=== PATIENT | male | born 1950 | race Caucasian/White ===

== ENCOUNTER 2020-03-04 19:00 | Inpatient (IN) | payer MEDICARE ==
[2020-03-04] MEDS ORDERED: SODIUM CHLORIDE 0.9% 1,000 ML IV STA (19:13)
[2020-03-04] MEDS ORDERED: HEPARIN SODIUM,PORCINE 5,000 UNIT/ML 1 ML VIAL IV STA (19:13)
[2020-03-04] MEDS ORDERED: HEPARIN SOD,PORK IN 0.45% NACL 25,000 UNIT in 0.45% NACL 1 250ML.BAG IV SCH (19:15)
--- NOTE | 2020-03-04 19:20 | ED ---
General Adult HPI - General Chief complaint: Chest Pain Stated complaint: chest pain Time Seen by Provider: 03/04/20 19:12 Source: patient, EMS Mode of arrival: EMS Limitations: no limitations - History of Present Illness Initial comments: Dictation was produced using [employer] dictation software. please excuse any grammatical, word or spelling errors. This patient was cared for during a federal and state declared state of emergency secondary to Covid 19 Chief Complaint: 69-year-old male past medical history coronary artery disease, LAD stent presents with chest pain History of Present Illness: An is a 69-year-old male presents today with ACS- type symptoms starting at 10 or 11 PM yesterday. Patient reports diaphoresis. States that the pain radiates to his right jaw. He does have established care with manager library Dr. Gomez. Patient states the pain is a pressure to his anterior chest as if somebody was grabbing and squeezing his heart. Patient does also admit to feeling clammy. Denies any cough. No numbness and paresthesias to the arms or legs. Denies any radiation of symptoms to the back. EMS was called. EMS provided patient with nitroglycerin and aspirin. He states that his pain is improved after the nitroglycerin. The ROS documented in this emergency department record has been reviewed and confirmed by me. Those systems with pertinent positive or negative responses have been documented in the HPI. All other systems are other negative and/or noncontributory. PHYSICAL EXAM: General Impression: Alert and oriented x3, acute distress secondary to pain, diaphoretic HEENT: Normocephalic atraumatic, extra-ocular movements intact, pupils equal and reactive to light bilaterally, mucous membranes moist. Cardiovascular: Heart regular rate and rhythm Chest: Able to complete full sentences, no retractions, no tachypnea Abdomen: abdomen soft, non-tender, non-distended, no organomegaly Musculoskeletal: Pulses present and equal in all extremities, no peripheral edema Motor: no focal deficits noted Neurological: CN II-XII grossly intact, no focal motor or sensory deficits noted Skin: Intact with no visualized rashes Psych: Normal affect and mood ED course: 61-year-old male with ACS-type symptoms. EKG was obtained showing ST elevations in lead V2 to V4 concerning for septal myocardial infarction. Code STEMI paged. Patient received aspirin by prehospital staff. Discussed patient case with Dr. Vegas was aware of patient. Patient will be disposition to catheterization lab. Patient started on heparin. Patient placed on library monitor with pads applied. Patient be admitted to [facility] pending discussion with accepting hospitalist. EKG interpretation: Ventricular rate 70, normal sinus rhythm, AR interval 114, QRS 86, QTC 444. No AR prolongation, no QTC prolongation, ST elevations in lead V2 through V5 consistent with ST segment elevation TN. - Related Data Home Medications Medication Instructions Recorded Confirmed Albuterol Inhaler (Mhu) [Ventolin 1 - 2 puff INHALATION Q6HR PRN 04/11/15 04/13/15 Hfa Inhaler (Mhu)] HYDROcodone/APAP 10-325MG [Rudyard 1 each PO Q4HR PRN 04/11/15 04/13/15 10-325] Lisinopril [Prinivil] 20 mg PO DAILY 04/11/15 04/13/15 Simvastatin [Zocor] 40 mg PO HS 04/11/15 04/13/15 glipiZIDE [Glucotrol] 10 mg PO BID 04/11/15 04/13/15 Allergies Allergy/AdvReac Type Severity Reaction Status Date / Time No Known Allergies Allergy Verified 04/11/15 10:37 Review of Systems ROS Statement: Those systems with pertinent positive or pertinent negative responses have been documented in the HPI. ROS Other: All systems not noted in ROS Statement are negative. Past Medical History Past Medical History: Diabetes Mellitus, Hyperlipidemia, Hypertension History of Any Multi-Drug Resistant Organisms: None Reported Past Surgical History: Back Surgery, Heart Catheterization With Stent, Orthopedic Surgery Additional Past Surgical History / Comment(s): NECK SURGERY Past Anesthesia/Blood Transfusion Reactions: No Reported Reaction Date of Last Stent Placement:: 2011 Past Psychological History: No Psychological Hx Reported Smoking Status: Current every day smoker Past Alcohol Use History: None Reported Past Drug Use History: Marijuana - Past Family History Mother Family Medical History: No Reported History General Exam Limitations: no limitations Course Vital Signs 03/04/20 19:06 Temperature 98.7 F Pulse Rate 80 Respiratory 18 Rate Blood Pressure 133/118 O2 Sat by Pulse 94 L Oximetry Disposition Clinical Impression: STEMI (ST elevation myocardial infarction) Disposition: ADMITTED IP TO THIS HOSP Condition: Critical Referrals: Brent Jensen III, MD [Primary Care Provider] - 1-2 days Decision Time: 19:24
[2020-03-04] MEDS ORDERED: NALOXONE 0.4 MG/ML 1 ML VIAL IV PRN (19:22)
[2020-03-04 19:32] LABS: Basophils # (A) 0.1 k/uL (0-0.2); Basophils % (A) 1 %; Eosinophils # (A) 0.3 k/uL (0-0.7); Eosinophils % (A) 3 %; HCT 38.8 % (39.0-53.0); HGB 12.6 gm/dL (13.0-17.5); Lymphocytes % (A) 26 %; MCH 31.8 pg (25.0-35.0); MCHC 32.4 g/dL (31.0-37.0); MCV 98.3 fL (80.0-100.0); Mean Platelet Volume 7.6; Monocytes # (A) 0.7 k/uL (0-1.0); Monocytes % (A) 6 %; Neutrophils # (A) 7.3 k/uL (1.3-7.7); Neutrophils % (A) 63 %; Platelet Count 155 k/uL (150-450); RBC 3.95 m/uL (4.30-5.90); RDW 13.5 % (11.5-15.5); WBC 11.5 k/uL (3.8-10.6)
[2020-03-04] MEDS ORDERED: NITROGLYCERIN OINT 1 INCH/GM PACKET TOPICAL STA (19:35)
[2020-03-04] MEDS ORDERED: SODIUM CHLORIDE 0.9% 500 ML 500 ML IV ONE (19:40)
[2020-03-04] MEDS ORDERED: IV FLUID CONTINUATION 800 ML IV ONE (19:40)
[2020-03-04 19:45] LABS: ALT 21 U/L (4-49); AST 36 U/L (17-59); African American GFR (CKD) >90 (>60 ml/min/1.73 sqM); Albumin 3.9 g/dL (3.5-5.0); Alkaline Phosphatase 86 U/L (38-126); Anion Gap 6 mmol/L; Blood Urea Nitrogen 19 mg/dL (9-20); Calcium 9.1 mg/dL (8.4-10.2); Carbon Dioxide 26 mmol/L (22-30); Chloride 104 mmol/L (98-107); Glucose 229 mg/dL (74-99); Non-African American GFR(CKD) >90 (>60 ml/min/1.73 sqM); Sodium 136 mmol/L (137-145); Total Bilirubin 0.8 mg/dL (0.2-1.3); Total Protein 6.7 g/dL (6.3-8.2)
[2020-03-04 19:49] LABS: Partial Thromboplastin Time 24.3 sec (22.0-30.0); Prothrombin Time 10.7 sec (9.0-12.0)
[2020-03-04] MEDS ORDERED: fentaNYL (PF) 50 MCG/ML 2 ML AMP ONE ×2 (19:49→20:12)
[2020-03-04] MEDS ORDERED: VERAPAMIL 2.5 MG/ML 2 ML AMP ONE (19:50)
[2020-03-04] MEDS ORDERED: LIDOCAINE 1% INJ 10MG/ML (20 ML MDV) ONE (19:50)
[2020-03-04] MEDS ORDERED: fentaNYL (PF) 50 MCG/ML 2 ML AMP IV ONE ×2 (19:52→20:17)
[2020-03-04] MEDS ORDERED: LIDOCAINE 1% INJ 10MG/ML (20 ML MDV) SQ ONE (19:52)
[2020-03-04] MEDS ORDERED: VERAPAMIL SYRINGE (5 MG/10 ML) INTRAARTER ONE (19:54)
[2020-03-04] MEDS ORDERED: BIVALIRUDIN BOLUS 250 MG/50 ML IV ONE (19:55)
[2020-03-04] MEDS ORDERED: BIVALIRUDIN 250 MG in SODIUM CHLORIDE 0.9% 50 ML IV ONE ×2 (19:55→20:47)
[2020-03-04] MEDS ORDERED: TICAGRELOR 90 MG TAB PO ONE (19:57)
[2020-03-04] MEDS ORDERED: TICAGRELOR 90 MG TAB ONE (19:58)
[2020-03-04 20:05] LABS: Creatine Kinase MB 7.3 ng/mL (0.0-2.4)
[2020-03-04] MEDS ORDERED: MIDAZOLAM 2 MG/2 ML VIAL IV ONE (20:05)
[2020-03-04 20:15] LABS: Troponin I 0.604 ng/mL (0.000-0.034)
[2020-03-04] MEDS ORDERED: IOPAMIDOL-370 100ML BTL INJ ONE ×3 (20:18→21:08)
[2020-03-04] MEDS: MIDAZOLAM 2 MG/2 ML VIAL IV ONE ×3 (20:19→20:43)
[2020-03-04] MEDS ORDERED: HYDROmorphone 1 MG/ML 1 ML SYRINGE IVP ONE (20:40)
[2020-03-04] MEDS ORDERED: HYDROmorphone 1 MG/ML 1 ML SYRINGE ONE (20:40)
[2020-03-04] MEDS ORDERED: RX INFO: IV CONTRAST WAS GIVEN 1 EACH MISC MISCELLANE PRN (21:42)
[2020-03-04] MEDS ORDERED: NITROGLYCERIN SL TABS 0.4 MG TAB SUBLINGUAL PRN (21:42)
[2020-03-04] MEDS ORDERED: MAG HYDROX/AL HYDROX/SIMETH 30 ML CUP PO PRN (21:42)
[2020-03-04] MEDS ORDERED: SODIUM CHLORIDE 0.9% 1,000 ML IV SCH (21:45)
[2020-03-04 22:01] LABS: Glucose,Whole Blood 186 mg/dL (75-99)
[2020-03-04] MEDS ORDERED: ATROPINE SULFATE 0.1 MG/ML 10ML SYRINGE IV PRN (23:00)
[2020-03-04] MEDS: SODIUM CHLORIDE 0.9% 1,000 ML IV SCH (23:02)
--- NOTE | 2020-03-04 23:34 | CONS ---
CONSULTATION Mr. Brock is a 69-year-old male with known history of coronary artery disease who presented with symptoms of chest discomfort that started last night on and off. In the emergency room, his EKG was consistent with ST-segment elevation in leads V3, V4 and V5. The patient had a prior history of coronary artery disease, status post stenting 10 years ago. Details of that are not available. He has been followed by Dr. Gomez in the past but has not seen him in 2 years. He has a history of diabetes, hypertension, hyperlipidemia. He stopped smoking 2 years ago. He is dyspneic at this time. His pain was radiating to the jaw. He denies any dizziness or palpitation. No syncope. No PND. No orthopnea. No peripheral edema. MEDICATIONS: His medications include simvastatin, glipizide, lisinopril. REVIEW OF SYSTEMS: RESPIRATORY SYSTEM: He had dyspnea on exertion. No recent wheezing or cough. GI SYSTEM: No recent GI bleeding. No peptic ulcer disease. SYSTEM: No dysuria or hematuria. NERVOUS SYSTEM: No stroke or seizure. PHYSICAL EXAMINATION: He is a 69-year-old male, alert, oriented, in no apparent distress, sitting in the cardiac catheterization laboratory with mild discomfort. Heart rate in the 80s. HEAD: Normocephalic. Eyes: Sclerae anicteric. NECK: Good carotid upstroke. No bruit. No jugular venous distention. LUNGS: Clear to auscultation anteriorly. HEART: Regular rate, rhythm S1, S2. No S3. No rub. ABDOMEN: Soft, nontender. Positive bowel sounds. No organomegaly. EXTREMITIES: No edema. Intact distal pulses. EKG is consistent with an anteroseptal myocardial infarction. IMPRESSION: 1. Acute myocardial infarction. 2. History of hypertension. 3. Hyperlipidemia. 4. Diabetes mellitus. 5. Prior history of coronary artery disease. RECOMMENDATIONS: I have recommended proceeding with coronary angiography to assess his status and guide his treatment. The rationale behind the procedure, its risks and complications were discussed with the patient, who is in full understanding and agreement. Thank you for this consult. Will follow with you. MMODL / IJN: [id number] /
[2020-03-05] MEDS ORDERED: ZOLPIDEM 5 MG TAB PO PRN (00:30)
[2020-03-05] MEDS ORDERED: ALBUTEROL NEBULIZED 2.5 MG/3 ML INHALATION PRN ×2 (01:51→12:07)
[2020-03-05] MEDS: ONDANSETRON 4 MG/2 ML VIAL IVP PRN ×3 (03:34→20:23)
[2020-03-05 06:06] LABS: African American GFR (CKD) >90 (>60 ml/min/1.73 sqM); Anion Gap 6 mmol/L; Blood Urea Nitrogen 13 mg/dL (9-20); Calcium 8.8 mg/dL (8.4-10.2); Carbon Dioxide 24 mmol/L (22-30); Chloride 107 mmol/L (98-107); Cholesterol 127 mg/dL (<200); Glucose 183 mg/dL (74-99); HDL Cholesterol 57 mg/dL (40-60); LDL Cholesterol,Calculated 48 mg/dL (0-99); Non-African American GFR(CKD) >90 (>60 ml/min/1.73 sqM); Potassium 4.2 mmol/L (3.5-5.1); Sodium 137 mmol/L (137-145); Triglycerides 112 mg/dL (<150)
[2020-03-05] MEDS: INSULIN ASPART (NovoLOG) 100 UNIT/ML VIAL SQ SCH ×4 (07:04→20:21)
--- NOTE | 2020-03-05 07:44 | CC ---
CARDIAC CATHETERIZATION REPORT Mr. Brock is a 69-year-old male with a known history of coronary artery disease,history of hypertension, hyperlipidemia, diabetes mellitus, prior history of smoking, who presented with symptoms of chest discomfort and ST-segment elevation anteriorly. In view of that, recommendation made regarding cardiac catheterization. The procedures, risks, and complications were discussed with the patient who is in full understanding and agreement. PROCEDURE DETAILS: Patient was brought to medical lab technologist in the fasting semi-sedated state after receiving fentanyl and Benadryl and achieving moderate conscious sedated state, a 6-Czech sheath was introduced in the right radial artery. Selective right and left Carissa catheter were done using 6-Czech FL 3.5 guiding catheter and 6-Czech right Carissa catheter. After performing angioplasty and stenting of the LAD, images of the right coronary artery were performed. Following that, 5-Czech tight pigtail catheter was introduced into the left ventricle and pressures were calculated. Following that, catheter and sheath were removed. Hemostasis was obtained with deployment of a TR band. There was no immediate complication. Patient was returned to his room in stable condition. Of note, the patient had improvement in the ST-segment elevation as well as chest discomfort. FINDINGS: Fluoroscopy: There was severe calcification involving the left coronary system. LEFT MAIN: This is a short size vessel, large in caliber, bifurcating into left circumflex, left anterior descending artery, left main coronary artery is without any obstructive disease. LEFT ANTERIOR DESCENDING ARTERY: This vessel is subtotally occluded in the mid segment with 99% stenosis at the takeoff of diagonal branch, heavily calcified and tortuous. There is slow flow in the distal vessel. LEFT CIRCUMFLEX: This is a nondominant vessel giving rise to 2 obtuse marginal branch of moderate caliber. The left circumflex has diffuse intimal disease without any evidence of high-grade stenosis. RIGHT CORONARY ARTERY: This is a large dominant vessel bifurcating distally PDA and posterolateral segment branches. The stented segment in the mid right coronary artery is patent. There is a lesion beyond the stent of about 80%. The rest of the vessel has no high-grade stenosis. LEFT VENTRICULOGRAM: Left ventriculogram was not performed. HEMODYNAMICS: There was no gradient across the aortic valve. The left ventricular end-diastolic pressure was 24-28 mmHg. CONCLUSION: 1. Heavily calcified left coronary system. 2. Subtotally occluded mid LAD. 3. Significant disease in the mid right coronary artery distal to the prior stented segment. 4. Mild to moderate disease in the left circumflex. 5. Elevated left ventricular end-diastolic pressure. RECOMMENDATION: In view of findings and anatomy, I recommend proceeding with angioplasty and stenting of the left anterior descending artery. The procedure as well as risks and complications were discussed with the patient who is in full understanding and agreement. MMNELSON / GALEN: [id number] /
--- NOTE | 2020-03-05 07:47 | PTCA ---
PERCUTANEOUSTRANS CORORONARY ANGIOGRAPHY Mr. Brock is a 69-year-old male with a known history of coronary artery disease who presented with an anterior myocardial infarction, underwent cardiac catheterization, was found to have critical stenosis involving the mid left anterior descending artery in a heavily calcified segment. In view of that, recommendation regarding angioplasty and stenting, the procedures, risks, and complications were discussed with the patient who is in full understanding and agreement. PROCEDURE DETAILS: Using the 6-Armenian FL 3.5 guiding catheter after cannulating the left main, a 0.014 balanced medium weight J-wire was advanced across the lesion positioned distally. Attempt to advance a 2.5 x 12 mm Trek balloon were unsuccessful. That balloon was removed and a 1.5 x 8 mm Trek balloon was advanced and multiple inflations at 10 atmospheres were done. Following that, the balloon was removed and attempt to advance the 2.5 balloon were unsuccessful. At that time, a Radio Waveslla catheter was introduced and with the help of the catheter, the balloon was advanced and inflation at 8 atmospheres were done. Following that, the balloon was removed and attempt to advance a 2.5 x 15 mm Xience Mar and 2.5 x 8 mm Xience Mar were unsuccessful. Those stents were removed and a 2.0 x 8 mm Resolute [place] stent was advanced, deployed and dilated at 16 atmospheres. Following that, the balloon was removed and a 2.5 x 12 mm Xience Mra stent was advanced proximal to the first one and was dilated at 16 atmospheres. Following that, a 2.5 x 8 mm NC Trek balloon was advanced and inflation in the stents were done at maximum of 14 atmospheres. After the last inflation, after appropriate wait, the balloon and the guidewire were withdrawn back in the guiding catheter. Images were obtained, repeated. Those images reveal stable successful stenting. At that time, images of the right coronary system as well as left ventricle end-diastolic pressure was calculated. Following that, catheter and sheath were removed. Hemostasis was obtained with deployment of a TR band. There was no immediate complications. Patient was returned to his room in stable condition. Of note, the patient received Angiomax per protocol as well as oral loading dose of Brilinta. His chest discomfort and EKG changes improved at the end of the procedure. During the procedure, patient was complaining from severe chronic back discomfort. RESULTS: Successful stenting of the mid left anterior descending artery with reduction of stenosis from 99% to 0% in a heavily calcified segment. RECOMMENDATION: Patient will be continued on aspirin, Brilinta, beta yaz, ANDREEA inhibitor and statin. The importance of dual antiplatelet treatment were discussed with the patient who is in full understanding and agreement. He will need to be evaluated down the road regarding the need to undergo revascularization of his right coronary artery. Duration of procedure is 94 minutes. CONNOR / BRYSONN: [id number] /
[2020-03-05] MEDS ORDERED: FUROSEMIDE 10 MG/ML 4 ML VIAL IV STA (08:23)
--- NOTE | 2020-03-05 08:48 | XR ---
EXAMINATION TYPE: XR chest 1V portable DATE OF EXAM: 03/05/2020 HISTORY: SOB. REFERENCE: Previous study dated 04/11/2015. FINDINGS: There is been a previous ACDF of the lower cervical spine. The heart is not enlarged. Pleural spaces are clear. There are coarse increased interstitial markings throughout the lungs. This may reflect fibrosis. Atypical pneumonia could have a similar appearance. I see no lobar consolidation. IMPRESSION: COARSE INTERSTITIAL CHANGE THROUGHOUT THE LUNGS MAY REFLECT FIBROSIS. ATYPICAL PNEUMONIA COULD HAVE A SIMILAR APPEARANCE.
[2020-03-05] MEDS ORDERED: METOPROLOL TARTRATE 25 MG TAB PO SCH (09:00)
[2020-03-05] MEDS ORDERED: LISINOPRIL 5 MG TAB PO SCH (09:00)
[2020-03-05] MEDS: LISINOPRIL 10 MG TAB PO SCH (09:07)
[2020-03-05] MEDS: METOPROLOL TARTRATE 25 MG TAB PO SCH ×3 (09:07→20:20)
[2020-03-05] MEDS: TICAGRELOR 90 MG TAB PO SCH ×2 (09:07→20:35)
[2020-03-05] MEDS: glipiZIDE 10 MG TAB PO SCH ×2 (09:07→20:20)
[2020-03-05] MEDS: ASPIRIN 81 MG PO SCH (09:07)
[2020-03-05] MEDS: NITROGLYCERIN OINT 1 INCH/GM PACKET TOPICAL SCH ×3 (09:08→23:54)
[2020-03-05] MEDS: SPIRONOLACTONE 25 MG TAB PO SCH (09:08)
[2020-03-05] MEDS: HEPARIN SODIUM,PORCINE 5,000 UNIT/ML 1 ML VIAL SQ SCH ×2 (09:31→20:21)
[2020-03-05 09:37] LABS: Glucose,Whole Blood 187 mg/dL (75-99)
--- NOTE | 2020-03-05 10:53 | PN ---
PROGRESS NOTE Peter is a 69-year-old gentleman with history of coronary artery disease, status post prior angioplasty, peripheral vascular disease, who presented to hospital yesterday with acute ST-segment elevation NM involving the anterior wall. He underwent emergent cardiac catheterization and angioplasty and stenting of an occluded mid LAD. He also has significant disease in the mid RCA just distal to the prior stented segment. This morning, patient is doing much better. Has some sharp precordial pain, but otherwise he is doing well and he has shortness of breath. The patient has a history of COPD. The patient has history of diabetes, hypertension, and dyslipidemia. On exam, heart rate is 80 beats per minute. Blood pressure is 140/100, respiratory rate is 18, O2 saturation is 95% on 3 L. There is no jugular venous distention. Carotid upstroke is normal. There is no bruit. Chest exam reveals bilateral rhonchi. Heart exam reveals first and second heart sounds. No gallop. No murmur. Abdomen is soft. Exam of extremities did not reveal any edema. Labs show a potassium of 4.2, creatinine of 0.57. Peak troponin is 47. LDL cholesterol is 48. The patient's current medications include aspirin, Lipitor, Glucotrol, Zestril, Lopressor. ASSESSMENT: Acute anterior wall myocardial infarction status post catheterization and angioplasty of LAD. PLAN: Patient is doing well. He will continue with his current medications. I will switch is IV heparin to subcu heparin. I will increase the dose of lisinopril, increase the dose of metoprolol for better blood pressure control and put him on an inch of nitro paste. I will give him a dose of IV Lasix as he is in mild congestive heart failure and seems somewhat short of breath at rest. I will give him albuterol on a regular basis at this time. MMODL / IJN: [id number] /
[2020-03-05] MEDS ORDERED: ALBUTEROL NEBULIZED 2.5 MG/3 ML INHALATION SCH (12:00)
--- NOTE | 2020-03-05 12:37 | P.CNPUL ---
History of Present Illness Consult date: 03/05/20 Reason for consult: dyspnea, chest pain History of present illness: A 69-year-old male patient, came into the hospital because of an acute chest pain. This started yesterday at around 11 PM. The pain was radiating to the right jaw. It was typical of an acute cardiac pain and the patient came into the emergency department where his EKG showed ST segment elevation over the anteroseptal leads consistent with acute myocardial infarction. There is a normal sinus rhythm. The initial troponin was at 0.6. The patient was immediately taken to cardiac catheterization and the patient underwent angioplasty and stenting of the subtotally occluded mid LAD lesion. He also had mild to moderate disease in the left circumflex. Left ventricular end-diastolic pressure was elevated. He was brought into the intensive care unit. He was having some shortness of breath and his chest x-ray was consistent with some interstitial edema bilaterally. He was given a dose of Lasix with excellent diuresis. He is short of breath on today's evaluation. His troponin peaked at 47. His proBNP level has not been checked for now. As mentioned, his chest x- ray showed some coarse interstitial changes consistent with interstitial edema rather than fibrosis. He has history of mild COPD and he does not utilize any form of respiratory medications or inhalers. Does not utilize oxygen on outpatient basis. He is currently free of any chest pain. No nausea. No vomiting. No abdominal pain. Aspirin and Brilinta in addition to that he was started on metoprolol 25 mg by mouth twice a day. He has also a nitroglycerin patch. The echo of the heart has been ordered and still pending for now. Review of Systems Constitutional: Denies chills, Denies fever Eyes: denies as per HPI, denies blurred vision, denies bulging eye, denies decreased vision, denies diplopia, denies discharge, denies dry eye, denies irritation, denies itching, denies pain, denies photophobia, denies loss of peripheral vision, denies loss of vision, denies tunnel vision/blind spots Ears: deny: decreased hearing, ear discharge, earache, tinnitus Ears, nose, mouth and throat: Denies headache, Denies sore throat Breasts: absent: as per HPI, gynecomastia Cardiovascular: Reports chest pain, Reports dyspnea on exertion Respiratory: Reports dyspnea Gastrointestinal: Reports as per HPI Genitourinary: Reports as per HPI Musculoskeletal: Reports as per HPI Musculoskeletal: absent: ankle pain, ankle stiffness, ankle swelling Integumentary: Reports as per HPI Neurological: Reports as per HPI Psychiatric: Reports as per HPI Endocrine: Reports as per HPI Hematologic/Lymphatic: Reports as per HPI Allergic/Immunologic: Reports as per HPI Past Medical History Past Medical History: Coronary Artery Disease (CAD), COPD, Diabetes Mellitus, Hyperlipidemia, Hypertension History of Any Multi-Drug Resistant Organisms: None Reported Past Surgical History: Back Surgery, Heart Catheterization With Stent, Orthopedic Surgery Additional Past Surgical History / Comment(s): NECK SURGERY Past Anesthesia/Blood Transfusion Reactions: No Reported Reaction Date of Last Stent Placement:: 2011 Past Psychological History: No Psychological Hx Reported Smoking Status: Former smoker Past Alcohol Use History: None Reported Past Drug Use History: Marijuana Additional Drug Use History / Comment(s): daily in am HAS CARD - Past Family History Mother Family Medical History: No Reported History Medications and Allergies Home Medications Medication Instructions Recorded Confirmed Type HYDROcodone/APAP 10-325MG [[place] 1 tab PO Q4HR PRN 04/11/15 03/05/20 History 10-325] Lisinopril [Prinivil] 20 mg PO DAILY 04/11/15 03/05/20 History Simvastatin [Zocor] 40 mg PO HS 04/11/15 03/05/20 History ALPRAZolam [Xanax] 1 mg PO BID PRN 03/05/20 03/05/20 History Albuterol Sulfate [Albuterol 2 puff PO RT-QID 03/05/20 03/05/20 History Sulfate Hfa] glipiZIDE [Glucotrol XL] 10 mg PO BID 03/05/20 03/05/20 History Allergies Allergy/AdvReac Type Severity Reaction Status Date / Time No Known Allergies Allergy Verified 03/05/20 09:24 Physical Exam Vitals: Vital Signs Temp Pulse Resp BP Pulse Ox 03/05/20 12:00 98.3 F 76 25 H 136/83 95 03/05/20 11:07 86 03/05/20 11:00 78 25 H 176/101 96 03/05/20 10:58 82 03/05/20 10:00 100 32 H 162/128 94 L 03/05/20 09:00 78 27 H 153/94 95 03/05/20 08:00 98.5 F 95 25 H 133/92 95 03/05/20 07:00 84 21 143/115 95 03/05/20 06:00 89 22 153/93 93 L 03/05/20 05:00 80 22 154/88 96 03/05/20 04:00 98.0 F 90 23 151/88 93 L 03/05/20 03:30 113 H 22 92 L 03/05/20 03:15 100 03/05/20 03:05 100 03/05/20 03:00 81 24 154/76 95 03/05/20 02:30 79 26 H 94 L 03/05/20 02:00 56 L 21 145/97 95 03/05/20 01:30 69 22 148/100 96 03/05/20 01:00 82 18 152/84 95 03/05/20 00:30 73 22 95 03/05/20 00:10 86 21 94 L 03/05/20 00:00 98.5 F 92 21 151/92 94 L 03/04/20 23:30 68 20 96 03/04/20 23:27 98.5 F 03/04/20 23:00 75 21 138/80 95 03/04/20 22:57 98.3 F 03/04/20 22:30 97 22 148/79 96 03/04/20 22:10 98.1 F 80 20 148/79 95 03/04/20 22:02 80 37 H 03/04/20 19:33 76 18 138/85 97 03/04/20 19:22 76 18 143/75 97 03/04/20 19:06 98.7 F 80 18 133/118 94 L Intake and Output 03/04/20 03/05/20 03/05/20 22:59 06:59 14:59 Intake Total 415 800 Output Total 260 609 4732 Balance 165 250 -202 Intake: IV 315 Intake, IV Titration 100 800 Amount Sodium Chloride 0.9% 1, 100 800 000 ml @ 100 mls/hr IV . Q10H [facility] Rx#:[id number] Output: Urine 917 199 0238 Other: Voiding Method Urinal Urinal Urinal # Voids 0 Weight 104.326 kg 95.9 kg The patient appeared well nourished and normally developed. Vital signs as documented. Head exam is unremarkable. No scleral icterus or corneal arcus noted. Neck is without jugular venous distension, thyromegaly, or carotid bruits. Carotid upstrokes are brisk bilaterally. Lungs are diminished but they're clear. There is some minimal crackles in lung bases bilaterally. Cardiac exam reveals the PMI to be normally sized and situated. Rhythm is regular. First and second heart sounds normal. No murmurs, rubs or gallops. Abdominal exam reveals normal bowel sounds, no masses, no organomegaly and no aortic enlargement. Extremities are nonedematous and both femoral and pedal pulses are normal.Examination of the skin revealed no evidence of significant rashes, suspicious appearing nevi or other concerning lesions. Neurologically the patient is awake and alert and there is no focal neurological deficits. Results - Laboratory Findings CBC and BMP: 03/04/20 19:15 03/05/20 04:52 PT/INR, D-dimer PT 10.7 sec (9.0-12.0) 03/04/20 19:15 INR 1.0 (<1.2) 03/04/20 19:15 Abnormal lab findings: Abnormal Labs 03/04/20 03/04/20 03/04/20 19:15 19:15 19:15 WBC 11.5 H RBC 3.95 L Hgb 12.6 L Hct 38.8 L Sodium 136 L Creatinine Glucose 229 H POC Glucose (mg/dL) Total Creatine Kinase 304 H CK-MB (CK-2) 7.3 H Troponin I 0.604 H* 03/04/20 03/05/20 03/05/20 22:00 00:30 04:52 WBC RBC Hgb Hct Sodium Creatinine 0.57 L Glucose 183 H POC Glucose (mg/dL) 186 H Total Creatine Kinase CK-MB (CK-2) Troponin I 19.700 H* 03/05/20 03/05/20 04:52 09:35 WBC RBC Hgb Hct Sodium Creatinine Glucose POC Glucose (mg/dL) 187 H Total Creatine Kinase CK-MB (CK-2) Troponin I 47.800 H* - Diagnostic Findings Chest x-ray: image reviewed Assessment and Plan Plan: [address] segment elevation myocardial infarction. The patient is post emergent cardiac catheterization and stenting of the subtotally occluded mid LAD lesion. The troponin peaked at 47. Currently free of any chest pain. The patient is on accommodation of aspirin and Brilinta and beta blockers. 2 coronary artery disease with previous stenting of the RCA and a cardiac catheterization showing some significant disease distal to the lesion 3 mild to moderate disease involving the circumflex 4 suspect CHF as the patient had an elevated left ventricular end-diastolic pressure. This could be related to the acute [place]. Echocardiogram is pending for now. 5 shortness of breath secondary to interstitial edema likely secondary to CHF. The patient responded nicely to diuretics 6 COPD currently inactive in stable 7 hypertension 8 hyperlipidemia 9 diabetes mellitus 10 previous history of smoking Plan Continue aspirin and Brilinta and metoprolol Nitroglycerin patch for chest pain Zestril for blood pressure control Glucotrol for blood sugar control 10 mg by mouth twice a day along with a NovoLog sliding scale coverage Echocardiogram to assess LV function and valvular functions Given a dose of Lasix and the patient responded well. The patient is less short of breath. Continue abdominal breast units [id number] 4 times a day plus when necessary Keep the patient ICU for another 24 hours. We'll continue to follow.
--- NOTE | 2020-03-05 13:38 | ECHOF ---
Referral Reason:ami MEASUREMENTS -------- HEIGHT: 182.9 cm WEIGHT: 95.7 kg BP: 143/115 RVIDd: 4.0 cm (< 3.3) IVSd: 1.5 cm (0.6 - 1.1) LVIDd: 5.7 cm (3.9 - 5.3) LVPWd: 1.6 cm (0.6 - 1.1) IVSs: 2.0 cm LVIDs: 3.8 cm LVPWs: 1.9 cm LA Diam: 3.7 cm (2.7 - 3.8) LAESV Index (A-L): 35.54 ml/m Ao Diam: 3.6 cm (2.0 - 3.7) AV Cusp: 2.3 cm (1.5 - 2.6) MV EXCURSION: 30.976 mm (> 18.000) MV EF SLOPE: 174 mm/s (70 - 150) MV E Jace: 0.64 m/s MV DecT: 171 ms MV A Jace: 0.57 m/s MV E/A Ratio: 1.11 RAP: 15.00 mmHg RVSP: 72.91 mmHg FINDINGS -------- This was a technically adequate study. The left ventricular size is normal. There is moderate concentric left ventricular hypertrophy. O verall left ventricular systolic function is moderate-severely impaired with, an EF between 30 - 35 % . Apical anterior LV wall motion is hypokinetic. Apical lateral LV wall motion is hypokinetic. Apical inferior LV wall motion is hypokinetic. Apical septum LV wall motion is hypokinetic. The right ventricle is moderately enlarged. LA is moderately dilated 34-39 ml/m2 The right atrium is normal in size. Interatrial and interventricular septum intact. The aortic valve is trileaflet and appears structurally normal. There is trace mitral regurgitation. [id number] tricuspid regurgitation present. There is severe pulmonary hypertension. The rig ht ventricular systolic pressure, as measured by Doppler, is 72.91mmHg. The pulmonic valve was not well visualized. The aortic root size is normal. The inferior vena cava is dilated with no significant inspiratory collapse which is consistent estima juana right atrial pressure of >15 mmHg. There is no pericardial effusion. CONCLUSIONS -------- 1. This was a technically adequate study. 2. The left ventricular size is normal. 3. There is moderate concentric left ventricular hypertrophy. 4. Overall left ventricular systolic function is moderate-severely impaired with, an EF between 30 - 35 %. 5. Apical anterior LV wall motion is hypokinetic. 6. Apical lateral LV wall motion is hypokinetic. 7. Apical inferior LV wall motion is hypokinetic. 8. Apical septum LV wall motion is hypokinetic. 9. The right ventricle is moderately enlarged. 10. LA is moderately dilated 34-39 ml/m2 11. The right atrium is normal in size. 12. Interatrial and interventricular septum intact. 13. The aortic valve is trileaflet and appears structurally normal. 14. There is trace mitral regurgitation. 15. [id number] tricuspid regurgitation present. 16. There is severe pulmonary hypertension. 17. The right ventricular systolic pressure, as measured by Doppler, is 72.91mmHg. 18. The pulmonic valve was not well visualized. 19. The aortic root size is normal. 20. The inferior vena cava is dilated with no significant inspiratory collapse which is consistent es timated right atrial pressure of >15 mmHg. 21. There is no pericardial effusion. [employer] CONSULTANT: Suzan Karimi RDCS
[2020-03-05] MEDS ORDERED: PROMETHAZINE INJ 12.5 MG in SODIUM CHLORIDE 0.9% 50 ML IVPB PRN (13:42)
[2020-03-05 13:43] LABS: Glucose,Whole Blood 199 mg/dL (75-99)
[2020-03-05] MEDS ORDERED: ONDANSETRON 4 MG/2 ML VIAL IVP STA (14:15)
[2020-03-05 17:38] LABS: Glucose,Whole Blood 172 mg/dL (75-99)
--- NOTE | 2020-03-05 17:46 | P.HPIM ---
History of Present Illness This is a pleasant 69 years old male with past medical history of diabetes mellitus, hypertension, hyperlipidemia, COPD, peripheral artery disease, coronary artery disease presents on 626 with chest pain. Found to have elevated troponin 19.7 and 47.8, EKG was showing ST elevation in the anteroapical and anterolateral leads eventually patient was taken emergently to cardiac cath where he underwent coronary angiography and successful stenting of the left anterior descending artery. Postoperatively patient is doing well and he denies chest pain or dyspnea, no abdominal pain component. No nausea vomiting. No change in urine or bowel habits. No change in mental status. No fever. However he was complaining of from some nausea this morning which is partially relieved by Zofran 4 mg, the front was increased to 8 mg and Phenergan added in case his needed. Patient was kept on aspirin and Brillinta n is added. Also patient is on a ANDREEA inhibitor and beta yaz Review of Systems CONSTITUTIONAL: No fever, no malaise, no fatigue. HEENT: No recent visual problems or hearing problems. Denied any sore throat. CARDIOVASCULAR: No orthopnea, PND, no palpitations, no syncope. PULMONARY: No shortness of breath, no cough, no hemoptysis. GASTROINTESTINAL: No diarrhea, no nausea, no vomiting, no abdominal pain. Normoactive bowel sounds. NEUROLOGICAL: No headaches, no weakness, no numbness. HEMATOLOGICAL: Denies any bleeding or petechiae. GENITOURINARY: Denies any burning micturition, frequency, or urgency. MUSCULOSKELETAL/RHEUMATOLOGICAL: Denies any joint pain, swelling, or any muscle pain. ENDOCRINE: Denies any polyuria or polydipsia. Past Medical History Past Medical History: Coronary Artery Disease (CAD), COPD, Diabetes Mellitus, Hyperlipidemia, Hypertension History of Any Multi-Drug Resistant Organisms: None Reported Past Surgical History: Back Surgery, Heart Catheterization With Stent, Orthopedic Surgery Additional Past Surgical History / Comment(s): NECK SURGERY Past Anesthesia/Blood Transfusion Reactions: No Reported Reaction Date of Last Stent Placement:: 2011 Past Psychological History: No Psychological Hx Reported Smoking Status: Former smoker Past Alcohol Use History: None Reported Past Drug Use History: Marijuana Additional Drug Use History / Comment(s): daily in am HAS CARD - Past Family History Mother Family Medical History: No Reported History Medications and Allergies Home Medications Medication Instructions Recorded Confirmed Type HYDROcodone/APAP 10-325MG [[place] 1 tab PO Q4HR PRN 04/11/15 03/05/20 History 10-325] Lisinopril [Prinivil] 20 mg PO DAILY 04/11/15 03/05/20 History Simvastatin [Zocor] 40 mg PO HS 04/11/15 03/05/20 History ALPRAZolam [Xanax] 1 mg PO BID PRN 03/05/20 03/05/20 History Albuterol Sulfate [Albuterol 2 puff PO RT-QID 03/05/20 03/05/20 History Sulfate Hfa] glipiZIDE [Glucotrol XL] 10 mg PO BID 03/05/20 03/05/20 History Allergies Allergy/AdvReac Type Severity Reaction Status Date / Time No Known Allergies Allergy Verified 03/05/20 09:24 Physical Exam Vitals: Vital Signs Temp Pulse Resp BP Pulse Ox 03/05/20 17:00 87 14 129/89 94 L 03/05/20 16:00 99.0 F 80 22 140/84 95 03/05/20 15:01 95 03/05/20 15:00 80 21 149/92 94 L 03/05/20 14:00 87 20 134/97 94 L 03/05/20 13:00 75 26 H 137/86 95 03/05/20 12:00 98.3 F 76 25 H 136/83 95 03/05/20 11:07 86 03/05/20 11:00 78 25 H 176/101 96 03/05/20 10:58 82 03/05/20 10:00 100 32 H 162/128 94 L 03/05/20 09:00 78 27 H 153/94 95 03/05/20 08:00 98.5 F 95 25 H 133/92 95 03/05/20 07:00 84 21 143/115 95 03/05/20 06:00 89 22 153/93 93 L 03/05/20 05:00 80 22 154/88 96 03/05/20 04:00 98.0 F 90 23 151/88 93 L 03/05/20 03:30 113 H 22 92 L 03/05/20 03:15 100 03/05/20 03:05 100 03/05/20 03:00 81 24 154/76 95 03/05/20 02:30 79 26 H 94 L 03/05/20 02:00 56 L 21 145/97 95 03/05/20 01:30 69 22 148/100 96 03/05/20 01:00 82 18 152/84 95 03/05/20 00:30 73 22 95 03/05/20 00:10 86 21 94 L 03/05/20 00:00 98.5 F 92 21 151/92 94 L 03/04/20 23:30 68 20 96 03/04/20 23:27 98.5 F 03/04/20 23:00 75 21 138/80 95 03/04/20 22:57 98.3 F 03/04/20 22:30 97 22 148/79 96 03/04/20 22:10 98.1 F 80 20 148/79 95 03/04/20 22:02 80 37 H 03/04/20 19:33 76 18 138/85 97 03/04/20 19:22 76 18 143/75 97 03/04/20 19:06 98.7 F 80 18 133/118 94 L Intake and Output 03/05/20 03/05/20 03/05/20 06:59 14:59 22:59 Intake Total 800 Output Total 550 2275 0 Balance 250 -2275 0 Intake: Intake, IV Titration 800 Amount Sodium Chloride 0.9% 1, 800 000 ml @ 100 mls/hr IV . Q10H [facility] Rx#:[id number] Output: Urine 550 2275 0 Other: Voiding Method Urinal Urinal Urinal # Voids 0 Weight 95.9 kg GENERAL: The patient is alert and oriented x3, not in any acute distress. Well developed, well nourished. HEENT: Pupils are round and equally reacting to light. EOMI. No scleral icterus. No conjunctival pallor. Normocephalic, atraumatic. No pharyngeal erythema. No thyromegaly. CARDIOVASCULAR: S1 and S2 present. No murmurs, rubs, or gallops. PULMONARY: Chest is clear to auscultation, no wheezing or crackles. ABDOMEN: Soft, nontender, nondistended, normoactive bowel sounds. No palpable organomegaly. MUSCULOSKELETAL: No joint swelling or deformity. EXTREMITIES: No cyanosis, clubbing, or pedal edema. NEUROLOGICAL: Gross neurological examination did not reveal any focal deficits. SKIN: No rashes. No petechiae Results CBC & Chem 7: 03/04/20 19:15 03/05/20 04:52 Labs: Abnormal Lab Results - Last 24 Hours (Table) 03/04/20 03/04/20 03/04/20 Range/Units 19:15 19:15 19:15 WBC 11.5 H (3.8-10.6) k/uL RBC 3.95 L (4.30-5.90) m/uL Hgb 12.6 L (13.0-17.5) gm/dL Hct 38.8 L (39.0-53.0) % Sodium 136 L (137-145) mmol/L Creatinine (0.66-1.25) mg/dL Glucose 229 H (74-99) mg/dL POC Glucose (mg/dL) (75-99) mg/dL Total Creatine Kinase 304 H (55-170) U/L CK-MB (CK-2) 7.3 H (0.0-2.4) ng/mL Troponin I 0.604 H* (0.000-0.034) ng/mL 03/04/20 03/05/20 03/05/20 Range/Units 22:00 00:30 04:52 WBC (3.8-10.6) k/uL RBC (4.30-5.90) m/uL Hgb (13.0-17.5) gm/dL Hct (39.0-53.0) % Sodium (137-145) mmol/L Creatinine 0.57 L (0.66-1.25) mg/dL Glucose 183 H (74-99) mg/dL POC Glucose (mg/dL) 186 H (75-99) mg/dL Total Creatine Kinase (55-170) U/L CK-MB (CK-2) (0.0-2.4) ng/mL Troponin I 19.700 H* (0.000-0.034) ng/mL 03/05/20 03/05/20 03/05/20 Range/Units 04:52 09:35 13:42 WBC (3.8-10.6) k/uL RBC (4.30-5.90) m/uL Hgb (13.0-17.5) gm/dL Hct (39.0-53.0) % Sodium (137-145) mmol/L Creatinine (0.66-1.25) mg/dL Glucose (74-99) mg/dL POC Glucose (mg/dL) 187 H 199 H (75-99) mg/dL Total Creatine Kinase (55-170) U/L CK-MB (CK-2) (0.0-2.4) ng/mL Troponin I 47.800 H* (0.000-0.034) ng/mL Thrombosis Risk Factor Assmnt - Choose All That Apply Each Factor Represents 1 point: Acute CA Thrombosis Risk Factor Assessment Total Risk Factor Score: 1 Thrombosis Risk Factor Assessment Level: Low Risk Assessment and Plan Assessment: Diabetes mellitus Hypertension and hyperlipidemia Peripheral vascular disease Coronary artery disease COPD, not acute exacerbation Plan: This is a pleasant 69 years old male who presents with a steady. Continue with aspirin and Brillinta . Continue with metoprolol and lisinopril. Cardiac team from closely. Labs and medication were reviewed.. Continue same treatment. Continue with symptomatic treatment. Resume home medication. Monitor lytes and vitals. DVT and GI prophylaxis. Further recommendations of the clinical course of the patient DVT prophylaxis: Subcutaneous heparin GI Prophylaxis: Pepcid
[2020-03-05 20:11] LABS: Glucose,Whole Blood 171 mg/dL (75-99)
[2020-03-05] MEDS: ATORVASTATIN 80 MG TAB PO SCH (20:20)
[2020-03-05] MEDS: SODIUM CHLORIDE 0.9% 1,000 ML IV SCH (20:22)
[2020-03-06 05:47] LABS: African American GFR (CKD) >90 (>60 ml/min/1.73 sqM); Anion Gap 9 mmol/L; Blood Urea Nitrogen 20 mg/dL (9-20); Carbon Dioxide 24 mmol/L (22-30); Chloride 100 mmol/L (98-107); Glucose 231 mg/dL (74-99); Non-African American GFR(CKD) >90 (>60 ml/min/1.73 sqM); Potassium 3.7 mmol/L (3.5-5.1); Sodium 133 mmol/L (137-145)
[2020-03-06] MEDS: ONDANSETRON 4 MG/2 ML VIAL IVP PRN (05:51)
--- NOTE | 2020-03-06 06:13 | XR ---
EXAMINATION TYPE: XR chest 1V portable DATE OF EXAM: 03/06/2020 HISTORY: follow up/COPD. REFERENCE: Previous study dated 03/05/2020. FINDINGS: There is been a previous ACDF of the lower cervical spine. There continues to be coarse interstitial change more marked on the right than the left. The heart is not enlarged. There is blunting of the right CP angle. I could not exclude a small effusion. IMPRESSION: 1. CONTINUING COARSE INTERSTITIAL CHANGE MORE MARKED ON THE RIGHT THAN THE LEFT. 2. I COULD NOT EXCLUDE A SMALL RIGHT EFFUSION.
[2020-03-06] MEDS: INSULIN ASPART (NovoLOG) 100 UNIT/ML VIAL SQ SCH ×4 (06:54→21:13)
[2020-03-06] MEDS ORDERED: POTASSIUM CHLORIDE ER 20 MEQ TAB.ER PO SCH (07:00)
[2020-03-06 07:56] LABS: Glucose,Whole Blood 255 mg/dL (75-99)
[2020-03-06] MEDS: NITROGLYCERIN OINT 1 INCH/GM PACKET TOPICAL SCH (08:15)
[2020-03-06] MEDS: SPIRONOLACTONE 25 MG TAB PO SCH (08:15)
[2020-03-06] MEDS: HEPARIN SODIUM,PORCINE 5,000 UNIT/ML 1 ML VIAL SQ SCH (08:15)
[2020-03-06] MEDS: glipiZIDE 10 MG TAB PO SCH ×2 (08:15→21:12)
[2020-03-06] MEDS: METOPROLOL TARTRATE 25 MG TAB PO SCH ×3 (08:15→21:11)
[2020-03-06] MEDS: TICAGRELOR 90 MG TAB PO SCH (08:15)
[2020-03-06] MEDS: ASPIRIN 81 MG PO SCH (08:15)
[2020-03-06] MEDS ORDERED: LISINOPRIL 10 MG TAB PO STA (08:34)
[2020-03-06] MEDS: HYDROcodone/APAP 10-325MG 1 EACH TAB PO PRN ×4 (08:40→22:12)
[2020-03-06] MEDS: FUROSEMIDE 40 MG TAB PO SCH (08:40)
[2020-03-06] MEDS ORDERED: LISINOPRIL 10 MG TAB PO SCH (09:00)
--- NOTE | 2020-03-06 10:00 | PN ---
PROGRESS NOTE 69-year-old gentleman was admitted to hospital with acute anterior wall myocardial infarction. This morning he is doing much better. He is not short of breath. Denies chest pain, and his difficulty in breathing has improved. An echocardiogram on him shows an ejection fraction of 30% to 35% with akinetic apex. He has moderate to severe pulmonary hypertension secondary to COPD. He was in congestive heart failure yesterday, gave him a dose of IV Lasix. He put out 1800 mL of urine and is feeling much better. EXAM: Comfortable at rest. Vital signs are stable. Respiratory rate is 25, blood pressure is 106/56, O2 saturation is 95% on room air. There is no jugular venous distention. Chest exam reveals good air entry bilaterally. There are no crackles or rhonchi. Heart exam reveals first and second heart sounds. No gallop. No murmur. Abdomen soft. Exam of extremities did not reveal any edema. Peripheral pulses are felt. Radial artery access site appears normal. Labs show a potassium of 3.7, creatinine is 0.59. Current medications include aspirin and Lipitor. I am starting him on Lasix 40 mg daily, subcu heparin, Lopressor 25 t.i.d., Zestril 20 daily, and K-Dur, Aldactone, Brilinta. ASSESSMENT: 1. Status post anterior myocardial infarction catheterization and angioplasty of LAD. The patient has a significant lesion within the right coronary artery which needs to be addressed at a later time. 2. Ischemic cardiomyopathy. 3. Acute onset systolic heart failure. The patient is doing much better. Hopefully home on Saturday. MMNELSON / BRYSONN: [id number] /
--- NOTE | 2020-03-06 10:19 | P.PN ---
Subjective Progress Note Date: 03/06/20 A 69-year-old male patient, came into the hospital because of an acute chest pain. This started yesterday at around 11 PM. The pain was radiating to the right jaw. It was typical of an acute cardiac pain and the patient came into the emergency department where his EKG showed ST segment elevation over the anteroseptal leads consistent with acute myocardial infarction. There is a normal sinus rhythm. The initial troponin was at 0.6. The patient was immediately taken to cardiac catheterization and the patient underwent angioplasty and stenting of the subtotally occluded mid LAD lesion. He also had mild to moderate disease in the left circumflex. Left ventricular end-diastolic pressure was elevated. He was brought into the intensive care unit. He was having some shortness of breath and his chest x-ray was consistent with some interstitial edema bilaterally. He was given a dose of Lasix with excellent diuresis. He is short of breath on today's evaluation. His troponin peaked at 47. His proBNP level has not been checked for now. As mentioned, his chest x- ray showed some coarse interstitial changes consistent with interstitial edema rather than fibrosis. He has history of mild COPD and he does not utilize any form of respiratory medications or inhalers. Does not utilize oxygen on outpatient basis. He is currently free of any chest pain. No nausea. No vomiting. No abdominal pain. Aspirin and Brilinta in addition to that he was started on metoprolol 25 mg by mouth twice a day. He has also a nitroglycerin patch. The echo of the heart has been ordered and still pending for now. On 03/06/2020, the patient not having any difficulties in breathing. Is less short of breath compared to yesterday. He got diuretics yesterday and he producing adequate amount of urine output and he is a negative fluid balance. No angina. No palpitation. He had some nausea. No chest pain. No jaw pain. No back pain. No cardiac arrhythmias. He is hemodynamically stable. He is on a combination of aspirin and Brilinta. His taken Lasix 40 mg by mouth daily. His blood sugars are under adequate control. No signs of any COPD exacerbation. His follow-up chest x-ray shows improvement in the volume status. Objective - Vital Signs Vital signs: Vital Signs Temp 98.3 F 03/06/20 04:00 Pulse 88 03/06/20 07:00 Resp 25 H 03/06/20 07:00 BP 106/56 03/06/20 07:00 Pulse Ox 95 03/06/20 07:00 Intake & Output 03/05/20 03/06/20 03/06/20 18:59 06:59 18:59 Intake Total 240 Output Total 2275 400 Balance -2275 -160 Weight 88.6 kg Intake: Oral 240 Output: Urine 2275 400 Other: Voiding Method Urinal Urinal # Voids 0 0 1 # Bowel Movements 1 1 - Exam The patient appeared well nourished and normally developed. Vital signs as documented. Head exam is unremarkable. No scleral icterus or corneal arcus noted. Neck is without jugular venous distension, thyromegaly, or carotid bruits. Carotid upstrokes are brisk bilaterally. Lungs are diminished but they're clear. There is some minimal crackles in lung bases bilaterally. Cardiac exam reveals the PMI to be normally sized and situated. Rhythm is reg ular. First and second heart sounds normal. No murmurs, rubs or gallops. Abdominal exam reveals normal bowel sounds, no masses, no organomegaly and no aortic enlargement. Extremities are nonedematous and both femoral and pedal pulses are normal.Examination of the skin revealed no evidence of significant rashes, suspicious appearing nevi or other concerning lesions. Neurologically the patient is awake and alert and there is no focal neurological deficits. - Labs CBC & Chem 7: 03/04/20 19:15 03/06/20 05:11 Labs: Abnormal Lab Results - Last 24 Hours (Table) 03/05/20 03/05/20 03/05/20 Range/Units 13:42 17:36 20:10 Sodium (137-145) mmol/L Creatinine (0.66-1.25) mg/dL Glucose (74-99) mg/dL POC Glucose (mg/dL) 199 H 172 H 171 H (75-99) mg/dL 03/06/20 03/06/20 Range/Units 05:11 07:54 Sodium 133 L (137-145) mmol/L Creatinine 0.59 L (0.66-1.25) mg/dL Glucose 231 H (74-99) mg/dL POC Glucose (mg/dL) 255 H (75-99) mg/dL Assessment and Plan Plan: [address] segment elevation myocardial infarction. The patient is post emergent cardiac catheterization and stenting of the subtotally occluded mid LAD lesion. The troponin peaked at 47. Currently free of any chest pain. The patient is on accommodation of aspirin and Brilinta and beta blockers. The patient is clinically improving. The patient is having no chest pain. He is on accommodation of aspirin and Brilinta. Is on beta blockers. No cardiac arrhyt hmias have been noted. Awaiting echocardiogram. 2 coronary artery disease with previous stenting of the RCA and a cardiac catheterization showing some significant disease distal to the lesion 3 mild to moderate disease involving the circumflex 4 suspect CHF as the patient had an elevated left ventricular end-diastolic pressure. This could be related to the acute UT. Echocardiogram is pending for now. 5 shortness of breath secondary to interstitial edema likely secondary to CHF. The patient responded nicely to diuretics 6 COPD currently inactive in stable 7 hypertension 8 hyperlipidemia 9 diabetes mellitus 10 previous history of smoking Plan Continue aspirin and Brilinta and metoprolol Nitroglycerin patch for chest pain Zestril for blood pressure control Glucotrol for blood sugar control 10 mg by mouth twice a day along with a NovoLog sliding scale coverage Echocardiogram to assess LV function and valvular functions Continue oral Lasix and the patient has diuresed adequately and is a short of breath and currently is on room air oxygen. Continue albuterol nebulized treatments around the clock May transfer to selective/telemetry unit.
[2020-03-06 12:11] LABS: Glucose,Whole Blood 236 mg/dL (75-99)
--- NOTE | 2020-03-06 13:21 | P.PN ---
Subjective This is a pleasant 69 years old male with past medical history of diabetes mellitus, hypertension, hyperlipidemia, COPD, peripheral artery disease, coronary artery disease presents on 626 with chest pain. Found to have elevated troponin 19.7 and 47.8, EKG was showing ST elevation in the anteroapical and anterolateral leads eventually patient was taken emergently to cardiac cath where he underwent coronary angiography and successful stenting of the left anterior descending artery. Postoperatively patient is doing well and he denies chest pain or dyspnea, no abdominal pain component. No nausea vomiting. No change in urine or bowel habits. No change in mental status. No fever. However he was complaining of from some nausea this morning which is partially relieved by Zofran 4 mg, the front was increased to 8 mg and Phenergan added in case his needed. Patient was kept on aspirin and Brillinta is added. Also patient is on a ANDREEA inhibitor and beta yaz 03/06/2020 Patient is clinically doing well. No chest pain or dyspnea. Distal have some nausea which is better controlled with anti-emetic. Also patient has chronic low back pain. Labs and vitals are stable, sodium is 133, sugar on the high side, give the patient on sliding scale He is on aspirin and Brillinta Objective - Vital Signs Vital signs: Vital Signs Temp 98.6 F 03/06/20 08:00 Pulse 82 03/06/20 08:00 Resp 26 H 03/06/20 08:00 BP 142/82 03/06/20 08:00 Pulse Ox 94 L 03/06/20 08:00 Intake & Output 03/05/20 03/06/20 03/06/20 18:59 06:59 18:59 Intake Total 240 Output Total 2275 400 Balance -2275 -160 Weight 88.6 kg Intake: Oral 240 Output: Urine 2275 400 Other: Voiding Method Urinal Urinal Toilet Urinal # Voids 0 0 1 # Bowel Movements 1 1 - Exam GENERAL: The patient is alert and oriented x3, not in any acute distress. Well developed, well nourished. HEENT: Pupils are round and equally reacting to light. EOMI. No scleral icterus. No conjunctival pallor. Normocephalic, atraumatic. No pharyngeal erythema. No thyromegaly. CARDIOVASCULAR: S1 and S2 present. No murmurs, rubs, or gallops. PULMONARY: Chest is clear to auscultation, no wheezing or crackles. ABDOMEN: Soft, nontender, nondistended, normoactive bowel sounds. No palpable organomegaly. MUSCULOSKELETAL: No joint swelling or deformity. EXTREMITIES: No cyanosis, clubbing, or pedal edema. NEUROLOGICAL: Gross neurological examination did not reveal any focal deficits. SKIN: No rashes. no petechiae. - Labs CBC & Chem 7: 03/04/20 19:15 03/06/20 05:11 Labs: Abnormal Lab Results - Last 24 Hours (Table) 03/05/20 03/05/20 03/05/20 Range/Units 13:42 17:36 20:10 Sodium (137-145) mmol/L Creatinine (0.66-1.25) mg/dL Glucose (74-99) mg/dL POC Glucose (mg/dL) 199 H 172 H 171 H (75-99) mg/dL 03/06/20 03/06/20 03/06/20 Range/Units 05:11 07:54 12:09 Sodium 133 L (137-145) mmol/L Creatinine 0.59 L (0.66-1.25) mg/dL Glucose 231 H (74-99) mg/dL POC Glucose (mg/dL) 255 H 236 H (75-99) mg/dL Assessment and Plan Assessment: Diabetes mellitus Hypertension and hyperlipidemia Peripheral vascular disease Coronary artery disease COPD, not acute exacerbation Plan: This is a pleasant 69 years old male who presents with a steady. Continue with aspirin and Brillinta . Continue with metoprolol and lisinopril. Cardiac team from closely. Labs and medication were reviewed.. Continue same treatment. Continue with symptomatic treatment. Resume home medication. Monitor lytes and vitals. DVT and GI prophylaxis. Further recommendations of the clinical course of the patient DVT prophylaxis: Subcutaneous heparin GI Prophylaxis: Pepcid
[2020-03-06 13:41] VITALS: BMI 26.4
[2020-03-06 17:47] LABS: Glucose,Whole Blood 200 mg/dL (75-99)
[2020-03-06] MEDS ORDERED: HEPARIN SODIUM,PORCINE 5,000 UNIT/ML 1 ML VIAL IV PRN (18:22)
[2020-03-06] MEDS ORDERED: HEPARIN SODIUM,PORCINE 5,000 UNIT/ML 1 ML VIAL IV ONE (18:22)
[2020-03-06] MEDS ORDERED: CLOPIDOGREL 75 MG TAB PO STA (18:22)
[2020-03-06] MEDS: HEPARIN SOD,PORK IN 0.45% NACL 25,000 UNIT in 0.45% NACL 1 250ML.BAG IV SCH (18:48)
[2020-03-06 19:13] LABS: Basophils # (A) 0.1 k/uL (0-0.2); Basophils % (A) 0 %; Eosinophils # (A) 0.2 k/uL (0-0.7); Eosinophils % (A) 1 %; HCT 42.3 % (39.0-53.0); HGB 13.9 gm/dL (13.0-17.5); Lymphocytes # (A) 1.6 k/uL (1.0-4.8); Lymphocytes % (A) 7 %; MCHC 32.9 g/dL (31.0-37.0); MCV 97.1 fL (80.0-100.0); Monocytes # (A) 1.3 k/uL (0-1.0); Monocytes % (A) 5 %; Neutrophils # (A) 20.8 k/uL (1.3-7.7); Neutrophils % (A) 86 %; Platelet Count 173 k/uL (150-450); RBC 4.36 m/uL (4.30-5.90); RDW 13.3 % (11.5-15.5); WBC 24.2 k/uL (3.8-10.6)
[2020-03-06 19:27] LABS: INR 1.1 (<1.2); Partial Thromboplastin Time 25.7 sec (22.0-30.0); Prothrombin Time 10.8 sec (9.0-12.0)
[2020-03-06 20:34] LABS: Glucose,Whole Blood 203 mg/dL (75-99)
[2020-03-06] MEDS: SODIUM CHLORIDE 0.9% 1,000 ML IV SCH (21:06)
[2020-03-06] MEDS: ATORVASTATIN 80 MG TAB PO SCH (21:12)
[2020-03-07 04:50] LABS: Basophils % (A) 0 %; Eosinophils # (A) 0.1 k/uL (0-0.7); Eosinophils % (A) 0 %; HCT 43.5 % (39.0-53.0); HGB 14.4 gm/dL (13.0-17.5); Lymphocytes # (A) 2.3 k/uL (1.0-4.8); Lymphocytes % (A) 10 %; MCH 32.4 pg (25.0-35.0); MCHC 33.1 g/dL (31.0-37.0); MCV 97.9 fL (80.0-100.0); Mean Platelet Volume 8.1; Monocytes # (A) 1.3 k/uL (0-1.0); Monocytes % (A) 6 %; Neutrophils # (A) 18.4 k/uL (1.3-7.7); Neutrophils % (A) 82 %; Platelet Count 179 k/uL (150-450); RBC 4.44 m/uL (4.30-5.90); RDW 13.3 % (11.5-15.5); WBC 22.3 k/uL (3.8-10.6)
[2020-03-07 06:43] LABS: Glucose,Whole Blood 169 mg/dL (75-99)
[2020-03-07] MEDS: INSULIN ASPART (NovoLOG) 100 UNIT/ML VIAL SQ SCH ×4 (07:03→21:59)
[2020-03-07] MEDS ORDERED: SODIUM CHLORIDE 0.9% 1,000 ML in EMPTY BAG 1 BAG IV ONE (08:17)
[2020-03-07] MEDS ORDERED: ASPIRIN 325 MG TAB PO STA (08:17)
[2020-03-07] MEDS ORDERED: NITROGLYCERIN SL TABS 0.4 MG TAB SUBLINGUAL PRN ×2 (08:17→17:42)
[2020-03-07] MEDS ORDERED: ALPRAZolam 0.25 MG TAB PO PRN (08:17)
[2020-03-07] MEDS ORDERED: ALPRAZolam 0.5 MG TAB PO PRN (08:17)
[2020-03-07] MEDS ORDERED: ATORVASTATIN 80 MG TAB PO STA (08:17)
[2020-03-07] MEDS: ASPIRIN 81 MG PO SCH ×3 (08:19→09:23)
[2020-03-07] MEDS: ATORVASTATIN 80 MG TAB PO SCH ×3 (08:19→21:43)
[2020-03-07 08:23] LABS: African American GFR (CKD) >90 (>60 ml/min/1.73 sqM); Anion Gap 6 mmol/L; Blood Urea Nitrogen 32 mg/dL (9-20); Calcium 8.5 mg/dL (8.4-10.2); Carbon Dioxide 29 mmol/L (22-30); Chloride 99 mmol/L (98-107); Glucose 156 mg/dL (74-99); Non-African American GFR(CKD) >90 (>60 ml/min/1.73 sqM); Potassium 3.8 mmol/L (3.5-5.1); Sodium 134 mmol/L (137-145)
[2020-03-07] MEDS ORDERED: CLOPIDOGREL 75 MG TAB PO SCH (09:00)
[2020-03-07] MEDS ORDERED: LISINOPRIL 20 MG TAB PO SCH (09:00)
[2020-03-07] MEDS: AMOXIC-POT CLAV 875-125MG 1 EACH TAB PO SCH ×2 (09:20→21:43)
[2020-03-07] MEDS: glipiZIDE 10 MG TAB PO SCH ×2 (09:21→21:43)
[2020-03-07] MEDS: POTASSIUM CHLORIDE ER 20 MEQ TAB.ER PO SCH (09:21)
[2020-03-07] MEDS: METOPROLOL TARTRATE 12.5 MG TAB PO SCH ×3 (09:21→22:53)
[2020-03-07] MEDS: AMIODARONE 200 MG TAB PO SCH ×2 (09:22→21:42)
[2020-03-07] MEDS: FUROSEMIDE 40 MG TAB PO SCH (09:23)
[2020-03-07] MEDS: SPIRONOLACTONE 25 MG TAB PO SCH (10:37)
[2020-03-07] MEDS: LISINOPRIL 5 MG TAB PO SCH (10:37)
--- NOTE | 2020-03-07 11:20 | PN ---
PROGRESS NOTE Peter is a 69-year-old gentleman who is admitted to hospital with acute anterior wall myocardial infarction, underwent cardiac catheterization and angioplasty. He developed atrial fibrillation last night and is currently on IV heparin. Patient was also in congestive heart failure initially. His EKG shows persistent ST-segment elevation suggestive of non reperfusion. The patient has moderate to severe disease involving right coronary artery and Dr. Vegas will perform angioplasty of the same. CURRENT MEDICATIONS: Include amiodarone 400 b.i.d., aspirin, Lipitor, Plavix, Lasix 40 mg daily that I am going to decrease to 20, IV heparin that was just started for atrial fibrillation, Zestril and Lopressor along with K-Dur. PHYSICAL EXAMINATION: On exam, heart rate is 88 beats per minute. Blood pressure is 100/60, respiratory rate is 18, O2 saturation is 94% on room air. There is no jugular venous distention. Carotid upstroke is normal. There is no bruit. Chest exam reveals good air entry bilaterally. Heart exam reveals first and second heart sounds. No gallop. No murmur. Abdomen is soft. Exam of extremities did not reveal any edema. Peripheral pulses are felt. LAB: Show that the white cell count is elevated at 22, hemoglobin is 14.4, platelet count is 174. Potassium is 3.8, creatinine is 0.8. BNP is elevated at 7520. ASSESSMENT: 1. Acute anterior wall myocardial infarction status post catheterization and angioplasty. 2. Persistent ST-segment elevation. 3. Persistent atrial fibrillation. 4. Acute congestive heart failure. PLAN: I will continue the patient on current medications. The patient will undergo angioplasty of right coronary artery tomorrow. MMODL / IJN: [id number] /
[2020-03-07 12:24] LABS: Glucose,Whole Blood 188 mg/dL (75-99)
--- NOTE | 2020-03-07 13:09 | P.PN ---
Subjective Progress Note Date: 03/07/20 Principal diagnosis: Acute ST elevation myocardial infarction. A 69-year-old male patient, came into the hospital because of an acute chest pain. This started yesterday at around 11 PM. The pain was radiating to the right jaw. It was typical of an acute cardiac pain and the patient came into the emergency department where his EKG showed ST segment elevation over the anteroseptal leads consistent with acute myocardial infarction. There is a normal sinus rhythm. The initial troponin was at 0.6. The patient was immediately taken to cardiac catheterization and the patient underwent angioplasty and stenting of the subtotally occluded mid LAD lesion. He also had mild to moderate disease in the left circumflex. Left ventricular end-diastolic pressure was elevated. He was brought into the intensive care unit. He was having some shortness of breath and his chest x-ray was consistent with some interstitial edema bilaterally. He was given a dose of Lasix with excellent diuresis. He is short of breath on today's evaluation. His troponin peaked at 47. His proBNP level has not been checked for now. As mentioned, his chest x- ray showed some coarse interstitial changes consistent with interstitial edema rather than fibrosis. He has history of mild COPD and he does not utilize any form of respiratory medications or inhalers. Does not utilize oxygen on outpa tient basis. He is currently free of any chest pain. No nausea. No vomiting. No abdominal pain. Aspirin and Brilinta in addition to that he was started on metoprolol 25 mg by mouth twice a day. He has also a nitroglycerin patch. The echo of the heart has been ordered and still pending for now. On 03/06/2020, the patient not having any difficulties in breathing. Is less short of breath compared to yesterday. He got diuretics yesterday and he producing adequate amount of urine output and he is a negative fluid balance. No angina. No palpitation. He had some nausea. No chest pain. No jaw pain. No back pain. No cardiac arrhythmias. He is hemodynamically stable. He is on a combination of aspirin and Brilinta. His taken Lasix 40 mg by mouth daily. His blood sugars are under adequate control. No signs of any COPD exacerbation. His follow-up chest x-ray shows improvement in the volume status. Patient was reevaluated today on 03/07/20, patient was admitted on 03/04, admitted with acute ST elevation myocardial infarction, he was found to have subtotal mid LAD lesion, underwent PTCA and stent placement. He was also found to have low ejection fraction of 30-35%. And severe tricuspid regurgitation right-sided pressures in the range of 73. Clinically the patient is doing surprisingly well. Being considered by cardiology for repeat cardiac catheterization and more stenting of his right coronary artery possibly in the next 24 hours. His other medical problems include acute congestive heart failure, persistent atrial fibrillation, and persistent ST segment elevation. BNP level is elevated today at 7520, and his chest x-ray showed coarse interstitial edema right more so than left, and a small right-sided pleural effusion. Patient remains on diuretics. Clinically however he feels much better. Objective - Vital Signs Vital signs: Vital Signs Temp 98.6 F 03/07/20 12:00 Pulse 97 03/07/20 12:00 Resp 16 03/07/20 12:00 BP 95/55 03/07/20 12:00 Pulse Ox 95 03/07/20 12:00 Intake & Output 03/06/20 03/07/20 03/07/20 18:59 06:59 18:59 Intake Total 20 160 Output Total 650 180 0 Balance -650 -160 160 Weight 88.6 kg 90.7 kg Intake: IV 20 160 Sodium Chloride 0.9% 1, 20 160 000 ml @ 20 mls/hr IV . Q24H LUCAS Rx#:[id number] Output: Urine 650 180 0 Other: Voiding Method Toilet Toilet Toilet Urinal Urinal Urinal # Voids 1 0 # Bowel Movements 1 - Exam GENERAL: Revealed 69-year-old white male in no distress, pleasant. Presently on room air with O2 saturation of 94%. Blood pressure is marginal 82/63. HEENT: PERRLA, EOMI, no icterus, no neck masses, no JVD, no stridor. CARDIOVASCULAR: Irregular irregular rhythm. Normal S1 and S2 present. 2/6 systolic murmur thought the precordium. PULMONARY: Symmetrical chest expansion, minimal crackles at the at the bases no rhonchi and no wheezes ABDOMEN: Soft, nontender, nondistended, normoactive bowel sounds. No palpable organomegaly. MUSCULOSKELETAL: No joint swelling or deformity. EXTREMITIES: No cyanosis, clubbing, or pedal edema. NEUROLOGICAL: Alert and oriented 3 focal neurologic deficits. SKIN: No rashes. no petechiae. Psychiatric: Normal mood, affect and normal mental status examination. - Labs CBC & Chem 7: 03/07/20 03:52 03/07/20 03:52 Labs: Abnormal Lab Results - Last 24 Hours (Table) 03/06/20 03/06/20 03/06/20 Range/Units 17:46 18:58 20:32 WBC 24.2 H (3.8-10.6) k/uL Neutrophils # 20.8 H (1.3-7.7) k/uL Monocytes # 1.3 H (0-1.0) k/uL APTT (22.0-30.0) sec Sodium (137-145) mmol/L BUN (9-20) mg/dL Glucose (74-99) mg/dL POC Glucose (mg/dL) 200 H 203 H (75-99) mg/dL 03/07/20 03/07/20 03/07/20 Range/Units 00:47 03:52 03:52 WBC 22.3 H (3.8-10.6) k/uL Neutrophils # 18.4 H (1.3-7.7) k/uL Monocytes # 1.3 H (0-1.0) k/uL APTT 44.9 H 45.4 H (22.0-30.0) sec Sodium (137-145) mmol/L BUN (9-20) mg/dL Glucose (74-99) mg/dL POC Glucose (mg/dL) (75-99) mg/dL 03/07/20 03/07/20 03/07/20 Range/Units 03:52 06:41 12:19 WBC (3.8-10.6) k/uL Neutrophils # (1.3-7.7) k/uL Monocytes # (0-1.0) k/uL APTT (22.0-30.0) sec Sodium 134 L (137-145) mmol/L BUN 32 H (9-20) mg/dL Glucose 156 H (74-99) mg/dL POC Glucose (mg/dL) 169 H 188 H (75-99) mg/dL Assessment and Plan Assessment: Impression: Acute ST elevation myocardial infarction status post stenting of a subtotally occluded mid LAD. Significant RCA disease, patient may need stenting of the RCA/previous stenting of RCA has been done. Mild to moderate disease involving the circumflex. Acute systolic congestive heart failure, most likely secondary to ischemic cardiomyopathy. Underlying history of chronic obstructive lung disease presently and active. Hypertension. Dyslipidemia. Type 2 diabetes. Ex-smoker. Recommendation: Continue aspirin and metoprolol, brilinta, Zestril. Continue nitroglycerin patch Continue diuretics. Continue to monitor for ongoing congestive heart failure/systolic in nature, echocardiogram showed EF of 30-35% Consider transferring the patient out of the ICU to a monitor bed on selective. Continue GI and DVT prophylaxis. We'll continue to follow. Time with Patient: Less than 30
--- NOTE | 2020-03-07 13:44 | P.PN ---
Subjective This is a pleasant 69 years old male with past medical history of diabetes mellitus, hypertension, hyperlipidemia, COPD, peripheral artery disease, coronary artery disease presents on 626 with chest pain. Found to have elevated troponin 19.7 and 47.8, EKG was showing ST elevation in the anteroapical and anterolateral leads eventually patient was taken emergently to cardiac cath where he underwent coronary angiography and successful stenting of the left anterior descending artery. Postoperatively patient is doing well and he denies chest pain or dyspnea, no abdominal pain component. No nausea vomiting. No change in urine or bowel habits. No change in mental status. No fever. However he was complaining of from some nausea this morning which is partially relieved by Zofran 4 mg, the front was increased to 8 mg and Phenergan added in case his needed. Patient was kept on aspirin and Brillinta is added. Also patient is on a ANDREEA inhibitor and beta yaz 03/06/2020 Patient is clinically doing well. No chest pain or dyspnea. Distal have some nausea which is better controlled with anti-emetic. Also patient has chronic low back pain. Labs and vitals are stable, sodium is 133, sugar on the high side, give the patient on sliding scale He is on aspirin and Brillinta 03/07/2020 Last night patient rhythm changed to atrial fibrillation with controlled rate so Brilinta was stopped and patient was switched to Lasix besides aspirin, and he was started as well on heparin drip. This morning he is fully awake and oriented, he feels actually better than yesterday with no chest pain or dyspnea. His severe nausea has stopped. He has no visual his bowel and has soft abdomen Vitals are stable and heart rate 77-97, blood pressure 95/55. He still has leukocytosis of 22.3K, however no overt signs of infection, chest x-ray from yesterday showing interstitial coarse markings. We going to send urine analysis. Patient is a started on Augmentin, is also on amiodarone 400 mg twice daily by entry tech, metoprolol 12.5 mg 3 times a day, potassium 20 mEq. Objective - Vital Signs Vital signs: Vital Signs Temp 98.6 F 03/07/20 12:00 Pulse 97 03/07/20 12:00 Resp 16 03/07/20 12:00 BP 95/55 03/07/20 12:00 Pulse Ox 95 03/07/20 12:00 Intake & Output 03/06/20 03/07/20 03/07/20 18:59 06:59 18:59 Intake Total 20 160 Output Total 650 180 0 Balance -650 -160 160 Weight 88.6 kg 90.7 kg Intake: IV 20 160 Sodium Chloride 0.9% 1, 20 160 000 ml @ 20 mls/hr IV . Q24H [facility] Rx#:[id number] Output: Urine 650 180 0 Other: Voiding Method Toilet Toilet Toilet Urinal Urinal Urinal # Voids 1 0 # Bowel Movements 1 - Exam GENERAL: The patient is alert and oriented x3, not in any acute distress. Well developed, well nourished. HEENT: Pupils are round and equally reacting to light. EOMI. No scleral icterus. No conjunctival pallor. Normocephalic, atraumatic. No pharyngeal erythema. No thyromegaly. CARDIOVASCULAR: S1 and S2 present. No murmurs, rubs, or gallops. PULMONARY: Chest is clear to auscultation, no wheezing or crackles. ABDOMEN: Soft, nontender, nondistended, normoactive bowel sounds. No palpable organomegaly. MUSCULOSKELETAL: No joint swelling or deformity. EXTREMITIES: No cyanosis, clubbing, or pedal edema. NEUROLOGICAL: Gross neurological examination did not reveal any focal deficits. SKIN: No rashes. no petechiae. - Labs CBC & Chem 7: 03/07/20 03:52 03/07/20 03:52 Labs: Abnormal Lab Results - Last 24 Hours (Table) 03/06/20 03/06/20 03/06/20 Range/Units 17:46 18:58 20:32 WBC 24.2 H (3.8-10.6) k/uL Neutrophils # 20.8 H (1.3-7.7) k/uL Monocytes # 1.3 H (0-1.0) k/uL APTT (22.0-30.0) sec Sodium (137-145) mmol/L BUN (9-20) mg/dL Glucose (74-99) mg/dL POC Glucose (mg/dL) 200 H 203 H (75-99) mg/dL 03/07/20 03/07/20 03/07/20 Range/Units 00:47 03:52 03:52 WBC 22.3 H (3.8-10.6) k/uL Neutrophils # 18.4 H (1.3-7.7) k/uL Monocytes # 1.3 H (0-1.0) k/uL APTT 44.9 H 45.4 H (22.0-30.0) sec Sodium (137-145) mmol/L BUN (9-20) mg/dL Glucose (74-99) mg/dL POC Glucose (mg/dL) (75-99) mg/dL 03/07/20 03/07/20 03/07/20 Range/Units 03:52 06:41 12:19 WBC (3.8-10.6) k/uL Neutrophils # (1.3-7.7) k/uL Monocytes # (0-1.0) k/uL APTT (22.0-30.0) sec Sodium 134 L (137-145) mmol/L BUN 32 H (9-20) mg/dL Glucose 156 H (74-99) mg/dL POC Glucose (mg/dL) 169 H 188 H (75-99) mg/dL Assessment and Plan Assessment: Anterior wall STEMI, status post stent placement in the LAD New-onset atrial fibrillation Possible interstitial pneumonia Diabetes mellitus Hypertension and hyperlipidemia Peripheral vascular disease Coronary artery disease COPD, not acute exacerbation Plan: This is a pleasant 69 years old male who presents with a steady. Continue with aspirin and Plavix, continue with anticoagulation. Continue with metoprolol and lisinopril. Cardiology team and pulmonary team following the case closely. Antibiotic as per pulmonary team. He is currently on Augmentin. Check urine analysis Labs and medication were reviewed.. Continue same treatment. Continue with symptomatic treatment. Resume home medication. Monitor lytes and vitals. DVT and GI prophylaxis. Further recommendations of the clinical course of the patient DVT prophylaxis: Subcutaneous heparin GI Prophylaxis: Pepcid
[2020-03-07 14:53] LABS: Glucose,Whole Blood 172 mg/dL (75-99)
[2020-03-07] MEDS ORDERED: LIDOCAINE 1% INJ 10MG/ML (20 ML MDV) ONE (15:48)
[2020-03-07] MEDS ORDERED: fentaNYL (PF) 50 MCG/ML 2 ML AMP ONE (15:50)
[2020-03-07] MEDS ORDERED: IV FLUID CONTINUATION 1,000 ML IV ONE (16:02)
[2020-03-07] MEDS: fentaNYL (PF) 50 MCG/ML 2 ML AMP IVP ONE ×2 (16:05→17:20)
[2020-03-07] MEDS ORDERED: LIDOCAINE 1% INJ 10MG/ML (20 ML MDV) SQ ONE (16:09)
[2020-03-07] MEDS ORDERED: MIDAZOLAM 2 MG/2 ML VIAL IVP ONE (16:20)
[2020-03-07] MEDS ORDERED: BIVALIRUDIN BOLUS 250 MG/50 ML IV ONE (16:22)
[2020-03-07] MEDS ORDERED: BIVALIRUDIN 250 MG in SODIUM CHLORIDE 0.9% 50 ML IV ONE ×2 (16:23→17:12)
[2020-03-07] MEDS: NITROGLYCERIN 1000MCG/10ML SYRINGE INTRACORON ONE ×3 (16:42→17:20)
[2020-03-07] MEDS ORDERED: IOPAMIDOL-370 100ML BTL INJ ONE ×2 (16:58→17:27)
[2020-03-07] MEDS ORDERED: TICAGRELOR 90 MG TAB ONE (17:09)
[2020-03-07] MEDS ORDERED: TICAGRELOR 90 MG TAB PO ONE (17:12)
[2020-03-07] MEDS ORDERED: ATROPINE SULFATE 0.1 MG/ML 10ML SYRINGE IV PRN (17:42)
[2020-03-07] MEDS ORDERED: MAG HYDROX/AL HYDROX/SIMETH 30 ML CUP PO PRN (17:42)
[2020-03-07] MEDS ORDERED: RX INFO: IV CONTRAST WAS GIVEN 1 EACH MISC MISCELLANE PRN (17:42)
[2020-03-07] MEDS ORDERED: ZOLPIDEM 5 MG TAB PO PRN (17:42)
[2020-03-07] MEDS ORDERED: SODIUM CHLORIDE 0.9% 1,000 ML IV SCH (17:45)
[2020-03-07 17:58] LABS: Glucose,Whole Blood 156 mg/dL (75-99)
[2020-03-07] MEDS: HYDROcodone/APAP 10-325MG 1 EACH TAB PO PRN ×2 (18:40→22:52)
--- NOTE | 2020-03-07 20:02 | CC ---
CARDIAC CATHETERIZATION REPORT DATE OF SERVICE: 03/07/2020 PERFORMING PHYSICIAN: Anton Mckenzie M.D. PROCEDURES PERFORMED: 1. Selective left and right coronary angiogram. 2. Successful stenting of the mid left anterior descending artery using a 2.0 x 8 mm Palmer drug-eluting stent with an excellent angiographic result. 3. Successful stenting of the mid right coronary artery using a 3.5 x 18 mm Xience drug-eluting stent with an excellent angiographic result. INDICATION: This is a 69-year-old gentleman with coronary artery disease who underwent stenting of the LAD two days ago by Dr. Vegas after he presented with acute anterior ST-elevation myocardial infarction. He is known to have severe disease involving the mid RCA. He was on the floor earlier today when he started experiencing symptoms of chest discomfort and ST-segment elevation. He was brought emergently to the cardiac cardiac cath technologist. APPROACH: Right common femoral artery. COMPLICATIONS: None. LEVEL OF SEDATION: Moderate, with sedation length of 80 minutes. PROCEDURE DESCRIPTION: After obtaining informed consent, the patient was brought to the cardiac cardiac cath technologist. The right common femoral artery was cannulated using micropuncture technique. The micropuncture wire passed easily. Then I placed a 6-St Helenian sheath in the right common femoral artery. After that I did selective left and right coronary angiogram. Selective left coronary angiogram was performed using an XP35 LAD guide. Selective right coronary angiogram was performed using a JR4 guide. After that I did intervene on the LAD and RCA. Please see separate paragraph for that. SELECTIVE CORONARY ANGIOGRAM: 1. The left main is angiographically normal. It bifurcates into LCX and LAD. 2. The LCX is a large-caliber vessel. It is a nondominant vessel. The ostial circumflex appeared to be diseased in the range of 50%. The mid and distal circumflex appeared to be angiographically normal and the circumflex gives rise to multiple small obtuse marginal branches. 3. The LAD. The proximal LAD has mild disease only. The mid LAD is stented, and distal to the stented segment there is an area on a bend with a lesion that appeared to be in the range of 70% to 80%. The LAD distally appeared to have mild disease only. 4. The RCA is a large-caliber vessel. The proximal RCA is stented. The mid RCA has a lesion that appeared to be in the range of 70% to 80% and the RCA distally appeared to have mild disease only. PERCUTANEOUS CORONARY INTERVENTION OF THE LAD AND RCA: Anticoagulation was initiated using Angiomax. Using an XP35 LAD guide, the left main was engaged. I had a hard time wiring the LAD using a Whisper wire, but finally I was able to cross the lesion using a Whisper wire with the backup support of a SuperCross catheter. The wire was advanced all the way to the distal LAD. After that I did balloon angioplasty using a 2.5 x 12 mm balloon. Attempt to advance the 2.5 mm stent was unsuccessful over the Whisper wire, but it was successful after using a ne wire with a run-through wire. I advanced the stent over the Whisper wire to the mid LAD, where the stent was positioned under fluoroscopic guidance and deployed under 20 atmospheres for 20 seconds after the ne wire was pulled out. The final angiogram showed good angiographic results and the procedure was completed without any complication. For the RCA, I engaged the RCA using a JR4 guide. I did wire it using a Whisper wire and run-through wire as well. After that I did balloon angioplasty using a 3.0 x 12 mm balloon before I deployed a 3.5 x 18 mm Xience EDMUND where the stent was positioned under fluoroscopic guidance and deployed under 20 atmospheres for 20 seconds. The following angiogram showed good angiographic results and the procedure was completed without any complication. POST-PROCEDURE MANAGEMENT: 1. Dual anti-platelet therapy. 2. Risk factor modifications. 3. Follow up with the patient. MMODL / IJN: [id number] /
[2020-03-07] MEDS: SODIUM CHLORIDE 0.9% 1,000 ML IV SCH (21:41)
[2020-03-07 21:53] LABS: Glucose,Whole Blood 150 mg/dL (75-99)
[2020-03-07 22:58] LABS: Appearance,Urine Clear (Clear); Bilirubin,Urine Negative (Negative); Blood,Urine Negative (Negative); Color,Urine Yellow; Glucose,Urine (UA) Negative (Negative); Ketones,Urine Trace (Negative); Leukocyte Esterase,Urine Negative (Negative); Nitrite,Urine Negative (Negative); Protein,Urine Trace (Negative); Urobilinogen,Urine <2.0 mg/dL (<2.0)
[2020-03-08 00:22] LABS: Specific Gravity,Urine >1.050 (1.001-1.035)
[2020-03-08 05:54] LABS: Basophils % (A) 0 %; Eosinophils % (A) 0 %; HCT 37.2 % (39.0-53.0); HGB 11.9 gm/dL (13.0-17.5); Lymphocytes # (A) 1.3 k/uL (1.0-4.8); Lymphocytes % (A) 8 %; MCH 31.1 pg (25.0-35.0); MCV 97.2 fL (80.0-100.0); Mean Platelet Volume 8.5; Monocytes # (A) 1.3 k/uL (0-1.0); Monocytes % (A) 8 %; Neutrophils # (A) 13.3 k/uL (1.3-7.7); Neutrophils % (A) 82 %; Platelet Count 155 k/uL (150-450); RBC 3.82 m/uL (4.30-5.90); RDW 13.3 % (11.5-15.5); WBC 16.2 k/uL (3.8-10.6)
[2020-03-08 05:57] LABS: African American GFR (CKD) >90 (>60 ml/min/1.73 sqM); Anion Gap 3 mmol/L; Blood Urea Nitrogen 32 mg/dL (9-20); Calcium 8.2 mg/dL (8.4-10.2); Carbon Dioxide 29 mmol/L (22-30); Chloride 101 mmol/L (98-107); Glucose 94 mg/dL (74-99); Non-African American GFR(CKD) >90 (>60 ml/min/1.73 sqM); Potassium 4.1 mmol/L (3.5-5.1); Sodium 133 mmol/L (137-145)
[2020-03-08] MEDS ORDERED: SODIUM CHLORIDE 0.9% 1,000 ML in EMPTY BAG 1 BAG IV ONE (06:00)
[2020-03-08] MEDS ORDERED: ASPIRIN 325 MG TAB PO ONE (06:00)
[2020-03-08] MEDS ORDERED: ATORVASTATIN 80 MG TAB PO ONE ×2 (06:00)
[2020-03-08 06:29] LABS: Glucose,Whole Blood 123 mg/dL (75-99)
[2020-03-08] MEDS: INSULIN ASPART (NovoLOG) 100 UNIT/ML VIAL SQ SCH ×4 (06:38→21:21)
--- NOTE | 2020-03-08 07:08 | XR ---
EXAMINATION TYPE: XR chest 1V portable DATE OF EXAM: 03/08/2020 HISTORY: Shortness of breath. COMPARISON: 03/06/2020 TECHNIQUE: Single view of the chest is submitted. FINDINGS: Demonstrated are scattered senescent parenchymal change. There is no evidence for focal infiltrate. The heart is stable. Hilar and mediastinal structures are within normal limits. Degenerative changes are seen of the dorsal spine. IMPRESSION: 1. Chronic changes without evidence for acute pulmonary disease.
[2020-03-08] MEDS: ASPIRIN 81 MG PO SCH (07:38)
[2020-03-08] MEDS: HEPARIN SOD,PORK IN 0.45% NACL 25,000 UNIT in 0.45% NACL 1 250ML.BAG IV SCH (07:39)
[2020-03-08] MEDS: FUROSEMIDE 40 MG TAB PO SCH (09:28)
[2020-03-08] MEDS: TICAGRELOR 90 MG TAB PO SCH ×2 (09:28→20:26)
[2020-03-08] MEDS: AMOXIC-POT CLAV 875-125MG 1 EACH TAB PO SCH ×2 (09:28→21:22)
[2020-03-08] MEDS: SPIRONOLACTONE 25 MG TAB PO SCH (09:28)
[2020-03-08] MEDS: POTASSIUM CHLORIDE ER 20 MEQ TAB.ER PO SCH (09:28)
[2020-03-08] MEDS: glipiZIDE 10 MG TAB PO SCH ×2 (09:28→21:22)
[2020-03-08] MEDS: METOPROLOL TARTRATE 25 MG TAB PO SCH ×3 (09:29→20:27)
[2020-03-08] MEDS: AMIODARONE 200 MG TAB PO SCH ×2 (09:29→20:27)
[2020-03-08] MEDS: LISINOPRIL 10 MG TAB PO SCH (10:09)
[2020-03-08] MEDS: LISINOPRIL 5 MG TAB PO SCH (10:38)
[2020-03-08 11:29] LABS: Glucose,Whole Blood 167 mg/dL (75-99)
--- NOTE | 2020-03-08 11:58 | P.PN ---
Subjective This is a pleasant 69 years old male with past medical history of diabetes mellitus, hypertension, hyperlipidemia, COPD, peripheral artery disease, coronary artery disease presents on 626 with chest pain. Found to have elevated troponin 19.7 and 47.8, EKG was showing ST elevation in the anteroapical and anterolateral leads eventually patient was taken emergently to cardiac cath where he underwent coronary angiography and successful stenting of the left anterior descending artery. Postoperatively patient is doing well and he denies chest pain or dyspnea, no abdominal pain component. No nausea vomiting. No change in urine or bowel habits. No change in mental status. No fever. However he was complaining of from some nausea this morning which is partially relieved by Zofran 4 mg, the front was increased to 8 mg and Phenergan added in case his needed. Patient was kept on aspirin and Brillinta is added. Also patient is on a ANDREEA inhibitor and beta yaz 03/06/2020 Patient is clinically doing well. No chest pain or dyspnea. Distal have some nausea which is better controlled with anti-emetic. Also patient has chronic low back pain. Labs and vitals are stable, sodium is 133, sugar on the high side, give the patient on sliding scale He is on aspirin and Brillinta 03/07/2020 Last night patient rhythm changed to atrial fibrillation with controlled rate so Brilinta was stopped and patient was switched to Lasix besides aspirin, and he was started as well on heparin drip. This morning he is fully awake and oriented, he feels actually better than yesterday with no chest pain or dyspnea. His severe nausea has stopped. He has no visual his bowel and has soft abdomen Vitals are stable and heart rate 77-97, blood pressure 95/55. He still has leukocytosis of 22.3K, however no overt signs of infection, chest x-ray from yesterday showing interstitial coarse markings. We going to send urine analysis. 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 03/08/2020 Patient in the ICU. Last night he developed chest pain with nausea and sweating, EKG showed STEMI and stenting alert has been called. Patient underwent a second cath in which another stent is opened and the LAD and a new stent placed in the RCA. Today patient is sitting in chair in the ICU, his symptoms resolved with no chest pain, no dyspnea, nausea resolved. No other new complaints. Vitas looks stable. WBC is trending down to 16.2 okay. Hemoglobin 11.9 which is expected.chest x- ray: Chronic changes without acute process peritoneal edges. is currently on aspirin and Brilinta . Also he is on metoprolol and lisinopril. Cardiology on the case Objective - Vital Signs Vital signs: Vital Signs Temp 98.2 F 03/08/20 08:00 Pulse 66 03/08/20 11:00 Resp 24 03/08/20 11:00 BP 118/81 03/08/20 11:00 Pulse Ox 96 03/08/20 11:00 Intake & Output 03/07/20 03/08/20 03/08/20 18:59 06:59 18:59 Intake Total 973.167 900 115 Output Total 0 670 200 Balance 973.167 230 -85 Weight 90.4 kg Intake: IV 762 900 115 Sodium Chloride 0.9% 1, 160 40 000 ml @ 20 mls/hr IV . Q24H [facility] Rx#:[id number] Sodium Chloride 0.9% 1, 900 75 000 ml @ 75 mls/hr IV . [id number] [facility] Rx#:[id number] Intake, IV Titration 211.167 Amount Heparin Sod,Pork in 0.45% 211.167 NaCl 25,000 unit In 0.45 % NaCl 1 250ml.bag @ 11. 287 UNITS/KG/HR 10 mls/hr IV .Q24H [facility] Rx#: [id number] Tube Feeding 0 Other 0 Output: Urine 0 670 200 Other: Voiding Method Toilet Toilet Toilet Urinal Urinal Urinal # Voids 0 0 ABP, PAP, CO, CI - Last Documented Arterial Blood Pressure 89/38 - Exam GENERAL: The patient is alert and oriented x3, not in any acute distress. Well developed, well nourished. HEENT: Pupils are round and equally reacting to light. EOMI. No scleral icterus. No conjunctival pallor. Normocephalic, atraumatic. No pharyngeal erythema. No thyromegaly. CARDIOVASCULAR: S1 and S2 present. No murmurs, rubs, or gallops. PULMONARY: Chest is clear to auscultation, no wheezing or crackles. ABDOMEN: Soft, nontender, nondistended, normoactive bowel sounds. No palpable organomegaly. MUSCULOSKELETAL: No joint swelling or deformity. EXTREMITIES: No cyanosis, clubbing, or pedal edema. NEUROLOGICAL: Gross neurological examination did not reveal any focal deficits. SKIN: No rashes. no petechiae. - Labs CBC & Chem 7: 03/08/20 04:11 03/08/20 04:11 Labs: Abnormal Lab Results - Last 24 Hours (Table) 03/07/20 03/07/20 03/07/20 Range/Units 12:19 14:51 17:57 WBC (3.8-10.6) k/uL RBC (4.30-5.90) m/uL Hgb (13.0-17.5) gm/dL Hct (39.0-53.0) % Neutrophils # (1.3-7.7) k/uL Monocytes # (0-1.0) k/uL Sodium (137-145) mmol/L BUN (9-20) mg/dL POC Glucose (mg/dL) 188 H 172 H 156 H (75-99) mg/dL Calcium (8.4-10.2) mg/dL Ur Specific [place] (1.001-1.035) Urine Protein (Negative) Urine Ketones (Negative) 03/07/20 03/07/20 03/08/20 Range/Units 21:52 22:50 04:11 WBC 16.2 H (3.8-10.6) k/uL RBC 3.82 L (4.30-5.90) m/uL Hgb 11.9 L (13.0-17.5) gm/dL Hct 37.2 L (39.0-53.0) % Neutrophils # 13.3 H (1.3-7.7) k/uL Monocytes # 1.3 H (0-1.0) k/uL Sodium (137-145) mmol/L BUN (9-20) mg/dL POC Glucose (mg/dL) 150 H (75-99) mg/dL Calcium (8.4-10.2) mg/dL Ur Specific [place] >1.050 H (1.001-1.035) Urine Protein Trace H (Negative) Urine Ketones Trace H (Negative) 03/08/20 03/08/20 03/08/20 Range/Units 04:11 06:27 11:28 WBC (3.8-10.6) k/uL RBC (4.30-5.90) m/uL Hgb (13.0-17.5) gm/dL Hct (39.0-53.0) % Neutrophils # (1.3-7.7) k/uL Monocytes # (0-1.0) k/uL Sodium 133 L (137-145) mmol/L BUN 32 H (9-20) mg/dL POC Glucose (mg/dL) 123 H 167 H (75-99) mg/dL Calcium 8.2 L (8.4-10.2) mg/dL Ur Specific [place] (1.001-1.035) Urine Protein (Negative) Urine Ketones (Negative) Assessment and Plan Assessment: Anterior wall STEMI, status post stent placement in the LAD, 2 and another stent placed in the RCA New-onset atrial fibrillation Possible interstitial pneumonia Diabetes mellitus Hypertension and hyperlipidemia Peripheral vascular disease Coronary artery disease COPD, not acute exacerbation Plan: This is a pleasant 69 years old male who presents with a steady. Continue with aspirin and Plavix, continue with anticoagulation. Continue with metoprolol and lisinopril. Cardiology team and pulmonary team following the case closely. Antibiotic as per pulmonary team. He is currently on Augmentin. Check urine analysis Labs and medication were reviewed.. Continue same treatment. Continue with symptomatic treatment. Resume home medication. Monitor lytes and vitals. DVT and GI prophylaxis. Further recommendations of the clinical course of the patient DVT prophylaxis: Subcutaneous heparin GI Prophylaxis: Pepcid
--- NOTE | 2020-03-08 12:34 | P.PN ---
Subjective Progress Note Date: 03/08/20 Principal diagnosis: Acute ST elevation myocardial infarction. A 69-year-old male patient, came into the hospital because of an acute chest pain. This started yesterday at around 11 PM. The pain was radiating to the right jaw. It was typical of an acute cardiac pain and the patient came into the emergency department where his EKG showed ST segment elevation over the anteroseptal leads consistent with acute myocardial infarction. There is a normal sinus rhythm. The initial troponin was at 0.6. The patient was immediately taken to cardiac catheterization and the patient underwent angioplasty and stenting of the subtotally occluded mid LAD lesion. He also had mild to moderate disease in the left circumflex. Left ventricular end-diastolic pressure was elevated. He was brought into the intensive care unit. He was having some shortness of breath and his chest x-ray was consistent with some interstitial edema bilaterally. He was given a dose of Lasix with excellent diuresis. He is short of breath on today's evaluation. His troponin peaked at 47. His proBNP level has not been checked for now. As mentioned, his chest x- ray showed some coarse interstitial changes consistent with interstitial edema rather than fibrosis. He has history of mild COPD and he does not utilize any form of respiratory medications or inhalers. Does not utilize oxygen on outpa tient basis. He is currently free of any chest pain. No nausea. No vomiting. No abdominal pain. Aspirin and Brilinta in addition to that he was started on metoprolol 25 mg by mouth twice a day. He has also a nitroglycerin patch. The echo of the heart has been ordered and still pending for now. On 03/06/2020, the patient not having any difficulties in breathing. Is less short of breath compared to yesterday. He got diuretics yesterday and he producing adequate amount of urine output and he is a negative fluid balance. No angina. No palpitation. He had some nausea. No chest pain. No jaw pain. No back pain. No cardiac arrhythmias. He is hemodynamically stable. He is on a combination of aspirin and Brilinta. His taken Lasix 40 mg by mouth daily. His blood sugars are under adequate control. No signs of any COPD exacerbation. His follow-up chest x-ray shows improvement in the volume status. Patient was reevaluated today on 03/07/20, patient was admitted on 03/04, admitted with acute ST elevation myocardial infarction, he was found to have subtotal mid LAD lesion, underwent PTCA and stent placement. He was also found to have low ejection fraction of 30-35%. And severe tricuspid regurgitation right-sided pressures in the range of 73. Clinically the patient is doing surprisingly well. Being considered by cardiology for repeat cardiac catheterization and more stenting of his right coronary artery possibly in the next 24 hours. His other medical problems include acute congestive heart failure, persistent atrial fibrillation, and persistent ST segment elevation. BNP level is elevated today at 7520, and his chest x-ray showed coarse interstitial edema right more so than left, and a small right-sided pleural effusion. Patient remains on diuretics. Clinically however he feels much better. Patient was reevaluated today on 03/08/20, patient had another stent placed yesterday, he actually had to be stenting of the LAD and stenting of the RCA done by Dr. Vegas yesterday. Patient is doing well, asymptomatic, he is on 2 L nasal cannula with O2 saturations were 97%, IV fluid at KVO. Patient is also on Augmentin although his pro-calcitonin level is 0.07. Chest x-ray showed significant improvement. No cough no wheezing no shortness of breath. Patient remains on Brilinta and on aspirin. No active pulmonary symptoms. And the patient could actually be transferred out of the ICU or even consider discharging the patient home once cleared by cardiology. Objective - Vital Signs Vital signs: Vital Signs Temp 98.8 F 03/08/20 12:00 Pulse 64 03/08/20 12:00 Resp 22 03/08/20 12:00 BP 104/60 03/08/20 12:00 Pulse Ox 97 03/08/20 12:00 Intake & Output 03/07/20 03/08/20 03/08/20 18:59 06:59 18:59 Intake Total 973.167 900 115 Output Total 0 670 400 Balance 973.167 230 -285 Weight 90.4 kg Intake: IV 762 900 115 Sodium Chloride 0.9% 1, 160 40 000 ml @ 20 mls/hr IV . Q24H [facility] Rx#:[id number] Sodium Chloride 0.9% 1, 900 75 000 ml @ 75 mls/hr IV . [id number] [facility] Rx#:[id number] Intake, IV Titration 211.167 Amount Heparin Sod,Pork in 0.45% 211.167 NaCl 25,000 unit In 0.45 % NaCl 1 250ml.bag @ 11. 287 UNITS/KG/HR 10 mls/hr IV .Q24H [facility] Rx#: [id number] Tube Feeding 0 Other 0 Output: Urine 0 670 400 Other: Voiding Method Toilet Toilet Toilet Urinal Urinal Urinal # Voids 0 0 ABP, PAP, CO, CI - Last Documented Arterial Blood Pressure 89/38 - Exam GENERAL: Revealed 69-year-old white male in no distress, pleasant. Presently on room air with O2 saturation of 94%. Blood pressure is marginal 82/63. HEENT: PERRLA, EOMI, no icterus, no neck masses, no JVD, no stridor. CARDIOVASCULAR: Irregular irregular rhythm. Normal S1 and S2 present. 2/6 systolic murmur thought the precordium. PULMONARY: Symmetrical chest expansion, minimal crackles at the at the bases no rhonchi and no wheezes ABDOMEN: Soft, nontender, nondistended, normoactive bowel sounds. No palpable organomegaly. MUSCULOSKELETAL: No joint swelling or deformity. EXTREMITIES: No cyanosis, clubbing, or pedal edema. NEUROLOGICAL: Alert and oriented 3 focal neurologic deficits. SKIN: No rashes. no petechiae. Psychiatric: Normal mood, affect and normal mental status examination. - Labs CBC & Chem 7: 03/08/20 04:11 03/08/20 04:11 Labs: Abnormal Lab Results - Last 24 Hours (Table) 03/07/20 03/07/20 03/07/20 Range/Units 14:51 17:57 21:52 WBC (3.8-10.6) k/uL RBC (4.30-5.90) m/uL Hgb (13.0-17.5) gm/dL Hct (39.0-53.0) % Neutrophils # (1.3-7.7) k/uL Monocytes # (0-1.0) k/uL Sodium (137-145) mmol/L BUN (9-20) mg/dL POC Glucose (mg/dL) 172 H 156 H 150 H (75-99) mg/dL Calcium (8.4-10.2) mg/dL Ur Specific [place] (1.001-1.035) Urine Protein (Negative) Urine Ketones (Negative) 03/07/20 03/08/20 03/08/20 Range/Units 22:50 04:11 04:11 WBC 16.2 H (3.8-10.6) k/uL RBC 3.82 L (4.30-5.90) m/uL Hgb 11.9 L (13.0-17.5) gm/dL Hct 37.2 L (39.0-53.0) % Neutrophils # 13.3 H (1.3-7.7) k/uL Monocytes # 1.3 H (0-1.0) k/uL Sodium 133 L (137-145) mmol/L BUN 32 H (9-20) mg/dL POC Glucose (mg/dL) (75-99) mg/dL Calcium 8.2 L (8.4-10.2) mg/dL Ur Specific [place] >1.050 H (1.001-1.035) Urine Protein Trace H (Negative) Urine Ketones Trace H (Negative) 03/08/20 03/08/20 Range/Units 06:27 11:28 WBC (3.8-10.6) k/uL RBC (4.30-5.90) m/uL Hgb (13.0-17.5) gm/dL Hct (39.0-53.0) % Neutrophils # (1.3-7.7) k/uL Monocytes # (0-1.0) k/uL Sodium (137-145) mmol/L BUN (9-20) mg/dL POC Glucose (mg/dL) 123 H 167 H (75-99) mg/dL Calcium (8.4-10.2) mg/dL Ur Specific [place] (1.001-1.035) Urine Protein (Negative) Urine Ketones (Negative) Assessment and Plan Assessment: Impression: Acute ST elevation myocardial infarction status post stenting of a subtotally occluded mid LAD. Status post restenting of LAD and stenting of RCA on 03/07/20 Mild to moderate disease involving the circumflex. Acute systolic congestive heart failure, most likely secondary to ischemic cardiomyopathy. Underlying history of chronic obstructive lung disease presently and active. Hypertension. Dyslipidemia. Type 2 diabetes. Ex-smoker. Recommendation: Continue aspirin and metoprolol, brilinta, Zestril. Continue nitroglycerin patch Continue diuretics. Continue to monitor for ongoing congestive heart failure/systolic in nature, echocardiogram showed EF of 30-35% Continue Augmentin for the next 5 days. Although his pro-calcitonin level is within normal. And I strongly doubt pneumonia. Consider transferring the patient to [facility] Continue GI and DVT prophylaxis. Will follow when necessary Time with Patient: Less than 30
[2020-03-08] MEDS: HYDROcodone/APAP 10-325MG 1 EACH TAB PO PRN ×2 (15:22→20:28)
[2020-03-08 16:53] LABS: Glucose,Whole Blood 145 mg/dL (75-99)
--- NOTE | 2020-03-08 18:21 | PN ---
PROGRESS NOTE FOLLOW-UP NOTE: Peter is a 69-year-old gentleman who was admitted to hospital with acute anterior wall myocardial infarction, underwent cardiac catheterization and angioplasty of LAD. Patient's EKG never normalized after the angioplasty. Yesterday afternoon he suddenly developed severe crushing chest pain and had worsening ST-segment elevation. Due to that, he was taken back for an emergent cardiac catheterization that revealed an area of stenosis within the LAD, and he was re-stented. The patient also underwent angioplasty of the right coronary artery. This morning he is doing well, free of shortness of breath. PHYSICAL EXAMINATION: On exam, patient is afebrile. Vital signs are stable. There is no jugular venous distention. Chest exam reveals good air entry bilaterally. Heart exam reveals first and second heart sounds. No gallop. No murmur. Abdomen is soft. Examination of extremities did not reveal any edema. Peripheral pulses are felt. LABS: Labs show that the hemoglobin is 11.9, platelet count is 155, potassium is 4.1, creatinine is 0.69. An echocardiogram on this admission revealed an ejection fraction of 30% to 35%. I am going to repeat an echo on him to re-document the LV function. ASSESSMENT: 1. Acute anterior wall myocardial infarction. 2. Subacute stent thrombosis. PLAN: Patient underwent angioplasty. He is doing well this morning. Obtain an echo. Hopefully home tomorrow. CONNOR / GALEN: [id number] /
[2020-03-08 20:25] LABS: Glucose,Whole Blood 132 mg/dL (75-99)
[2020-03-08] MEDS: ATORVASTATIN 80 MG TAB PO SCH (20:27)
[2020-03-09 04:43] LABS: Basophils % (A) 0 %; Eosinophils # (A) 0.1 k/uL (0-0.7); Eosinophils % (A) 1 %; HCT 33.8 % (39.0-53.0); HGB 11.4 gm/dL (13.0-17.5); Lymphocytes # (A) 1.7 k/uL (1.0-4.8); Lymphocytes % (A) 11 %; MCH 32.8 pg (25.0-35.0); MCHC 33.8 g/dL (31.0-37.0); Mean Platelet Volume 8.6; Monocytes # (A) 0.9 k/uL (0-1.0); Monocytes % (A) 6 %; Neutrophils # (A) 12.3 k/uL (1.3-7.7); Neutrophils % (A) 80 %; Platelet Count 166 k/uL (150-450); RBC 3.49 m/uL (4.30-5.90); RDW 13.6 % (11.5-15.5); WBC 15.4 k/uL (3.8-10.6)
[2020-03-09 04:51] LABS: African American GFR (CKD) >90 (>60 ml/min/1.73 sqM); Anion Gap 4 mmol/L; Blood Urea Nitrogen 26 mg/dL (9-20); Calcium 8.2 mg/dL (8.4-10.2); Carbon Dioxide 29 mmol/L (22-30); Chloride 99 mmol/L (98-107); Glucose 108 mg/dL (74-99); Non-African American GFR(CKD) >90 (>60 ml/min/1.73 sqM); Potassium 3.4 mmol/L (3.5-5.1); Sodium 132 mmol/L (137-145)
[2020-03-09] MEDS ORDERED: Potassium Replacement Protocol 1 EACH MISC MISCELLANE PRN ×2 (05:45→06:11)
[2020-03-09] MEDS ORDERED: POTASSIUM CHLORIDE ER 20 MEQ TAB.ER PO STA (06:24)
[2020-03-09 07:04] LABS: Glucose,Whole Blood 134 mg/dL (75-99)
[2020-03-09] MEDS: INSULIN ASPART (NovoLOG) 100 UNIT/ML VIAL SQ SCH ×2 (10:02→13:08)
[2020-03-09] MEDS: POTASSIUM CHLORIDE ER 20 MEQ TAB.ER PO SCH (10:02)
[2020-03-09] MEDS: ASPIRIN 81 MG PO SCH (10:03)
[2020-03-09] MEDS: LISINOPRIL 5 MG TAB PO SCH (10:03)
[2020-03-09] MEDS: SPIRONOLACTONE 25 MG TAB PO SCH (10:03)
[2020-03-09] MEDS: FUROSEMIDE 40 MG TAB PO SCH (10:03)
[2020-03-09] MEDS: METOPROLOL TARTRATE 25 MG TAB PO SCH (10:03)
[2020-03-09] MEDS: TICAGRELOR 90 MG TAB PO SCH (10:04)
[2020-03-09] MEDS: AMOXIC-POT CLAV 875-125MG 1 EACH TAB PO SCH (10:08)
[2020-03-09] MEDS: glipiZIDE 10 MG TAB PO SCH (10:08)
--- NOTE | 2020-03-09 12:25 | P.PN ---
Progress Note - Text Progress Note Date: 03/09/20 This is an addendum to the cardiology progress note dictated. Patient was noted to have 2 separate episodes of atrial fibrillation, for this reason he is recommended to be discharged with a 30 day event monitor. And has recurrent episodes of atrial fibrillation, he will then require anticoagulation. DNP note has been reviewed, I agree with a documented findings and plan of care. Patient was seen and examined.
[2020-03-09 12:27] LABS: Glucose,Whole Blood 145 mg/dL (75-99)
--- NOTE | 2020-03-09 13:38 | ECHOF ---
Referral Reason:Follow up MEASUREMENTS -------- HEIGHT: 182.9 cm WEIGHT: 104.3 kg BP: 104/60 RVIDd: 3.7 cm (< 3.3) IVSd: 1.5 cm (0.6 - 1.1) LVIDd: 4.5 cm (3.9 - 5.3) LVPWd: 1.3 cm (0.6 - 1.1) IVSs: 1.8 cm LVIDs: 3.4 cm LVPWs: 1.9 cm LA Diam: 3.5 cm (2.7 - 3.8) Ao Diam: 3.7 cm (2.0 - 3.7) AV Cusp: 2.3 cm (1.5 - 2.6) MV EXCURSION: 19.544 mm (> 18.000) MV EF SLOPE: 120 mm/s (70 - 150) EPSS: 0.7 cm MV E Jace: 0.44 m/s MV DecT: 299 ms MV A Jace: 0.49 m/s MV E/A Ratio: 0.89 RAP: 5.00 mmHg RVSP: 40.91 mmHg FINDINGS -------- This was a technically adequate study. The left ventricular size is normal. There is moderate concentric left ventricular hypertrophy. O verall left ventricular systolic function is severely impaired with, an EF between 20 - 25 %. Apica l anterior LV wall motion is hypokinetic. Apical lateral LV wall motion is hypokinetic. Apical inferior LV wall motion is hypokinetic. Apical septum LV wall motion is hyperkinetic. The right ventricle is mildly enlarged. The left atrial size is normal. The right atrium is normal in size. Interatrial and interventricular septum intact. The aortic valve is trileaflet and appears structurally normal. The mitral valve is normal. Mild tricuspid regurgitation present. There is mild pulmonary hypertension. The right ventricular systolic pressure, as measured by Doppler, is 40.91mmHg. The pulmonic valve was not well visualized. The aortic root size is normal. IVC Not well visulized. There is no pericardial effusion. CONCLUSIONS -------- 1. This was a technically adequate study. 2. The left ventricular size is normal. 3. There is moderate concentric left ventricular hypertrophy. 4. Overall left ventricular systolic function is severely impaired with, an EF between 20 - 25 %. 5. Apical anterior LV wall motion is hypokinetic. 6. Apical lateral LV wall motion is hypokinetic. 7. Apical inferior LV wall motion is hypokinetic. 8. Apical septum LV wall motion is hyperkinetic. 9. The right ventricle is mildly enlarged. 10. The left atrial size is normal. 11. The right atrium is normal in size. 12. Interatrial and interventricular septum intact. 13. The aortic valve is trileaflet and appears structurally normal. 14. The mitral valve is normal. 15. Mild tricuspid regurgitation present. 16. There is mild pulmonary hypertension. 17. The right ventricular systolic pressure, as measured by Doppler, is 40.91mmHg. 18. The pulmonic valve was not well visualized. 19. The aortic root size is normal. 20. IVC Not well visulized. 21. There is no pericardial effusion. ANIMAL CARE ASSISTANT: Suzan Karimi RDCS
--- NOTE | 2020-03-09 14:10 | P.PN ---
Progress Note - Text Progress Note Date: 03/09/20 This is a 69-year-old gentleman who presented to the hospital with an acute anterior wall myocardial infarction, he underwent angioplasty and stenting of the LAD. He had an echocardiogram with Doppler study performed this morning, which showed a severely impaired left ventricular systolic function with documented ejection fraction of 20-25%. Apical anterior, lateral, inferior, and septal wall hypokinesia noted. Because of the significantly reduced LV function and the risk for sudden cardiac , patient has been advised to be discharged home with a LifeVest. We will attempt to get the LifeVest for the patient so that he'll be able to be discharged home today. DNP note has been reviewed, I agree with a documented findings and plan of care. Patient was seen and examined.
--- NOTE | 2020-03-09 15:25 | PN ---
PROGRESS NOTE FOLLOW-UP NOTE: Peter is a 69-year-old gentleman who has been admitted to hospital with acute anterior wall myocardial infarction. He underwent angioplasty of LAD, developed subacute thrombosis on Saturday, and also had angioplasty of the right coronary artery. This morning patient is doing well, eager to go home, ambulating without any problems. He is currently on aspirin, Lipitor, Lasix 40 mg daily, Zestril 5 mg daily, metoprolol 25 b.i.d., K-Dur 20 mEq daily, Brilinta and Aldactone. PHYSICAL EXAMINATION: Comfortable at rest. Afebrile. Vital signs are stable. There is no jugular venous distention. Chest exam reveals good air entry bilaterally. Heart exam reveals first and second heart sounds. No gallop. Abdomen is soft. Examination of extremities did not reveal any edema. Peripheral pulses are felt. LABS: Labs show that the white cell count is 15.4, hemoglobin is 11.4, platelet count is 166. Patient is stable for discharge. Chest x-ray yesterday was negative. ASSESSMENT: 1. Acute anterior wall myocardial infarction, status post catheterization and angioplasty complicated by subacute thrombosis and a second angioplasty. 2. Status post right coronary artery angioplasty. 3. Ischemic cardiomyopathy. PLAN: Patient is on optimal medical therapy. We will discharge him home once we have an opportunity to review his echocardiogram. MMODL / IJN: [id number] /
[2020-03-09 16:18] VITALS: BP 106/64; PULSE 81; RESP 20; TEMP 98
--- NOTE | 2020-03-09 18:22 | P.DS ---
Providers Date of admission: 03/04/20 19:22 Attending physician: Bobbi Burgos Consults: 03/04/20 19:13 Consult Physician Stat Consulting Provider: Cardiology Rafi Consult Reason/Comments: STEMI ACTIVATION COMPLETE Do you want consulting provider notified?: Yes 03/04/20 21:42 Consult Physician Routine Consulting Provider: Cardiology Rafi Consult Reason/Comments: Post Interventional patient Do you want consulting provider notified?: Already Contacted 03/05/20 09:47 Consult Physician Routine Consulting Provider: Radha Taveras Consult Reason/Comments: COPD Do you want consulting provider notified?: Already Contacted 03/07/20 17:42 Consult Physician Routine Consulting Provider: Cardiology Rafi Consult Reason/Comments: Post Interventional patient Do you want consulting provider notified?: Already Contacted Primary care physician: Brent Cooper Camila [facility] Course: Diagnoses: Anterior wall STEMI, status post stent placement in the LAD, 2 and another stent placed in the RCA New-onset atrial fibrillation Possible interstitial pneumonia Leukocytosis, mostly secondary to his is STEMI and possible some elements of pneumonia. Trending down Diabetes mellitus Hypertension and hyperlipidemia Peripheral vascular disease Coronary artery disease COPD, not acute exacerbation Hospital course: This is a pleasant 69 years old male with past medical history of diabetes mellitus, hypertension, hyperlipidemia, COPD, peripheral artery disease, coronary artery disease presents on 626 with chest pain. Found to have elevated troponin 19.7 and 47.8, EKG was showing ST elevation in the anteroapical and anterolateral leads eventually patient was taken urgently to cardiac cath where he underwent coronary angiography and successful stenting of the left anterior descending artery. Postoperatively patient is doing well and he denies chest pain or dyspnea, no abdominal pain component. vomiting. Patient presents to have nausea, this has been on multiple medication, 2 days later he developed another chest pain with sweating and found to have another STEMI and patient was taken to the cardiac cath where LAD was restented and a new stent was placed in the RCA. His chest pain resolved. Also patient found to be on atrial fibrillation , was started on metoprolol 25 mg twice daily. Also he was placed on lisinopril, aspirin and Brillinta he was on heparin drip and this stopped prior to discharge I discussed the case with ship steward Dr. Mccarty, he recommended to hold on antiplatelet medication for now as he is aspirin and Brillinta already , And maybe patient will need an outpatient Holter test to check if he has A. fib because the 2 episodes of A. fib have been in the ICU it was in the context of his STEMI. As per cardiology team no need for Eliquis upon discharge, instead he will has a Holter monitor placed to check for any further episodes of a fib, and he will follow up with his ship steward within one week ( appointment is made on 02/13 and pt agrees with it) On the day of discharge his heart rate was controlled at 70 echocardiogram was done initially showed ejection fraction 30-35%, repeat echocardiogram: showed 20-25%, because of risk of sudden cardiac a lifevest is delivered to to the pt ( I called and confirmed it with his bed side RN Sarah) Also patient was started on Augmentin for leukocytosis and possible interstitial pneumonia, and pulmonary evaluated the patient daily. Patient has no chest pain or dyspnea or cough and on the day of discharge, and his WBCs were trending down 24.2 okay to 15.4k. Kitchen Food Assembler recommended Augmentin for 5 more days Patient is cleared for discharge by ship steward and car tester Problems and management plan were discussed with the patient and he verbalized understanding and acceptance Patient was found stable and can be discharged home however he needs follow-up as an outpatient. Patient was instructed to follow up with PCP Dr. Jensen on 03/[address] Gomez on 03/14 and he agrees with these appointments , pt got all his scripts Gen: patient is a AAOx3, no distress CVS: S1-S2, RRR, no murmur Lungs: B/L CTA, no wheezing Abdomen: soft, no distention, no tenderness, positive bowel sounds Extremity: no leg edema or induration Time spent more than 35 minutes Patient Condition at Discharge: Critical Plan - Discharge Summary New Discharge Prescriptions: New Ticagrelor [Brilinta] 90 mg PO BID 30 Days #60 tab Spironolactone [Aldactone] 25 mg PO DAILY #30 tab Aspirin 81 mg PO DAILY #30 chew Amoxic-Pot Clav 875-125Mg [Augmentin 875-125] 1 each PO Q12HR 5 Days #10 tab Amiodarone [Cordarone] 200 mg PO BID #60 tab Potassium Chloride ER [K-Dur 20] 20 meq PO DAILY #30 tab.er.prt Furosemide [Lasix] 40 mg PO DAILY #30 tab Atorvastatin [Lipitor] 80 mg PO HS #30 tab Metoprolol Tartrate [Lopressor] 25 mg PO BID #60 tab Lisinopril [Zestril] 5 mg PO DAILY #30 tab Continue HYDROcodone/APAP 10-325MG [[place] 10-325] 1 tab PO Q4HR PRN PRN Reason: Pain Lisinopril [Prinivil] 20 mg PO DAILY Albuterol Sulfate [Albuterol Sulfate Hfa] 2 puff PO RT-QID glipiZIDE [Glucotrol XL] 10 mg PO BID Discontinued Simvastatin [Zocor] 40 mg PO HS ALPRAZolam [Xanax] 1 mg PO BID PRN PRN Reason: Anxiety Discharge Medication List HYDROcodone/APAP 10-325MG [[place] 10-325] 1 tab PO Q4HR PRN 04/11/15 [History] Lisinopril [Prinivil] 20 mg PO DAILY 04/11/15 [History] Albuterol Sulfate [Albuterol Sulfate Hfa] 2 puff PO RT-QID 03/05/20 [History] glipiZIDE [Glucotrol XL] 10 mg PO BID 03/05/20 [History] Ticagrelor [Brilinta] 90 mg PO BID 30 Days #60 tab 03/07/20 [Rx] Amiodarone [Cordarone] 200 mg PO BID #60 tab 03/09/20 [Rx] Amoxic-Pot Clav 875-125Mg [Augmentin 875-125] 1 each PO Q12HR 5 Days #10 tab 03/09/20 [Rx] Aspirin 81 mg PO DAILY #30 chew 03/09/20 [Rx] Atorvastatin [Lipitor] 80 mg PO HS #30 tab 03/09/20 [Rx] Furosemide [Lasix] 40 mg PO DAILY #30 tab 03/09/20 [Rx] Lisinopril [Zestril] 5 mg PO DAILY #30 tab 03/09/20 [Rx] Metoprolol Tartrate [Lopressor] 25 mg PO BID #60 tab 03/09/20 [Rx] Potassium Chloride ER [K-Dur 20] 20 meq PO DAILY #30 tab.er.prt 03/09/20 [Rx] Spironolactone [Aldactone] 25 mg PO DAILY #30 tab 03/09/20 [Rx] Follow up Appointment(s)/Referral(s): Brent Jensen III, MD [Primary Care Provider] - 03/16/20 1:00 pm [facility], [NON-STAFF] - 1-2 Days Leo Gomez MD [STAFF PHYSICIAN] - 03/14/20 2:30 pm Patient Instructions/Handouts: Heart Attack (DC), Wearable Cardioverter Defibrillator (DC), Holter Monitor (GEN) Activity/Diet/Wound Care/Special Instructions: Do not drive until you follow up with your ship steward. Follow a heart healthy, Mediterranean diet. Do not lift more than 5 pounds with right wrist until your ship steward clears you. Discharge Disposition: HOME WITH HOME HEALTH SERVICES
[2020-03-09] MEDS ORDERED: AMIODARONE 200 MG TAB PO SCH (21:00)
== END 2020-03-09 19:42 | disposition home health service (06) | DRG 246 ==
LOC: EC 19:00 → 2SICU 19:22
PROVIDERS: ADMIT Hospitalist; ATTEND Hospitalist
PROC: 4A023N7 Measurement of Cardiac Sampling and Pressure, Left Heart, Percutaneous Approach (ICD-10-PCS; principal; 2020-03-04 19:37)
PROC: 027035Z Dilation of Coronary Artery, One Artery with Two Drug-eluting Intraluminal Devices, Percutaneous Approach (ICD-10-PCS; principal; 2020-03-04 19:37)
PROC: B2111ZZ Fluoroscopy of Multiple Coronary Arteries using Low Osmolar Contrast (ICD-10-PCS; principal; 2020-03-04 19:37)
PROC: B2111ZZ Fluoroscopy of Multiple Coronary Arteries using Low Osmolar Contrast (ICD-10-PCS; 2020-03-07 15:44)
PROC: 027135Z Dilation of Coronary Artery, Two Arteries with Two Drug-eluting Intraluminal Devices, Percutaneous Approach (ICD-10-PCS; 2020-03-07 15:44)
DX: I21.09 ST elevation (STEMI) myocardial infarction involving other coronary artery of anterior wall (principal); I50.21 Acute systolic (congestive) heart failure; J18.9 Pneumonia, unspecified organism; I48.19 Other persistent atrial fibrillation; I25.5 Ischemic cardiomyopathy; I27.20 Pulmonary hypertension, unspecified; I22.9 Subsequent ST elevation (STEMI) myocardial infarction of unspecified site; I11.0 Hypertensive heart disease with heart failure; E11.51 Type 2 diabetes mellitus with diabetic peripheral angiopathy without gangrene; E78.5 Hyperlipidemia, unspecified; G89.29 Other chronic pain; I07.1 Rheumatic tricuspid insufficiency; I25.10 Atherosclerotic heart disease of native coronary artery without angina pectoris; J44.9 Chronic obstructive pulmonary disease, unspecified; Z11.59 Encounter for screening for other viral diseases; M54.5 Low back pain; Z79.84 Long term (current) use of oral hypoglycemic drugs; Z79.899 Other long term (current) drug therapy; Z95.5 Presence of coronary angioplasty implant and graft; Z87.891 Personal history of nicotine dependence
CPT/HCPCS: 36415; 71045; 80048; 80053; 80061; 81003; 82550; 82553; 83880; 84145; 84443; 84484; 85025; 85347; 85610; 85730; 93005; 93270; 93306; 93454; 93458; 94640; 96374; 99285

== ENCOUNTER 2020-03-14 10:46 | Inpatient (IN) | payer MEDICARE ==
[2020-03-14] MEDS ORDERED: SODIUM CHLORIDE 0.9% 500 ML 500 ML IV STA (11:02)
--- NOTE | 2020-03-14 11:16 | ED ---
General Adult HPI - General Chief complaint: GI Bleed Stated complaint: GI Bleed Source: patient, RN notes reviewed, old records reviewed Mode of arrival: EMS Limitations: physical limitation - History of Present Illness Initial comments: This is a 69-year-old male who presents emergency Department stating he had a stent placed on Saturday and then a few days later had another stent placed. Patient states she has total 4 stents at this time. Patient comes in today because he is feeling weak and he said dark black stool since he's been in the hospital. Patient denies any chest pain denies any shortness of breath or difficulty. Patient states she's had some intra-abdominal cramping - Related Data Home Medications Medication Instructions Recorded Confirmed HYDROcodone/APAP 10-325MG [[place] 1 tab PO Q4HR PRN 04/11/15 03/14/20 10-325] Lisinopril [Prinivil] 20 mg PO DAILY 04/11/15 03/14/20 Albuterol Sulfate [Albuterol 2 puff PO RT-QID 03/05/20 03/14/20 Sulfate Hfa] glipiZIDE [Glucotrol XL] 10 mg PO BID 03/05/20 03/14/20 Previous Rx's Medication Instructions Recorded Ticagrelor [Brilinta] 90 mg PO BID 30 Days #60 tab 03/07/20 Amiodarone [Cordarone] 200 mg PO BID #60 tab 03/09/20 Amoxic-Pot Clav 875-125Mg 1 each PO Q12HR 5 Days #10 tab 03/09/20 [Augmentin 875-125] Aspirin 81 mg PO DAILY #30 chew 03/09/20 Atorvastatin [Lipitor] 80 mg PO HS #30 tab 03/09/20 Furosemide [Lasix] 40 mg PO DAILY #30 tab 03/09/20 Lisinopril [Zestril] 5 mg PO DAILY #30 tab 03/09/20 Metoprolol Tartrate [Lopressor] 25 mg PO BID #60 tab 03/09/20 Potassium Chloride ER [K-Dur 20] 20 meq PO DAILY #30 tab.er.prt 03/09/20 Spironolactone [Aldactone] 25 mg PO DAILY #30 tab 03/09/20 Allergies Allergy/AdvReac Type Severity Reaction Status Date / Time No Known Allergies Allergy Verified 03/14/20 12:19 Review of Systems ROS Statement: Those systems with pertinent positive or pertinent negative responses have been documented in the HPI. ROS Other: All systems not noted in ROS Statement are negative. Past Medical History Past Medical History: Coronary Artery Disease (CAD), COPD, Diabetes Mellitus, Hyperlipidemia, Hypertension History of Any Multi-Drug Resistant Organisms: None Reported Past Surgical History: Back Surgery, Heart Catheterization With Stent, Orthopedic Surgery Additional Past Surgical History / Comment(s): NECK SURGERY Past Anesthesia/Blood Transfusion Reactions: No Reported Reaction Date of Last Stent Placement:: 2011 Past Psychological History: No Psychological Hx Reported Smoking Status: Former smoker Past Alcohol Use History: None Reported Past Drug Use History: Marijuana - Past Family History Mother Family Medical History: No Reported History General Exam - General Exam Comments Initial Comments: GENERAL: Patient is well-developed and well-nourished. Patient is nontoxic and well- hydrated and is in mild distress. ENT: Neck is soft and supple. No significant lymphadenopathy is noted. Oropharynx is clear. Moist mucous membranes. Neck has full range of motion without eliciting any pain. EYES: The sclera were anicteric and conjunctiva were pink and moist. Extraocular movements were intact and pupils were equal round and reactive to light. Eyelids were unremarkable. PULMONARY: Unlabored respirations. Good breath sounds bilaterally. No audible rales rhonchi or wheezing was noted. CARDIOVASCULAR: There is a regular rate and rhythm without any murmurs gallops or rubs. ABDOMEN: Soft and nontender with normal bowel sounds. RECTAL: Stool was black. SKIN: The patient's skin is pale NEUROLOGIC: Patient is alert and oriented x3. Cranial nerves II through XII are grossly intact. Motor and sensory are also intact. Normal speech, volume and content. Symmetrical smile. MUSCULOSKELETAL: Normal extremities with adequate strength and full range of motion. No lower extremity swelling or edema. No calf tenderness. LYMPHATICS: No significant lymphadenopathy is noted PSYCHIATRIC: Normal psychiatric evaluation. Limitations: physical limitation Course Vital Signs 03/14/20 03/14/20 03/14/20 10:53 11:00 11:30 Temperature 99.0 F Pulse Rate 80 86 80 Respiratory 18 22 22 Rate Blood Pressure 117/67 117/61 127/93 O2 Sat by Pulse 98 98 96 Oximetry 03/14/20 12:00 Temperature Pulse Rate 79 Respiratory 20 Rate Blood Pressure 122/48 O2 Sat by Pulse 97 Oximetry Medical Decision Making - Medical Decision Making EKG shows normal sinus rhythm at 81 bpm OH interval 286 QRS is 90 QT interval 4:30 QTC is 499. Patient's EKG shows some slight ST segment elevation in leads V3 and V4 this was seen on the previous EKG the patient had acute ID on March 04. Patient's hemoglobin was 6.5. So I started the patient on packed red blood cells times one. I spoke with because he agreed to admit the patient minute the patient writing orders. Continue monitoring hemoglobin. - Lab Data Result diagrams: 03/14/20 10:50 03/14/20 10:50 Lab Results 03/14/20 03/14/20 03/14/20 Range/Units 10:50 10:50 10:50 WBC 20.5 H (3.8-10.6) k/uL RBC 2.05 L (4.30-5.90) m/uL Hgb 6.5 L* D (13.0-17.5) gm/dL Hct 20.1 L (39.0-53.0) % MCV 98.1 (80.0-100.0) fL MCH 31.6 (25.0-35.0) pg MCHC 32.2 (31.0-37.0) g/dL RDW 15.2 (11.5-15.5) % Plt Count 288 (150-450) k/uL Neutrophils % 80 % Lymphocytes % 12 % Monocytes % 5 % Eosinophils % 1 % Basophils % 0 % Neutrophils # 16.5 H (1.3-7.7) k/uL Lymphocytes # 2.4 (1.0-4.8) k/uL Monocytes # 1.1 H (0-1.0) k/uL Eosinophils # 0.3 (0-0.7) k/uL Basophils # 0.1 (0-0.2) k/uL Macrocytosis Slight PT 10.7 (9.0-12.0) sec INR 1.0 (<1.2) APTT 20.5 L (22.0-30.0) sec Sodium (137-145) mmol/L Potassium (3.5-5.1) mmol/L Chloride (98-107) mmol/L Carbon Dioxide (22-30) mmol/L Anion Gap mmol/L BUN (9-20) mg/dL Creatinine (0.66-1.25) mg/dL Est GFR (CKD-EPI)AfAm (>60 ml/min/1.73 sqM) Est GFR (CKD-EPI)NonAf (>60 ml/min/1.73 sqM) Glucose (74-99) mg/dL Calcium (8.4-10.2) mg/dL Magnesium (1.6-2.3) mg/dL Total Bilirubin (0.2-1.3) mg/dL AST (17-59) U/L ALT (4-49) U/L Alkaline Phosphatase (38-126) U/L Troponin I (0.000-0.034) ng/mL Total Protein (6.3-8.2) g/dL Albumin (3.5-5.0) g/dL Stool Occult Blood Positive (Negative) 03/14/20 03/14/20 Range/Units 10:50 10:50 WBC (3.8-10.6) k/uL RBC (4.30-5.90) m/uL Hgb (13.0-17.5) gm/dL Hct (39.0-53.0) % MCV (80.0-100.0) fL MCH (25.0-35.0) pg MCHC (31.0-37.0) g/dL RDW (11.5-15.5) % Plt Count (150-450) k/uL Neutrophils % % Lymphocytes % % Monocytes % % Eosinophils % % Basophils % % Neutrophils # (1.3-7.7) k/uL Lymphocytes # (1.0-4.8) k/uL Monocytes # (0-1.0) k/uL Eosinophils # (0-0.7) k/uL Basophils # (0-0.2) k/uL Macrocytosis PT (9.0-12.0) sec INR (<1.2) APTT (22.0-30.0) sec Sodium 131 L (137-145) mmol/L Potassium 4.0 (3.5-5.1) mmol/L Chloride 101 (98-107) mmol/L Carbon Dioxide 24 (22-30) mmol/L Anion Gap 6 mmol/L BUN 29 H (9-20) mg/dL Creatinine 0.72 (0.66-1.25) mg/dL Est GFR (CKD-EPI)AfAm >90 (>60 ml/min/1.73 sqM) Est GFR (CKD-EPI)NonAf >90 (>60 ml/min/1.73 sqM) Glucose 166 H (74-99) mg/dL Calcium 8.5 (8.4-10.2) mg/dL Magnesium 1.8 (1.6-2.3) mg/dL Total Bilirubin 0.6 (0.2-1.3) mg/dL AST 29 (17-59) U/L ALT 23 (4-49) U/L Alkaline Phosphatase 72 (38-126) U/L Troponin I 0.975 H* (0.000-0.034) ng/mL Total Protein 5.2 L (6.3-8.2) g/dL Albumin 3.0 L (3.5-5.0) g/dL Stool Occult Blood (Negative) Critical Care Time Critical Care Time: Yes Total Critical Care Time: 35 Disposition Clinical Impression: Gastrointestinal hemorrhage Disposition: ADMITTED IP TO THIS HOSP Referrals: Brent Jensen III, MD [Primary Care Provider] - 1-2 days Time of Disposition: 12:45
[2020-03-14 11:23] LABS: Basophils # (A) 0.1 k/uL (0-0.2); Basophils % (A) 0 %; Eosinophils # (A) 0.3 k/uL (0-0.7); Eosinophils % (A) 1 %; HCT 20.1 % (39.0-53.0); Lymphocytes # (A) 2.4 k/uL (1.0-4.8); Lymphocytes % (A) 12 %; MCH 31.6 pg (25.0-35.0); MCHC 32.2 g/dL (31.0-37.0); MCV 98.1 fL (80.0-100.0); Macrocytosis Slight; Mean Platelet Volume 7.7; Monocytes # (A) 1.1 k/uL (0-1.0); Monocytes % (A) 5 %; Neutrophils # (A) 16.5 k/uL (1.3-7.7); Neutrophils % (A) 80 %; Platelet Count 288 k/uL (150-450); RBC 2.05 m/uL (4.30-5.90); RDW 15.2 % (11.5-15.5); WBC 20.5 k/uL (3.8-10.6)
[2020-03-14 11:28] LABS: HGB 6.5 gm/dL (13.0-17.5)
[2020-03-14 11:45] LABS: ALT 23 U/L (4-49); AST 29 U/L (17-59); African American GFR (CKD) >90 (>60 ml/min/1.73 sqM); Alkaline Phosphatase 72 U/L (38-126); Anion Gap 6 mmol/L; Blood Urea Nitrogen 29 mg/dL (9-20); Calcium 8.5 mg/dL (8.4-10.2); Carbon Dioxide 24 mmol/L (22-30); Chloride 101 mmol/L (98-107); Glucose 166 mg/dL (74-99); Magnesium 1.8 mg/dL (1.6-2.3); Non-African American GFR(CKD) >90 (>60 ml/min/1.73 sqM); Sodium 131 mmol/L (137-145); Total Bilirubin 0.6 mg/dL (0.2-1.3); Total Protein 5.2 g/dL (6.3-8.2)
[2020-03-14 11:49] LABS: Prothrombin Time 10.7 sec (9.0-12.0)
[2020-03-14 11:52] LABS: Partial Thromboplastin Time 20.5 sec (22.0-30.0)
[2020-03-14] MEDS ORDERED: SODIUM CHLORIDE 0.9% 1,000 ML IV SCH (16:15)
[2020-03-14] MEDS: PANTOPRAZOLE 40 MG/10 ML VIAL IVP SCH (16:26)
[2020-03-14 16:58] LABS: Glucose,Whole Blood 152 mg/dL (75-99)
--- NOTE | 2020-03-14 17:39 | P.HPIM ---
History of Present Illness 69-year-old pleasant gentleman with history of cardiac catheterization and stenting recently was discharged on first of this month or came back because of generalized tightness weakness and dark stools patient was having 1 or 2 Doxil since his discharge. Patient only had 1 bowel movement today patient was complaining of lightheadedness and generalized weakness. Patient is found to have hemoglobin of around 6.5 was around follow up on his discharge. Patient is on brinta and aspirin patient denied any nausea and vomiting or vomiting patient is comparing of epigastric abdominal pain sharp in nature and nonradiating. Review of Systems REVIEW OF SYSTEMS: CONSTITUTIONAL: As mentioned in HPI HEENT: No recent visual problems or hearing problems. Denied any sore throat. CARDIOVASCULAR: No chest pain, orthopnea, PND, no palpitations, no syncope. PULMONARY: No shortness of breath, no cough, no hemoptysis. GASTROINTESTINAL: As mentioned in HPI NEUROLOGICAL: No headaches, no weakness, no numbness. HEMATOLOGICAL: Denies any bleeding or petechiae. GENITOURINARY: Denies any burning micturition, frequency, or urgency. MUSCULOSKELETAL/RHEUMATOLOGICAL: Denies any joint pain, swelling, or any muscle pain. ENDOCRINE: Denies any polyuria or polydipsia. The rest of the 14-point review of systems is negative. Past Medical History Past Medical History: Coronary Artery Disease (CAD), COPD, Diabetes Mellitus, Hyperlipidemia, Hypertension, Myocardial Infarction (NH) Additional Past Medical History / Comment(s): stents February 2020 Last Myocardial Infarction Date:: 03/04/2020 History of Any Multi-Drug Resistant Organisms: None Reported Past Surgical History: Back Surgery, Heart Catheterization With Stent, Orthopedic Surgery Additional Past Surgical History / Comment(s): NECK SURGERY Past Anesthesia/Blood Transfusion Reactions: No Reported Reaction Date of Last Stent Placement:: 03/04/2020 Past Psychological History: No Psychological Hx Reported Smoking Status: Former smoker Past Alcohol Use History: None Reported Past Drug Use History: Marijuana Additional Drug Use History / Comment(s): daily in am HAS CARD - Past Family History Mother Family Medical History: No Reported History Medications and Allergies Home Medications Medication Instructions Recorded Confirmed Type HYDROcodone/APAP 10-325MG [[place] 1 tab PO Q4HR PRN 04/11/15 03/14/20 History 10-325] Lisinopril [Prinivil] 20 mg PO DAILY 04/11/15 03/14/20 History Albuterol Sulfate [Albuterol 2 puff PO RT-QID 03/05/20 03/14/20 History Sulfate Hfa] glipiZIDE [Glucotrol XL] 10 mg PO BID 03/05/20 03/14/20 History Ticagrelor [Brilinta] 90 mg PO BID 30 Days #60 tab 03/07/20 03/14/20 Rx Amiodarone [Cordarone] 200 mg PO BID #60 tab 03/09/20 03/14/20 Rx Amoxic-Pot Clav 875-125Mg 1 each PO Q12HR 5 Days #10 tab 03/09/20 03/14/20 Rx [Augmentin 875-125] Aspirin 81 mg PO DAILY #30 chew 03/09/20 03/14/20 Rx Atorvastatin [Lipitor] 80 mg PO HS #30 tab 03/09/20 03/14/20 Rx Furosemide [Lasix] 40 mg PO DAILY #30 tab 03/09/20 03/14/20 Rx Lisinopril [Zestril] 5 mg PO DAILY #30 tab 03/09/20 03/14/20 Rx Metoprolol Tartrate [Lopressor] 25 mg PO BID #60 tab 03/09/20 03/14/20 Rx Potassium Chloride ER [K-Dur 20] 20 meq PO DAILY #30 tab.er.prt 03/09/20 Rx Spironolactone [Aldactone] 25 mg PO DAILY #30 tab 03/09/20 03/14/20 Rx Allergies Allergy/AdvReac Type Severity Reaction Status Date / Time No Known Allergies Allergy Verified 03/14/20 12:19 Physical Exam Vitals: Vital Signs Temp Pulse Pulse Resp BP BP Pulse Ox 03/14/20 15:50 98.5 F 78 16 130/60 97 03/14/20 15:10 97.6 F 87 16 132/89 96 03/14/20 14:30 98.7 F 79 18 116/55 96 03/14/20 13:48 98.8 F 77 16 98/60 97 03/14/20 13:18 98.9 F 81 16 118/56 98 03/14/20 13:08 98.1 F 80 18 117/51 100 03/14/20 12:00 79 20 122/48 97 03/14/20 11:30 80 22 127/93 96 03/14/20 11:00 86 22 117/61 98 03/14/20 10:53 99.0 F 80 18 117/67 98 Intake and Output 03/14/20 03/14/20 03/14/20 06:59 14:59 22:59 Intake Total 0 310 Balance 0 310 Intake: Blood Product 0 310 Rc As-1 Unit 0 310 [id number] Other: Weight 88.451 kg PHYSICAL EXAMINATION: GENERAL: The patient is alert and oriented x3, not in any acute distress. Well developed, well nourished. HEENT: Pupils are round and equally reacting to light. EOMI. No scleral icterus. Does have conjunctival pallor. Normocephalic, atraumatic. No pharyngeal erythema. No thyromegaly. CARDIOVASCULAR: S1 and S2 present. No murmurs, rubs, or gallops. PULMONARY: Chest is clear to auscultation, no wheezing or crackles. ABDOMEN: Mild epigastric abdominal tenderness, nondistended, normoactive bowel sounds. No palpable organomegaly. MUSCULOSKELETAL: No joint swelling or deformity. EXTREMITIES: No cyanosis, clubbing, or pedal edema. NEUROLOGICAL: Gross neurological examination did not reveal any focal deficits. SKIN: No rashes. Results CBC & Chem 7: 03/14/20 10:50 03/14/20 10:50 Labs: Abnormal Lab Results - Last 24 Hours (Table) 03/14/20 03/14/20 03/14/20 Range/Units 10:50 10:50 10:50 WBC 20.5 H (3.8-10.6) k/uL RBC 2.05 L (4.30-5.90) m/uL Hgb 6.5 L* D (13.0-17.5) gm/dL Hct 20.1 L (39.0-53.0) % Neutrophils # 16.5 H (1.3-7.7) k/uL Monocytes # 1.1 H (0-1.0) k/uL APTT 20.5 L (22.0-30.0) sec Sodium 131 L (137-145) mmol/L BUN 29 H (9-20) mg/dL Glucose 166 H (74-99) mg/dL POC Glucose (mg/dL) (75-99) mg/dL Troponin I (0.000-0.034) ng/mL Total Protein 5.2 L (6.3-8.2) g/dL Albumin 3.0 L (3.5-5.0) g/dL Crossmatch 03/14/20 03/14/20 03/14/20 Range/Units 10:50 10:50 16:52 WBC (3.8-10.6) k/uL RBC (4.30-5.90) m/uL Hgb (13.0-17.5) gm/dL Hct (39.0-53.0) % Neutrophils # (1.3-7.7) k/uL Monocytes # (0-1.0) k/uL APTT (22.0-30.0) sec Sodium (137-145) mmol/L BUN (9-20) mg/dL Glucose (74-99) mg/dL POC Glucose (mg/dL) 152 H (75-99) mg/dL Troponin I 0.975 H* (0.000-0.034) ng/mL Total Protein (6.3-8.2) g/dL Albumin (3.5-5.0) g/dL Crossmatch See Detail Thrombosis Risk Factor Assmnt - Choose All That Apply Each Factor Represents 1 point: Obesity (BMI >25) Each Risk Factor Represents 2 Points: Age 61-74 years Thrombosis Risk Factor Assessment Total Risk Factor Score: 3 Thrombosis Risk Factor Assessment Level: Moderate Risk Assessment and Plan Plan: -Acute blood loss anemia from possible upper GI bleed, peptic ulcer disease or gastritis, gastric body was consulted patient will be started on clear liquid diet and nothing by mouth after midnight. Mildly elevated troponin of 0.975 probably secondary to anemia rather than acute myocardial infarction, leading to demand ischemia. -Hyponatremia probably secondary to diuretics. -Congestive heart failure chronic systolic dysfunction, EF of around 20-25% is presently euvolemic will be resumed on his home regimen -Coronary artery disease with recent cardiac catheterization and stents: Unfortunately her to hold off on antiplatelet therapy cardiology will be consulted these need to be resumed as as possible hopefully patient will be able to undergo upper GI endoscopy tomorrow -Hypertension next and-hyperlipidemia
[2020-03-14] MEDS: HYDROcodone/APAP 10-325MG 1 EACH TAB PO PRN ×2 (17:51→22:30)
[2020-03-14] MEDS: ALBUTEROL NEBULIZED 2.5 MG/3 ML INHALATION SCH (19:48)
[2020-03-14 20:00] LABS: Glucose,Whole Blood 122 mg/dL (75-99)
[2020-03-14] MEDS: AMIODARONE 200 MG TAB PO SCH (20:19)
[2020-03-14] MEDS: ATORVASTATIN 80 MG TAB PO SCH (20:19)
[2020-03-14] MEDS: METOPROLOL TARTRATE 25 MG TAB PO SCH (20:19)
[2020-03-14] MEDS: INSULIN ASPART (NovoLOG) 100 UNIT/ML VIAL SQ SCH (20:19)
[2020-03-15] MEDS: HYDROcodone/APAP 10-325MG 1 EACH TAB PO PRN ×2 (03:14→19:06)
[2020-03-15 06:08] LABS: Glucose,Whole Blood 103 mg/dL (75-99)
[2020-03-15 06:27] LABS: African American GFR (CKD) >90 (>60 ml/min/1.73 sqM); Anion Gap 2 mmol/L; Anisocytosis Slight; Basophils # (A) 0.1 k/uL (0-0.2); Basophils % (A) 0 %; Blood Urea Nitrogen 18 mg/dL (9-20); Carbon Dioxide 27 mmol/L (22-30); Chloride 105 mmol/L (98-107); Eosinophils # (A) 0.3 k/uL (0-0.7); Eosinophils % (A) 2 %; Glucose 83 mg/dL (74-99); HCT 20.1 % (39.0-53.0); Lymphocytes # (A) 3.1 k/uL (1.0-4.8); Lymphocytes % (A) 21 %; MCHC 32.9 g/dL (31.0-37.0); MCV 97.1 fL (80.0-100.0); Macrocytosis Slight; Mean Platelet Volume 7.4; Monocytes # (A) 0.8 k/uL (0-1.0); Monocytes % (A) 6 %; Neutrophils % (A) 69 %; Non-African American GFR(CKD) >90 (>60 ml/min/1.73 sqM); Platelet Count 233 k/uL (150-450); Potassium 4.5 mmol/L (3.5-5.1); RBC 2.06 m/uL (4.30-5.90); RDW 16.1 % (11.5-15.5); Sodium 134 mmol/L (137-145); WBC 14.5 k/uL (3.8-10.6)
[2020-03-15 06:29] LABS: HGB 6.6 gm/dL (13.0-17.5)
[2020-03-15] MEDS: INSULIN ASPART (NovoLOG) 100 UNIT/ML VIAL SQ SCH ×4 (06:35→21:14)
[2020-03-15] MEDS: ALBUTEROL NEBULIZED 2.5 MG/3 ML INHALATION SCH ×4 (07:48→20:18)
[2020-03-15] MEDS: AMIODARONE 200 MG TAB PO SCH ×2 (08:28→21:13)
[2020-03-15] MEDS: FUROSEMIDE 40 MG TAB PO SCH (08:28)
[2020-03-15] MEDS: METOPROLOL TARTRATE 25 MG TAB PO SCH ×2 (08:28→21:14)
[2020-03-15] MEDS: SPIRONOLACTONE 25 MG TAB PO SCH (08:28)
[2020-03-15] MEDS: PANTOPRAZOLE 40 MG/10 ML VIAL IVP SCH ×2 (08:29→21:13)
[2020-03-15] MEDS ORDERED: LISINOPRIL 20 MG TAB PO SCH (09:00)
[2020-03-15 11:21] LABS: Glucose,Whole Blood 129 mg/dL (75-99)
--- NOTE | 2020-03-15 11:30 | P.PN ---
Subjective Patient with the recent cardiac ablation stenting dual antiplatelet therapy is admitted for GI bleed patient didn't have any stools since yesterday patient is receiving 1 more unit appear basically transfusion was a total 2 units of PRBC transfusion his epigastric abdominal pain is significantly better today Constitutional: Denied any fatigue denied any fever. Cardio vascular: denied any chest pain, palpitations Gastrointestinal denied any nausea vomiting Pulmonary: Denied any shortness of breath cough Neurologic denied any new focal deficits All inpatient medications were reviewed and appropriate changes in these medications as dictated in the interval history and assessment and plan. Objective - Vital Signs Vital signs: Vital Signs Temp 98.3 F 03/15/20 09:58 Pulse 64 03/15/20 09:58 Resp 18 03/15/20 09:58 BP 101/45 03/15/20 09:58 Pulse Ox 100 03/15/20 09:58 Intake & Output 03/14/20 03/15/20 03/15/20 18:59 06:59 18:59 Intake Total 310 0 Output Total 100 375 200 Balance 210 -375 -200 Weight 88.451 kg Intake: Blood Product 310 0 Rc As-1 Unit 310 [id number] Rc As-3 Unit 0 [id number] Output: Urine 100 375 200 Other: Voiding Method Toilet Urinal # Voids 1 - Exam PHYSICAL EXAMINATION: GENERAL: The patient is alert and oriented x3, not in any acute distress. Well developed, well nourished. HEENT: Pupils are round and equally reacting to light. EOMI. No scleral icterus. Does have conjunctival pallor. Normocephalic, atraumatic. No pharyngeal erythema. No thyromegaly. CARDIOVASCULAR: S1 and S2 present. No murmurs, rubs, or gallops. PULMONARY: Chest is clear to auscultation, no wheezing or crackles. ABDOMEN: Mild epigastric abdominal tenderness, nondistended, normoactive bowel sounds. No palpable organomegaly. MUSCULOSKELETAL: No joint swelling or deformity. EXTREMITIES: No cyanosis, clubbing, or pedal edema. NEUROLOGICAL: Gross neurological examination did not reveal any focal deficits. SKIN: No rashes. - Labs CBC & Chem 7: 03/15/20 05:45 03/15/20 05:45 Labs: Abnormal Lab Results - Last 24 Hours (Table) 03/14/20 03/14/20 03/14/20 Range/Units 10:50 10:50 10:50 WBC (3.8-10.6) k/uL RBC (4.30-5.90) m/uL Hgb (13.0-17.5) gm/dL Hct (39.0-53.0) % RDW (11.5-15.5) % Neutrophils # (1.3-7.7) k/uL APTT 20.5 L (22.0-30.0) sec Sodium 131 L (137-145) mmol/L BUN 29 H (9-20) mg/dL Glucose 166 H (74-99) mg/dL POC Glucose (mg/dL) (75-99) mg/dL Calcium (8.4-10.2) mg/dL Troponin I 0.975 H* (0.000-0.034) ng/mL Total Protein 5.2 L (6.3-8.2) g/dL Albumin 3.0 L (3.5-5.0) g/dL Crossmatch 03/14/20 03/14/20 03/14/20 Range/Units 10:50 16:52 19:58 WBC (3.8-10.6) k/uL RBC (4.30-5.90) m/uL Hgb (13.0-17.5) gm/dL Hct (39.0-53.0) % RDW (11.5-15.5) % Neutrophils # (1.3-7.7) k/uL APTT (22.0-30.0) sec Sodium (137-145) mmol/L BUN (9-20) mg/dL Glucose (74-99) mg/dL POC Glucose (mg/dL) 152 H 122 H (75-99) mg/dL Calcium (8.4-10.2) mg/dL Troponin I (0.000-0.034) ng/mL Total Protein (6.3-8.2) g/dL Albumin (3.5-5.0) g/dL Crossmatch See Detail 03/15/20 03/15/20 03/15/20 Range/Units 05:45 05:45 06:07 WBC 14.5 H (3.8-10.6) k/uL RBC 2.06 L (4.30-5.90) m/uL Hgb 6.6 L* (13.0-17.5) gm/dL Hct 20.1 L (39.0-53.0) % RDW 16.1 H (11.5-15.5) % Neutrophils # 10.0 H (1.3-7.7) k/uL APTT (22.0-30.0) sec Sodium 134 L (137-145) mmol/L BUN (9-20) mg/dL Glucose (74-99) mg/dL POC Glucose (mg/dL) 103 H (75-99) mg/dL Calcium 8.0 L (8.4-10.2) mg/dL Troponin I (0.000-0.034) ng/mL Total Protein (6.3-8.2) g/dL Albumin (3.5-5.0) g/dL Crossmatch 03/15/20 Range/Units 11:20 WBC (3.8-10.6) k/uL RBC (4.30-5.90) m/uL Hgb (13.0-17.5) gm/dL Hct (39.0-53.0) % RDW (11.5-15.5) % Neutrophils # (1.3-7.7) k/uL APTT (22.0-30.0) sec Sodium (137-145) mmol/L BUN (9-20) mg/dL Glucose (74-99) mg/dL POC Glucose (mg/dL) 129 H (75-99) mg/dL Calcium (8.4-10.2) mg/dL Troponin I (0.000-0.034) ng/mL Total Protein (6.3-8.2) g/dL Albumin (3.5-5.0) g/dL Crossmatch Assessment and Plan Plan: -Acute blood loss anemia from possible upper GI bleed, peptic ulcer disease or gastritis, gastroenterology will evaluate the patient Mildly elevated troponin of 0.975 probably secondary to anemia rather than acute myocardial infarction, leading to demand ischemia. -Hyponatremia probably secondary to diuretics. -Congestive heart failure chronic systolic dysfunction, EF of around 20-25% is presently euvolemic will be resumed on his home regimen IV fluids will be discontinued with concerns of heart failure exacerbation -Coronary artery disease with recent cardiac catheterization and stents: Unfortunately her to hold off on antiplatelet therapy cardiology will be consulted these need to be resumed as as possible hopefully patient will be able to undergo upper GI endoscopy tomorrow -Hypertension -hyperlipidemia
--- NOTE | 2020-03-15 15:17 | P.CRDCN ---
History of Present Illness Consult date: 03/15/20 Chief complaint: Dark stools, generalized weakness History of present illness: This is a 69-year-old gentleman who was just recently in the hospital, presented at that time with an acute anterior wall myocardial infarction, underwent angioplasty and stenting of the LAD, subsequent to that, patient had an anterior ST elevation myocardial infarction while in the hospital, was taken back to the cardiac catheterization lab where he underwent successful stenting of the mid LAD as well as stenting of the right coronary artery. He had an echocardiogram with Doppler study performed which revealed an ejection fraction of 20-25%, because of the significantly reduced LV function, patient was discharged home from the hospital with a LifeVest. He was actually discharged home on March 09, presents back to the hospital with symptoms of weakness as well as dark stools. According to the patient, he also had a dark stool just prior to leaving the hospital. He denies having any chest discomfort on this occasion, no difficulty in breathing. His EKG on presentation here showed a normal sinus rhythm with some ST elevation persistently showing in the anterior leads. Improved from discharge here. Blood pressure 101/40 with a heart rate in the 60s. 100% on room air. Labs on admission White blood cell count 20.5, hemoglobin 6.5, platelet count 288. Sodium 131, potassium 4.0, BUN 29, creatinine 0.7. Troponin 0.975. This morning's labs, white blood cell count 14.5, hemoglobin 6.6, platelet count 233. Sodium 134, potassium 4.5, BUN 18, creatinine 0.6. Stool for occult blood positive. Blood pressure 100/45, heart rate in the 60s, 100% on room air. At the time of her examination, patient was chest pain-free, breathing is stable. He is currently receiving his second unit of packed red blood cells. There is a consult requested with GI service for evaluation of the patient's anemia. The patient is a little bit frustrated, unsure of what the plan is. From cardiology's perspective, his aspirin and Brilinta remain currently on hold. Once the patient is seen and evaluated by GI service and cleared from their perspective he will need to be resumed on those as soon as possible. Past Medical History Past Medical History: Coronary Artery Disease (CAD), COPD, Diabetes Mellitus, H yperlipidemia, Hypertension, Myocardial Infarction (MS) Additional Past Medical History / Comment(s): stents February 2020 Last Myocardial Infarction Date:: 03/04/2020 History of Any Multi-Drug Resistant Organisms: None Reported Past Surgical History: Back Surgery, Heart Catheterization With Stent, Orth opedic Surgery Additional Past Surgical History / Comment(s): NECK SURGERY Past Anesthesia/Blood Transfusion Reactions: No Reported Reaction Date of Last Stent Placement:: 03/04/2020 Past Psychological History: No Psychological Hx Reported Smoking Status: Former smoker Past Alcohol Use History: None Reported Past Drug Use History: Marijuana Additional Drug Use History / Comment(s): daily in am HAS CARD - Past Family History Mother Family Medical History: No Reported History Medications and Allergies Home Medications Medication Instructions Recorded Confirmed Type HYDROcodone/APAP 10-325MG [[place] 1 tab PO Q4HR PRN 04/11/15 03/14/20 History 10-325] Lisinopril [Prinivil] 20 mg PO DAILY 04/11/15 03/14/20 History Albuterol Sulfate [Albuterol 2 puff PO RT-QID 03/05/20 03/14/20 History Sulfate Hfa] glipiZIDE [Glucotrol XL] 10 mg PO BID 03/05/20 03/14/20 History Ticagrelor [Brilinta] 90 mg PO BID 30 Days #60 tab 03/07/20 03/14/20 Rx Amiodarone [Cordarone] 200 mg PO BID #60 tab 03/09/20 03/14/20 Rx Amoxic-Pot Clav 875-125Mg 1 each PO Q12HR 5 Days #10 tab 03/09/20 03/14/20 Rx [Augmentin 875-125] Aspirin 81 mg PO DAILY #30 chew 03/09/20 03/14/20 Rx Atorvastatin [Lipitor] 80 mg PO HS #30 tab 03/09/20 03/14/20 Rx Furosemide [Lasix] 40 mg PO DAILY #30 tab 03/09/20 03/14/20 Rx Lisinopril [Zestril] 5 mg PO DAILY #30 tab 03/09/20 03/14/20 Rx Metoprolol Tartrate [Lopressor] 25 mg PO BID #60 tab 03/09/20 03/14/20 Rx Potassium Chloride ER [K-Dur 20] 20 meq PO DAILY #30 tab.er.prt 03/09/20 03/14/20 Rx Spironolactone [Aldactone] 25 mg PO DAILY #30 tab 03/09/20 03/14/20 Rx Allergies Allergy/AdvReac Type Severity Reaction Status Date / Time No Known Allergies Allergy Verified 03/14/20 12:19 Physical Exam Vitals: Vital Signs Temp Pulse Pulse Resp BP BP Pulse Ox 03/15/20 14:00 98.4 F 63 18 99/55 100 03/15/20 11:44 64 03/15/20 11:34 68 03/15/20 09:58 98.3 F 64 18 101/45 100 03/15/20 09:28 97.7 F 61 18 100/54 100 03/15/20 09:18 97.9 F 58 L 18 119/67 99 03/15/20 08:20 98.0 F 62 18 124/57 98 03/15/20 08:01 60 03/15/20 07:49 60 03/15/20 03:42 98.6 F 65 17 99/50 97 03/14/20 23:16 98.6 F 62 17 101/54 96 03/14/20 20:00 98.4 F 77 17 116/60 96 03/14/20 19:58 74 18 03/14/20 19:49 72 18 03/14/20 15:50 98.5 F 78 16 130/60 97 03/14/20 15:10 97.6 F 87 16 132/89 96 Intake and Output 03/15/20 03/15/20 03/15/20 06:59 14:59 22:59 Intake Total 310 Output Total 375 875 Balance -375 -565 Intake: Blood Product 310 Rc As-3 Unit 310 [id number] Output: Urine 375 875 Other: Voiding Method Toilet Urinal # Voids 1 HEENT: PERRLA, EOMI, no icterus, no neck masses, no JVD, no stridor. CARDIOVASCULAR: Heart S1-S2. 2/6 systolic murmur thought the precordium. PULMONARY: Symmetrical chest expansion, minimal crackles at the at the bases no rhonchi and no wheezes ABDOMEN: Soft, mild tenderness at the lower abdominal area on palpation, normoactive bowel sounds. No palpable organomegaly. MUSCULOSKELETAL: No joint swelling or deformity. EXTREMITIES: No cyanosis, clubbing, or pedal edema. NEUROLOGICAL: Alert and oriented 3 focal neurologic deficits. SKIN: No rashes. no petechiae. Psychiatric: Normal mood, affect and normal mental status examination. Results 03/15/20 05:45 03/15/20 05:45 CBC 03/15/20 Range/Units 05:45 WBC 14.5 H (3.8-10.6) k/uL RBC 2.06 L (4.30-5.90) m/uL Hgb 6.6 L* (13.0-17.5) gm/dL Hct 20.1 L (39.0-53.0) % Plt Count 233 (150-450) k/uL Comprehensive Metabolic Panel 03/15/20 Range/Units 05:45 Sodium 134 L (137-145) mmol/L Potassium 4.5 (3.5-5.1) mmol/L Chloride 105 (98-107) mmol/L Carbon Dioxide 27 (22-30) mmol/L BUN 18 (9-20) mg/dL Creatinine 0.69 (0.66-1.25) mg/dL Glucose 83 (74-99) mg/dL Calcium 8.0 L (8.4-10.2) mg/dL Current Medications Generic Name Dose Route Start Last Admin Trade Name Freq PRN Reason Stop Dose Admin Hydrocodone Bitart/Acetaminophen 1 each 03/14/20 16:07 03/15/20 03:14 [place] 10 PO 1 each Q4HR PRN Administration Pain Albuterol Sulfate 2.5 mg 03/14/20 20:00 03/15/20 11:33 Ventolin Nebulized INHALATION 2.5 mg RT-QID LUCAS Administration Amiodarone HCl 200 mg 03/14/20 21:00 03/15/20 08:28 Cordarone PO 200 mg BID LUCAS Administration Atorvastatin Calcium 80 mg 03/14/20 21:00 03/14/20 20:19 Lipitor PO 80 mg HS LUCAS Administration Furosemide 40 mg 03/15/20 09:00 03/15/20 08:28 Lasix PO 40 mg DAILY LUCAS Administration Insulin Aspart 0 unit 03/14/20 21:00 03/15/20 06:35 Novolog SQ Not Given ACHS LUCAS Protocol Lisinopril 5 mg 03/16/20 09:00 Zestril PO DAILY LUCAS Metoprolol Tartrate 25 mg 03/14/20 21:00 03/15/20 08:28 Lopressor PO 25 mg BID LUCAS Administration Pantoprazole Sodium 40 mg 03/14/20 21:00 03/15/20 08:29 Protonix IVP 40 mg BID LUCAS Administration Spironolactone 25 mg 03/15/20 09:00 03/15/20 08:28 Aldactone PO 25 mg DAILY LUCAS Administration Intake and Output 03/15/20 03/15/20 03/15/20 06:59 14:59 22:59 Intake Total 310 Output Total 375 875 Balance -375 -564 Intake: Blood Product 310 Rc As-3 Unit 310 [id number] Output: Urine 375 875 Other: Voiding Method Toilet Urinal # Voids 1 03/15/20 05:45 03/15/20 05:45 EKG Interpretations (text) EKG shows a normal sinus rhythm with some persistence in ST elevation in the anterior leads Assessment and Plan Plan: Assessment and plan #1 acute blood loss anemia #2 abnormal troponin, significantly down from recent admission #3 recent acute anterior wall ST elevation myocardial infarction on March 09 with stenting of the LAD and RCA #4 ischemic cardiomyopathy, LifeVest in place #5 hypertension #6 hyperlipidemia #7 hyponatremia Plan Aspirin and Brilinta are currently on hold. GI service consultation has been requested. We will continue the patient on amiodarone, Lipitor 80, oral Lasix, lisinopril 5 mg daily, metoprolol 25 mg one tablet by mouth twice a day, and Aldactone. Patient will need to be resumed on dual antiplatelet therapy as soon as cleared by GI service. DNP note has been reviewed, I agree with a documented findings and plan of care. Patient was seen and examined.
[2020-03-15 16:33] LABS: Glucose,Whole Blood 133 mg/dL (75-99)
--- NOTE | 2020-03-15 17:33 | CONS ---
CONSULTATION DATE OF SERVICE: 03/15/2020 REASON FOR CONSULTATION: Black tarry stools. HISTORY OF PRESENT ILLNESS: The patient is a 69-year-old pleasant white male who was admitted to the hospital with a history of coronary artery disease, status post stent placement 2 weeks ago and was discharged home from the hospital at which time his hemoglobin was 14.5 g/dL. He was admitted to the hospital yesterday when he presented with black tarry stools and lightheadedness and dizziness. In the ER, was noted to have a hemoglobin of 6.5 g/dL and received 2 units of blood transfusion. The patient was started on aspirin and Brilinta prior to discharge following his cardiac catheterization with angioplasty and stent placement 2 weeks ago. He denies any abdominal pain. He reports no nausea, vomiting. No prior history of peptic ulcer disease or recent NSAID use. PAST MEDICAL HISTORY: Significant for coronary artery disease, status post stent placement 2 weeks ago, history of COPD, diabetes mellitus, hypertension, hyperlipidemia. PAST SURGICAL HISTORY: Back surgery, neck surgery. MEDICATIONS: At home include [place], Prinivil, albuterol, Glucotrol, Brilinta, Cordarone, Augmentin, aspirin, Lipitor, Lasix, Zestril, Lopressor, potassium, Aldactone. ALLERGIES: None. SOCIAL HISTORY: No smoking, no alcohol use. FAMILY HISTORY: Unremarkable. REVIEW OF SYSTEMS: CARDIOPULMONARY: He denies any chest pain or shortness of breath. : No dysuria or hematuria. MUSCULOSKELETAL: Unremarkable. SKIN: Unremarkable. ENDOCRINE: Unremarkable. PSYCHIATRIC: Unremarkable. NEUROLOGY: Unremarkable. ENT/VISION: Unremarkable. CONSTITUTIONAL: No recent weight loss. No fever, chills, night sweats. PHYSICAL EXAMINATION: He appears comfortable, in no apparent distress. Vital signs are stable. Blood pressure 101/45, pulse rate 64, temperature 98.3. HEENT: Examination unremarkable, conjunctivae are pink, sclerae nonicteric, oral cavity no lesions. NECK: No JVD or lymph node enlargement. CHEST: Clear to auscultation. HEART: Regular rate and rhythm. ABDOMEN: Soft, bowel sounds are positive, no organomegaly. EXTREMITIES: No pedal edema. SKIN: No rashes. NEURO: He is alert and oriented x3. No focal deficits. LABS: From yesterday WBC 20.5, hemoglobin 6.5, platelets normal. BUN is 29, creatinine 0.72. Repeat hemoglobin is 6.6 today. He received one unit of PRBC transfusion so far. Troponin was elevated at 0.975. IMPRESSION: 1. Severe anemia with black tarry stools for the last 3 days' duration. The patient recently underwent cardiac catheterization with stent placements about 2 weeks ago, his hemoglobin during last hospitalization was 11 g/dL. This hospitalization hemoglobin 6.5. He needed 1 unit of blood transfusion. Repeat hemoglobin is 6.5. He is receiving a second unit of blood transfusion. Most likely dealing with an upper GI source of bleeding. The patient never had EGD or colonoscopy in the past. No prior history of peptic ulcer disease. 2. Coronary artery disease, status post angioplasty with stent placement, currently on aspirin and Brilinta, which is on hold. 3. History of diabetes mellitus. 4. Hypertension and hyperlipidemia. RECOMMENDATIONS: 1. Continue with Protonix 40 mg twice daily. 2. Clear liquid diet. 3. Will proceed with an upper endoscopy tomorrow and if it is negative, will consider colonoscopy during this hospitalization. Otherwise, we can plan on a colonoscopy on an outpatient basis. The plan was discussed with him and he is agreeable to it. Thank you for this consultation. MMODL / IJN: [id number] /
[2020-03-15 20:38] LABS: Glucose,Whole Blood 193 mg/dL (75-99)
[2020-03-15] MEDS: ATORVASTATIN 80 MG TAB PO SCH (21:13)
[2020-03-16 06:13] LABS: Glucose,Whole Blood 128 mg/dL (75-99)
[2020-03-16] MEDS: INSULIN ASPART (NovoLOG) 100 UNIT/ML VIAL SQ SCH ×4 (06:16→21:11)
[2020-03-16 07:54] LABS: Anisocytosis Slight; HCT 23.5 % (39.0-53.0); HGB 7.7 gm/dL (13.0-17.5); MCH 31.6 pg (25.0-35.0); MCHC 32.6 g/dL (31.0-37.0); MCV 96.7 fL (80.0-100.0); Macrocytosis Slight; Mean Platelet Volume 7.6; Platelet Count 231 k/uL (150-450); RBC 2.43 m/uL (4.30-5.90); RDW 16.8 % (11.5-15.5); WBC 12.9 k/uL (3.8-10.6)
[2020-03-16 08:04] LABS: African American GFR (CKD) >90 (>60 ml/min/1.73 sqM); Anion Gap 4 mmol/L; Blood Urea Nitrogen 14 mg/dL (9-20); Calcium 8.2 mg/dL (8.4-10.2); Carbon Dioxide 28 mmol/L (22-30); Chloride 100 mmol/L (98-107); Glucose 112 mg/dL (74-99); Non-African American GFR(CKD) >90 (>60 ml/min/1.73 sqM); Potassium 4.4 mmol/L (3.5-5.1); Sodium 132 mmol/L (137-145)
[2020-03-16] MEDS: HYDROcodone/APAP 10-325MG 1 EACH TAB PO PRN ×2 (08:14→19:14)
[2020-03-16] MEDS: SPIRONOLACTONE 25 MG TAB PO SCH (08:15)
[2020-03-16] MEDS: METOPROLOL TARTRATE 25 MG TAB PO SCH ×2 (08:15→21:13)
[2020-03-16] MEDS: FUROSEMIDE 40 MG TAB PO SCH (08:15)
[2020-03-16] MEDS: AMIODARONE 200 MG TAB PO SCH ×2 (08:16→21:13)
[2020-03-16] MEDS: PANTOPRAZOLE 40 MG/10 ML VIAL IVP SCH ×2 (08:16→21:12)
[2020-03-16] MEDS: ALBUTEROL NEBULIZED 2.5 MG/3 ML INHALATION SCH ×4 (08:52→19:50)
[2020-03-16 12:02] LABS: Glucose,Whole Blood 151 mg/dL (75-99)
[2020-03-16] MEDS: LISINOPRIL 5 MG TAB PO SCH (12:29)
[2020-03-16] MEDS ORDERED: PROPOFOL 10 MG/ML 20 ML VIAL IV ONE (13:33)
[2020-03-16] MEDS ORDERED: LIDOCAINE 1% INJ 10MG/ML (20 ML MDV) ONE (13:33)
[2020-03-16] MEDS ORDERED: ETOMIDATE 2 MG/ML 10 ML VIAL ONE (13:33)
[2020-03-16] MEDS ORDERED: IV FLUID CONTINUATION 900 ML IV ONE (13:38)
--- NOTE | 2020-03-16 13:40 | CDI ---
Documentation Clarification Form Date: 03/16/2020 12:35:00 PM From: Mari Gutierrez RN, CCDS Admit Date: 03/14/2020 12:51:00 PM Patient Name: Peter Brock Visit Number: [id number] Discharge Date: ATTENTION: The Clinical Documentation Specialists (CDI) and [facility] Coding Staff appreciate your assistance in clarifying documentation. Please respond to the clarification below the line at the bottom and electronically sign. The CDI & [facility] Coding staff will review the response and follow-up if needed. Please note: Queries are made part of the Legal Health Record. If you have any questions, please contact the author of this message via ITS. Dr. Venessa Bell Mildly elevated troponin of 0.975 probably secondary to anemia rather than acute myocardial infarction, leading to demand ischemia. Request further specificity of demand ischemia. History/Risk Factors: Coronary artery disease, Hypertension, Diabetes Mellitus, COPD, myocardial infarction 03/04/2020 Clinical Indicators: 69-year-old male present on 03/14 with complaints of weakness and dark black stools. He denies chest pain, denies any shortness of breath or difficulty. He has some intra-abdominal cramping. 03/14 EKG: Normal sinus rhythm at 81 bpm, some slight ST segment elevation in leads V3 and V4 this was seen on the previous EKG the patient had acute NC on March 04 (per ekg report)) 03/14 HGB 6.5, 6.6 HCT 20.1, 20.1 Lab findings: WBC 20.5 Troponin 0.975 03/14 at 10:53 Vital Signs: 117/67 80 18 99.098 % RA Treatment: Monitor CBC Transfuse RBC 1 unit on 03/14 and 1 unit on 03/15 Cordarone 200 mg po bid Lipitor 80 mg po hs Lasix 40 pod daily Lisinopril 5 mg daily Lopressor 25 mg bid Aldactone 25 mg po daily 03/15 Cardiology Consults: EKG show normal sinus rhythm with some persistence in ST elevation in the anterior leads Ischemic cardiomyopathy, LifeVest in place. In your professional opinion, can you please further clarify demand ischemia? Type 2 Myocardial infarction due to anemia Demand Ischemia, other acute ischemic heart disease Other, please specify Unable to determine (Last Revision: December 2017) Appropriate documentation was already done no additional documentation will be done. SUSANA
--- NOTE | 2020-03-16 14:24 | P.PN ---
Subjective Patient with the recent cardiac ablation stenting dual antiplatelet therapy is admitted for GI bleed patient didn't have any stools since yesterday patient is receiving 1 more unit appear basically transfusion was a total 2 units of PRBC transfusion his epigastric abdominal pain is significantly better today 03/16/2020 Patient underwent upper GI endoscopy which showed 2 large ulcers 1 in the duodenal bulb which is high risk for bleeding although there is no vessel underneath the ulcer. Patient will be started on aspirin will hold off on Kina nda for today because of the size of the ulcer will monitor him overnight here. We'll discuss with cardiology as well discussed with the gastroenterology Constitutional: Denied any fatigue denied any fever. Cardio vascular: denied any chest pain, palpitations Gastrointestinal denied any nausea vomiting Pulmonary: Denied any shortness of breath cough Neurologic denied any new focal deficits All inpatient medications were reviewed and appropriate changes in these medications as dictated in the interval history and assessment and plan. Objective - Vital Signs Vital signs: Vital Signs Temp 97.5 F L 03/16/20 11:50 Pulse 64 03/16/20 12:00 Resp 18 03/16/20 11:50 BP 99/54 03/16/20 11:50 Pulse Ox 100 03/16/20 11:50 Intake & Output 03/15/20 03/16/20 03/16/20 18:59 06:59 18:59 Intake Total 910 0 Output Total 1725 725 200 Balance -815 -725 -200 Weight 83.9 kg Intake: Oral 600 0 Blood Product 310 Rc As-3 Unit 310 [id number] Output: Urine 1725 725 200 Other: # Voids 1 - Exam PHYSICAL EXAMINATION: GENERAL: The patient is alert and oriented x3, not in any acute distress. Well developed, well nourished. HEENT: Pupils are round and equally reacting to light. EOMI. No scleral icterus. Does have conjunctival pallor. Normocephalic, atraumatic. No pharyngeal erythema. No thyromegaly. CARDIOVASCULAR: S1 and S2 present. No murmurs, rubs, or gallops. PULMONARY: Chest is clear to auscultation, no wheezing or crackles. ABDOMEN: Mild epigastric abdominal tenderness, nondistended, normoactive bowel sounds. No palpable organomegaly. MUSCULOSKELETAL: No joint swelling or deformity. EXTREMITIES: No cyanosis, clubbing, or pedal edema. NEUROLOGICAL: Gross neurological examination did not reveal any focal deficits. SKIN: No rashes. - Labs CBC & Chem 7: 03/16/20 07:14 03/16/20 07:14 Labs: Abnormal Lab Results - Last 24 Hours (Table) 03/14/20 03/15/20 03/15/20 Range/Units 10:50 16:32 20:36 WBC (3.8-10.6) k/uL RBC (4.30-5.90) m/uL Hgb (13.0-17.5) gm/dL Hct (39.0-53.0) % RDW (11.5-15.5) % Sodium (137-145) mmol/L Glucose (74-99) mg/dL POC Glucose (mg/dL) 133 H 193 H (75-99) mg/dL Calcium (8.4-10.2) mg/dL Crossmatch See Detail 03/16/20 03/16/20 03/16/20 Range/Units 06:11 07:14 07:14 WBC 12.9 H (3.8-10.6) k/uL RBC 2.43 L (4.30-5.90) m/uL Hgb 7.7 L (13.0-17.5) gm/dL Hct 23.5 L (39.0-53.0) % RDW 16.8 H (11.5-15.5) % Sodium 132 L (137-145) mmol/L Glucose 112 H (74-99) mg/dL POC Glucose (mg/dL) 128 H (75-99) mg/dL Calcium 8.2 L (8.4-10.2) mg/dL Crossmatch 03/16/20 Range/Units 11:46 WBC (3.8-10.6) k/uL RBC (4.30-5.90) m/uL Hgb (13.0-17.5) gm/dL Hct (39.0-53.0) % RDW (11.5-15.5) % Sodium (137-145) mmol/L Glucose (74-99) mg/dL POC Glucose (mg/dL) 151 H (75-99) mg/dL Calcium (8.4-10.2) mg/dL Crossmatch Assessment and Plan Plan: -Acute blood loss anemia from possible upper GI bleed, peptic ulcer disease or gastritis, patient had an upper GI endoscopy which showed 2 large ulcers as mentioned above Mildly elevated troponin of 0.975 probably secondary to anemia rather than acute myocardial infarction, leading to demand ischemia. -Hyponatremia probably secondary to diuretics. -Congestive heart failure chronic systolic dysfunction, EF of around 20-25% is presently euvolemic will be resumed on his home -Coronary artery disease with recent cardiac catheterization and stents: Unfortunately her to hold off on antiplatelet therapy cardiology will be co nsulted these need to be resumed as as possible hopefully patient will be able to undergo upper GI endoscopy tomorrow -Hypertension -hyperlipidemia
--- NOTE | 2020-03-16 14:32 | P.PCN ---
Date of Procedure: 03/16/20 Description of Procedure: BRIEF HISTORY: Patient is a 69-year-old male who recently underwent angioplasty with stent placement and is on Brilinta who presented to the hospital with black tarry stools. Patient admitted to call in his hemoglobin to 6.5. No further melena reported. No prior endoscopic history. PROCEDURE PERFORMED: Esophagogastroduodenoscopy with biopsy. PREOPERATIVE DIAGNOSIS: Melena, anemia of acute blood loss. ESTIMATED BLOOD LOSS: Minimal. IV sedation per anesthesia. PROCEDURE: After informed consent was obtained, the patient was brought into the endoscopy unit. IV sedation was administered by Anesthesia under continuous monitoring. Initially the Olympus GIF-190 video endoscope was inserted into the mouth. Esophagus intubated without any difficulty. It was gradually advanced into the stomach and duodenum and carefully examined. The bulb and the second part of the duodenum was significant for multiple large cratered nonbleeding ulcers one measuring approximately 2 cm in the duodenal bulb and one measuring approximately 4 cm and the second portion of the duodenum, biopsies were taken. There was no active bleeding or high risk stigmata noted in association with these ulcers. The scope at this time was withdrawn to the stomach, adequately insufflated with air, and upon careful examination, mucosa of the antrum, body, cardia and the fundus appeared normal, except for some mild scattered erythema in the antrum and body suggestive of mild gastritis with biopsies to. The scope was then withdrawn into the esophagus. The GE junction was located at 43 cm from the incisors. The esophagus appeared normal. There were no erosions or ulcerations seen and the patient tolerated the procedure well. IMPRESSION: 1. 2 large areas of ulceration in the duodenum, with biopsies taken. There was no active bleeding or high or stigmata for bleeding. 2. Mild gastritis antrum body, biopsied. RECOMMENDATIONS: The findings of this examination were discussed with the patient in the primary team. Okay for full liquid diet. Continue Protonix 40 mg twice daily. Okay for aspirin today. Okay for Brilinta tomorrow. Continue to monitor for signs or symptoms of GI bleeding as the patient is high risk for rebleeding due to the large area of ulceration. Okay for discharge tomorrow if medically stable, with patient instructed at length that if any signs or symptoms of bleeding recur be asked to come directly to the emergency department.
--- NOTE | 2020-03-16 15:45 | P.PN ---
Subjective Progress Note Date: 03/16/20 This is a 69-year-old gentleman who was just recently in the hospital, presented at that time with an acute anterior wall myocardial infarction, underwent angioplasty and stenting of the LAD, subsequent to that, patient had an anterior ST elevation myocardial infarction while in the hospital, was taken back to the cardiac catheterization lab where he underwent successful stenting of the mid LAD as well as stenting of the right coronary artery. He had an echocardiogram with Doppler study performed which revealed an ejection fraction of 20-25%, because of the significantly reduced LV function, patient was discharged home from the hospital with a LifeVest. He was actually discharged home on March 09, presents back to the hospital with symptoms of weakness as well as dark stools. According to the patient, he also had a dark stool just prior to leaving the hospital. He denies having any chest discomfort on this occasion, no difficulty in breathing. His EKG on presentation here showed a normal sinus rhythm with some ST elevation persistently showing in the anterior leads. Improved from discharge here. Blood pressure 101/40 with a heart rate in the 60s. 100% on room air. Labs on admission White blood cell count 20.5, hemoglobin 6.5, platelet count 288. Sodium 131, potassium 4.0, BUN 29, creatinine 0.7. Troponin 0.975. This morning's labs, white blood cell count 14.5, hemoglobin 6.6, platelet count 233. Sodium 134, potassium 4.5, BUN 18, creatinine 0.6. Stool for occult blood positive. Blood pressure 100/45, heart rate in the 60s, 100% on room air. At the time of her examination, patient was chest pain-free, breathing is stable. He is currently receiving his second unit of packed red blood cells. There is a consult requested with GI service for evaluation of the patient's anemia. The patient is a little bit frustrated, unsure of what the plan is. From cardiology's perspective, his aspirin and Brilinta remain currently on hold. Once the patient is seen and evaluated by GI service and cleared from their perspective he will need to be resumed on those as soon as possible. 03/16/2020 Patient was seen and examined this morning, awaiting to go for his EGD today. Hemodynamically stable. He has had no further black stools, he is just passing gas. Blood pressure 100/50 with a heart rate in the 60s, 100% on room air. White blood cell count 12.9, hemoglobin 7.7, platelet count 231. Sodium 132, potassium 4.4, BUN 14, creatinine 0.7. Objective - Vital Signs Vital signs: Vital Signs Temp 97.5 F L 03/16/20 11:50 Pulse 72 03/16/20 15:31 Resp 16 03/16/20 15:31 BP 99/54 03/16/20 11:50 Pulse Ox 100 03/16/20 11:50 Intake & Output 03/15/20 03/16/20 03/16/20 18:59 06:59 18:59 Intake Total 910 300 Output Total 1725 725 200 Balance -815 -725 100 Weight 83.9 kg Intake: IV 300 Oral 600 0 Blood Product 310 Rc As-3 Unit 310 [id number] Output: Urine 1725 725 200 Other: # Voids 1 - Exam HEENT: PERRLA, EOMI, no icterus, no neck masses, no JVD, no stridor. CARDIOVASCULAR: Heart S1-S2. 2/6 systolic murmur thought the precordium. PULMONARY: Symmetrical chest expansion, minimal crackles at the at the bases no rhonchi and no wheezes ABDOMEN: Soft, mild tenderness at the lower abdominal area on palpation, normoactive bowel sounds. No palpable organomegaly. MUSCULOSKELETAL: No joint swelling or deformity. EXTREMITIES: No cyanosis, clubbing, or pedal edema. NEUROLOGICAL: Alert and oriented 3 focal neurologic deficits. SKIN: No rashes. no petechiae. Psychiatric: Normal mood, affect and normal mental status examination. - Labs CBC & Chem 7: 03/16/20 07:14 03/16/20 07:14 Labs: Abnormal Lab Results - Last 24 Hours (Table) 03/15/20 03/15/20 03/16/20 Range/Units 16:32 20:36 06:11 WBC (3.8-10.6) k/uL RBC (4.30-5.90) m/uL Hgb (13.0-17.5) gm/dL Hct (39.0-53.0) % RDW (11.5-15.5) % Sodium (137-145) mmol/L Glucose (74-99) mg/dL POC Glucose (mg/dL) 133 H 193 H 128 H (75-99) mg/dL Calcium (8.4-10.2) mg/dL 03/16/20 03/16/20 03/16/20 Range/Units 07:14 07:14 11:46 WBC 12.9 H (3.8-10.6) k/uL RBC 2.43 L (4.30-5.90) m/uL Hgb 7.7 L (13.0-17.5) gm/dL Hct 23.5 L (39.0-53.0) % RDW 16.8 H (11.5-15.5) % Sodium 132 L (137-145) mmol/L Glucose 112 H (74-99) mg/dL POC Glucose (mg/dL) 151 H (75-99) mg/dL Calcium 8.2 L (8.4-10.2) mg/dL Assessment and Plan Plan: Assessment and plan #1 acute blood loss anemia #2 abnormal troponin, significantly down from recent admission #3 recent acute anterior wall ST elevation myocardial infarction on March 09 with stenting of the LAD and RCA #4 ischemic cardiomyopathy, LifeVest in place #5 hypertension #6 hyperlipidemia #7 hyponatremia Plan Aspirin and Brilinta are currently on hold. Patient has been seen in consultation by GI service and is scheduled today to undergo an EGD. Our recommendation is to resume the patient on his aspirin and Brilinta as soon as it cleared by GI service. DNP note has been reviewed, I agree with a documented findings and plan of care. Patient was seen and examined.
[2020-03-16 17:07] LABS: Glucose,Whole Blood 217 mg/dL (75-99)
[2020-03-16 20:10] LABS: Glucose,Whole Blood 124 mg/dL (75-99)
[2020-03-16] MEDS: ATORVASTATIN 80 MG TAB PO SCH (21:12)
[2020-03-17 06:05] LABS: Glucose,Whole Blood 149 mg/dL (75-99)
[2020-03-17] MEDS: INSULIN ASPART (NovoLOG) 100 UNIT/ML VIAL SQ SCH ×2 (06:07→06:31)
[2020-03-17] MEDS: HYDROcodone/APAP 10-325MG 1 EACH TAB PO PRN (06:43)
[2020-03-17] MEDS: AMIODARONE 200 MG TAB PO SCH (07:50)
[2020-03-17] MEDS: LISINOPRIL 5 MG TAB PO SCH (07:50)
[2020-03-17] MEDS: PANTOPRAZOLE 40 MG/10 ML VIAL IVP SCH (07:50)
[2020-03-17] MEDS: FUROSEMIDE 40 MG TAB PO SCH (07:50)
[2020-03-17] MEDS: METOPROLOL TARTRATE 25 MG TAB PO SCH (07:50)
[2020-03-17] MEDS: SPIRONOLACTONE 25 MG TAB PO SCH (07:50)
[2020-03-17] MEDS: ALBUTEROL NEBULIZED 2.5 MG/3 ML INHALATION SCH ×2 (08:47→12:03)
[2020-03-17] MEDS ORDERED: ASPIRIN 81 MG PO SCH (09:00)
[2020-03-17] MEDS ORDERED: TICAGRELOR 90 MG TAB PO SCH (11:15)
[2020-03-17 11:46] LABS: Glucose,Whole Blood 204 mg/dL (75-99)
--- NOTE | 2020-03-17 13:25 | P.PN ---
Subjective Progress Note Date: 03/17/20 This is a 69-year-old gentleman who was just recently in the hospital, presented at that time with an acute anterior wall myocardial infarction, underwent angioplasty and stenting of the LAD, subsequent to that, patient had an anterior ST elevation myocardial infarction while in the hospital, was taken back to the cardiac catheterization lab where he underwent successful stenting of the mid LAD as well as stenting of the right coronary artery. He had an echocardiogram with Doppler study performed which revealed an ejection fraction of 20-25%, because of the significantly reduced LV function, patient was discharged home from the hospital with a LifeVest. He was actually discharged home on March 09, presents back to the hospital with symptoms of weakness as well as dark stools. According to the patient, he also had a dark stool just prior to leaving the hospital. He denies having any chest discomfort on this occasion, no difficulty in breathing. His EKG on presentation here showed a normal sinus rhythm with some ST elevation persistently showing in the anterior leads. Improved from discharge here. Blood pressure 101/40 with a heart rate in the 60s. 100% on room air. Labs on admission White blood cell count 20.5, hemoglobin 6.5, platelet count 288. Sodium 131, potassium 4.0, BUN 29, creatinine 0.7. Troponin 0.975. This morning's labs, white blood cell count 14.5, hemoglobin 6.6, platelet count 233. Sodium 134, potassium 4.5, BUN 18, creatinine 0.6. Stool for occult blood positive. Blood pressure 100/45, heart rate in the 60s, 100% on room air. At the time of her examination, patient was chest pain-free, breathing is stable. He is currently receiving his second unit of packed red blood cells. There is a consult requested with GI service for evaluation of the patient's anemia. The patient is a little bit frustrated, unsure of what the plan is. From cardiology's perspective, his aspirin and Brilinta remain currently on hold. Once the patient is seen and evaluated by GI service and cleared from their perspective he will need to be resumed on those as soon as possible. 03/16/2020 Patient was seen and examined this morning, awaiting to go for his EGD today. Hemodynamically stable. He has had no further black stools, he is just passing gas. Blood pressure 100/50 with a heart rate in the 60s, 100% on room air. White blood cell count 12.9, hemoglobin 7.7, platelet count 231. Sodium 132, potassium 4.4, BUN 14, creatinine 0.7. 03/17/2020 Patient seen and examined this morning, doing well, denies any chest pain, hemodynamically stable. Underwent an EGD which revealed 2 large areas of ulceration in the duodenum, biopsies percent. Mild gastritis. His baby aspirin was resumed yesterday, today we will resume his Brilinta. He should be able to be discharged home today from our perspective to follow-up with Dr. Spence in the office. Objective - Vital Signs Vital signs: Vital Signs Temp 98 F 03/17/20 07:48 Pulse 71 03/17/20 12:00 Resp 16 03/17/20 12:00 BP 103/49 03/17/20 07:48 Pulse Ox 95 03/17/20 06:39 Intake & Output 03/16/20 03/17/20 03/17/20 18:59 06:59 18:59 Intake Total 780 120 Output Total 200 Balance 580 120 Weight 83.1 kg Intake: IV 300 Oral 480 120 Output: Urine 200 Other: Voiding Method Toilet Urinal # Voids 1 - Exam HEENT: PERRLA, EOMI, no icterus, no neck masses, no JVD, no stridor. CARDIOVASCULAR: Heart S1-S2. 2/6 systolic murmur thought the precordium. PULMONARY: Symmetrical chest expansion, minimal crackles at the at the bases no rhonchi and no wheezes ABDOMEN: Soft, mild tenderness at the lower abdominal area on palpation, normoactive bowel sounds. No palpable organomegaly. MUSCULOSKELETAL: No joint swelling or deformity. EXTREMITIES: No cyanosis, clubbing, or pedal edema. NEUROLOGICAL: Alert and oriented 3 focal neurologic deficits. SKIN: No rashes. no petechiae. Psychiatric: Normal mood, affect and normal mental status examination. - Labs CBC & Chem 7: 03/16/20 07:14 03/16/20 07:14 Labs: Abnormal Lab Results - Last 24 Hours (Table) 03/14/20 03/16/20 03/16/20 Range/Units 10:50 17:05 20:08 POC Glucose (mg/dL) 217 H 124 H (75-99) mg/dL Crossmatch See Detail 03/17/20 03/17/20 Range/Units 06:03 11:45 POC Glucose (mg/dL) 149 H 204 H (75-99) mg/dL Crossmatch Assessment and Plan Plan: Assessment and plan #1 acute blood loss anemia #2 abnormal troponin, significantly down from recent admission #3 recent acute anterior wall ST elevation myocardial infarction on March 09 with stenting of the LAD and RCA #4 ischemic cardiomyopathy, LifeVest in place #5 hypertension #6 hyperlipidemia #7 hyponatremia Plan We will resume the Brilinta today, patient may be discharged home from our perspective on dual antiplatelet therapy. Follow-up appointment with Dr. Gomez in the office post discharge. DNP note has been reviewed, I agree with a documented findings and plan of care. Patient was seen and examined.
--- NOTE | 2020-03-17 16:42 | P.DS ---
Providers Date of admission: 03/14/20 12:51 Attending physician: Venessa Bell Consults: 03/14/20 12:45 Consult Physician Urgent Consulting Provider: Marly Gomez Consult Reason/Comments: GI bleed Do you want consulting provider notified?: Yes 03/14/20 16:39 Consult Physician ONCE Consulting Provider: Laura Miramontes Consult Reason/Comments: renent STEMI with GI bleed Do you want consulting provider notified?: Yes Primary care physician: Brent Cooper [facility] Course: Patient with the recent cardiac ablation stenting dual antiplatelet therapy is admitted for GI bleed patient didn't have any stools since yesterday patient is receiving 1 more unit appear basically transfusion was a total 2 units of PRBC transfusion his epigastric abdominal pain is significantly better today 03/16/2020 Patient underwent upper GI endoscopy which showed 2 large ulcers 1 in the duodenal bulb which is high risk for bleeding although there is no vessel underneath the ulcer. Patient will be started on aspirin will hold off on Saray for today because of the size of the ulcer will monitor him overnight here. We'll discuss with cardiology as well discussed with the gastroenterology 03/17/2020 Patient is clinically doing well without any evidence of JVD patient will be resumed on diltiazem well. And patient was extensively counseled that if he starts having the dog stools or blood in the stools S to come back immediately. If patient has chest pain patient has to come back immediately. Patient was a prescribed Protonix 40 twice a day as recommended by gastroenterology for about a month. Patient is mild hyponatremic I asked him to hold off on the diuretics today and tomorrow and a repeat basic metabolic profile in about 3-4 days. PHYSICAL EXAMINATION: GENERAL: The patient is alert and oriented x3, not in any acute distress. Well developed, well nourished. HEENT: Pupils are round and equally reacting to light. EOMI. No scleral icterus. Does have conjunctival pallor. Normocephalic, atraumatic. No pharyngeal erythema. No thyromegaly. CARDIOVASCULAR: S1 and S2 present. No murmurs, rubs, or gallops. PULMONARY: Chest is clear to auscultation, no wheezing or crackles. ABDOMEN: Mild epigastric abdominal tenderness, nondistended, normoactive bowel sounds. No palpable organomegaly. MUSCULOSKELETAL: No joint swelling or deformity. EXTREMITIES: No cyanosis, clubbing, or pedal edema. NEUROLOGICAL: Gross neurological examination did not reveal any focal deficits. SKIN: No rashes. Assessment and Plan Plan: -Acute blood loss anemia from possible upper GI bleed, peptic ulcer disease or gastritis, patient had an upper GI endoscopy which showed 2 large ulcers as mentioned above Mildly elevated troponin of 0.975 probably secondary to anemia rather than acute myocardial infarction, leading to demand ischemia. -Hyponatremia probably secondary to diuretics. -Congestive heart failure chronic systolic dysfunction, EF of around 20-25% is presently euvolemic will be resumed on his home -Coronary artery disease with recent cardiac catheterization and stents recently about a 10 days ago. -Hypertension -hyperlipidemia Plan - Discharge Summary Discharge Rx Participant: Yes New Discharge Prescriptions: New Pantoprazole [Protonix] 40 mg PO AC-BID #60 tablet.dr Discontinued Amoxic-Pot Clav 875-125Mg [Augmentin 875-125] 1 each PO Q12HR 5 Days #10 tab No Action HYDROcodone/APAP 10-325MG [[place] 10-325] 1 tab PO Q4HR PRN PRN Reason: Pain Lisinopril [Prinivil] 20 mg PO DAILY Albuterol Sulfate [Albuterol Sulfate Hfa] 2 puff PO RT-QID glipiZIDE [Glucotrol XL] 10 mg PO BID Ticagrelor [Brilinta] 90 mg PO BID 30 Days #60 tab Spironolactone [Aldactone] 25 mg PO DAILY #30 tab Aspirin 81 mg PO DAILY #30 chew Amiodarone [Cordarone] 200 mg PO BID #60 tab Potassium Chloride ER [K-Dur 20] 20 meq PO DAILY #30 tab.er.prt Furosemide [Lasix] 40 mg PO DAILY #30 tab Atorvastatin [Lipitor] 80 mg PO HS #30 tab Metoprolol Tartrate [Lopressor] 25 mg PO BID #60 tab Lisinopril [Zestril] 5 mg PO DAILY #30 tab Discharge Medication List HYDROcodone/APAP 10-325MG [[place] 10-325] 1 tab PO Q4HR PRN 04/11/15 [History] Lisinopril [Prinivil] 20 mg PO DAILY 04/11/15 [History] Albuterol Sulfate [Albuterol Sulfate Hfa] 2 puff PO RT-QID 03/05/20 [History] glipiZIDE [Glucotrol XL] 10 mg PO BID 03/05/20 [History] Ticagrelor [Brilinta] 90 mg PO BID 30 Days #60 tab 03/07/20 [Rx] Amiodarone [Cordarone] 200 mg PO BID #60 tab 03/09/20 [Rx] Aspirin 81 mg PO DAILY #30 chew 03/09/20 [Rx] Atorvastatin [Lipitor] 80 mg PO HS #30 tab 03/09/20 [Rx] Furosemide [Lasix] 40 mg PO DAILY #30 tab 03/09/20 [Rx] Lisinopril [Zestril] 5 mg PO DAILY #30 tab 03/09/20 [Rx] Metoprolol Tartrate [Lopressor] 25 mg PO BID #60 tab 03/09/20 [Rx] Potassium Chloride ER [K-Dur 20] 20 meq PO DAILY #30 tab.er.prt 03/09/20 [Rx] Spironolactone [Aldactone] 25 mg PO DAILY #30 tab 03/09/20 [Rx] Pantoprazole [Protonix] 40 mg PO AC-BID #60 tablet. 03/17/20 [Rx] Follow up Appointment(s)/Referral(s): Brent Jensen III, MD [Primary Care Provider] - 03/22/20 4:00 pm Martin Meade MD [STAFF PHYSICIAN] - 04/01/20 12:45 pm Ambulatory/Diagnostic Orders: Basic Metabolic Panel [LAB.AMB] Location: None Selected Patient Instructions/Handouts: Gastritis (DC), Gastrointestinal Bleeding (DC) Discharge Disposition: HOME SELF-CARE
[2020-03-17] MEDS ORDERED: PANTOPRAZOLE 40 MG TABLET PO SCH (17:30)
[2020-03-18 08:00] VITALS: BP 103/49; PULSE 71; RESP 16; TEMP 98
== END 2020-03-17 12:47 | disposition home or self-care (01) | DRG 377 ==
LOC: EC 10:46 → 3SCARD 12:51
PROVIDERS: ADMIT Internal Medicine; ATTEND Internal Medicine
PROC: 30233N1 Transfusion of Nonautologous Red Blood Cells into Peripheral Vein, Percutaneous Approach (ICD-10-PCS; 2020-03-14)
PROC: 0DB98ZX Excision of Duodenum, Via Natural or Artificial Opening Endoscopic, Diagnostic (ICD-10-PCS; principal; 2020-03-16 13:00)
PROC: 0DB78ZX Excision of Stomach, Pylorus, Via Natural or Artificial Opening Endoscopic, Diagnostic (ICD-10-PCS; principal; 2020-03-16 13:00)
DX: K26.4 Chronic or unspecified duodenal ulcer with hemorrhage (principal); I21.09 ST elevation (STEMI) myocardial infarction involving other coronary artery of anterior wall; D62 Acute posthemorrhagic anemia; E87.1 Hypo-osmolality and hyponatremia; I50.22 Chronic systolic (congestive) heart failure; E11.9 Type 2 diabetes mellitus without complications; E78.5 Hyperlipidemia, unspecified; I11.0 Hypertensive heart disease with heart failure; I25.10 Atherosclerotic heart disease of native coronary artery without angina pectoris; I25.5 Ischemic cardiomyopathy; J44.9 Chronic obstructive pulmonary disease, unspecified; K29.70 Gastritis, unspecified, without bleeding; T50.2X5A Adverse effect of carbonic-anhydrase inhibitors, benzothiadiazides and other diuretics, initial encounter; Z79.02 Long term (current) use of antithrombotics/antiplatelets; Z79.82 Long term (current) use of aspirin; Z79.84 Long term (current) use of oral hypoglycemic drugs; Z79.899 Other long term (current) drug therapy; Z87.891 Personal history of nicotine dependence; Z95.5 Presence of coronary angioplasty implant and graft; Z11.59 Encounter for screening for other viral diseases
CPT/HCPCS: 36415; 36430; 43239; 80048; 80053; 82272; 83735; 84484; 85025; 85027; 85610; 85730; 86850; 86900; 86901; 86920; 88305; 93005; 94640; 99291

== ENCOUNTER 2020-11-15 12:18 | Inpatient (IN) | payer MEDICARE ==
[2020-11-15] MEDS ORDERED: ACETAMINOPHEN TAB 500 MG TAB PO STA (12:54)
[2020-11-15] MEDS ORDERED: PIPERACILLIN-TAZOBACTAM 3.375 GM in SODIUM CHLORIDE 0.9% 100 ML IVPB STA (12:54)
--- NOTE | 2020-11-15 12:58 | ED ---
General Adult HPI - General Chief complaint: Wound/Laceration Stated complaint: diabetic wound lt foot Time Seen by Provider: 11/15/20 12:30 Source: patient, RN notes reviewed, old records reviewed Mode of arrival: wheelchair - History of Present Illness Initial comments: This is a 70-year-old male who presents emergency Department stating that he is a diabetic and he also has significant heart disease. Patient states she's had 3 heart attacks in the last year. Patient comes in today because his left foot on the dorsal aspect has a large wound that he states is been about a month and a half and a little while ago he kicked a log and since then the area of the foot has become much more red and the toes to become much more pale. Patient also states it does hurt. Patient denies any fever or chills patient states he does feel bad but he has not had any chest pain difficulty breathing shortness breath per patient denies abdominal pain patient denies nausea vomiting d iarrhea. Patient denies any headache patient denies numbness weakness. Patient states overall he just feels terrible. - Related Data Home Medications Medication Instructions Recorded Confirmed HYDROcodone/APAP 10-325MG [[place] 1 tab PO Q4HR PRN 04/11/15 11/15/20 10-325] glipiZIDE [Glucotrol XL] 10 mg PO BID 03/05/20 11/15/20 ALPRAZolam [Xanax] 1 mg PO Q12H PRN 11/15/20 11/15/20 Amiodarone [Cordarone] 200 mg PO DAILY 11/15/20 11/15/20 Clindamycin HCl 300 mg PO Q12HR 11/15/20 11/15/20 Gentamicin 0.1% Cream 1 applic TOPICAL DAILY 11/15/20 11/15/20 Metoprolol Tartrate [Lopressor] 12.5 mg PO DAILY 11/15/20 11/15/20 Previous Rx's Medication Instructions Recorded Ticagrelor [Brilinta] 90 mg PO BID 30 Days #60 tab 03/07/20 Aspirin 81 mg PO DAILY #30 chew 03/09/20 Atorvastatin [Lipitor] 80 mg PO HS #30 tab 03/09/20 Furosemide [Lasix] 40 mg PO DAILY #30 tab 03/09/20 Potassium Chloride ER [K-Dur 20] 20 meq PO DAILY #30 tab.er.prt 03/09/20 Spironolactone [Aldactone] 25 mg PO DAILY #30 tab 03/09/20 lisinopriL [Zestril] 5 mg PO DAILY #30 tab 03/09/20 Pantoprazole [Protonix] 40 mg PO AC-BID #60 tablet. 03/17/20 Allergies Allergy/AdvReac Type Severity Reaction Status Date / Time No Known Allergies Allergy Verified 11/15/20 14:13 Review of Systems ROS Statement: Those systems with pertinent positive or pertinent negative responses have been documented in the HPI. ROS Other: All systems not noted in ROS Statement are negative. Past Medical History Past Medical History: Coronary Artery Disease (CAD), COPD, Diabetes Mellitus, Hyperlipidemia, Hypertension, Myocardial Infarction ([place]) Additional Past Medical History / Comment(s): stents February 2020 Last Myocardial Infarction Date:: 03/04/2020 History of Any Multi-Drug Resistant Organisms: None Reported Past Surgical History: Back Surgery, Heart Catheterization With Stent, Orthopedic Surgery Additional Past Surgical History / Comment(s): NECK SURGERY Past Anesthesia/Blood Transfusion Reactions: No Reported Reaction Date of Last Stent Placement:: 03/04/2020 Past Psychological History: No Psychological Hx Reported Smoking Status: Former smoker Past Alcohol Use History: None Reported Past Drug Use History: Marijuana - Past Family History Mother Family Medical History: No Reported History General Exam - General Exam Comments Initial Comments: GENERAL: Patient is well-developed and well-nourished. Patient is nontoxic and well- hydrated and is in mild distress. ENT: Neck is soft and supple. No significant lymphadenopathy is noted. Oropharynx is clear. Moist mucous membranes. Neck has full range of motion without eliciting any pain. EYES: The sclera were anicteric and conjunctiva were pink and moist. Extraocular movements were intact and pupils were equal round and reactive to light. Eyelids were unremarkable. PULMONARY: Unlabored respirations. Good breath sounds bilaterally. No audible rales rhonchi or wheezing was noted. CARDIOVASCULAR: There is a regular rate and rhythm without any murmurs gallops or rubs. ABDOMEN: Soft and nontender with normal bowel sounds. SKIN: Skin is clear with no lesions or rashes and otherwise unremarkable. NEUROLOGIC: Patient is alert and oriented x3. Cranial nerves II through XII are grossly intact. Motor and sensory are also intact. Normal speech, volume and content. Symmetrical smile. MUSCULOSKELETAL: Normal extremities with adequate strength and full range of motion. Patient's left foot has a large ulcer measuring about 7 cm in diameter on the dorsal aspect of his foot it is surrounded by erythema which is consistent with cellulitis. Patient also has a wound to the lateral aspect of the left foot. Patient has very slow capillary refill on the tips of TOES. Patient however does have some refill I am unable to palpate any pulse at the DP or the posterior tibial. LYMPHATICS: No significant lymphadenopathy is noted PSYCHIATRIC: Normal psychiatric evaluation. Course Vital Signs 11/15/20 11/15/20 11/15/20 12:28 12:55 13:32 Temperature 98.3 F Pulse Rate 62 60 50 L Respiratory 18 18 18 Rate Blood Pressure 78/31 94/36 98/62 O2 Sat by Pulse 96 97 97 Oximetry 11/15/20 11/15/20 11/15/20 14:00 15:00 16:00 Temperature Pulse Rate 49 L 50 L 55 L Respiratory 18 18 18 Rate Blood Pressure 79/42 97/37 93/64 O2 Sat by Pulse 97 97 97 Oximetry Procedures - Sepsis Sepsis Focused Exam #1 Time Sepsis Criteria Met: 13:30 Sepsis Focused Exam Date: 11/15/20 Sepsis Focused Exam Time: 16:48 Sepsis Focused Exam Complete: Yes Vital Signs & RN Notes Reviewed: Yes Capillary Refill: < 2 Seconds: Fingers Peripheral Pulses: Normal: Radial (R) Skin Color: Normal for Patient Respiratory Exam: normal lung sounds Cardiovascular Exam: bradycardia Medical Decision Making - Medical Decision Making EKG shows sinus bradycardia at 47 bpm MN interval 160 QRS is 86 QT interval is 558 QTC is 493. No ST segment elevation or depression Per nursing patient has Doppler DP pulses bilaterally - Lab Data Result diagrams: 11/15/20 13:23 11/15/20 13:23 Lab Results 11/15/20 11/15/20 11/15/20 Range/Units 13:23 13:23 13:23 WBC 22.5 H (3.8-10.6) k/uL RBC 2.88 L (4.30-5.90) m/uL Hgb 8.9 L (13.0-17.5) gm/dL Hct 27.7 L (39.0-53.0) % MCV 96.1 (80.0-100.0) fL MCH 31.1 (25.0-35.0) pg MCHC 32.3 (31.0-37.0) g/dL RDW 15.8 H (11.5-15.5) % Plt Count 402 (150-450) k/uL MPV 7.4 Neutrophils % 90 % Lymphocytes % 4 % Monocytes % 5 % Eosinophils % 0 % Basophils % 0 % Neutrophils # 20.4 H (1.3-7.7) k/uL Lymphocytes # 0.9 L (1.0-4.8) k/uL Monocytes # 1.0 (0-1.0) k/uL Eosinophils # 0.1 (0-0.7) k/uL Basophils # 0.0 (0-0.2) k/uL PT 11.9 (9.0-12.0) sec INR 1.1 (<1.2) APTT 25.5 (22.0-30.0) sec Sodium 133 L (137-145) mmol/L Potassium 5.5 H (3.5-5.1) mmol/L Chloride 103 (98-107) mmol/L Carbon Dioxide 21 L (22-30) mmol/L Anion Gap 9 mmol/L BUN 41 H (9-20) mg/dL Creatinine 1.56 H (0.66-1.25) mg/dL Est GFR (CKD-EPI)AfAm 52 (>60 ml/min/1.73 sqM) Est GFR (CKD-EPI)NonAf 45 (>60 ml/min/1.73 sqM) Glucose 155 H (74-99) mg/dL Lactic Ac Sepsis Rflx Plasma Lactic Acid Zach (0.7-2.0) mmol/L Calcium 8.2 L (8.4-10.2) mg/dL Total Bilirubin 0.7 (0.2-1.3) mg/dL AST 53 (17-59) U/L ALT 53 H (4-49) U/L Alkaline Phosphatase 149 H (38-126) U/L Troponin I (0.000-0.034) ng/mL Total Protein 5.9 L (6.3-8.2) g/dL Albumin 2.7 L (3.5-5.0) g/dL Coronavirus (PCR) (Not Detectd) 11/15/20 11/15/2011/15/21 Range/Units 13:23 13:23 13:49 WBC (3.8-10.6) k/uL RBC (4.30-5.90) m/uL Hgb (13.0-17.5) gm/dL Hct (39.0-53.0) % MCV (80.0-100.0) fL MCH (25.0-35.0) pg MCHC (31.0-37.0) g/dL RDW (11.5-15.5) % Plt Count (150-450) k/uL MPV Neutrophils % % Lymphocytes % % Monocytes % % Eosinophils % % Basophils % % Neutrophils # (1.3-7.7) k/uL Lymphocytes # (1.0-4.8) k/uL Monocytes # (0-1.0) k/uL Eosinophils # (0-0.7) k/uL Basophils # (0-0.2) k/uL PT (9.0-12.0) sec INR (<1.2) APTT (22.0-30.0) sec Sodium (137-145) mmol/L Potassium (3.5-5.1) mmol/L Chloride (98-107) mmol/L Carbon Dioxide (22-30) mmol/L Anion Gap mmol/L BUN (9-20) mg/dL Creatinine (0.66-1.25) mg/dL Est GFR (CKD-EPI)AfAm (>60 ml/min/1.73 sqM) Est GFR (CKD-EPI)NonAf (>60 ml/min/1.73 sqM) Glucose (74-99) mg/dL Lactic Ac Sepsis Rflx Y Plasma Lactic Acid Zach 2.1 H* (0.7-2.0) mmol/L Calcium (8.4-10.2) mg/dL Total Bilirubin (0.2-1.3) mg/dL AST (17-59) U/L ALT (4-49) U/L Alkaline Phosphatase (38-126) U/L Troponin I <0.012 (0.000-0.034) ng/mL Total Protein (6.3-8.2) g/dL Albumin (3.5-5.0) g/dL Coronavirus (PCR) (Not Detectd) 11/15/20 Range/Units 14:02 WBC (3.8-10.6) k/uL RBC (4.30-5.90) m/uL Hgb (13.0-17.5) gm/dL Hct (39.0-53.0) % MCV (80.0-100.0) fL MCH (25.0-35.0) pg MCHC (31.0-37.0) g/dL RDW (11.5-15.5) % Plt Count (150-450) k/uL MPV Neutrophils % % Lymphocytes % % Monocytes % % Eosinophils % % Basophils % % Neutrophils # (1.3-7.7) k/uL Lymphocytes # (1.0-4.8) k/uL Monocytes # (0-1.0) k/uL Eosinophils # (0-0.7) k/uL Basophils # (0-0.2) k/uL PT (9.0-12.0) sec INR (<1.2) APTT (22.0-30.0) sec Sodium (137-145) mmol/L Potassium (3.5-5.1) mmol/L Chloride (98-107) mmol/L Carbon Dioxide (22-30) mmol/L Anion Gap mmol/L BUN (9-20) mg/dL Creatinine (0.66-1.25) mg/dL Est GFR (CKD-EPI)AfAm (>60 ml/min/1.73 sqM) Est GFR (CKD-EPI)NonAf (>60 ml/min/1.73 sqM) Glucose (74-99) mg/dL Lactic Ac Sepsis Rflx Plasma Lactic Acid Zach (0.7-2.0) mmol/L Calcium (8.4-10.2) mg/dL Total Bilirubin (0.2-1.3) mg/dL AST (17-59) U/L ALT (4-49) U/L Alkaline Phosphatase (38-126) U/L Troponin I (0.000-0.034) ng/mL Total Protein (6.3-8.2) g/dL Albumin (3.5-5.0) g/dL Coronavirus (PCR) Not Detected (Not Detectd) Disposition Clinical Impression: Acute kidney injury, Infected decubitus ulcer, Sepsis, Closed nondisplaced fracture of fifth left metatarsal bone Disposition: ADMITTED IP TO THIS HOSP Time of Disposition: 15:08
[2020-11-15] MEDS: SODIUM CHLORIDE 0.9% 500 ML 500 ML IV SCH ×3 (13:30→14:57)
[2020-11-15 13:36] LABS: Basophils % (A) 0 %; Eosinophils # (A) 0.1 k/uL (0-0.7); Eosinophils % (A) 0 %; HCT 27.7 % (39.0-53.0); HGB 8.9 gm/dL (13.0-17.5); Lymphocytes # (A) 0.9 k/uL (1.0-4.8); Lymphocytes % (A) 4 %; MCH 31.1 pg (25.0-35.0); MCHC 32.3 g/dL (31.0-37.0); MCV 96.1 fL (80.0-100.0); Mean Platelet Volume 7.4; Monocytes % (A) 5 %; Neutrophils # (A) 20.4 k/uL (1.3-7.7); Neutrophils % (A) 90 %; Platelet Count 402 k/uL (150-450); RBC 2.88 m/uL (4.30-5.90); RDW 15.8 % (11.5-15.5); WBC 22.5 k/uL (3.8-10.6)
[2020-11-15 13:44] LABS: Albumin 2.7 g/dL (3.5-5.0); Calcium 8.2 mg/dL (8.4-10.2); Potassium 5.5 mmol/L (3.5-5.1); Total Bilirubin 0.7 mg/dL (0.2-1.3); Total Protein 5.9 g/dL (6.3-8.2)
[2020-11-15 13:47] LABS: INR 1.1 (<1.2); Partial Thromboplastin Time 25.5 sec (22.0-30.0); Prothrombin Time 11.9 sec (9.0-12.0)
[2020-11-15] MEDS ORDERED: SODIUM CHLORIDE 0.9% 1,000 ML IV ONE ×2 (14:09→15:59)
[2020-11-15] MEDS ORDERED: VANCOMYCIN IV PER PHARMACY 1 EACH MISC MISCELLANE PRN (14:09)
[2020-11-15] MEDS ORDERED: VANCOMYCIN 1,500 MG in SODIUM CHLORIDE 0.9% 250 ML IVPB STA (14:13)
[2020-11-15] MEDS ORDERED: SODIUM CHLORIDE 0.9% 1,000 ML IV SCH (14:15)
--- NOTE | 2020-11-15 14:36 | XR ---
EXAMINATION TYPE: XR chest 2V DATE OF EXAM: 11/15/2020 COMPARISON: Chest x-ray March 08, 2020 HISTORY: Shortness of breath and weakness. TECHNIQUE: Frontal and lateral views of the chest are obtained. FINDINGS: Background chronic parenchyma changes and elevated left hemidiaphragm redemonstrated. Ther e is no new suspicious focal air space opacity, pleural effusion, or pneumothorax seen. The cardiac silhouette size is stable and within normal limits. Surgical change in the cervical spine is redemons trated. Osseous structures remain demineralized. IMPRESSION: Chronic changes without new acute pulmonary process.
--- NOTE | 2020-11-15 14:55 | XR ---
EXAMINATION TYPE: XR foot complete LT DATE OF EXAM: 11/15/2020 CLINICAL HISTORY: Nonhealing wound. TECHNIQUE: Frontal, lateral, and oblique images of the left foot are obtained. COMPARISON: None FINDINGS: There is age indeterminate distracted intra-articular Logan type fracture base of fifth met atarsal. Adjacent soft tissue ulceration is noted. No suspicious bony destruction. Some flexion in the toes is seen. [id number] narrowing and spurring at the navicular articulati on with the cuneiforms is present. Moderate size inferior calcaneal spur with punctate densities along the course of the plantar fascia. Small curvilinear calcification near distal Achilles tendon seen best on oblique image. Mild to mode rate spurring at ankle joint level. IMPRESSION: As above.
[2020-11-15] MEDS ORDERED: KETOROLAC 15 MG/ML 1 ML VIAL IVP STA (15:01)
[2020-11-15] MEDS ORDERED: SODIUM POLYSTYRENE SULFONATE 15 GM/60 ML BOTTLE PO STA (15:02)
[2020-11-15] MEDS: PANTOPRAZOLE 40 MG TABLET PO SCH (18:17)
[2020-11-15] MEDS ORDERED: SODIUM CHLORIDE 0.9% 500 ML 500 ML IV ONE (18:20)
[2020-11-15 19:12] LABS: Appearance,Urine Clear (Clear); Bilirubin,Urine Negative (Negative); Blood,Urine Negative (Negative); Color,Urine Yellow; Glucose,Urine (UA) Negative (Negative); Ketones,Urine Negative (Negative); Leukocyte Esterase,Urine Negative (Negative); Nitrite,Urine Negative (Negative); Protein,Urine Negative (Negative); Specific Gravity,Urine 1.018 (1.001-1.035); Urobilinogen,Urine <2.0 mg/dL (<2.0)
[2020-11-15 20:35] LABS: Glucose,Whole Blood 93 mg/dL (75-99)
[2020-11-15] MEDS: TICAGRELOR 90 MG TAB PO SCH (20:50)
[2020-11-15] MEDS: ATORVASTATIN 80 MG TAB PO SCH (20:50)
[2020-11-15] MEDS: HYDROcodone/APAP 10-325MG 1 EACH TAB PO PRN (20:55)
[2020-11-15] MEDS ORDERED: ALPRAZolam 1 MG TAB PO PRN (21:04)
[2020-11-15] MEDS: PIPERACILLIN-TAZOBACTAM 3.375 GM in SODIUM CHLORIDE 0.9% 100 ML IVPB SCH (21:43)
[2020-11-16] MEDS: HYDROcodone/APAP 10-325MG 1 EACH TAB PO PRN ×4 (04:23→20:53)
[2020-11-16] MEDS: PIPERACILLIN-TAZOBACTAM 3.375 GM in SODIUM CHLORIDE 0.9% 100 ML IVPB SCH ×3 (05:59→20:54)
[2020-11-16 06:16] LABS: Glucose,Whole Blood 48 mg/dL (75-99)
[2020-11-16 06:32] LABS: Glucose,Whole Blood 51 mg/dL (75-99)
[2020-11-16] MEDS: PANTOPRAZOLE 40 MG TABLET PO SCH ×2 (06:32→17:00)
[2020-11-16 06:51] LABS: Glucose,Whole Blood 74 mg/dL (75-99)
[2020-11-16] MEDS ORDERED: VANCOMYCIN 1,500 MG in SODIUM CHLORIDE 0.9% 250 ML IVPB SCH (07:00)
[2020-11-16 08:10] LABS: Basophils % (A) 0 %; Eosinophils # (A) 0.1 k/uL (0-0.7); Eosinophils % (A) 0 %; HCT 29.9 % (39.0-53.0); HGB 9.1 gm/dL (13.0-17.5); Hypochromasia Marked; Lymphocytes # (A) 1.4 k/uL (1.0-4.8); Lymphocytes % (A) 7 %; MCH 30.8 pg (25.0-35.0); MCHC 30.6 g/dL (31.0-37.0); MCV 100.7 fL (80.0-100.0); Macrocytosis Slight; Mean Platelet Volume 7.2; Monocytes # (A) 0.9 k/uL (0-1.0); Monocytes % (A) 5 %; Neutrophils # (A) 16.3 k/uL (1.3-7.7); Neutrophils % (A) 87 %; Platelet Count 404 k/uL (150-450); RBC 2.97 m/uL (4.30-5.90); RDW 15.5 % (11.5-15.5); WBC 18.8 k/uL (3.8-10.6)
[2020-11-16 08:34] LABS: Calcium 8.1 mg/dL (8.4-10.2); Potassium 4.9 mmol/L (3.5-5.1)
[2020-11-16] MEDS: AMIODARONE 200 MG TAB PO SCH (08:36)
[2020-11-16] MEDS: FUROSEMIDE 40 MG TAB PO SCH (08:36)
[2020-11-16] MEDS: lisinopriL 5 MG TAB PO SCH (08:36)
[2020-11-16] MEDS: GENTAMICIN 0.1% CREAM 15 GM TUBE TOPICAL SCH (08:36)
[2020-11-16] MEDS: ASPIRIN 81 MG PO SCH (08:36)
[2020-11-16] MEDS: TICAGRELOR 90 MG TAB PO SCH ×2 (08:37→20:53)
[2020-11-16] MEDS: SPIRONOLACTONE 25 MG TAB PO SCH (08:37)
[2020-11-16] MEDS ORDERED: glipiZIDE 10 MG TAB PO SCH (09:00)
--- NOTE | 2020-11-16 09:53 | P.HPIM ---
History of Present Illness H&P Date: 11/15/20 Patient is a pleasant 70-year-old female with known history of peripheral vascular disease and diabetes mellitus came in with the complaints of an ulcer in the left foot dorsal aspect little distracted to ankle joint, patient is getting admitted for infection of this ulcer. Patient has a large wound probably stage II to 3 ulcer. Patient does have cold and clammy extremities usually follows up with Dr. Mckenzie for peripheral vascular disease and Dr. Gomez for cardiology. Patient was comparing of beer sharp pain. Patient ulcer has been there for about a month. Patient denied any fever chills. Patient does have history of severe cardiomyopathy with EF of her on the 20% patient does have bilateral lower leg swelling patient denied any increased shortness of breath chest x-ray did not show any pulmonary edema patient was actually hypotensive and received about 3 L of IV normal saline in ER blood pressure improved after that. Because of hypotension not starting him on any IV Lasix although patient does have increasing pedal edema Review of Systems REVIEW OF SYSTEMS: CONSTITUTIONAL: No fever, no malaise, no fatigue. HEENT: No recent visual problems or hearing problems. Denied any sore throat. CARDIOVASCULAR: No chest pain, orthopnea, PND, no palpitations, no syncope. PULMONARY: No shortness of breath, no cough, no hemoptysis. GASTROINTESTINAL: No diarrhea, no nausea, no vomiting, no abdominal pain. NEUROLOGICAL: No headaches, no weakness, no numbness. HEMATOLOGICAL: Denies any bleeding or petechiae. GENITOURINARY: Denies any burning micturition, frequency, or urgency. MUSCULOSKELETAL/RHEUMATOLOGICAL: As mentioned in HPI ENDOCRINE: Denies any polyuria or polydipsia. The rest of the 14-point review of systems is negative. Past Medical History Past Medical History: Coronary Artery Disease (CAD), COPD, Diabetes Mellitus, Hyperlipidemia, Hypertension, Myocardial Infarction ([place]) Additional Past Medical History / Comment(s): stents February 2020 Last Myocardial Infarction Date:: 03/04/2020 History of Any Multi-Drug Resistant Organisms: None Reported Past Surgical History: Back Surgery, Heart Catheterization With Stent, Orthopedic Surgery Additional Past Surgical History / Comment(s): NECK SURGERY Past Anesthesia/Blood Transfusion Reactions: No Reported Reaction Date of Last Stent Placement:: 03/04/2020 Past Psychological History: No Psychological Hx Reported Smoking Status: Former smoker Past Alcohol Use History: None Reported Past Drug Use History: Marijuana - Past Family History Mother Family Medical History: No Reported History Medications and Allergies Home Medications Medication Instructions Recorded Confirmed Type HYDROcodone/APAP 10-325MG [[place] 1 tab PO Q4HR PRN 04/11/15 11/15/20 History 10-325] glipiZIDE [Glucotrol XL] 10 mg PO BID 03/05/20 11/15/20 History Ticagrelor [Brilinta] 90 mg PO BID 30 Days #60 tab 03/07/20 11/15/20 Rx Aspirin 81 mg PO DAILY #30 chew 03/09/20 11/15/20 Rx Atorvastatin [Lipitor] 80 mg PO HS #30 tab 03/09/20 11/15/20 Rx Furosemide [Lasix] 40 mg PO DAILY #30 tab 03/09/20 11/15/20 Rx Potassium Chloride ER [K-Dur 20] 20 meq PO DAILY #30 tab.er.prt 03/09/20 11/15/20 Rx Spironolactone [Aldactone] 25 mg PO DAILY #30 tab 03/09/20 11/15/20 Rx lisinopriL [Zestril] 5 mg PO DAILY #30 tab 03/09/20 11/15/20 Rx Pantoprazole [Protonix] 40 mg PO AC-BID #60 tablet.dr 03/17/20 11/15/20 Rx ALPRAZolam [Xanax] 1 mg PO Q12H PRN 11/15/20 11/15/20 History Amiodarone [Cordarone] 200 mg PO DAILY 11/15/20 11/15/20 History Clindamycin HCl 300 mg PO Q12HR 11/15/20 11/15/20 History Gentamicin 0.1% Cream 1 applic TOPICAL DAILY 11/15/20 11/15/20 History Metoprolol Tartrate [Lopressor] 12.5 mg PO DAILY 11/15/20 11/15/20 History Allergies Allergy/AdvReac Type Severity Reaction Status Date / Time No Known Allergies Allergy Verified 11/15/20 14:13 Physical Exam Vitals: Vital Signs Temp Pulse Pulse Pulse Resp BP BP 11/16/20 08:00 98.1 F 60 60 16 120/77 11/16/20 04:00 97.8 F 50 L 16 127/61 11/16/20 01:38 49 L 15 11/16/20 00:00 98.2 F 49 L 15 94/50 11/15/20 20:00 98.3 F 55 L 15 130/44 11/15/20 19:00 51 L 18 101/48 11/15/20 18:00 49 L 18 78/47 11/15/20 17:00 52 L 18 81/57 11/15/20 16:36 98.3 F 55 L 15 103/44 11/15/20 16:00 55 L 18 93/64 11/15/20 15:00 50 L 18 97/37 11/15/20 14:00 49 L 18 79/42 11/15/20 13:32 50 L 18 98/62 11/15/20 12:55 60 18 94/36 11/15/20 12:28 98.3 F 62 18 78/31 Pulse Ox 11/16/20 08:00 98 11/16/20 04:00 98 11/16/20 01:38 11/16/20 00:00 96 11/15/20 20:00 98 11/15/20 19:00 97 11/15/20 18:00 97 11/15/20 17:00 97 11/15/20 16:36 98 11/15/20 16:00 97 11/15/20 15:00 97 11/15/20 14:00 97 11/15/20 13:32 97 11/15/20 12:55 97 11/15/20 12:28 96 Intake and Output 11/15/20 11/16/20 11/16/20 22:59 06:59 14:59 Intake Total 725 530 Output Total 500 Balance 225 530 Intake: Intake, IV Titration 525 50 Amount Piperacillin-Tazobactam 3 100 50 .375 gm In Sodium Chloride 0.9% 100 ml @ 25 mls/hr IVPB Q8H [facility] Rx#: [id number] Sodium Chloride 0.9% 1, 425 000 ml @ 75 mls/hr IV . [id number] Rx#:[id number] Oral 200 480 Output: Urine 500 Other: Weight 83.007 kg 83.5 kg PHYSICAL EXAMINATION: GENERAL: The patient is alert and oriented x3, not in any acute distress. Well developed, well nourished. HEENT: Pupils are round and equally reacting to light. EOMI. No scleral icterus. No conjunctival pallor. Normocephalic, atraumatic. No pharyngeal erythema. No thyromegaly. CARDIOVASCULAR: S1 and S2 present. No murmurs, rubs, or gallops. PULMONARY: Chest is clear to auscultation, no wheezing or crackles. ABDOMEN: Soft, nontender, nondistended, normoactive bowel sounds. No palpable or ganomegaly. MUSCULOSKELETAL: No joint swelling or deformity. EXTREMITIES: No cyanosis, clubbing, 1+ pitting pedal edema in bilateral lower extremities NEUROLOGICAL: Gross neurological examination did not reveal any focal deficits. SKIN: Stage II to 3 ulcer in the left foot dorsal aspect little distal to the ankle joint with surrounding cellulitis. Feeble pulses in both both lower extremities cold and clammy extremities Results CBC & Chem 7: 11/16/20 07:28 11/16/20 07:28 Labs: Abnormal Lab Results - Last 24 Hours (Table) 11/15/20 11/15/20 11/15/20 Range/Units 13:23 13:23 13:23 WBC 22.5 H (3.8-10.6) k/uL RBC 2.88 L (4.30-5.90) m/uL Hgb 8.9 L (13.0-17.5) gm/dL Hct 27.7 L (39.0-53.0) % MCV (80.0-100.0) fL MCHC (31.0-37.0) g/dL RDW 15.8 H (11.5-15.5) % Neutrophils # 20.4 H (1.3-7.7) k/uL Lymphocytes # 0.9 L (1.0-4.8) k/uL Sodium 133 L (137-145) mmol/L Potassium 5.5 H (3.5-5.1) mmol/L Chloride (98-107) mmol/L Carbon Dioxide 21 L (22-30) mmol/L BUN 41 H (9-20) mg/dL Creatinine 1.56 H (0.66-1.25) mg/dL Glucose 155 H (74-99) mg/dL POC Glucose (mg/dL) (75-99) mg/dL Plasma Lactic Acid Zach 2.1 H* (0.7-2.0) mmol/L Calcium 8.2 L (8.4-10.2) mg/dL ALT 53 H (4-49) U/L Alkaline Phosphatase 149 H (38-126) U/L Total Protein 5.9 L (6.3-8.2) g/dL Albumin 2.7 L (3.5-5.0) g/dL 11/16/20 11/16/20 11/16/20 Range/Units 06:15 06:31 06:50 WBC (3.8-10.6) k/uL RBC (4.30-5.90) m/uL Hgb (13.0-17.5) gm/dL Hct (39.0-53.0) % MCV (80.0-100.0) fL MCHC (31.0-37.0) g/dL RDW (11.5-15.5) % Neutrophils # (1.3-7.7) k/uL Lymphocytes # (1.0-4.8) k/uL Sodium (137-145) mmol/L Potassium (3.5-5.1) mmol/L Chloride (98-107) mmol/L Carbon Dioxide (22-30) mmol/L BUN (9-20) mg/dL Creatinine (0.66-1.25) mg/dL Glucose (74-99) mg/dL POC Glucose (mg/dL) 48 L 51 L 74 L (75-99) mg/dL Plasma Lactic Acid Zach (0.7-2.0) mmol/L Calcium (8.4-10.2) mg/dL ALT (4-49) U/L Alkaline Phosphatase (38-126) U/L Total Protein (6.3-8.2) g/dL Albumin (3.5-5.0) g/dL 11/16/20 11/16/20 Range/Units 07:28 07:28 WBC 18.8 H (3.8-10.6) k/uL RBC 2.97 L (4.30-5.90) m/uL Hgb 9.1 L (13.0-17.5) gm/dL Hct 29.9 L (39.0-53.0) % MCV 100.7 H (80.0-100.0) fL MCHC 30.6 L (31.0-37.0) g/dL RDW (11.5-15.5) % Neutrophils # 16.3 H (1.3-7.7) k/uL Lymphocytes # (1.0-4.8) k/uL Sodium (137-145) mmol/L Potassium (3.5-5.1) mmol/L Chloride 111 H (98-107) mmol/L Carbon Dioxide 19 L (22-30) mmol/L BUN 32 H (9-20) mg/dL Creatinine 1.26 H (0.66-1.25) mg/dL Glucose 65 L (74-99) mg/dL POC Glucose (mg/dL) (75-99) mg/dL Plasma Lactic Acid Zach (0.7-2.0) mmol/L Calcium 8.1 L (8.4-10.2) mg/dL ALT (4-49) U/L Alkaline Phosphatase (38-126) U/L Total Protein (6.3-8.2) g/dL Albumin (3.5-5.0) g/dL Assessment and Plan Plan: Infected ulcer in the left foot most probably diabetic ulcers although patient does have peripheral vascular disease as well. Patient is presently on vancomycin and Zosyn infectious disease was consulted, vascular surgery was consulted. Along with Dr. Mckenzie for peripheral vascular disease. -Severe peripheral vascular disease will obtain arterial Doppler of bilateral lower extremities. Patient quit smoking recently. -Acute renal failure prerenal azotemia, patient received IV fluids will not continue IV fluids anymore because of his congestive heart failure history will monitor the serum creatinine. -Hyponatremia: Patient appears to be hypervolemic hyponatremia unfortunately because of low blood pressures we are unable to give Lasix at this time. -Congestive heart failure chronic systolic dysfunction EF of around 20-20% patient appears to have ischemic cardiomyopathy probably in acute exacerbation as well I'll obtain a BNP and fortunately at this point of time unable to give him Lasix because of hypotension that pressures in 70s systolic. -Leukocytosis secondary to infection -Type 2 diabetes mellitus: Patient will be resumed on home regimen titration depending on blood sugars -Coronary artery disease -Hyperlipidemia -COPD without any acute exacerbation -DVT prophylaxis with a subcutaneous heparin
--- NOTE | 2020-11-16 10:09 | P.ARTDOP ---
Arterial Doppler LOWER EXTREMITY ARTERIAL DOPPLER: DATE OF SERVICE: 11/15/2020 Reason for study: Ulcers left foot. Doppler waveforms: Atypical bilaterally throughout. Pulse volume recording: []. Pressure gradients: Above the low thigh bilaterally. Ankle-brachial indices: 0.43 on the right and 0.49 on the left. Toe brachial indices: [] on the right, [] on the left Impression: Moderate to severe bilateral iliofemoral disease. Vascular specialty consultation recommended..
[2020-11-16] MEDS: VANCOMYCIN 1,500 MG in SODIUM CHLORIDE 0.9% 250 ML IVPB SCH (11:14)
--- NOTE | 2020-11-16 11:45 | P.CRDCN ---
History of Present Illness Consult date: 11/16/20 History of present illness: HISTORY OF PRESENT ILLNESS: This is a 70-year-old male with a past medical history significant for coronary artery disease with previous stent placement, hypertension, hyperlipidemia, COPD, diabetes mellitus, and former nicotine dependence. Patient follows in the office with Dr. Gomez. We have been asked to see the patient in consultation for peripheral vascular disease. Patient examined at the bedside. Patient states he first noticed a small ulcer on the lateral side of his left foot about 2 or 3 months ago. He does not remember specifically if he had an injury that first lead to his wound or not. He reports he has been seeing a rugby league footballer, Dr. Joseph, for the past few months. He reports having routine visits with him and having local wound care done however the ulcer has continued to increase in s ize. He states he was told he needed to see a vascular specialist for "blockages in his legs". Patient denies chest pain or pressure. Denies shortness of breath. Vital signs are currently stable. EKG reveals sinus bradycardia Chest xray chronic changes without new acute pulmonary process. Left foot x-ray: Indeterminate distracted intra-articular Logan type fracture base of fifth metatarsal. Adjacent soft tissue ulceration is noted. No suspicious bony destruction. Lower extremity arterial Doppler: Moderate to severe bilateral iliofemoral disease. Laboratory data: WBC 18.8. Hemoglobin 9.1. Platelet count 404. Sodium 137. Potassium 4.9. BUN 32. Creatinine 1.26. Current home cardiac medications include lisinopril 5 mg daily, Proventil 90 mg twice a day, Aldactone 25 mg daily, metoprolol tartrate 12.5 mg daily, Lasix 40 mg daily, Lipitor 80 mg daily, aspirin 81 mg daily, and amiodarone 200 mg daily Most recent echocardiogram obtained in February 2020 revealed ejection fraction 20-25%, mild tricuspid regurgitation, mild pulmonary hypertension Cardiac catheterization history: 03/07/[address] Mckenzie with PCI to the mid LAD and mid RCA 03/04/2020: With Dr. Vegas revealing heavily calcified left coronary system. Subtotally occluded mid LAD. Significant disease in the mid right coronary artery distal to the prior stented segment. Mild to moderate disease in the left circumflex. Patient underwent stenting of the LAD at that time. REVIEW OF SYSTEMS: At the time of my exam: CONSTITUTIONAL: Denies fever or chills. HEENT: Denies blurred vision, vision changes, or eye pain. Denies hemoptysis CARDIOVASCULAR: Denies chest pain. Denies orthopnea. Denies PND. Denies palpitations RESPIRATORY: Denies shortness of breath. GASTROINTESTINAL: Denies abdominal pain. Denies nausea or vomiting. HEMATOLOGIC: Denies bleeding disorders. GENITOURINARY: Denies any blood in urine. SKIN: Denies pruitis. Denies rash. PHYSICAL EXAM: VITAL SIGNS: Reviewed. GENERAL: Well-developed in no acute distress. HEENT: Head is normocephalic. Pupils are equal, round. Sclerae anicteric. Mucous membranes of the mouth are moist. Neck supple. No JVD or thyromegaly LUNGS: Respirations even and unlabored. Lungs diminished bilaterally. HEART: Regular rate and rhythm. S1 and S2 heard. ABDOMEN: Soft. Nondistended. Nontender. EXTREMITIES: Normal range of motion. Patient with large necrotic wound to dorsal aspect of left foot and ulceration to left lateral aspect of foot with surrounding erythema. Patient with doppler posterior tibial pulse on the left. Unable to obtain left dorsalis pedis pulse with Doppler. NEUROLOGIC: Awake and alert. Oriented x 3. ASSESSMENT: Nonhealing ulcer of left foot with leukocytosis Peripheral vascular disease Coronary artery disease with previous PCI Chronic systolic heart failure, EF 20-25%, currently euvolemic Ischemic cardiomyopathy, patient was on a LifeVest last year but has since refused to wear it Diabetes mellitus Hypertension Hyperlipidemia COPD PLAN: Obtain 2-D echo to assess cardiac structure and function Resume home cardiac medications Dr. Cabrales consulted for wound care Case discussed with Dr. Mckenzie who will evaluate patient Further recommendations pending patient course Nurse practitioner note has been reviewed by physician. Signing provider agrees with the documented findings, assessment, and plan of care. Past Medical History Past Medical History: Coronary Artery Disease (CAD), COPD, Diabetes Mellitus, Hyperlipidemia, Hypertension, Myocardial Infarction (NH) Additional Past Medical History / Comment(s): stents February 2020 Last Myocardial Infarction Date:: 03/04/2020 History of Any Multi-Drug Resistant Organisms: None Reported Past Surgical History: Back Surgery, Heart Catheterization With Stent, Orthopedic Surgery Additional Past Surgical History / Comment(s): NECK SURGERY Past Anesthesia/Blood Transfusion Reactions: No Reported Reaction Date of Last Stent Placement:: 03/04/2020 Past Psychological History: No Psychological Hx Reported Smoking Status: Former smoker Past Alcohol Use History: None Reported Past Drug Use History: Marijuana - Past Family History Mother Family Medical History: No Reported History Medications and Allergies Home Medications Medication Instructions Recorded Confirmed Type HYDROcodone/APAP 10-325MG [[place] 1 tab PO Q4HR PRN 04/11/15 11/15/20 History 10-325] glipiZIDE [Glucotrol XL] 10 mg PO BID 03/05/20 11/15/20 History Ticagrelor [Brilinta] 90 mg PO BID 30 Days #60 tab 03/07/20 11/15/20 Rx Aspirin 81 mg PO DAILY #30 chew 03/09/20 11/15/20 Rx Atorvastatin [Lipitor] 80 mg PO HS #30 tab 03/09/20 11/15/20 Rx Furosemide [Lasix] 40 mg PO DAILY #30 tab 03/09/20 11/15/20 Rx Potassium Chloride ER [K-Dur 20] 20 meq PO DAILY #30 tab.er.prt 03/09/20 11/15/20 Rx Spironolactone [Aldactone] 25 mg PO DAILY #30 tab 03/09/20 11/15/20 Rx lisinopriL [Zestril] 5 mg PO DAILY #30 tab 03/09/20 11/15/20 Rx Pantoprazole [Protonix] 40 mg PO AC-BID #60 tablet.dr 03/17/20 11/15/20 Rx ALPRAZolam [Xanax] 1 mg PO Q12H PRN 11/15/20 11/15/20 History Amiodarone [Cordarone] 200 mg PO DAILY 11/15/20 11/15/20 History Clindamycin HCl 300 mg PO Q12HR 11/15/20 11/15/20 History Gentamicin 0.1% Cream 1 applic TOPICAL DAILY 11/15/20 11/15/20 History Metoprolol Tartrate [Lopressor] 12.5 mg PO DAILY 11/15/20 11/15/20 History Allergies Allergy/AdvReac Type Severity Reaction Status Date / Time No Known Allergies Allergy Verified 11/15/20 14:13 Physical Exam Vitals: Vital Signs Temp Pulse Pulse Pulse Resp BP BP 11/16/20 11:10 98.2 F 61 18 133/82 11/16/20 08:00 98.1 F 60 60 16 120/77 11/16/20 04:00 97.8 F 50 L 16 127/61 11/16/20 01:38 49 L 15 11/16/20 00:00 98.2 F 49 L 15 94/50 11/15/20 20:00 98.3 F 55 L 15 130/44 11/15/20 19:00 51 L 18 101/48 11/15/20 18:00 49 L 18 78/47 11/15/20 17:00 52 L 18 81/57 11/15/20 16:36 98.3 F 55 L 15 103/44 11/15/20 16:00 55 L 18 93/64 11/15/20 15:00 50 L 18 97/37 11/15/20 14:00 49 L 18 79/42 11/15/20 13:32 50 L 18 98/62 11/15/20 12:55 60 18 94/36 11/15/20 12:28 98.3 F 62 18 78/31 Pulse Ox 11/16/20 11:10 98 11/16/20 08:00 98 11/16/20 04:00 98 11/16/20 01:38 11/16/20 00:00 96 11/15/20 20:00 98 11/15/20 19:00 97 11/15/20 18:00 97 11/15/20 17:00 97 11/15/20 16:36 98 11/15/20 16:00 97 11/15/20 15:00 97 11/15/20 14:00 97 11/15/20 13:32 97 11/15/20 12:55 97 11/15/20 12:28 96 Intake and Output 11/15/20 11/16/20 11/16/20 22:59 06:59 14:59 Intake Total 725 530 Output Total 500 Balance 225 530 Intake: Intake, IV Titration 525 50 Amount Piperacillin-Tazobactam 3 100 50 .375 gm In Sodium Chloride 0.9% 100 ml @ 25 mls/hr IVPB Q8H [facility] Rx#: [id number] Sodium Chloride 0.9% 1, 425 000 ml @ 75 mls/hr IV . [id number] ONE Rx#:[id number] Oral 200 480 Output: Urine 500 Other: Weight 83.007 kg 83.5 kg Results 11/16/20 07:28 11/16/20 07:28 Cardiac Enzymes 11/15/20 11/15/20 Range/Units 13:23 13:23 AST 53 (17-59) U/L Troponin I <0.012 (0.000-0.034) ng/mL Coagulation 11/15/20 Range/Units 13:23 PT 11.9 (9.0-12.0) sec APTT 25.5 (22.0-30.0) sec CBC 11/15/20 11/16/20 Range/Units 13:23 07:28 WBC 22.5 H 18.8 H (3.8-10.6) k/uL RBC 2.88 L 2.97 L (4.30-5.90) m/uL Hgb 8.9 L 9.1 L (13.0-17.5) gm/dL Hct 27.7 L 29.9 L (39.0-53.0) % Plt Count 402 404 (150-450) k/uL Comprehensive Metabolic Panel 11/15/20 11/16/20 Range/Units 13:23 07:28 Sodium 133 L 137 (137-145) mmol/L Potassium 5.5 H 4.9 (3.5-5.1) mmol/L Chloride 103 111 H (98-107) mmol/L Carbon Dioxide 21 L 19 L (22-30) mmol/L BUN 41 H 32 H (9-20) mg/dL Creatinine 1.56 H 1.26 H (0.66-1.25) mg/dL Glucose 155 H 65 L (74-99) mg/dL Calcium 8.2 L 8.1 L (8.4-10.2) mg/dL AST 53 (17-59) U/L ALT 53 H (4-49) U/L Alkaline Phosphatase 149 H (38-126) U/L Total Protein 5.9 L (6.3-8.2) g/dL Albumin 2.7 L (3.5-5.0) g/dL Current Medications Generic Name Dose Route Start Last Admin Trade Name Freq PRN Reason Stop Dose Admin Hydrocodone Bitart/Acetaminophen 1 each 11/15/20 14:44 11/16/20 11:15 Hydrocodone/Apap 10-325mg 1 Each Tab PO 1 each Q4HR PRN Administration Pain Alprazolam 1 mg 11/15/20 21:04 Alprazolam 1 Mg Tab PO Q12H PRN Anxiety Amiodarone HCl 200 mg 11/16/20 09:00 11/16/20 08:36 Amiodarone 200 Mg Tab PO 200 mg DAILY LUCAS Administration Aspirin 81 mg 11/16/20 09:00 11/16/20 08:36 Aspirin 81 Mg PO 81 mg DAILY LUCAS Administration Atorvastatin Calcium 80 mg 11/15/20 21:00 11/15/20 20:50 Atorvastatin 80 Mg Tab PO 80 mg HS LUCAS Administration Furosemide 40 mg 11/16/20 09:00 11/16/20 08:36 Furosemide 40 Mg Tab PO 40 mg DAILY LUCAS Administration Gentamicin Sulfate 1 applic 11/16/20 09:00 11/16/20 08:36 Gentamicin 0.1% Cream 15 Gm Tube TOPICAL 1 applic DAILY LUCAS Administration Glipizide 10 mg 11/16/20 09:00 11/16/20 08:36 Glipizide 10 Mg Tab PO 10 mg BID LUCAS Administration Heparin Sodium (Porcine) 5,000 unit 11/16/20 21:00 Heparin Sodium,Porcine 5,000 Unit/Ml 1 Ml Vial SQ Q12HR LUCAS Piperacillin Sod/Tazobactam 100 mls @ 25 mls/hr 11/15/20 22:00 11/16/20 05:59 Sod 3.375 gm/ Sodium Chloride IVPB 25 mls/hr Q8H [facility]UC[facility] Administration Vancomycin HCl 1,500 mg/ 250 mls @ 125 mls/hr 11/16/20 11:00 11/16/20 11:14 Sodium Chloride IVPB 125 mls/hr Q12H [facility] Administration Lisinopril 5 mg 11/16/20 09:00 11/16/20 08:36 Lisinopril 5 Mg Tab PO 5 mg DAILY LUCAS Administration Miscellaneous Information 0 each 11/18/20 10:00 Vancomycin Trough Due 1 Each Misc MISCELLANE 11/18/20 10:01 DIRECTED ONE Pantoprazole Sodium 40 mg 11/15/20 17:30 11/16/20 06:32 Pantoprazole 40 Mg Tablet PO 40 mg AC-BID LUCAS Administration Spironolactone 25 mg 11/16/20 09:00 11/16/20 08:37 Spironolactone 25 Mg Tab PO 25 mg DAILY LUCAS Administration Ticagrelor 90 mg 11/15/20 21:00 11/16/20 08:37 Ticagrelor 90 Mg Tab PO 90 mg BID LUCAS Administration Intake and Output 11/15/20 11/16/20 11/16/20 22:59 06:59 14:59 Intake Total 725 530 Output Total 500 Balance 225 530 Intake: Intake, IV Titration 525 50 Amount Piperacillin-Tazobactam 3 100 50 .375 gm In Sodium Chloride 0.9% 100 ml @ 25 mls/hr IVPB Q8H [facility] Rx#: [id number] Sodium Chloride 0.9% 1, 425 000 ml @ 75 mls/hr IV . [id number] ONE Rx#:[id number] Oral 200 480 Output: Urine 500 Other: Weight 83.007 kg 83.5 kg 11/16/20 07:28 11/16/20 07:28
[2020-11-16 11:53] LABS: Glucose,Whole Blood 141 mg/dL (75-99)
--- NOTE | 2020-11-16 13:01 | P.PN ---
Subjective 70-year-old female with known history of peripheral vascular disease and diabetes mellitus came in with the complaints of an ulcer in the left foot dorsal aspect little distracted to ankle joint, patient is getting admitted for infection of this ulcer. Patient has a large wound probably stage II to 3 ulcer. Patient does have cold and clammy extremities usually follows up with Dr. Mckenzie for peripheral vascular disease and Dr. Gomez for cardiology. Patient was comparing of beer sharp pain. Patient ulcer has been there for about a month. Patient denied any fever chills. Patient does have history of severe cardiomyopathy with EF of her on the 20% patient does have bilateral lower leg swelling patient denied any increased shortness of breath chest x-ray did not show any pulmonary edema patient was actually hypotensive and received about 3 L of IV normal saline in ER blood pressure improved after that. Because of hypotension not starting him on any IV Lasix although patient does have increasing pedal edema. 11/16/2020 Patient of pedal edema actually improved patient BNP is only 2200 doesn't have any significant elevated JVD patient blood pressure is better patient was resumed on his home dose of ANDREEA inhibitor. 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 Patient will be evaluated by vascular surgery. Patient had a foot x-ray which apparently showed fifth metatarsal fracture for which no further intervention been is being recommended by orthoped ic surgery. His creatinine did improve to 1.26 baseline is around 0.7 sodium and potassium did improve as well. Objective - Vital Signs Vital signs: Vital Signs Temp 98.2 F 11/16/20 11:10 Pulse 61 11/16/20 11:10 Resp 18 11/16/20 11:10 BP 133/82 11/16/20 11:10 Pulse Ox 98 11/16/20 11:10 Intake & Output 11/15/20 11/16/20 11/16/20 18:59 06:59 18:59 Intake Total 725 530 Output Total 500 Balance 225 530 Weight 83.007 kg 83.5 kg Intake: Intake, IV Titration 525 50 Amount Piperacillin-Tazobactam 3 100 50 .375 gm In Sodium Chloride 0.9% 100 ml @ 25 mls/hr IVPB Q8H [facility] Rx#: [id number] Sodium Chloride 0.9% 1, 425 000 ml @ 75 mls/hr IV . [id number] ONE Rx#:[id number] Oral 200 480 Output: Urine 500 - Exam PHYSICAL EXAMINATION: GENERAL: The patient is alert and oriented x3, not in any acute distress. Well developed, well nourished. HEENT: Pupils are round and equally reacting to light. EOMI. No scleral icterus. No conjunctival pallor. Normocephalic, atraumatic. No pharyngeal erythema. No thyromegaly. CARDIOVASCULAR: S1 and S2 present. No murmurs, rubs, or gallops. PULMONARY: Chest is clear to auscultation, no wheezing or crackles. ABDOMEN: Soft, nontender, nondistended, normoactive bowel sounds. No palpable organomegaly. MUSCULOSKELETAL: No joint swelling or deformity. EXTREMITIES: No cyanosis, clubbing, 1+ pitting pedal edema in bilateral lower ex tremities NEUROLOGICAL: Gross neurological examination did not reveal any focal deficits. SKIN: Stage II to 3 ulcer in the left foot dorsal aspect little distal to the ankle joint with surrounding cellulitis. Feeble pulses in both both lower extremities cold and clammy extremities - Labs CBC & Chem 7: 11/16/20 07:28 11/16/20 07:28 Labs: Abnormal Lab Results - Last 24 Hours (Table) 11/15/20 11/15/20 11/15/20 Range/Units 13:23 13:23 13:23 WBC 22.5 H (3.8-10.6) k/uL RBC 2.88 L (4.30-5.90) m/uL Hgb 8.9 L (13.0-17.5) gm/dL Hct 27.7 L (39.0-53.0) % MCV (80.0-100.0) fL MCHC (31.0-37.0) g/dL RDW 15.8 H (11.5-15.5) % Neutrophils # 20.4 H (1.3-7.7) k/uL Lymphocytes # 0.9 L (1.0-4.8) k/uL Sodium 133 L (137-145) mmol/L Potassium 5.5 H (3.5-5.1) mmol/L Chloride (98-107) mmol/L Carbon Dioxide 21 L (22-30) mmol/L BUN 41 H (9-20) mg/dL Creatinine 1.56 H (0.66-1.25) mg/dL Glucose 155 H (74-99) mg/dL POC Glucose (mg/dL) (75-99) mg/dL Plasma Lactic Acid Zach 2.1 H* (0.7-2.0) mmol/L Calcium 8.2 L (8.4-10.2) mg/dL ALT 53 H (4-49) U/L Alkaline Phosphatase 149 H (38-126) U/L Total Protein 5.9 L (6.3-8.2) g/dL Albumin 2.7 L (3.5-5.0) g/dL 11/16/20 11/16/20 11/16/20 Range/Units 06:15 06:31 06:50 WBC (3.8-10.6) k/uL RBC (4.30-5.90) m/uL Hgb (13.0-17.5) gm/dL Hct (39.0-53.0) % MCV (80.0-100.0) fL MCHC (31.0-37.0) g/dL RDW (11.5-15.5) % Neutrophils # (1.3-7.7) k/uL Lymphocytes # (1.0-4.8) k/uL Sodium (137-145) mmol/L Potassium (3.5-5.1) mmol/L Chloride (98-107) mmol/L Carbon Dioxide (22-30) mmol/L BUN (9-20) mg/dL Creatinine (0.66-1.25) mg/dL Glucose (74-99) mg/dL POC Glucose (mg/dL) 48 L 51 L 74 L (75-99) mg/dL Plasma Lactic Acid Zach (0.7-2.0) mmol/L Calcium (8.4-10.2) mg/dL ALT (4-49) U/L Alkaline Phosphatase (38-126) U/L Total Protein (6.3-8.2) g/dL Albumin (3.5-5.0) g/dL 11/16/20 11/16/20 11/16/20 Range/Units 07:28 07:28 11:52 WBC 18.8 H (3.8-10.6) k/uL RBC 2.97 L (4.30-5.90) m/uL Hgb 9.1 L (13.0-17.5) gm/dL Hct 29.9 L (39.0-53.0) % MCV 100.7 H (80.0-100.0) fL MCHC 30.6 L (31.0-37.0) g/dL RDW (11.5-15.5) % Neutrophils # 16.3 H (1.3-7.7) k/uL Lymphocytes # (1.0-4.8) k/uL Sodium (137-145) mmol/L Potassium (3.5-5.1) mmol/L Chloride 111 H (98-107) mmol/L Carbon Dioxide 19 L (22-30) mmol/L BUN 32 H (9-20) mg/dL Creatinine 1.26 H (0.66-1.25) mg/dL Glucose 65 L (74-99) mg/dL POC Glucose (mg/dL) 141 H (75-99) mg/dL Plasma Lactic Acid Zach (0.7-2.0) mmol/L Calcium 8.1 L (8.4-10.2) mg/dL ALT (4-49) U/L Alkaline Phosphatase (38-126) U/L Total Protein (6.3-8.2) g/dL Albumin (3.5-5.0) g/dL Assessment and Plan Plan: Infected ulcer in the left foot most probably diabetic ulcers although patient does have peripheral vascular disease as well. Patient is presently on vancomycin and Zosyn infectious disease was consulted, vascular surgery was consulted. Along with Dr. Mckenzie for peripheral vascular disease. -Severe peripheral vascular disease will obtain arterial Doppler of bilateral lower extremities. Patient quit smoking recently. Had an arterial Doppler w [facility] is showing the moderate to severe iliofemoral disease -Acute renal failure prerenal azotemia, patient received IV fluids will not continue IV fluids anymore because of his congestive heart failure history will monitor the serum creatinine. -Hyponatremia: Patient appears to be hypervolemic hyponatremia unfortunately because of low blood pressures we are unable to give Lasix at this time. -Congestive heart failure chronic systolic dysfunction EF of around 20-20% presently not in acute exacerbation -Leukocytosis secondary to infection -Type 2 diabetes mellitus: Patient will be resumed on home regimen titration depending on blood sugars -Coronary artery disease -Hyperlipidemia -COPD without any acute exacerbation -DVT prophylaxis with a subcutaneous heparin
--- NOTE | 2020-11-16 13:43 | CDI ---
Documentation Clarification Form Date: 11/16/2020 01:05:26 PM From: Shaneka Davidson RN CCDS Admit Date: 11/15/2020 03:59:00 PM Patient Name: Peter Brock Visit Number: [id number] Discharge Date: ATTENTION: The Clinical Documentation Specialists (CDI) and [facility] Coding Staff appreciate your assistance in clarifying documentation. Please respond to the clarification below the line at the bottom and electronically sign. The CDI & [facility] Coding staff will review the response and follow-up if needed. Please note: Queries are made part of the Legal Health Record. If you have any questions, please contact the author of this message via ITS. Dr. Venessa Bell Sepsis is documented as an admitting diagnosis in the ED note 11/15. History/Risk Factors: 70-year-old male presents to the ED with worsening left foot dorsal ulcer after kicking a log about a month and half ago. Medical History: Peripheral vascular disease, DM, COPD, Systolic CHF and Severe cardiomyopathy. Per H&P 11/15 Clinical Indicators: WBC: 22.5, documented in [employer] 11/15 Lactic acid: 2.1, documented in [employer] 11/15 Blood cultures: Pending. Physical examination of Skin: Stage II to III ulcer in the left foot dorsal aspect little distal to the ankle to ankle joint with surrounding cellulitis. Feeble pulses in both lower extremities cold and clammy extremities. Per H&P 11/15. Vitals signs: BP 78/31; HR 62; Temp 98.3 F; RR 18; SpO2 96% room air. Treatment: Antibiotics: 11/15 Vancomycin 1,500mg Ivpb x1. 11/15 Zosyn 3.375mg Ivpb x1. 11/16 Gentamicin IV Bolus: 11/15 0.9NS 3.5L Bolus. In your professional opinion, please clarify if these findings signify one of the following conditions: Sepsis POA Sepsis ruled out Septic Shock Other, please specify Unable to determine SIRS Criteria: 2 or more of the following may indicate SIRS Temperature < 96.8F (36C) or > 101.0F (38.3C) Heart Rate > 90 bpm Respiratory Rate > 20 breaths/min or PaCO2 < 32 mmHg White Blood Cell Count > 12,000 or < 4,000 cells/mm3 or > 10% bands (Template Last Reviewed: October 2020) Doesn't have all the criteria for sepsis MTDD
--- NOTE | 2020-11-16 16:03 | P.CRDCN ---
History of Present Illness Consult date: 11/16/20 Chief complaint: Left foot discomfort History of present illness: This is a very pleasant 70-year-old gentleman was a patient of Dr. Spence in the office on regular basis with extensive past medical history consistent of coronary artery disease and prior revascularization, ischemic cardiomyopathy, diabetes, hypertension, dyslipidemia, COPD, and history of smoking. I was asked to see the patient in a consult today for further evaluation regarding peripheral arterial disease. For the last 2 months, he has been struggling with critical limb ischemia of the left foot. He developed nonhealing ulcer involving the lateral aspect of the left foot. Subsequently he was seen by his property consultant who has been following up with the patient but no significant improvement noted. The patient did not follow-up with any vascular specialist whatsoever. He presented to the hospital was foot pain. The patient does not recall if he did have any injury to the foot before. We consulted to see the patient for that reason. The patient underwent earlier today lower extremities arterial duplex study and that showed moderate to severe bilateral fem-pop disease with abnormal LORRAINE bilaterally and LORRAINE abnormalities seems to be severe. On examination today I could not feel any pulse in the pedal on the left side normal popliteal on the left side and but I was able to feel good pulse in the left common femoral artery. I am going to pursue with an aortogram with runoff in the next 24 hours. The procedure in details was discussed with the patient. I anticipate to see severe left SFA disease and probably occluded left SFA with severe below the knee disease as well on the left side. Past Medical History Past Medical History: Coronary Artery Disease (CAD), COPD, Diabetes Mellitus, Hyperlipidemia, Hypertension, Myocardial Infarction ([place]) Additional Past Medical History / Comment(s): stents February 2020 Last Myocardial Infarction Date:: 03/04/2020 History of Any Multi-Drug Resistant Organisms: None Reported Past Surgical History: Back Surgery, Heart Catheterization With Stent, Orthopedic Surgery Additional Past Surgical History / Comment(s): NECK SURGERY Past Anesthesia/Blood Transfusion Reactions: No Reported Reaction Date of Last Stent Placement:: 03/04/2020 Past Psychological History: No Psychological Hx Reported Smoking Status: Former smoker Past Alcohol Use History: None Reported Past Drug Use History: Marijuana - Past Family History Mother Family Medical History: No Reported History Medications and Allergies Home Medications Medication Instructions Recorded Confirmed Type HYDROcodone/APAP 10-325MG [[place] 1 tab PO Q4HR PRN 04/11/15 11/15/20 History 10-325] glipiZIDE [Glucotrol XL] 10 mg PO BID 03/05/20 11/15/20 History Ticagrelor [Brilinta] 90 mg PO BID 30 Days #60 tab 03/07/20 11/15/20 Rx Aspirin 81 mg PO DAILY #30 chew 03/09/20 11/15/20 Rx Atorvastatin [Lipitor] 80 mg PO HS #30 tab 03/09/20 11/15/20 Rx Furosemide [Lasix] 40 mg PO DAILY #30 tab 03/09/20 11/15/20 Rx Potassium Chloride ER [K-Dur 20] 20 meq PO DAILY #30 tab.er.prt 03/09/20 11/15/20 Rx Spironolactone [Aldactone] 25 mg PO DAILY #30 tab 03/09/20 11/15/20 Rx lisinopriL [Zestril] 5 mg PO DAILY #30 tab 03/09/20 11/15/20 Rx Pantoprazole [Protonix] 40 mg PO AC-BID #60 tablet.dr 03/17/20 11/15/20 Rx ALPRAZolam [Xanax] 1 mg PO Q12H PRN 11/15/20 11/15/20 History Amiodarone [Cordarone] 200 mg PO DAILY 11/15/20 11/15/20 History Clindamycin HCl 300 mg PO Q12HR 11/15/20 11/15/20 History Gentamicin 0.1% Cream 1 applic TOPICAL DAILY 11/15/20 11/15/20 History Metoprolol Tartrate [Lopressor] 12.5 mg PO DAILY 11/15/20 11/15/20 History Allergies Allergy/AdvReac Type Severity Reaction Status Date / Time No Known Allergies Allergy Verified 11/15/20 14:13 Physical Exam Vitals: Vital Signs Temp Pulse Pulse Pulse Resp BP BP 11/16/20 14:00 16 11/16/20 11:10 98.2 F 61 18 133/82 11/16/20 08:00 98.1 F 60 61 18 120/77 11/16/20 04:00 97.8 F 50 L 16 127/61 11/16/20 01:38 49 L 15 11/16/20 00:00 98.2 F 49 L 15 94/50 11/15/20 20:00 98.3 F 55 L 15 130/44 11/15/20 19:00 51 L 18 101/48 11/15/20 18:00 49 L 18 78/47 11/15/20 17:00 52 L 18 81/57 11/15/20 16:36 98.3 F 55 L 15 103/44 11/15/20 16:00 55 L 18 93/64 Pulse Ox 11/16/20 14:00 11/16/20 11:10 98 11/16/20 08:00 98 11/16/20 04:00 98 11/16/20 01:38 11/16/20 00:00 96 11/15/20 20:00 98 11/15/20 19:00 97 11/15/20 18:00 97 11/15/20 17:00 97 11/15/20 16:36 98 11/15/20 16:00 97 Intake and Output 11/16/20 11/16/20 11/16/20 06:59 14:59 22:59 Intake Total 725 730 Output Total 500 1600 Balance 225 -870 Intake: Intake, IV Titration 525 250 Amount Piperacillin-Tazobactam 3 100 150 .375 gm In Sodium Chloride 0.9% 100 ml @ 25 mls/hr IVPB Q8H [facility] Rx#: [id number] Sodium Chloride 0.9% 1, 425 000 ml @ 75 mls/hr IV . [id number] [facility] Rx#:[id number] Vancomycin 1,500 mg In 100 Sodium Chloride 0.9% 250 ml @ 125 mls/hr IVPB Q12H [facility] Rx#:[id number] Oral 200 480 Output: Urine 500 1600 Other: Voiding Method Urinal # Voids 2 Weight 83.5 kg 83.5 kg Results 11/16/20 07:28 11/16/20 07:28 CBC 11/16/20 Range/Units 07:28 WBC 18.8 H (3.8-10.6) k/uL RBC 2.97 L (4.30-5.90) m/uL Hgb 9.1 L (13.0-17.5) gm/dL Hct 29.9 L (39.0-53.0) % Plt Count 404 (150-450) k/uL Comprehensive Metabolic Panel 11/16/20 Range/Units 07:28 Sodium 137 (137-145) mmol/L Potassium 4.9 (3.5-5.1) mmol/L Chloride 111 H (98-107) mmol/L Carbon Dioxide 19 L (22-30) mmol/L BUN 32 H (9-20) mg/dL Creatinine 1.26 H (0.66-1.25) mg/dL Glucose 65 L (74-99) mg/dL Calcium 8.1 L (8.4-10.2) mg/dL Current Medications Generic Name Dose Route Start Last Admin Trade Name Freq PRN Reason Stop Dose Admin Hydrocodone Bitart/Acetaminophen 1 each 11/15/20 14:44 11/16/20 11:15 Hydrocodone/Apap 10-325mg 1 Each Tab PO 1 each Q4HR PRN Administration Pain Alprazolam 1 mg 11/15/20 21:04 Alprazolam 1 Mg Tab PO Q12H PRN Anxiety Amiodarone HCl 200 mg 11/16/20 09:00 11/16/20 08:36 Amiodarone 200 Mg Tab PO 200 mg DAILY [facility] Administration Aspirin 81 mg 11/16/20 09:00 11/16/20 08:36 Aspirin 81 Mg PO 81 mg DAILY [facility] Administration Atorvastatin Calcium 80 mg 11/15/20 21:00 11/15/20 20:50 Atorvastatin 80 Mg Tab PO 80 mg HS [facility] Administration Furosemide 40 mg 11/16/20 09:00 11/16/20 08:36 Furosemide 40 Mg Tab PO 40 mg DAILY [facility] Administration Gentamicin Sulfate 1 applic 11/16/20 09:00 11/16/20 08:36 Gentamicin 0.1% Cream 15 Gm Tube TOPICAL 1 applic DAILY [facility] Administration Glipizide 10 mg 11/16/20 09:00 11/16/20 08:36 Glipizide 10 Mg Tab PO 10 mg BID [facility] Administration Heparin Sodium (Porcine) 5,000 unit 11/16/20 21:00 Heparin Sodium,Porcine 5,000 Unit/Ml 1 Ml Vial SQ Q12HR [facility] Piperacillin Sod/Tazobactam 100 mls @ 25 mls/hr 11/15/20 22:00 11/16/20 15:07 Sod 3.375 gm/ Sodium Chloride IVPB 25 mls/hr Q8H [facility] Administration Vancomycin HCl 1,500 mg/ 250 mls @ 125 mls/hr 11/16/20 11:00 11/16/20 11:14 Sodium Chloride IVPB 125 mls/hr Q12H [facility] Administration Lisinopril 5 mg 11/16/20 09:00 11/16/20 08:36 Lisinopril 5 Mg Tab PO 5 mg DAILY [facility] Administration Miscellaneous Information 0 each 11/18/20 10:00 Vancomycin Trough Due 1 Each Misc MISCELLANE 11/18/20 10:01 DIRECTED ONE Pantoprazole Sodium 40 mg 11/15/20 17:30 11/16/20 06:32 Pantoprazole 40 Mg Tablet PO 40 mg AC-BID [facility] Administration Spironolactone 25 mg 11/16/20 09:00 11/16/20 08:37 Spironolactone 25 Mg Tab PO 25 mg DAILY [facility] Administration Ticagrelor 90 mg 11/15/20 21:00 11/16/20 08:37 Ticagrelor 90 Mg Tab PO 90 mg BID [facility] Administration Intake and Output 11/16/20 11/16/20 11/16/20 06:59 14:59 22:59 Intake Total 725 730 Output Total 500 1600 Balance 225 -870 Intake: Intake, IV Titration 525 250 Amount Piperacillin-Tazobactam 3 100 150 .375 gm In Sodium Chloride 0.9% 100 ml @ 25 mls/hr IVPB Q8H [facility] Rx#: [id number] Sodium Chloride 0.9% 1, 425 000 ml @ 75 mls/hr IV . [id number] [facility] Rx#:[id number] Vancomycin 1,500 mg In 100 Sodium Chloride 0.9% 250 ml @ 125 mls/hr IVPB Q12H [facility] Rx#:[id number] Oral 200 480 Output: Urine 500 1600 Other: Voiding Method Urinal # Voids 2 Weight 83.5 kg 83.5 kg Patient Weight 11/17/20 06:59 Weight 83.5 kg 11/16/20 07:28 11/16/20 07:28 Assessment and Plan Assessment: Assessment #1 critical limb ischemia of the left foot #2 possible osteomyelitis of the left foot #3 severe peripheral arterial disease #4 CAD with prior revascularization #5 ischemic cardiomyopathy Plan #1 he is on antibiotic we'll continue that #2 proceed with an aortogram with runoff #3 further recommendation to follow that Thank you for allowing us participate in his care
[2020-11-16 16:53] LABS: Glucose,Whole Blood 67 mg/dL (75-99)
[2020-11-16 17:10] LABS: Glucose,Whole Blood 94 mg/dL (75-99)
[2020-11-16 20:28] LABS: Glucose,Whole Blood 247 mg/dL (75-99)
--- NOTE | 2020-11-16 20:46 | ECHOF ---
Referral Reason:LV function MEASUREMENTS -------- HEIGHT: 182.9 cm WEIGHT: 83.5 kg BP: 133/82 RVIDd: 5.2 cm (< 3.3) IVSd: 1.2 cm (0.6 - 1.1) LVIDd: 5.4 cm (3.9 - 5.3) LVPWd: 1.1 cm (0.6 - 1.1) IVSs: 1.3 cm LVIDs: 4.0 cm LVPWs: 1.2 cm LAESV Index (A-L): 41.61 ml/m Ao Diam: 3.2 cm (2.0 - 3.7) AV Cusp: 1.7 cm (1.5 - 2.6) MV EXCURSION: 22.865 mm (> 18.000) MV EF SLOPE: 87 mm/s (70 - 150) EPSS: 0.3 cm MV E Jace: 0.80 m/s MV DecT: 138 ms MV A Jace: 0.47 m/s MV E/A Ratio: 1.70 RAP: 5.00 mmHg RVSP: 43.76 mmHg FINDINGS -------- Sinus rhythm. Resting bradycardia (HR<60bpm). This was a technically adequate study. The left ventricular size is normal. There is mild concentric left ventricular hypertrophy. Overa ll left ventricular systolic function is moderately impaired with, an EF between 35 - 40 %. Mid ant erior LV wall motion is hypokinetic. Apical anterior LV wall motion is hypokinetic. Apical late ral LV wall motion is hypokinetic. Apical septum LV wall motion is hypokinetic. The right ventricle is severely enlarged. LA is severely dilated >40 ml/m2 The right atrium is moderately enlarged. Interatrial and interventricular septum intact. The aortic valve is trileaflet, and appears structurally normal. No aortic stenosis or regurgitation. The mitral valve is normal. [id number] mitral regurgitation is present. Vccc-qn-[id number] tricuspid regurgitation present. There is mild to moderate pulmonary hypertension. The right ventricular systolic pressure, as measured by Doppler, is 43.76mmHg. There is no pulmonic regurgitation present. The aortic root size is normal. IVC Not well visulized. There is no pericardial effusion. CONCLUSIONS -------- 1. There is mild concentric left ventricular hypertrophy. 2. Overall left ventricular systolic function is moderately impaired with, an EF between 35 - 40 %. 3. Mid anterior LV wall motion is hypokinetic. 4. Apical anterior LV wall motion is hypokinetic. 5. Apical lateral LV wall motion is hypokinetic. 6. Apical septum LV wall motion is hypokinetic. 7. The right ventricle is severely enlarged. 8. LA is severely dilated >40 ml/m2 9. The right atrium is moderately enlarged. 10. The aortic valve is trileaflet, and appears structurally normal. No aortic stenosis or regurgitat ion. 11. Hwwv-sm-dyurshni mitral regurgitation is present. 12. Wnqg-ph-oriyhgff tricuspid regurgitation present. 13. There is mild to moderate pulmonary hypertension. CURRICULUM COACH: Zaynab Roberts RDCS
[2020-11-16] MEDS: ATORVASTATIN 80 MG TAB PO SCH (20:53)
[2020-11-16] MEDS: HEPARIN SODIUM,PORCINE 5,000 UNIT/ML 1 ML VIAL SQ SCH (20:54)
--- NOTE | 2020-11-16 22:53 | CONS ---
CONSULTATION DATE OF SERVICE: 11/16/2020 REASON FOR CONSULTATION: Left diabetic foot ulcer and cellulitis. HISTORY OF PRESENT ILLNESS: The patient is a 70-year-old male with a past medical history significant for coronary artery disease and diabetes mellitus who presented to the hospital with a wound on his left foot lateral border, which the patient has had for a couple of weeks to months now. The patient is not sure exactly how it started. He did mention it started as a blister and subsequently opened with formation of some ulceration. The patient has been trying to take care of it at home. Over the last few days the patient developed discoloration on the dorsal aspect of the left foot without any history of any trauma or anything falling on it. The patient did have diabetic neuropathy. Denies significant pain to his left lower extremity wound area. The patient did have mild drainage but denies having any foul-smelling drainage from it. The patient denies having any fever or chills. With these symptoms, the patient was evaluated by the ER physician. Since arrival in the ER, the patient has been afebrile. The patient did have a white count of 22.5. Repeat is 18.8. Creatinine was 1.26. Urine is negative. [place]oney PCR was negative. The patient did have x-rays of the foot which showed age- indeterminate distracted intra-articular fracture of the base of the fifth metatarsal with adjacent soft tissue ulceration noted; no suspicion of bony destruction. The patient has been admitted to the hospital with concern for left diabetic foot infection. The patient was started on vancomycin and Zosyn. Infectious Disease was consulted for further management of antibiotic therapy. REVIEW OF SYSTEMS: Positive points have been mentioned in the HPI. Rest of the systems are negative. PAST MEDICAL HISTORY: Coronary artery disease, COPD, diabetes mellitus, hyperlipidemia, hypertension, [place]. PAST SURGICAL HISTORY: PTCA with stent, back surgery. SOCIAL HISTORY: Remote history of smoking. No drinking or drug use. FAMILY HISTORY: No pertinent findings noticed. ALLERGIES: NO KNOWN DRUG ALLERGIES. MEDICATIONS: The patient is on [place], Xanax, amiodarone, Zosyn, aspirin, Lipitor, Lasix, gentamicin cream, Zestril, Protonix, Aldactone, Brilinta and vancomycin, Pharmacy to dose. PHYSICAL EXAMINATION: Blood pressure 122/60 with a pulse of 63, temperature 99.1. He is 96% on room air. General description is an elderly male lying in bed in no distress. No tachypnea or respiration use. HEENT: Examination shows pallor. No scleral icterus. Oral mucous membrane is dry. No pharyngeal erythema or thrush. NECK: Trachea is central. No thyromegaly. LUNGS: Unlabored breathing. Clear to auscultation anteriorly. HEART: S1, S2. Regular rate and rhythm. D ABDOMEN: Soft. No tenderness. No guarding or rigidity. EXTREMITIES: Trace edema of feet. Left foot lateral border did have 2 wounds with some slough tissue, minimal drainage, not foul-smelling. On the dorsum the patient has an area of discoloration but no fluctuation or induration and no drainage. Neurologically the patient is awake, alert, oriented x3. Mood and affect normal. LABS: Hemoglobin is 9.1, white count 18.8. BUN of 22, creatinine 1.26. Electrolytes have been normal. Urine is negative. Cooney PCR was negative. X-ray report as mentioned above. DIAGNOSTIC IMPRESSION AND PLAN: 1. Patient with a left diabetic foot infection with multiple ulcerations and concern for possible underlying osteomyelitis in view of the patient's history. As far as the lateral border wounds are concerned being underlying diabetes, will need to cover for the microbial patt associated with the diabetic foot infection. 2. Patient who did have renal insufficiency, high risk of nephrotoxicity. PLAN: 1. Will obtain consultation with Vascular Surgery for debridement of the wound and deep cultures. 2. Local wound cultures, both aerobic and anaerobic. 3. Vancomycin, Pharmacy to dose. Target of 15. However, discontinue Zosyn and add Unasyn to cover for the Gram-negative anaerobes. 4. Will follow clinical condition and culture to further adjust medication if needed. Thank you for this consultation. Will follow this patient along with you. MMODL / IJN: [id number] /
[2020-11-17] MEDS: VANCOMYCIN 1,500 MG in SODIUM CHLORIDE 0.9% 250 ML IVPB SCH ×3 (00:22→22:04)
[2020-11-17] MEDS: AMPICILLIN-SULBACTAM 3 GM in SODIUM CHLORIDE 0.9% 100 ML IVPB SCH ×4 (01:12→17:50)
[2020-11-17] MEDS: ASPIRIN 81 MG PO SCH (06:04)
[2020-11-17] MEDS: lisinopriL 5 MG TAB PO SCH (06:04)
[2020-11-17] MEDS: PANTOPRAZOLE 40 MG TABLET PO SCH ×2 (06:04→16:17)
[2020-11-17] MEDS: AMIODARONE 200 MG TAB PO SCH (06:04)
[2020-11-17] MEDS: HYDROcodone/APAP 10-325MG 1 EACH TAB PO PRN ×2 (06:04→20:17)
[2020-11-17 06:05] LABS: Glucose,Whole Blood 155 mg/dL (75-99)
[2020-11-17] MEDS: TICAGRELOR 90 MG TAB PO SCH ×2 (08:42→20:13)
[2020-11-17] MEDS: FUROSEMIDE 40 MG TAB PO SCH (08:42)
[2020-11-17] MEDS: SPIRONOLACTONE 25 MG TAB PO SCH (08:42)
[2020-11-17] MEDS: HEPARIN SODIUM,PORCINE 5,000 UNIT/ML 1 ML VIAL SQ SCH ×2 (08:43→20:13)
[2020-11-17] MEDS: GENTAMICIN 0.1% CREAM 15 GM TUBE TOPICAL SCH (08:43)
[2020-11-17] MEDS ORDERED: LIDOCAINE 1% INJ 10MG/ML (20 ML MDV) ONE (09:38)
[2020-11-17] MEDS ORDERED: IV FLUID CONTINUATION 400 ML IV ONE (09:47)
[2020-11-17 09:55] LABS: HCT 28.9 % (39.0-53.0); HGB 9.5 gm/dL (13.0-17.5); MCH 31.1 pg (25.0-35.0); Mean Platelet Volume 7.2; Platelet Count 394 k/uL (150-450); RBC 3.07 m/uL (4.30-5.90); RDW 15.6 % (11.5-15.5); WBC 18.3 k/uL (3.8-10.6)
[2020-11-17] MEDS ORDERED: MIDAZOLAM 2 MG/2 ML VIAL IV ONE (09:58)
[2020-11-17] MEDS ORDERED: LIDOCAINE 1% INJ 10MG/ML (20 ML MDV) SQ ONE ×2 (09:59→10:00)
[2020-11-17] MEDS ORDERED: HYDROmorphone 1 MG/ML 1 ML SYRINGE IVP ONE (10:00)
[2020-11-17 10:01] LABS: African American GFR (CKD) >90 (>60 ml/min/1.73 sqM); Anion Gap 5 mmol/L; Blood Urea Nitrogen 19 mg/dL (9-20); Calcium 8.1 mg/dL (8.4-10.2); Carbon Dioxide 26 mmol/L (22-30); Chloride 105 mmol/L (98-107); Glucose 143 mg/dL (74-99); Magnesium 1.8 mg/dL (1.6-2.3); Non-African American GFR(CKD) 79 (>60 ml/min/1.73 sqM); Potassium 4.6 mmol/L (3.5-5.1); Sodium 136 mmol/L (137-145)
[2020-11-17 10:02] LABS: MCV 94.3 fL (80.0-100.0)
[2020-11-17] MEDS ORDERED: IOPAMIDOL-250 100ML BTL INTRAARTER ONE (10:14)
[2020-11-17 10:46] LABS: C Reactive Protein 138.4 mg/L (<10.0)
[2020-11-17 11:57] LABS: Erythrocyte Sedimentation Rate 113 mm/hr (0-15)
[2020-11-17 12:26] LABS: Glucose,Whole Blood 135 mg/dL (75-99)
--- NOTE | 2020-11-17 12:28 | AN ---
ANGIOGRAPHY REPORT DATE OF SERVICE: November 17, 2020 PERFORMING PHYSICIAN: Anton Mckenzie MD. PROCEDURE PERFORMED: Left lower extremity angiogram. COMPLICATION: None. LEVEL OF SEDATION: Moderate with sedation length of 12 minutes. INDICATION: Critical limb ischemia of the left foot. PROCEDURE DESCRIPTION: After obtaining an informed consent, the patient was brought to cardiac manufacturing laborer. The left common femoral artery was cannulated using micropuncture technique and a micropuncture wire passed easily and I left the micropuncture sheath there. I did left lower extremity angiogram using manual injection of diluted contrast through the micropuncture sheath and using digital subtraction. The procedure was completed without any complication. SELECTIVE PERIPHERAL ANGIOGRAM: 1. The left common femoral artery appeared to have mild disease only. 2. The left profunda appeared to have a lesion in the range of 50% to 60% by the ostium. 3. The left SFA is occluded on long segment, extends from the proximal portion all the way to the knee level. 4. The popliteal is occluded as well. 5. Below the knee: There are 3 vessels runoff below the knee on the left side. CONCLUSION: Occluded left SFA and left popliteal. POSTPROCEDURE MANAGEMENT: Proceed with OPTICAL ADVISOR of the left SFA and left popliteal from antegrade or retrograde approach. MMODL / IJN: [id number] /
--- NOTE | 2020-11-17 12:32 | P.PN ---
Subjective 70-year-old female with known history of peripheral vascular disease and diabetes mellitus came in with the complaints of an ulcer in the left foot dorsal aspect little distracted to ankle joint, patient is getting admitted for infection of this ulcer. Patient has a large wound probably stage II to 3 ulcer. Patient does have cold and clammy extremities usually follows up with Dr. Mckenzie for peripheral vascular disease and Dr. Gomez for cardiology. Patient was comparing of beer sharp pain. Patient ulcer has been there for about a month. Patient denied any fever chills. Patient does have history of severe cardiomyopathy with EF of her on the 20% patient does have bilateral lower leg swelling patient denied any increased shortness of breath chest x-ray did not show any pulmonary edema patient was actually hypotensive and received about 3 L of IV normal saline in ER blood pressure improved after that. Because of hypotension not starting him on any IV Lasix although patient does have increasing pedal edema. 11/16/2020 Patient of pedal edema actually improved patient BNP is only 2200 doesn't have any significant elevated JVD patient blood pressure is better patient was resumed on his home dose of ANDREEA inhibitor. 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 Patient will be evaluated by vascular surgery. Patient had a foot x-ray which apparently showed fifth metatarsal fracture for which no further intervention been is being recommended by orthoped ic surgery. His creatinine did improve to 1.26 baseline is around 0.7 sodium and potassium did improve as well. 11/17/2020 Patient doesn't have any significant pedal edema at this time patient had a repeat echocardiogram which were improved ejection fraction from 20% to 35-40%. Patient is presently on the Unasyn and vancomycin. 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 I don't have the official report of the angiogram yet Constitutional: Denied any fatigue denied any fever. Cardio vascular: denied any chest pain, palpitations Gastrointestinal denied any nausea vomiting Pulmonary: Denied any shortness of breath cough Neurologic denied any new focal deficits All inpatient medications were reviewed and appropriate changes in these medications as dictated in the interval history and assessment and plan. Objective - Vital Signs Vital signs: Vital Signs Temp 98.4 F 11/17/20 08:00 Pulse 60 11/17/20 08:00 Resp 20 11/17/20 08:00 BP 117/56 11/17/20 08:00 Pulse Ox 97 11/17/20 08:00 Intake & Output 11/16/20 11/17/20 11/17/20 18:59 06:59 18:59 Intake Total 730 50 Output Total 2750 2125 350 Balance -2019 Weight 83.5 kg 75.75 kg Intake: IV 50 Intake, IV Titration 250 Amount Piperacillin-Tazobactam 3 150 .375 gm In Sodium Chloride 0.9% 100 ml @ 25 mls/hr IVPB Q8H [facility] Rx#: [id number] Vancomycin 1,500 mg In 100 Sodium Chloride 0.9% 250 ml @ 125 mls/hr IVPB Q12H [facility] Rx#:[id number] Oral 480 Output: Urine 2750 2125 350 Other: Voiding Method Urinal Urinal # Voids 1 - Exam PHYSICAL EXAMINATION: GENERAL: The patient is alert and oriented x3, not in any acute distress. Well developed, well nourished. HEENT: Pupils are round and equally reacting to light. EOMI. No scleral icterus. No conjunctival pallor. Normocephalic, atraumatic. No pharyngeal erythema. No thyromegaly. CARDIOVASCULAR: S1 and S2 present. No murmurs, rubs, or gallops. PULMONARY: Chest is clear to auscultation, no wheezing or crackles. ABDOMEN: Soft, nontender, nondistended, normoactive bowel sounds. No palpable organomegaly. MUSCULOSKELETAL: No joint swelling or deformity. EXTREMITIES: No cyanosis, clubbing, 1+ pitting pedal edema in bilateral lower extremities NEUROLOGICAL: Gross neurological examination did not reveal any focal deficits. SKIN: Stage II to 3 ulcer in the left foot dorsal aspect little distal to the ankle joint with surrounding cellulitis. Feeble pulses in both both lower extremities cold and clammy extremities - Labs CBC & Chem 7: 11/17/20 08:09 11/17/20 08:09 Labs: Abnormal Lab Results - Last 24 Hours (Table) 11/16/20 11/16/20 11/16/20 Range/Units 11:52 16:51 20:26 WBC (3.8-10.6) k/uL RBC (4.30-5.90) m/uL Hgb (13.0-17.5) gm/dL Hct (39.0-53.0) % RDW (11.5-15.5) % Sodium (137-145) mmol/L Glucose (74-99) mg/dL POC Glucose (mg/dL) 141 H 67 L 247 H (75-99) mg/dL Calcium (8.4-10.2) mg/dL C-Reactive Protein (<10.0) mg/L 11/17/20 11/17/20 11/17/20 Range/Units 06:03 08:09 08:09 WBC 18.3 H (3.8-10.6) k/uL RBC 3.07 L (4.30-5.90) m/uL Hgb 9.5 L (13.0-17.5) gm/dL Hct 28.9 L (39.0-53.0) % RDW 15.6 H (11.5-15.5) % Sodium 136 L (137-145) mmol/L Glucose 143 H (74-99) mg/dL POC Glucose (mg/dL) 155 H (75-99) mg/dL Calcium 8.1 L (8.4-10.2) mg/dL C-Reactive Protein 138.4 H (<10.0) mg/L Microbiology - Last 24 Hours (Table) 11/17/20 06:10 Anaerobic Culture - Preliminary Foot - Left 11/17/20 06:10 Wound Culture - Preliminary Foot - Left 11/15/20 13:05 Blood Culture - Preliminary Blood No Growth after 24 hours 11/15/20 13:23 Blood Culture - Preliminary Blood No Growth after 24 hours Assessment and Plan Plan: Infected ulcer in the left foot most probably diabetic ulcers although patient does have peripheral vascular disease as well. Patient is presently on vancomycin andinfectious disease was consulted, vascular surgery was consulted. Patient underwent the angiogram which showed complete occlusion from s aphenofemoral junction. Patient will undergo outpatient elective angioplasty. Patient will need debridement of the wound. -Severe peripheral vascular disease will obtain arterial Doppler of bilateral lower extremities. Patient quit smoking recently. Had an arterial Doppler which is showing the moderate to severe iliofemoral disease -Acute renal failure prerenal azotemia, and proved with IV fluids patient was resumed on home regimen for CHF patient appears to be euvolemic at this time -Hyponatremia: Resolved at this time. Patient had mild hypovolemic hyponatremia on admission. -Congestive heart failure chronic systolic dysfunction EF of around 20-20% presently not in acute exacerbation -Leukocytosis secondary to infection -Type 2 diabetes mellitus: Patient will be resumed on home regimen titration depending on blood sugars -Coronary artery disease -Hyperlipidemia -COPD without any acute exacerbation -DVT prophylaxis with a subcutaneous heparin
--- NOTE | 2020-11-17 15:07 | P.CNOR ---
History of Present Illness - [facility] Consult date: 11/16/20 Consult reason: fracture (Left 5th Metatarsal base fracture) History of present illness: Patient is 70 yo male seen at bedside this afternoon in consultation for left 5th metatarsal foot fracture. Patients states that he is unsure of injury to left foot however feels it may have started two weeks ago when he went to jump out of the way of his dog. He also has chronic diabetic foot wounds/ulcers and has been treated in [place] for wound care. He states he wears a PO shoe normally. He is currently denying calf pain, fever, chills or other new complaints Review of Systems All systems: negative Constitutional: Denies chills, Denies fever Eyes: denies blurred vision, denies pain Ears, nose, mouth and throat: Denies headache, Denies sore throat Cardiovascular: Denies chest pain, Denies shortness of breath Respiratory: Denies cough Gastrointestinal: Denies abdominal pain, Denies diarrhea, Denies nausea, Denies vomiting Musculoskeletal: Denies myalgias Integumentary: Denies pruritus, Denies rash Neurological: Denies numbness, Denies weakness Psychiatric: Denies anxiety, Denies depression Endocrine: Denies fatigue, Denies weight change Past Medical History Past Medical History: Coronary Artery Disease (CAD), COPD, Diabetes Mellitus, Hyperlipidemia, Hypertension, Myocardial Infarction ([place]) Additional Past Medical History / Comment(s): stents February 2020 Last Myocardial Infarction Date:: 03/04/2020 History of Any Multi-Drug Resistant Organisms: None Reported Past Surgical History: Back Surgery, Heart Catheterization With Stent, Orthopedic Surgery Additional Past Surgical History / Comment(s): NECK SURGERY Past Anesthesia/Blood Transfusion Reactions: No Reported Reaction Date of Last Stent Placement:: 03/04/2020 Past Psychological History: No Psychological Hx Reported Smoking Status: Former smoker Past Alcohol Use History: None Reported Past Drug Use History: Marijuana - Past Family History Mother Family Medical History: No Reported History Medications and Allergies Home Medications Medication Instructions Recorded Confirmed Type HYDROcodone/APAP 10-325MG [[place] 1 tab PO Q4HR PRN 04/11/15 11/15/20 History 10-325] glipiZIDE [Glucotrol XL] 10 mg PO BID 03/05/20 11/15/20 History Ticagrelor [Brilinta] 90 mg PO BID 30 Days #60 tab 03/07/20 11/15/20 Rx Aspirin 81 mg PO DAILY #30 chew 03/09/20 11/15/20 Rx Atorvastatin [Lipitor] 80 mg PO HS #30 tab 03/09/20 11/15/20 Rx Furosemide [Lasix] 40 mg PO DAILY #30 tab 03/09/20 11/15/20 Rx Potassium Chloride ER [K-Dur 20] 20 meq PO DAILY #30 tab.er.prt 03/09/20 11/15/20 Rx Spironolactone [Aldactone] 25 mg PO DAILY #30 tab 03/09/20 11/15/20 Rx lisinopriL [Zestril] 5 mg PO DAILY #30 tab 03/09/20 11/15/20 Rx Pantoprazole [Protonix] 40 mg PO AC-BID #60 tablet.dr 03/17/20 11/15/20 Rx ALPRAZolam [Xanax] 1 mg PO Q12H PRN 11/15/20 11/15/20 History Amiodarone [Cordarone] 200 mg PO DAILY 11/15/20 11/15/20 History Clindamycin HCl 300 mg PO Q12HR 11/15/20 11/15/20 History Gentamicin 0.1% Cream 1 applic TOPICAL DAILY 11/15/20 11/15/20 History Metoprolol Tartrate [Lopressor] 12.5 mg PO DAILY 11/15/20 11/15/20 History Allergies Allergy/AdvReac Type Severity Reaction Status Date / Time No Known Allergies Allergy Verified 11/15/20 14:13 Physical Examination Inspection of left foot shows no bony deformity. There are multiple chronic appearing foot wounds with worst being a weeping ulceration of the lateral foot. There is no active bleeding or progressive erythema. There is no fluid collection or fluctuance noted. It is not overly hot to touch. There is mild tenderness at the 5th metatarsal base. Capillary refill is present. sensation is diminished throughout foot. Motor appears intact throughout the lower extremity. Calf is SNT Results Xrays of left foot show age undeterminable left 5th metatarsal base avulsion fracture. - Labs Labs: Abnormal Lab Results - Last 24 Hours (Table) 11/15/20 11/15/20 11/15/20 Range/Units 13:23 13:23 13:23 WBC 22.5 H (3.8-10.6) k/uL RBC 2.88 L (4.30-5.90) m/uL Hgb 8.9 L (13.0-17.5) gm/dL Hct 27.7 L (39.0-53.0) % MCV (80.0-100.0) fL MCHC (31.0-37.0) g/dL RDW 15.8 H (11.5-15.5) % Neutrophils # 20.4 H (1.3-7.7) k/uL Lymphocytes # 0.9 L (1.0-4.8) k/uL Sodium 133 L (137-145) mmol/L Potassium 5.5 H (3.5-5.1) mmol/L Chloride (98-107) mmol/L Carbon Dioxide 21 L (22-30) mmol/L BUN 41 H (9-20) mg/dL Creatinine 1.56 H (0.66-1.25) mg/dL Glucose 155 H (74-99) mg/dL POC Glucose (mg/dL) (75-99) mg/dL Plasma Lactic Acid Zach 2.1 H* (0.7-2.0) mmol/L Calcium 8.2 L (8.4-10.2) mg/dL ALT 53 H (4-49) U/L Alkaline Phosphatase 149 H (38-126) U/L Total Protein 5.9 L (6.3-8.2) g/dL Albumin 2.7 L (3.5-5.0) g/dL 11/16/20 11/16/20 11/16/20 Range/Units 06:15 06:31 06:50 WBC (3.8-10.6) k/uL RBC (4.30-5.90) m/uL Hgb (13.0-17.5) gm/dL Hct (39.0-53.0) % MCV (80.0-100.0) fL MCHC (31.0-37.0) g/dL RDW (11.5-15.5) % Neutrophils # (1.3-7.7) k/uL Lymphocytes # (1.0-4.8) k/uL Sodium (137-145) mmol/L Potassium (3.5-5.1) mmol/L Chloride (98-107) mmol/L Carbon Dioxide (22-30) mmol/L BUN (9-20) mg/dL Creatinine (0.66-1.25) mg/dL Glucose (74-99) mg/dL POC Glucose (mg/dL) 48 L 51 L 74 L (75-99) mg/dL Plasma Lactic Acid Zach (0.7-2.0) mmol/L Calcium (8.4-10.2) mg/dL ALT (4-49) U/L Alkaline Phosphatase (38-126) U/L Total Protein (6.3-8.2) g/dL Albumin (3.5-5.0) g/dL 11/16/20 11/16/20 11/16/20 Range/Units 07:28 07:28 11:52 WBC 18.8 H (3.8-10.6) k/uL RBC 2.97 L (4.30-5.90) m/uL Hgb 9.1 L (13.0-17.5) gm/dL Hct 29.9 L (39.0-53.0) % MCV 100.7 H (80.0-100.0) fL MCHC 30.6 L (31.0-37.0) g/dL RDW (11.5-15.5) % Neutrophils # 16.3 H (1.3-7.7) k/uL Lymphocytes # (1.0-4.8) k/uL Sodium (137-145) mmol/L Potassium (3.5-5.1) mmol/L Chloride 111 H (98-107) mmol/L Carbon Dioxide 19 L (22-30) mmol/L BUN 32 H (9-20) mg/dL Creatinine 1.26 H (0.66-1.25) mg/dL Glucose 65 L (74-99) mg/dL POC Glucose (mg/dL) 141 H (75-99) mg/dL Plasma Lactic Acid Zach (0.7-2.0) mmol/L Calcium 8.1 L (8.4-10.2) mg/dL ALT (4-49) U/L Alkaline Phosphatase (38-126) U/L Total Protein (6.3-8.2) g/dL Albumin (3.5-5.0) g/dL H & H 11/15/20 11/16/20 Range/Units 13:23 07:28 Hgb 8.9 L 9.1 L (13.0-17.5) gm/dL Hct 27.7 L 29.9 L (39.0-53.0) % Coagulation 11/15/20 Range/Units 13:23 INR 1.1 (<1.2) Result Diagrams: 11/17/20 08:09 11/17/20 08:09 - Diagnostic results Ankle/Foot x-ray: report reviewed, image reviewed (left 5th metatarsal base avulsion fracture) Assessment and Plan (1) Closed nondisplaced fracture of fifth left metatarsal bone Narrative/Plan: There are no plans for immediate surgical intervention. Recommend continued use of PO hard sole shoe while ambulating. Continue to Elevate. Recommend continued Wound care for chronic diabetic foot ulcers and antibiotics. He may F/U as outpatient for the metatarsal fracture Current Visit: Yes Status: Acute Priority: Medium Code(s): S92.355A - NONDISP FX OF FIFTH METATARSAL BONE, LEFT FOOT, INIT SNOMED Code(s): 34243988 Time with Patient: Less than 30
[2020-11-17 17:35] LABS: Glucose,Whole Blood 220 mg/dL (75-99)
--- NOTE | 2020-11-17 19:00 | PN ---
PROGRESS NOTE DATE OF SERVICE: 10/20/2020 REASON FOR FOLLOWUP: Left diabetic foot infection. INTERVAL HISTORY: The patient is currently afebrile. The patient is breathing comfortably. Denies having any chest pain or shortness of breath or cough. No nausea, no vomiting, no abdominal pain or any worsening pain to the left foot. PHYSICAL EXAMINATION: Blood pressure 154/79 with a pulse of 69, temperature 99. He is 96% on room air. General description is an elderly male lying in bed in no distress. RESPIRATORY SYSTEM: Unlabored breathing. Clear to auscultation anteriorly. HEART: S1, S2. Regular rate and rhythm. ABDOMEN: Soft. No tenderness. Left foot is currently dressed up. No obvious drainage on the dressing. LABS: Hemoglobin 9.5, white count 18.3, BUN of 19, creatinine 0.98. Wound cultures are currently pending. Blood culture so far negative. DIAGNOSTIC IMPRESSION AND PLAN: Patient with left lower extremity wound, diabetic foot infection, with a component of underlying peripheral arterial disease. Patient did have elevated white count. He needed surgical debridement and deep cultures. That will determine his discharge antibiotics. Awaiting vascular evaluation. Continue with supportive care. MMODL / IJN: [id number] /
[2020-11-17] MEDS: ATORVASTATIN 80 MG TAB PO SCH (20:13)
[2020-11-18] MEDS: AMPICILLIN-SULBACTAM 3 GM in SODIUM CHLORIDE 0.9% 100 ML IVPB SCH ×5 (00:06→23:13)
[2020-11-18] MEDS: PANTOPRAZOLE 40 MG TABLET PO SCH ×2 (05:41→17:32)
[2020-11-18] MEDS: SPIRONOLACTONE 25 MG TAB PO SCH (08:24)
[2020-11-18] MEDS: AMIODARONE 200 MG TAB PO SCH (08:24)
[2020-11-18] MEDS: lisinopriL 5 MG TAB PO SCH (08:24)
[2020-11-18] MEDS: TICAGRELOR 90 MG TAB PO SCH ×2 (08:24→20:15)
[2020-11-18] MEDS: HEPARIN SODIUM,PORCINE 5,000 UNIT/ML 1 ML VIAL SQ SCH ×2 (08:24→20:15)
[2020-11-18] MEDS: ASPIRIN 81 MG PO SCH (08:24)
[2020-11-18] MEDS: FUROSEMIDE 40 MG TAB PO SCH (08:24)
[2020-11-18] MEDS: GENTAMICIN 0.1% CREAM 15 GM TUBE TOPICAL SCH (08:25)
[2020-11-18] MEDS: HYDROcodone/APAP 10-325MG 1 EACH TAB PO PRN ×2 (08:31→20:16)
--- NOTE | 2020-11-18 08:45 | CONS ---
CONSULTATION This is a 70-year-old gentleman who has been admitted with history of chronic wound, left foot lateral aspect. Patient was under care of Dr. Joseph. He developed skin necrosis with a large scab formation noted on the dorsal aspect of the foot. The patient went for angiography by Dr. Mckenzie. The patient has left SFA occlusive disease. The patient also has history of claudication. No history of rest pain. PAST HISTORY: Patient had a coronary artery stent placed in the past. Medical History: History of diabetes, peripheral vascular disease. PERSONAL HISTORY: Nonsmoker. PHYSICAL EXAMINATION: NECK: Supple. Trachea central. CHEST: Clear to auscultation. ABDOMEN: Soft, nontender. FEMORAL EXAMINATION: Both femorals are palpable. Posterior tibial, dorsalis pedis not palpable. Patient has an open wound on the lateral aspect of the left foot on the dorsal aspect of the foot. The patient has skin necrosis with dry scab formation noted. Patient is under care of Infectious Disease on IV antibiotic. PLAN: I will discuss with Dr. Mckenzie and Dr. Cabrales. If Dr. Mckenzie has intervention done for SFA then we will proceed with wound debridement and deep culture. We will arrange. MMODL / IJN: [id number] /
[2020-11-18] MEDS ORDERED: VANCOMYCIN TROUGH DUE 1 EACH MISC MISCELLANE ONE (10:00)
--- NOTE | 2020-11-18 10:14 | IR ---
EXAMINATION TYPE: IR angio extremity LT DATE OF EXAM: 11/17/2020 COMPARISON: NONE HISTORY: Right leg pain Fluoroscopy support supplied to the referring clinician. See dictated report from cardiology, 1.1 mi giancarlo fluoroscopy time, 177 intraoperative images
[2020-11-18 10:43] LABS: African American GFR (CKD) >90 (>60 ml/min/1.73 sqM); Anion Gap 7 mmol/L; Blood Urea Nitrogen 16 mg/dL (9-20); Calcium 8.6 mg/dL (8.4-10.2); Carbon Dioxide 23 mmol/L (22-30); Chloride 106 mmol/L (98-107); Glucose 206 mg/dL (74-99); Non-African American GFR(CKD) >90 (>60 ml/min/1.73 sqM); Sodium 136 mmol/L (137-145)
[2020-11-18 10:53] LABS: Potassium 4.9 mmol/L (3.5-5.1)
[2020-11-18] MEDS: VANCOMYCIN 1,500 MG in SODIUM CHLORIDE 0.9% 250 ML IVPB SCH (10:59)
--- NOTE | 2020-11-18 11:10 | P.PN ---
Subjective 70-year-old female with known history of peripheral vascular disease and diabetes mellitus came in with the complaints of an ulcer in the left foot dorsal aspect little distracted to ankle joint, patient is getting admitted for infection of this ulcer. Patient has a large wound probably stage II to 3 ulcer. Patient does have cold and clammy extremities usually follows up with Dr. Mckenzie for peripheral vascular disease and Dr. Gomez for cardiology. Patient was comparing of beer sharp pain. Patient ulcer has been there for about a month. Patient denied any fever chills. Patient does have history of severe cardiomyopathy with EF of her on the 20% patient does have bilateral lower leg swelling patient denied any increased shortness of breath chest x-ray did not show any pulmonary edema patient was actually hypotensive and received about 3 L of IV normal saline in ER blood pressure improved after that. Because of hypotension not starting him on any IV Lasix although patient does have increasing pedal edema. 11/16/2020 Patient of pedal edema actually improved patient BNP is only 2200 doesn't have any significant elevated JVD patient blood pressure is better patient was resumed on his home dose of ANDREEA inhibitor. 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 Patient will be evaluated by vascular surgery. Patient had a foot x-ray which apparently showed fifth metatarsal fracture for which no further intervention been is being recommended by orthoped ic surgery. His creatinine did improve to 1.26 baseline is around 0.7 sodium and potassium did improve as well. 11/17/2020 Patient doesn't have any significant pedal edema at this time patient had a repeat echocardiogram which were improved ejection fraction from 20% to 35-40%. Patient is presently on the Unasyn and vancomycin. 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 I don't have the official report of the angiogram yet 11/18/2020 Discussed with vascular surgery and infectious disease at length. Vascular surgery will discuss with Dr. Mckenzie regarding earlier intervention as compared to planned intervention for his peripheral vascular disease which is next week. Patient wound is mostly dry because of that reason vascular surgeries not recommending debridement. In waiting for the Wound cultures as well. Constitutional: Denied any fatigue denied any fever. Cardio vascular: denied any chest pain, palpitations Gastrointestinal denied any nausea vomiting Pulmonary: Denied any shortness of breath cough Neurologic denied any new focal deficits All inpatient medications were reviewed and appropriate changes in these medications as dictated in the interval history and assessment and plan. Objective - Vital Signs Vital signs: Vital Signs Temp 98.4 F 11/18/20 08:00 Pulse 77 11/18/20 08:00 Resp 20 11/18/20 08:00 BP 133/63 11/18/20 08:00 Pulse Ox 97 11/18/20 08:00 Intake & Output 11/17/20 11/18/20 11/18/20 18:59 06:59 18:59 Intake Total 940 440 240 Output Total 1500 300 Balance -560 140 240 Weight 75.75 kg 73.5 kg Intake: IV 50 Intake, IV Titration 350 200 Amount Ampicillin-Sulbactam 3 gm 100 200 In Sodium Chloride 0.9% 100 ml @ 200 mls/hr IVPB Q6HR [facility] Rx#:[id number] Vancomycin 1,500 mg In 250 Sodium Chloride 0.9% 250 ml @ 125 mls/hr IVPB Q12H [facility] Rx#:[id number] Oral 540 240 240 Output: Urine 1500 300 Other: Voiding Method Urinal - Exam PHYSICAL EXAMINATION: GENERAL: The patient is alert and oriented x3, not in any acute distress. Well developed, well nourished. HEENT: Pupils are round and equally reacting to light. EOMI. No scleral icterus. No conjunctival pallor. Normocephalic, atraumatic. No pharyngeal erythema. No thyromegaly. CARDIOVASCULAR: S1 and S2 present. No murmurs, rubs, or gallops. PULMONARY: Chest is clear to auscultation, no wheezing or crackles. ABDOMEN: Soft, nontender, nondistended, normoactive bowel sounds. No palpable o rganomegaly. MUSCULOSKELETAL: No joint swelling or deformity. EXTREMITIES: No cyanosis, clubbing, 1+ pitting pedal edema in bilateral lower extremities NEUROLOGICAL: Gross neurological examination did not reveal any focal deficits. SKIN: Stage II to 3 ulcer in the left foot dorsal aspect little distal to the ankle joint with surrounding cellulitis. Feeble pulses in both both lower extremities cold and clammy extremities - Labs CBC & Chem 7: 11/17/20 08:09 11/18/20 09:30 Labs: Abnormal Lab Results - Last 24 Hours (Table) 11/17/20 11/17/20 11/17/20 Range/Units 08:09 12:25 17:34 ESR 113 H (0-15) mm/hr Sodium (137-145) mmol/L Glucose (74-99) mg/dL POC Glucose (mg/dL) 135 H 220 H (75-99) mg/dL 11/18/20 Range/Units 09:30 ESR (0-15) mm/hr Sodium 136 L (137-145) mmol/L Glucose 206 H (74-99) mg/dL POC Glucose (mg/dL) (75-99) mg/dL Microbiology - Last 24 Hours (Table) 11/17/20 06:10 Gram Stain - Preliminary Foot - Left Wound Culture - Preliminary Strep agalactiae - (group b) 11/15/20 13:23 Blood Culture - Preliminary Blood No Growth after 48 hours 11/15/20 13:05 Blood Culture - Preliminary Blood No Growth after 48 hours 11/17/20 06:10 Anaerobic Culture - Preliminary Foot - Left Assessment and Plan Plan: Infected ulcer in the left foot most probably diabetic ulcers although patient does have peripheral vascular disease as well. Patient is presently on vancomycin andinfectious disease was consulted, vascular surgery was consulted. Patient underwent the angiogram which showed complete occlusion from saphenofemoral junction. Patient will undergo outpatient elective angioplasty. Patient will need debridement of the wound. -Severe peripheral vascular disease will obtain arterial Doppler of bilateral lower extremities. Patient quit smoking recently. Had an arterial Doppler which is showing the moderate to severe iliofemoral disease -Acute renal failure prerenal azotemia, and proved with IV fluids patient was resumed on home regimen for CHF patient appears to be euvolemic at this time -Hyponatremia: Resolved at this time. Patient had mild hypovolemic hyponatremia on admission. -Congestive heart failure chronic systolic dysfunction EF of around 20-20% presently not in acute exacerbation -Leukocytosis secondary to infection -Type 2 diabetes mellitus: Patient will be resumed on home regimen titration depending on blood sugars -Coronary artery disease -Hyperlipidemia -COPD without any acute exacerbation -DVT prophylaxis with a subcutaneous heparin
[2020-11-18 11:53] LABS: Glucose,Whole Blood 260 mg/dL (75-99)
[2020-11-18] MEDS: INSULIN ASPART (NovoLOG) 100 UNIT/ML VIAL SQ SCH ×3 (12:31→20:15)
--- NOTE | 2020-11-18 16:36 | PN ---
PROGRESS NOTE DATE OF SERVICE: 11/18/2020 REASON FOR FOLLOWUP: Left diabetic foot infection with underlying ischemia. INTERVAL HISTORY: The patient is currently afebrile. Patient is breathing comfortably. He denies having any chest pain, shortness of breath or cough. No abdominal pain or any worsening pain to the left foot. PHYSICAL EXAMINATION: Blood pressure 103/55, pulse of 71, temperature 98.3. He is 99% on room air. General description is an elderly male lying in bed in no distress. RESPIRATORY SYSTEM: Unlabored breathing, clear to auscultation anteriorly. HEART: S1, S2. Regular rate and rhythm. ABDOMEN: Soft, no tenderness. Left foot lateral border did have wound with some slough tissue and surrounding redness with necrotic on the dorsum of the left foot. LABS: Local culture with Streptococcus agalactiae. DIAGNOSTIC IMPRESSION AND PLAN: Patient with left diabetic foot infection with underlying ischemia. Culture now showing Streptococcus agalactiae. Patient to continue with Unasyn. He will benefit from vascular intervention to the flow to his left foot and help heal this infection. This was discussed with vascular surgeon. MMODL / IJN: [id number] /
[2020-11-18 16:59] LABS: Glucose,Whole Blood 198 mg/dL (75-99)
[2020-11-18 19:52] LABS: Glucose,Whole Blood 178 mg/dL (75-99)
[2020-11-18] MEDS: ATORVASTATIN 80 MG TAB PO SCH (20:15)
[2020-11-19] MEDS: INSULIN ASPART (NovoLOG) 100 UNIT/ML VIAL SQ SCH ×4 (06:29→21:05)
[2020-11-19 06:30] LABS: Glucose,Whole Blood 134 mg/dL (75-99)
[2020-11-19] MEDS: AMPICILLIN-SULBACTAM 3 GM in SODIUM CHLORIDE 0.9% 100 ML IVPB SCH ×4 (06:39→23:26)
[2020-11-19] MEDS: PANTOPRAZOLE 40 MG TABLET PO SCH ×2 (06:39→16:50)
[2020-11-19] MEDS: HYDROcodone/APAP 10-325MG 1 EACH TAB PO PRN ×2 (07:02→16:53)
[2020-11-19 08:26] LABS: African American GFR (CKD) >90 (>60 ml/min/1.73 sqM); Anion Gap 6 mmol/L; Blood Urea Nitrogen 19 mg/dL (9-20); Calcium 8.1 mg/dL (8.4-10.2); Carbon Dioxide 24 mmol/L (22-30); Chloride 106 mmol/L (98-107); Glucose 140 mg/dL (74-99); Non-African American GFR(CKD) 88 (>60 ml/min/1.73 sqM); Potassium 4.5 mmol/L (3.5-5.1); Sodium 136 mmol/L (137-145)
[2020-11-19] MEDS: AMIODARONE 200 MG TAB PO SCH (08:27)
[2020-11-19] MEDS: ASPIRIN 81 MG PO SCH (08:27)
[2020-11-19] MEDS: HEPARIN SODIUM,PORCINE 5,000 UNIT/ML 1 ML VIAL SQ SCH ×2 (08:27→21:05)
[2020-11-19] MEDS: lisinopriL 5 MG TAB PO SCH (08:28)
[2020-11-19] MEDS: SPIRONOLACTONE 25 MG TAB PO SCH (08:28)
[2020-11-19] MEDS: TICAGRELOR 90 MG TAB PO SCH ×2 (08:28→21:05)
[2020-11-19] MEDS: FUROSEMIDE 40 MG TAB PO SCH (08:28)
[2020-11-19] MEDS: GENTAMICIN 0.1% CREAM 15 GM TUBE TOPICAL SCH (10:56)
--- NOTE | 2020-11-19 11:50 | PN ---
PROGRESS NOTE This is 70-year-old gentleman who has a history of severe peripheral vascular disease. Angiogram showed SFA and popliteal occlusion. The patient has a wound on his lateral aspect of the foot and the dorsal superior aspect of the foot. Has a large area of scab formation. The patient is on IV antibiotic. Discussed with Dr. Mckenzie for atherectomy of the SFA and popliteal for revascularization. Planning to do it next week. After that, patient will need debridement of the left foot. In the meantime, continue with IV antibiotic. Follow with you. MMODL / IJN: [id number] /
[2020-11-19 11:54] LABS: Glucose,Whole Blood 201 mg/dL (75-99)
[2020-11-19] MEDS ORDERED: FUROSEMIDE 10 MG/ML 4 ML VIAL IV STA (13:22)
--- NOTE | 2020-11-19 13:23 | P.PN ---
Subjective 70-year-old female with known history of peripheral vascular disease and diabetes mellitus came in with the complaints of an ulcer in the left foot dorsal aspect little distracted to ankle joint, patient is getting admitted for infection of this ulcer. Patient has a large wound probably stage II to 3 ulcer. Patient does have cold and clammy extremities usually follows up with Dr. Mckenzie for peripheral vascular disease and Dr. Gomez for cardiology. Patient was comparing of beer sharp pain. Patient ulcer has been there for about a month. Patient denied any fever chills. Patient does have history of severe cardiomyopathy with EF of her on the 20% patient does have bilateral lower leg swelling patient denied any increased shortness of breath chest x-ray did not show any pulmonary edema patient was actually hypotensive and received about 3 L of IV normal saline in ER blood pressure improved after that. Because of hypotension not starting him on any IV Lasix although patient does have increasing pedal edema. 11/16/2020 Patient of pedal edema actually improved patient BNP is only 2200 doesn't have any significant elevated JVD patient blood pressure is better patient was resumed on his home dose of ANDREEA inhibitor. 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 Patient will be evaluated by vascular surgery. Patient had a foot x-ray which apparently showed fifth metatarsal fracture for which no further intervention been is being recommended by orthoped ic surgery. His creatinine did improve to 1.26 baseline is around 0.7 sodium and potassium did improve as well. 11/17/2020 Patient doesn't have any significant pedal edema at this time patient had a repeat echocardiogram which were improved ejection fraction from 20% to 35-40%. Patient is presently on the Unasyn and vancomycin. 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 I don't have the official report of the angiogram yet 11/18/2020 Discussed with vascular surgery and infectious disease at length. Vascular surgery will discuss with Dr. Mckenzie regarding earlier intervention as compared to planned intervention for his peripheral vascular disease which is next week. Patient wound is mostly dry because of that reason vascular surgeries not recommending debridement. In waiting for the Wound cultures as well. 11/19/2020 Patient will undergo angioplasty for left lower limb, severe peripheral vascular disease on Saturday.Patient's oxygen saturations are bit low today patient will be given 1 dose of Lasix. And a chest x-ray. Wound cultures are positive for strep agalactiae. Infectious disease is managing the antibiotics patient is presently on Unasyn probably can be switched to Keflex or ceftezolin. Constitutional: Denied any fatigue denied any fever. Cardio vascular: denied any chest pain, palpitations Gastrointestinal denied any nausea vomiting Pulmonary: Denied any shortness of breath cough Neurologic denied any new focal deficits All inpatient medications were reviewed and appropriate changes in these medications as dictated in the interval history and assessment and plan. Objective - Vital Signs Vital signs: Vital Signs Temp 96.4 F L 11/19/20 08:15 Pulse 62 11/19/20 08:15 Resp 18 11/19/20 08:15 BP 108/55 11/19/20 08:15 Pulse Ox 93 L 11/19/20 08:15 Intake & Output 11/18/20 11/19/20 11/19/20 18:59 06:59 18:59 Intake Total 490 240 Output Total 175 625 Balance 315 -385 Weight 74.5 kg Intake: Oral 490 240 Output: Urine 175 625 Other: Voiding Method Urinal # Voids 0 # Bowel Movements 0 - Exam PHYSICAL EXAMINATION: GENERAL: The patient is alert and oriented x3, not in any acute distress. Well developed, well nourished. HEENT: Pupils are round and equally reacting to light. EOMI. No scleral icterus. No conjunctival pallor. Normocephalic, atraumatic. No pharyngeal erythema. No thyromegaly. CARDIOVASCULAR: S1 and S2 present. No murmurs, rubs, or gallops. PULMONARY: Chest is clear to auscultation, no wheezing or crackles. ABDOMEN: Soft, nontender, nondistended, normoactive bowel sounds. No palpable o rganomegaly. MUSCULOSKELETAL: No joint swelling or deformity. EXTREMITIES: No cyanosis, clubbing, 1+ pitting pedal edema in bilateral lower extremities NEUROLOGICAL: Gross neurological examination did not reveal any focal deficits. SKIN: Stage II to 3 ulcer in the left foot dorsal aspect little distal to the ankle joint with surrounding cellulitis. Feeble pulses in both both lower extremities cold and clammy extremities - Labs CBC & Chem 7: 11/17/20 08:09 11/19/20 07:04 Labs: Abnormal Lab Results - Last 24 Hours (Table) 11/18/20 11/18/20 11/19/20 Range/Units 16:45 19:49 06:04 Sodium (137-145) mmol/L Glucose (74-99) mg/dL POC Glucose (mg/dL) 198 H 178 H 134 H (75-99) mg/dL Calcium (8.4-10.2) mg/dL 11/19/20 11/19/20 Range/Units 07:04 11:53 Sodium 136 L (137-145) mmol/L Glucose 140 H (74-99) mg/dL POC Glucose (mg/dL) 201 H (75-99) mg/dL Calcium 8.1 L (8.4-10.2) mg/dL Microbiology - Last 24 Hours (Table) 11/17/20 06:10 Anaerobic Culture - Preliminary Foot - Left 11/17/20 06:10 Gram Stain - Final Foot - Left Wound Culture - Final Strep agalactiae - (group b) 11/15/20 13:05 Blood Culture - Preliminary Blood No Growth after 72 hours 11/15/20 13:23 Blood Culture - Preliminary Blood No Growth after 72 hours Assessment and Plan Plan: Infected ulcer in the left foot most probably diabetic ulcers although patient does have peripheral vascular disease as well. Patient is presently on Unasyn andinfectious disease , vascular surgery evaluated the patient. Patient underwent the angiogram which showed complete occlusion from saphenofemoral junction. Patient will undergo angioplasty on Saturday. Patient has streptococci known culture -Severe peripheral vascular disease will obtain arterial Doppler of bilateral lower extremities. Patient quit smoking recently. Had an arterial Doppler which is showing the moderate to severe iliofemoral disease -Acute renal failure prerenal azotemia, and proved with IV fluids -Hyponatremia: Resolved at this time. Patient had mild hypovolemic hyponatremia on admission. -Congestive heart failure chronic systolic dysfunction EF of around 20-25%, this EF improved on the repeat echocardiogram to around 35-40% but patient appears to be in mild heart failure clinically patient was given a dose of Lasix IV and continue with the oral Lasix -Leukocytosis secondary to infection -Type 2 diabetes mellitus: Patient will be resumed on home regimen titration depending on blood sugars -Coronary artery disease -Hyperlipidemia -COPD without any acute exacerbation -DVT prophylaxis with a subcutaneous heparin
--- NOTE | 2020-11-19 14:36 | XR ---
EXAMINATION TYPE: XR chest 1V DATE OF EXAM: 11/19/2020 COMPARISON: 11/15/2020 HISTORY: Shortness of breath TECHNIQUE: Single frontal view of the chest is obtained. FINDINGS: Hyperinflation suggests COPD. Diffuse osteopenia and arthropathy of the shoulders. Postsur gical change overlying the cervical spine. Heart size normal. Subsegmental changes at the lung base. No overt failure. Calcification within the left lung compatible with granuloma. IMPRESSION: 1. COPD with no overt failure.
--- NOTE | 2020-11-19 15:46 | PN ---
PROGRESS NOTE DATE OF SERVICE: 11/19/2020. REASON FOR FOLLOWUP: Left diabetic foot infection. INTERVAL HISTORY: The patient is currently afebrile. The patient is breathing comfortably. The patient denies having any chest pain or shortness of breath or cough. No abdominal pain or any worsening pain to the left foot wound area. PHYSICAL EXAMINATION: Blood pressure 109/58 with a pulse of 62, temperature 98.3. He is 98% on room air. General description is an elderly male lying in bed in no distress. Respiratory system: Unlabored breathing, clear to auscultation anteriorly. Heart S1, S2. Regular rate and rhythm. Abdomen: Soft, no tenderness. Left foot is currently dressed up. No obvious drainage on the dressing. LABS: BUN of 19, creatinine 0.87. Wound culture with Streptococcus agalactiae. DIAGNOSTIC IMPRESSION AND PLAN: Patient with left diabetic foot wound infection with secondary cellulitis. Culture positive for Streptococcus agalactiae in this patient who did have significant PAD with plan for surgical intervention on Saturday to help heal this wound. Continue with Unasyn. Monitor clinical course closely. MMODL / IJN: [id number] /
[2020-11-19 16:36] LABS: Glucose,Whole Blood 321 mg/dL (75-99)
[2020-11-19 20:49] LABS: Glucose,Whole Blood 175 mg/dL (75-99)
[2020-11-19] MEDS: ATORVASTATIN 80 MG TAB PO SCH (21:05)
[2020-11-20] MEDS: HYDROcodone/APAP 10-325MG 1 EACH TAB PO PRN ×2 (04:25→22:37)
[2020-11-20 06:16] LABS: Glucose,Whole Blood 243 mg/dL (75-99)
[2020-11-20] MEDS: AMPICILLIN-SULBACTAM 3 GM in SODIUM CHLORIDE 0.9% 100 ML IVPB SCH ×4 (07:09→22:39)
[2020-11-20] MEDS: PANTOPRAZOLE 40 MG TABLET PO SCH ×2 (07:09→17:08)
[2020-11-20] MEDS: INSULIN ASPART (NovoLOG) 100 UNIT/ML VIAL SQ SCH ×4 (07:09→20:48)
[2020-11-20 07:12] LABS: African American GFR (CKD) >90 (>60 ml/min/1.73 sqM); Anion Gap 5 mmol/L; Blood Urea Nitrogen 19 mg/dL (9-20); Calcium 8.1 mg/dL (8.4-10.2); Carbon Dioxide 28 mmol/L (22-30); Chloride 102 mmol/L (98-107); Glucose 180 mg/dL (74-99); Non-African American GFR(CKD) 87 (>60 ml/min/1.73 sqM); Potassium 3.9 mmol/L (3.5-5.1); Sodium 135 mmol/L (137-145)
[2020-11-20] MEDS: FUROSEMIDE 40 MG TAB PO SCH (08:26)
[2020-11-20] MEDS: lisinopriL 5 MG TAB PO SCH (08:26)
[2020-11-20] MEDS: AMIODARONE 200 MG TAB PO SCH (08:26)
[2020-11-20] MEDS: SPIRONOLACTONE 25 MG TAB PO SCH (08:26)
[2020-11-20] MEDS: HEPARIN SODIUM,PORCINE 5,000 UNIT/ML 1 ML VIAL SQ SCH ×2 (08:26→20:47)
[2020-11-20] MEDS: ASPIRIN 81 MG PO SCH (08:26)
[2020-11-20] MEDS: TICAGRELOR 90 MG TAB PO SCH ×2 (08:26→20:47)
--- NOTE | 2020-11-20 09:47 | P.PN ---
Subjective 70-year-old female with known history of peripheral vascular disease and diabetes mellitus came in with the complaints of an ulcer in the left foot dorsal aspect little distracted to ankle joint, patient is getting admitted for infection of this ulcer. Patient has a large wound probably stage II to 3 ulcer. Patient does have cold and clammy extremities usually follows up with Dr. Mckenzie for peripheral vascular disease and Dr. Gomez for cardiology. Patient was comparing of beer sharp pain. Patient ulcer has been there for about a month. Patient denied any fever chills. Patient does have history of severe cardiomyopathy with EF of her on the 20% patient does have bilateral lower leg swelling patient denied any increased shortness of breath chest x-ray did not show any pulmonary edema patient was actually hypotensive and received about 3 L of IV normal saline in ER blood pressure improved after that. Because of hypotension not starting him on any IV Lasix although patient does have increasing pedal edema. 11/16/2020 Patient of pedal edema actually improved patient BNP is only 2200 doesn't have any significant elevated JVD patient blood pressure is better patient was resumed on his home dose of ANDREEA inhibitor. 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 Patient will be evaluated by vascular surgery. Patient had a foot x-ray which apparently showed fifth metatarsal fracture for which no further intervention been is being recommended by orthoped ic surgery. His creatinine did improve to 1.26 baseline is around 0.7 sodium and potassium did improve as well. 11/17/2020 Patient doesn't have any significant pedal edema at this time patient had a repeat echocardiogram which were improved ejection fraction from 20% to 35-40%. Patient is presently on the Unasyn and vancomycin. 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 I don't have the official report of the angiogram yet 11/18/2020 Discussed with vascular surgery and infectious disease at length. Vascular surgery will discuss with Dr. Mckenzie regarding earlier intervention as compared to planned intervention for his peripheral vascular disease which is next week. Patient wound is mostly dry because of that reason vascular surgeries not recommending debridement. In waiting for the Wound cultures as well. 11/19/2020 Patient will undergo angioplasty for left lower limb, severe peripheral vascular disease on Saturday.Patient's oxygen saturations are bit low today patient will be given 1 dose of Lasix. And a chest x-ray. Wound cultures are positive for strep agalactiae. Infectious disease is managing the antibiotics patient is presently on Unasyn probably can be switched to Keflex or ceftezolin. 11/20/2020 Patient is clinically doing well no wart heart failure on the chest x-ray. Constitutional: Denied any fatigue denied any fever. Cardio vascular: denied any chest pain, palpitations Gastrointestinal denied any nausea vomiting Pulmonary: Denied any shortness of breath cough Neurologic denied any new focal deficits All inpatient medications were reviewed and appropriate changes in these medications as dictated in the interval history and assessment and plan. Objective - Vital Signs Vital signs: Vital Signs Temp 97.4 F L 11/20/20 07:30 Pulse 70 11/20/20 07:30 Resp 18 11/20/20 07:30 BP 139/60 11/20/20 07:30 Pulse Ox 96 11/20/20 07:30 Intake & Output 11/19/20 11/20/20 11/20/20 17:59 06:59 18:59 Intake Total 100 Output Total Balance 100 Weight Intake: Intake, IV Titration 100 Amount Ampicillin-Sulbactam 3 gm 100 In Sodium Chloride 0.9% 100 ml @ 200 mls/hr IVPB Q6HR [facility] Rx#:[id number] Oral Output: Urine Other: Voiding Method # Voids # Bowel Movements - Exam PHYSICAL EXAMINATION: GENERAL: The patient is alert and oriented x3, not in any acute distress. Well developed, well nourished. HEENT: Pupils are round and equally reacting to light. EOMI. No scleral icterus. No conjunctival pallor. Normocephalic, atraumatic. No pharyngeal erythema. No thyromegaly. CARDIOVASCULAR: S1 and S2 present. No murmurs, rubs, or gallops. PULMONARY: Chest is clear to auscultation, no wheezing or crackles. ABDOMEN: Soft, nontender, nondistended, normoactive bowel sounds. No palpable organomegaly. MUSCULOSKELETAL: No joint swelling or deformity. EXTREMITIES: No cyanosis, clubbing, 1+ pitting pedal edema in bilateral lower extremities NEUROLOGICAL: Gross neurological examination did not reveal any focal deficits. SKIN: Stage II to 3 ulcer in the left foot dorsal aspect little distal to the ankle joint with surrounding cellulitis. Feeble pulses in both both lower extremities cold and clammy extremities - Labs CBC & Chem 7: 11/17/20 08:09 11/20/20 06:21 Labs: Abnormal Lab Results - Last 24 Hours (Table) 11/19/20 11/19/20 11/19/20 Range/Units 11:53 16:35 20:47 Sodium (137-145) mmol/L Glucose (74-99) mg/dL POC Glucose (mg/dL) 201 H 321 H 175 H (75-99) mg/dL Calcium (8.4-10.2) mg/dL 11/20/20 11/20/20 Range/Units 06:15 06:21 Sodium 135 L (137-145) mmol/L Glucose 180 H (74-99) mg/dL POC Glucose (mg/dL) 243 H (75-99) mg/dL Calcium 8.1 L (8.4-10.2) mg/dL Microbiology - Last 24 Hours (Table) 11/15/20 13:05 Blood Culture - Preliminary Blood No Growth after 96 hours 11/15/20 13:23 Blood Culture - Preliminary Blood No Growth after 96 hours 11/17/20 06:10 Anaerobic Culture - Preliminary Foot - Left 11/17/20 06:10 Gram Stain - Final Foot - Left Wound Culture - Final Strep agalactiae - (group b) Assessment and Plan Plan: Infected ulcer in the left foot most probably diabetic ulcers although patient d oes have peripheral vascular disease as well. Patient is presently on Unasyn andinfectious disease , vascular surgery evaluated the patient. Patient underwent the angiogram which showed complete occlusion from saphenofemoral junction. Patient will undergo angioplasty on Saturday. Patient has streptococci known culture -Severe peripheral vascular disease will obtain arterial Doppler of bilateral lower extremities. Patient quit smoking recently. Had an arterial Doppler which is showing the moderate to severe iliofemoral disease -Acute renal failure prerenal azotemia, and proved with IV fluids -Hyponatremia: Resolved at this time. Patient had mild hypovolemic hyponatremia on admission. -Congestive heart failure chronic systolic dysfunction EF of around 20-25%, this EF improved on the repeat echocardiogram to around 35-40% but patient appears to be in mild heart failure clinically patient was given a dose of Lasix IV and continue with the oral Lasix -Leukocytosis secondary to infection -Type 2 diabetes mellitus: Patient will be resumed on home regimen titration depending on blood sugars -Coronary artery disease -Hyperlipidemia -COPD without any acute exacerbation -DVT prophylaxis with a subcutaneous heparin
[2020-11-20 12:12] LABS: Glucose,Whole Blood 150 mg/dL (75-99)
[2020-11-20 17:04] LABS: Glucose,Whole Blood 262 mg/dL (75-99)
--- NOTE | 2020-11-20 18:45 | PN ---
PROGRESS NOTE DATE OF SERVICE: 11/20/2020 REASON FOR FOLLOWUP: Left diabetic foot infection. INTERVAL HISTORY: Patient is currently afebrile. Patient is breathing comfortably. Denies having any chest pain, shortness of breath or cough. No abdominal pain or pain to the left foot area. EXAMINATION: Elderly male lying in bed in no distress. Respiratory system: Unlabored breathing, clear to auscultation anteriorly. Heart S1, S2. Regular rate and rhythm. ABDOMEN: Soft, no tenderness. LABS: BUN of 19, creatinine 0.90. Local culture with Streptococcus agalactiae. DIAGNOSTIC IMPRESSION AND PLAN: Patient with Streptococcus agalactiae left diabetic foot infection. Patient at this time covered with Unasyn to continue. Possible surgical intervention tomorrow for his ischemic leg. Continue supportive care. MMODL / IJN: [id number] /
[2020-11-20 20:01] LABS: Glucose,Whole Blood 159 mg/dL (75-99)
[2020-11-20] MEDS: ATORVASTATIN 80 MG TAB PO SCH (20:47)
[2020-11-21] MEDS: HYDROcodone/APAP 10-325MG 1 EACH TAB PO PRN ×5 (02:56→21:38)
[2020-11-21] MEDS: AMPICILLIN-SULBACTAM 3 GM in SODIUM CHLORIDE 0.9% 100 ML IVPB SCH ×4 (05:03→23:56)
[2020-11-21] MEDS: PANTOPRAZOLE 40 MG TABLET PO SCH ×2 (05:57→17:26)
[2020-11-21 06:10] LABS: Glucose,Whole Blood 152 mg/dL (75-99)
[2020-11-21] MEDS: INSULIN ASPART (NovoLOG) 100 UNIT/ML VIAL SQ SCH ×4 (07:08→20:49)
[2020-11-21] MEDS: TICAGRELOR 90 MG TAB PO SCH ×2 (09:01→20:12)
[2020-11-21] MEDS: AMIODARONE 200 MG TAB PO SCH (09:01)
[2020-11-21] MEDS: lisinopriL 5 MG TAB PO SCH (09:01)
[2020-11-21] MEDS: SPIRONOLACTONE 25 MG TAB PO SCH (10:16)
[2020-11-21] MEDS: HEPARIN SODIUM,PORCINE 5,000 UNIT/ML 1 ML VIAL SQ SCH ×2 (10:16→20:12)
[2020-11-21] MEDS: FUROSEMIDE 40 MG TAB PO SCH (10:16)
[2020-11-21] MEDS: ASPIRIN 81 MG PO SCH (10:16)
--- NOTE | 2020-11-21 11:14 | P.PN ---
Subjective 70-year-old female with known history of peripheral vascular disease and diabetes mellitus came in with the complaints of an ulcer in the left foot dorsal aspect little distracted to ankle joint, patient is getting admitted for infection of this ulcer. Patient has a large wound probably stage II to 3 ulcer. Patient does have cold and clammy extremities usually follows up with Dr. Mckenzie for peripheral vascular disease and Dr. Gomez for cardiology. Patient was comparing of beer sharp pain. Patient ulcer has been there for about a month. Patient denied any fever chills. Patient does have history of severe cardiomyopathy with EF of her on the 20% patient does have bilateral lower leg swelling patient denied any increased shortness of breath chest x-ray did not show any pulmonary edema patient was actually hypotensive and received about 3 L of IV normal saline in ER blood pressure improved after that. Because of hypotension not starting him on any IV Lasix although patient does have increasing pedal edema. 11/16/2020 Patient of pedal edema actually improved patient BNP is only 2200 doesn't have any significant elevated JVD patient blood pressure is better patient was resumed on his home dose of ANDREEA inhibitor. 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 Patient will be evaluated by vascular surgery. Patient had a foot x-ray which apparently showed fifth metatarsal fracture for which no further intervention been is being recommended by orthoped ic surgery. His creatinine did improve to 1.26 baseline is around 0.7 sodium and potassium did improve as well. 11/17/2020 Patient doesn't have any significant pedal edema at this time patient had a repeat echocardiogram which were improved ejection fraction from 20% to 35-40%. Patient is presently on the Unasyn and vancomycin. 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 I don't have the official report of the angiogram yet 11/18/2020 Discussed with vascular surgery and infectious disease at length. Vascular surgery will discuss with Dr. Mckenzie regarding earlier intervention as compared to planned intervention for his peripheral vascular disease which is next week. Patient wound is mostly dry because of that reason vascular surgeries not recommending debridement. In waiting for the Wound cultures as well. 11/19/2020 Patient will undergo angioplasty for left lower limb, severe peripheral vascular disease on Saturday.Patient's oxygen saturations are bit low today patient will be given 1 dose of Lasix. And a chest x-ray. Wound cultures are positive for strep agalactiae. Infectious disease is managing the antibiotics patient is presently on Unasyn probably can be switched to Keflex or ceftezolin. 11/20/2020 Patient is clinically doing well no overt heart failure on the chest x-ray. 11/21/2020 Patient will undergo angioplasty on Saturday. Patient will be continued on IV Unasyn. Patient has streptococci in the wound cultures. Patient is comparing of calf pain which is new. Often a Doppler of the left the lower extremity to rule out any DVT. Patient is presently on heparin for DVT prophylaxis. Constitutional: Denied any fatigue denied any fever. Cardio vascular: denied any chest pain, palpitations Gastrointestinal denied any nausea vomiting Pulmonary: Denied any shortness of breath cough Neurologic denied any new focal deficits All inpatient medications were reviewed and appropriate changes in these medications as dictated in the interval history and assessment and plan. Objective - Vital Signs Vital signs: Vital Signs Temp 98.5 F 11/21/20 08:00 Pulse 68 11/21/20 08:00 Resp 18 11/21/20 08:00 BP 101/50 11/21/20 08:00 Pulse Ox 95 11/21/20 08:00 Intake & Output 11/20/20 11/21/20 11/21/20 18:59 06:59 18:59 Intake Total 322 340 Output Total 1375 400 Balance -1053 -60 Weight 70.534 kg Intake: Intake, IV Titration 100 100 Amount Ampicillin-Sulbactam 3 gm 100 100 In Sodium Chloride 0.9% 100 ml @ 200 mls/hr IVPB Q6HR [facility] Rx#:[id number] Oral 222 240 Output: Urine 1375 400 Other: Voiding Method Urinal # Voids 1 - Exam PHYSICAL EXAMINATION: GENERAL: The patient is alert and oriented x3, not in any acute distress. Well developed, well nourished. HEENT: Pupils are round and equally reacting to light. EOMI. No scleral icterus. No conjunctival pallor. Normocephalic, atraumatic. No pharyngeal erythema. No thyromegaly. CARDIOVASCULAR: S1 and S2 present. No murmurs, rubs, or gallops. PULMONARY: Chest is clear to auscultation, no wheezing or crackles. ABDOMEN: Soft, nontender, nondistended, normoactive bowel sounds. No palpable organomegaly. MUSCULOSKELETAL: No joint swelling or deformity. EXTREMITIES: No cyanosis, clubbing, 1+ pitting pedal edema in bilateral lower extremities NEUROLOGICAL: Gross neurological examination did not reveal any focal deficits. SKIN: Stage II to 3 ulcer in the left foot dorsal aspect little distal to the ankle joint with surrounding cellulitis. Feeble pulses in both both lower extremities cold and clammy extremities - Labs CBC & Chem 7: 11/17/20 08:09 11/20/20 06:21 Labs: Abnormal Lab Results - Last 24 Hours (Table) 11/20/20 11/20/20 11/20/20 Range/Units 12:10 17:03 20:00 POC Glucose (mg/dL) 150 H 262 H 159 H (75-99) mg/dL 11/21/20 Range/Units 06:06 POC Glucose (mg/dL) 152 H (75-99) mg/dL Microbiology - Last 24 Hours (Table) 11/15/20 13:23 Blood Culture - Preliminary Blood No Growth after 120 hours 11/15/20 13:05 Blood Culture - Preliminary Blood No Growth after 120 hours Assessment and Plan Plan: Infected ulcer in the left foot most, patient has severe peripheral vascular disease Patient is presently on Unasyn andinfectious disease , vascular surgery evaluated the patient. Patient has strep species in the wound Patient underwent the angiogram which showed complete occlusion from saphenofemoral junction. Cheng rosenberg will undergo angioplasty on Saturday. -New-onset left Pain we'll obtain Doppler of left lower extremity to rule out any DVT -Severe peripheral vascular disease will obtain arterial Doppler of bilateral lower extremities. Patient quit smoking recently. Had an arterial Doppler which is showing the moderate to severe iliofemoral disease -Acute renal failure prerenal azotemia, and proved with IV fluids and patient is presently on Lasix does have congestive heart failure not in acute exacerbation -Hyponatremia: Resolved at this time. Patient had mild hypovolemic hyponatremia on admission. -Congestive heart failure chronic systolic dysfunction EF of around 20-25%, this EF improved on the repeat echocardiogram to around 35-40% . continue with the oral Lasix -Leukocytosis secondary to infection -Type 2 diabetes mellitus: Patient will be resumed on home regimen titration depending on blood sugars -Coronary artery disease -Hyperlipidemia -COPD without any acute exacerbation -DVT prophylaxis with a subcutaneous heparin
[2020-11-21 12:06] LABS: Glucose,Whole Blood 285 mg/dL (75-99)
--- NOTE | 2020-11-21 12:16 | US ---
EXAMINATION TYPE: US venous doppler duplex LE LT DATE OF EXAM: 11/21/2020 11:59 AM COMPARISON: NONE CLINICAL HISTORY: 70-year-old male with DVT several days ago had swelling left leg; none now; PVOD pe r patient; takes blood thinners SIDE PERFORMED: Left TECHNIQUE: The lower extremity deep venous system is examined utilizing real time linear array sonog abdiaziz with graded compression, doppler sonography and color-flow sonography. FINDINGS: VESSELS IMAGED: Common Femoral Vein Deep Femoral Vein Greater Saphenous Vein * Femoral Vein Popliteal Vein Small Saphenous Vein * Proximal Calf Veins (* superficial vessels) Left Leg: Negative for DVT. Prominent left groin lymph node noted measuring 1.9 x 0.9 x 0.7 cm, not enlarged by size criteria IMPRESSION: No evidence for DVT within the left lower extremity imaged from the groin to the upper calf.
[2020-11-21 17:13] LABS: Glucose,Whole Blood 353 mg/dL (75-99)
[2020-11-21] MEDS: ATORVASTATIN 80 MG TAB PO SCH (20:12)
[2020-11-21 20:40] LABS: Glucose,Whole Blood 97 mg/dL (75-99)
--- NOTE | 2020-11-22 03:12 | PN ---
PROGRESS NOTE DATE OF SERVICE: 11/21/2020 REASON FOR FOLLOWUP: Left diabetic foot ulcer and cellulitis. INTERVAL HISTORY: The patient is currently afebrile. Still complaining of some pain to the left foreleg area not exactly to the foot where the patient did have the ulcer. Denies having any chest pain, shortness of breath or cough. The revascularization has been postponed until Saturday. EXAMINATION: Blood pressure 123/56, pulse of 69, temperature 98. He is 99% on room air. General description is an elderly male lying in bed in no distress. Respiratory system: Unlabored breathing, is clear to auscultation anteriorly. Heart S1, S2. Regular rate and rhythm. ABDOMEN: Soft, no tenderness. Left foot is currently dressed. No drainage on the dressing. LABS: No new labs have been obtained today. DIAGNOSTIC IMPRESSION AND PLAN: Patient with left diabetic foot ulcer with cellulitis. Underlying Peripheral arterial disease, awaiting surgical revascularization. The patient culture positive for strep and the patient is covered with Unasyn to continue while monitoring clinical course closely. Continue supportive care. MMODL / IJN: [id number] /
[2020-11-22] MEDS: INSULIN ASPART (NovoLOG) 100 UNIT/ML VIAL SQ SCH ×4 (06:35→21:48)
[2020-11-22 06:37] LABS: Glucose,Whole Blood 97 mg/dL (75-99)
[2020-11-22] MEDS: HYDROcodone/APAP 10-325MG 1 EACH TAB PO PRN ×2 (06:39→21:48)
[2020-11-22] MEDS: AMPICILLIN-SULBACTAM 3 GM in SODIUM CHLORIDE 0.9% 100 ML IVPB SCH ×3 (06:39→17:19)
[2020-11-22] MEDS: PANTOPRAZOLE 40 MG TABLET PO SCH ×2 (06:39→17:20)
[2020-11-22] MEDS: SPIRONOLACTONE 25 MG TAB PO SCH (08:19)
[2020-11-22] MEDS: AMIODARONE 200 MG TAB PO SCH (08:19)
[2020-11-22] MEDS: ASPIRIN 81 MG PO SCH (08:19)
[2020-11-22] MEDS: FUROSEMIDE 40 MG TAB PO SCH (08:19)
[2020-11-22] MEDS: lisinopriL 5 MG TAB PO SCH (08:20)
[2020-11-22] MEDS: HEPARIN SODIUM,PORCINE 5,000 UNIT/ML 1 ML VIAL SQ SCH ×2 (08:20→21:48)
[2020-11-22] MEDS: TICAGRELOR 90 MG TAB PO SCH ×2 (08:20→21:47)
[2020-11-22 12:05] LABS: Glucose,Whole Blood 113 mg/dL (75-99)
--- NOTE | 2020-11-22 15:43 | P.PN ---
Subjective Progress Note Date: 11/22/20 70-year-old female with known history of peripheral vascular disease and diabetes mellitus came in with the complaints of an ulcer in the left foot dorsal aspect little distracted to ankle joint, patient is getting admitted for infection of this ulcer. Patient has a large wound probably stage II to 3 [facility] er. Patient does have cold and clammy extremities usually follows up with Dr. Mckenzie for peripheral vascular disease and Dr. Gomez for cardiology. Patient was comparing of beer sharp pain. Patient ulcer has been there for about a month. Patient denied any fever chills. Patient does have history of severe cardiomyopathy with EF of her on the 20% patient does have bilateral lower leg swelling patient denied any increased shortness of breath chest x-ray did not show any pulmonary edema patient was actually hypotensive and received about 3 L of IV normal saline in ER blood pressure improved after that. Because of hypotension not starting him on any IV Lasix although patient does have increas ing pedal edema. 11/16/2020 Patient of pedal edema actually improved patient BNP is only 2200 doesn't have any significant elevated JVD patient blood pressure is better patient was resumed on his home dose of ANDREEA inhibitor. 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 Patient will be evaluated by vascular surgery. Patient had a foot x-ray which apparently showed fifth metatarsal fracture for which no further intervention been is being recommended by orthopedic surgery. His creatinine did improve to 1.26 baseline is around 0.7 sodium and potassium did improve as well. 11/17/2020 Patient doesn't have any significant pedal edema at this time patient had a repeat echocardiogram which were improved ejection fraction from 20% to 35-40%. Patient is presently on the Unasyn and vancomycin. 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 I don't have the official report of the angiogram yet 11/18/2020 Discussed with vascular surgery and infectious disease at length. Vascular surgery will discuss with Dr. Mckenzie regarding earlier intervention as compared to planned intervention for his peripheral vascular disease which is next week. Patient wound is mostly dry because of that reason vascular surgeries not recommending debridement. In waiting for the Wound cultures as well. 11/19/2020 Patient will undergo angioplasty for left lower limb, severe peripheral vascular disease on Saturday.Patient's oxygen saturations are bit low today patient will be given 1 dose of Lasix. And a chest x-ray. Wound cultures are positive for strep agalactiae. Infectious disease is managing the antibiotics patient is presently on Unasyn probably can be switched to Keflex or ceftezolin. 11/20/2020 Patient is clinically doing well no overt heart failure on the chest x-ray. 11/21/2020 Patient will undergo angioplasty on Saturday. Patient will be continued on IV Unasyn. Patient has streptococci in the wound cultures. Patient is comparing of calf pain which is new. Often a Doppler of the left the lower extremity to rule out any DVT. Patient is presently on heparin for DVT prophylaxis. 11/22/2020 Patient is seen and evaluated this morning with no acute overnight issues. Patient continues to have left leg discomfort with left foot swelling and is being closely monitored. Patient is scheduled to undergo angioplasty with Dr. Coello tomorrow. Patient is maintained on IV antibiotics in the form of Unasyn and will continue at this time. Infectious disease also following. Patient underwent venous Doppler of the left lower extremity which was negative for DVT. Will await surgical report. Will also discuss with infectious disease about t he possibility of IV antibiotic therapy in the outpatient setting. Constitutional: Denied any fatigue denied any fever. Cardio vascular: denied any chest pain, palpitations Gastrointestinal denied any nausea vomiting Pulmonary: Denied any shortness of breath cough Neurologic denied any new focal deficits All inpatient medications were reviewed and appropriate changes in these medications as dictated in the interval history and assessment and plan. Objective - Vital Signs Vital signs: Vital Signs Temp 97.9 F 11/22/20 08:00 Pulse 66 11/22/20 08:00 Resp 16 11/22/20 08:00 BP 107/56 11/22/20 08:00 Pulse Ox 97 11/22/20 08:00 Intake & Output 11/21/20 11/22/20 11/22/20 18:59 06:59 18:59 Intake Total 540 222 0 Output Total 1000 350 Balance 323 -667 -726 Weight 70.534 kg 73.2 kg Intake: Intake, IV Titration 100 Amount Ampicillin-Sulbactam 3 gm 100 In Sodium Chloride 0.9% 100 ml @ 200 mls/hr IVPB Q6HR LUCAS Rx#:[id number] Oral 440 222 0 Output: Urine 1000 350 Other: Voiding Method Urinal Urinal # Voids 1 # Bowel Movements 0 - Exam GENERAL: The patient is alert and oriented x3, not in any acute distress. Well developed, well nourished. HEENT: Pupils are round and equally reacting to light. EOMI. No scleral icterus. No conjunctival pallor. Normocephalic, atraumatic. No pharyngeal erythema. No thyromegaly. CARDIOVASCULAR: S1 and S2 present. No murmurs, rubs, or gallops. PULMONARY: Chest is clear to auscultation, no wheezing or crackles. ABDOMEN: Soft, nontender, nondistended, normoactive bowel sounds. No palpable organomegaly. MUSCULOSKELETAL: No joint swelling or deformity. EXTREMITIES: No cyanosis, clubbing, 1+ pitting pedal edema in left lower extre mity and foot NEUROLOGICAL: Gross neurological examination did not reveal any focal deficits. SKIN: Stage II to 3 ulcer in the left foot dorsal aspect little distal to the ankle joint with surrounding cellulitis. Feeble pulses in both lower extremities cold and clammy extremities - Labs CBC & Chem 7: 11/17/20 08:09 11/20/20 06:21 Labs: Abnormal Lab Results - Last 24 Hours (Table) 11/21/20 11/21/20 Range/Units 12:03 17:11 POC Glucose (mg/dL) 285 H 353 H (75-99) mg/dL Microbiology - Last 24 Hours (Table) 11/15/20 13:05 Blood Culture - Final Blood No Growth after 144 hours 11/15/20 13:23 Blood Culture - Final Blood No Growth after 144 hours 11/17/20 06:10 Anaerobic Culture - Final Foot - Left Assessment and Plan Assessment: -Infected ulcer in the left foot most, patient has severe peripheral vascular disease Patient is presently on Unasyn and infectious disease is following, vascular surgery evaluated the patient. Patient has strep species in the wound Patient underwent the angiogram which showed complete occlusion from saphenofemoral junction. Patient scheduled to undergo angioplasty tomorrow morning with Dr. Coello. -New-onset left calf Pain: Venous Doppler was negative for DVT of the left lower extremity -Severe peripheral vascular disease will obtain arterial Doppler of bilateral lower extremities. Patient quit smoking recently. Had an arterial Doppler which is showing the moderate to severe iliofemoral disease -Acute renal failure prerenal azotemia, improved with IV fluids and patient is presently on Lasix does have history of congestive heart failure, not in acute exacerbation -Hyponatremia: Resolved at this time. Patient had mild hypovolemic hyponatremia on admission. -Congestive heart failure chronic systolic dysfunction EF of around 20-25%, this EF improved on the repeat echocardiogram to around 35-40% . continue with the oral Lasix -Leukocytosis secondary to infection -Type 2 diabetes mellitus: Patient will be resumed on home regimen titration depending on blood sugars -Coronary artery disease -Hyperlipidemia -COPD without any acute exacerbation -DVT prophylaxis with subcutaneous heparin Plan: Patient to continue with IV antibiotic therapy in the form of Unasyn. Infectious disease along with vascular surgery following. Patient is scheduled to go angioplasty with Dr. Coello tomorrow and will be nothing by mouth at midnight. Continue to monitor Accu-Cheks. Will await surgical report. Patient will likely need IV antibiotic therapy in the outpatient setting and will discuss with infectious disease about possible PICC line or discharge planning needs. Will repeat a.m. labs.
[2020-11-22 16:57] LABS: Glucose,Whole Blood 226 mg/dL (75-99)
[2020-11-22 16:57] LABS: Glucose,Whole Blood 300 mg/dL (75-99)
[2020-11-22 20:15] LABS: Glucose,Whole Blood 192 mg/dL (75-99)
[2020-11-22] MEDS: ATORVASTATIN 80 MG TAB PO SCH (21:48)
[2020-11-23] MEDS: AMPICILLIN-SULBACTAM 3 GM in SODIUM CHLORIDE 0.9% 100 ML IVPB SCH ×5 (00:02→23:52)
--- NOTE | 2020-11-23 01:00 | PN ---
PROGRESS NOTE DATE OF SERVICE: 11/22/2020 REASON FOR FOLLOWUP: Left diabetic foot ulcer and cellulitis. INTERVAL HISTORY: The patient is afebrile. The patient is breathing comfortably. Denies having any chest pain. No shortness of breath. No cough. No nausea. No vomiting. No abdominal pain. No worsening pain to the left foot. PHYSICAL EXAMINATION: Blood pressure of 97/58, pulse of 75, temperature 98.5. He is 96% on room air. General description is an elderly male lying in bed in no distress. Respiratory system: Unlabored breathing, clear to auscultation anteriorly. Heart S1, S2. Regular rate and rhythm. Abdomen soft, no tenderness. Left foot is currently dressed up. No obvious drainage on the dressing. DIAGNOSTIC IMPRESSION/PLAN: Patient with left foot ulcer with cellulitis infection in this patient who has underlying diabetic ulcer as well as peripheral arterial disease. Culture was Enterococcus agalactiae. The patient is covered with Unasyn. Awaiting revascularization tomorrow. Continue supportive care. MMODL / IJN: [id number] /
[2020-11-23] MEDS: HYDROcodone/APAP 10-325MG 1 EACH TAB PO PRN ×3 (03:29→23:48)
[2020-11-23 06:20] LABS: Glucose,Whole Blood 134 mg/dL (75-99)
[2020-11-23] MEDS: PANTOPRAZOLE 40 MG TABLET PO SCH ×2 (06:31→18:38)
[2020-11-23] MEDS: INSULIN ASPART (NovoLOG) 100 UNIT/ML VIAL SQ SCH ×4 (06:31→21:29)
[2020-11-23 08:18] LABS: Calcium 8.6 mg/dL (8.4-10.2); Potassium 4.7 mmol/L (3.5-5.1)
[2020-11-23] MEDS: AMIODARONE 200 MG TAB PO SCH (08:25)
[2020-11-23] MEDS: lisinopriL 5 MG TAB PO SCH (08:25)
[2020-11-23] MEDS: SPIRONOLACTONE 25 MG TAB PO SCH (08:25)
[2020-11-23] MEDS: TICAGRELOR 90 MG TAB PO SCH ×2 (08:25→21:29)
[2020-11-23] MEDS: HEPARIN SODIUM,PORCINE 5,000 UNIT/ML 1 ML VIAL SQ SCH ×2 (08:25→21:29)
[2020-11-23] MEDS: FUROSEMIDE 40 MG TAB PO SCH (08:25)
[2020-11-23] MEDS: ASPIRIN 81 MG PO SCH (08:25)
[2020-11-23] MEDS ORDERED: HYDROmorphone 0.5 MG/0.5 ML SYRINGE IVP ONE ×2 (13:27→13:44)
[2020-11-23] MEDS ORDERED: MIDAZOLAM 2 MG/2 ML VIAL IV ONE ×2 (13:27→14:14)
[2020-11-23] MEDS: LIDOCAINE 1% INJ 10MG/ML (20 ML MDV) SQ ONE ×2 (13:29→14:10)
[2020-11-23] MEDS ORDERED: SODIUM CHLORIDE 0.9% 500 ML 500 ML with niCARdipine 6.25 MG, NITROGLYCERIN-D5W PMX 0.05... IV ONE ×8 (13:30→15:00)
[2020-11-23] MEDS ORDERED: IV FLUID CONTINUATION 1,000 ML IV ONE (13:44)
--- NOTE | 2020-11-23 14:11 | P.PN ---
Subjective Progress Note Date: 11/23/20 70-year-old female with known history of peripheral vascular disease and diabetes mellitus came in with the complaints of an ulcer in the left foot dorsal aspect little distracted to ankle joint, patient is getting admitted for infection of this ulcer. Patient has a large wound probably stage II to 3 [facility] er. Patient does have cold and clammy extremities usually follows up with Dr. Mckenzie for peripheral vascular disease and Dr. Gomez for cardiology. Patient was comparing of beer sharp pain. Patient ulcer has been there for about a month. Patient denied any fever chills. Patient does have history of severe cardiomyopathy with EF of her on the 20% patient does have bilateral lower leg swelling patient denied any increased shortness of breath chest x-ray did not show any pulmonary edema patient was actually hypotensive and received about 3 L of IV normal saline in ER blood pressure improved after that. Because of hypotension not starting him on any IV Lasix although patient does have increas ing pedal edema. 11/16/2020 Patient of pedal edema actually improved patient BNP is only 2200 doesn't have any significant elevated JVD patient blood pressure is better patient was resumed on his home dose of ANDREEA inhibitor. 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 Patient will be evaluated by vascular surgery. Patient had a foot x-ray which apparently showed fifth metatarsal fracture for which no further intervention been is being recommended by orthopedic surgery. His creatinine did improve to 1.26 baseline is around 0.7 sodium and potassium did improve as well. 11/17/2020 Patient doesn't have any significant pedal edema at this time patient had a repeat echocardiogram which were improved ejection fraction from 20% to 35-40%. Patient is presently on the Unasyn and vancomycin. 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 I don't have the official report of the angiogram yet 11/18/2020 Discussed with vascular surgery and infectious disease at length. Vascular surgery will discuss with Dr. Mckenzie regarding earlier intervention as compared to planned intervention for his peripheral vascular disease which is next week. Patient wound is mostly dry because of that reason vascular surgeries not recommending debridement. In waiting for the Wound cultures as well. 11/19/2020 Patient will undergo angioplasty for left lower limb, severe peripheral vascular disease on Saturday.Patient's oxygen saturations are bit low today patient will be given 1 dose of Lasix. And a chest x-ray. Wound cultures are positive for strep agalactiae. Infectious disease is managing the antibiotics patient is presently on Unasyn probably can be switched to Keflex or ceftezolin. 11/20/2020 Patient is clinically doing well no overt heart failure on the chest x-ray. 11/21/2020 Patient will undergo angioplasty on Saturday. Patient will be continued on IV Unasyn. Patient has streptococci in the wound cultures. Patient is comparing of calf pain which is new. Often a Doppler of the left the lower extremity to rule out any DVT. Patient is presently on heparin for DVT prophylaxis. 11/22/2020 Patient is seen and evaluated this morning with no acute overnight issues. Patient continues to have left leg discomfort with left foot swelling and is being closely monitored. Patient is scheduled to undergo angioplasty with Dr. Mckenzie tomorrow. Patient is maintained on IV antibiotics in the form of Unasyn and will continue at this time. Infectious disease also following. Patient underwent venous Doppler of the left lower extremity which was negative for DVT. Will await surgical report. Will also discuss with infectious disease about the possibility of IV antibiotic therapy in the outpatient setting. 11/23/2020 Patient is seen in follow-up this morning with no acute overnight issues. Patient is scheduled to undergo left fem-pop arthrectomy with angioplasty with Dr. Mckenzie today. Multiple medical consultations including infectious disease and cardiology following. Patient is maintained on IV antibiotics in the form of Unasyn and will continue at this time. Currently awaiting this procedure today for further recommendations regarding antibiotic therapy in the outpatient setting for the left diabetic foot ulcer with surrounding cellulitis. Creatinine slightly elevated at 1.1 and will continue to monitor closely. Patient was maintained on Proventil and aspirin in the outpatient setting and will discuss with cardiology moving forward. Awaiting surgical report. Constitutional: Denied any fatigue denied any fever. Cardio vascular: denied any chest pain, palpitations Gastrointestinal denied any nausea vomiting Pulmonary: Denied any shortness of breath cough Neurologic denied any new focal deficits All inpatient medications were reviewed and appropriate changes in these medications as dictated in the interval history and assessment and plan. Objective - Vital Signs Vital signs: Vital Signs Temp 98.2 F 11/23/20 00:00 Pulse 72 11/23/20 08:00 Resp 16 11/23/20 08:00 BP 104/51 11/23/20 08:00 Pulse Ox 96 11/23/20 08:00 Intake & Output 11/22/20 11/23/20 11/23/20 18:59 06:59 18:59 Intake Total 480 240 0 Output Total 1425 400 Balance -945 -160 0 Weight 72.7 kg Intake: Oral 480 240 0 Output: Urine 1425 400 Other: Voiding Method Urinal Urinal # Voids 1 0 # Bowel Movements 0 - Exam GENERAL: The patient is alert and oriented x3, not in any acute distress. Well developed, well nourished. HEENT: Pupils are round and equally reacting to light. EOMI. No scleral icterus. No conjunctival pallor. Normocephalic, atraumatic. No pharyngeal erythema. No thyromegaly. CARDIOVASCULAR: S1 and S2 present. No murmurs, rubs, or gallops. PULMONARY: Chest is clear to auscultation, no wheezing or crackles. ABDOMEN: Soft, nontender, nondistended, normoactive bowel sounds. No palpable organomegaly. MUSCULOSKELETAL: No joint swelling or deformity. EXTREMITIES: No cyanosis, clubbing, 1+ pitting pedal edema in left lower extremity and foot NEUROLOGICAL: Gross neurological examination did not reveal any focal deficits. SKIN: Stage II to 3 ulcer in the left foot dorsal aspect lateral distal to the ankle joint with surrounding cellulitis. Feeble pulses in both lower extremities cold and clammy extremities - Labs CBC & Chem 7: 11/17/20 08:09 11/23/20 07:33 Labs: Abnormal Lab Results - Last 24 Hours (Table) 11/22/20 11/22/20 11/22/20 Range/Units 12:01 16:49 16:51 BUN (9-20) mg/dL Glucose (74-99) mg/dL POC Glucose (mg/dL) 113 H 300 H 226 H (75-99) mg/dL 11/22/20 11/23/20 11/23/20 Range/Units 20:13 06:18 07:33 BUN 35 H (9-20) mg/dL Glucose 154 H (74-99) mg/dL POC Glucose (mg/dL) 192 H 134 H (75-99) mg/dL Assessment and Plan Assessment: -Infected ulcer in the left foot most, patient has severe peripheral vascular disease Patient is presently on Unasyn and infectious disease is following, vascular surgery evaluated the patient. Patient is scheduled to undergo left fem-pop arthrectomy with angioplasty with Dr. Mckenzie today. Recent angiogram showed complete occlusion from saphenofemoral junction. Venous Doppler done was negative for DVT in the left lower extremity -New-onset left calf Pain: Venous Doppler was negative for DVT of the left lower extremity -Severe peripheral vascular disease will obtain arterial Doppler of bilateral lower extremities. Patient quit smoking recently. Had an arterial Doppler which is showing the moderate to severe iliofemoral disease -Acute renal failure prerenal azotemia, improved with IV fluids and patient is presently on Lasix does have history of congestive heart failure, not in acute exacerbation -Hyponatremia: Resolved at this time. Patient had mild hypovolemic hyponatremia on admission. -Congestive heart failure chronic systolic dysfunction EF of around 20-25%, this EF improved on the repeat echocardiogram to around 35-40% . continue with the oral Lasix -Leukocytosis secondary to infection -Type 2 diabetes mellitus: Patient will be resumed on home regimen titration depending on blood sugars -Coronary artery disease -Hyperlipidemia -COPD without any acute exacerbation -DVT prophylaxis with subcutaneous heparin Plan: Patient to continue with IV antibiotic therapy in the form of Unasyn. I nfectious disease along with vascular surgery following. Patient is scheduled to go angioplasty with Dr. Mckenzie today and awaiting report. Continue to monitor Accu-Cheks. Sliding scale and oral agents have been on hold this morning as patient has been nothing by mouth since midnight. Will await surgical report. Will repeat a.m. labs.
[2020-11-23] MEDS ORDERED: fentaNYL (PF) 50 MCG/ML 2 ML AMP ONE (14:42)
[2020-11-23] MEDS ORDERED: PROPOFOL 10 MG/ML 20 ML VIAL IV ONE (14:42)
[2020-11-23] MEDS ORDERED: SODIUM CHLORIDE 0.9% 1,000 ML in EMPTY BAG 1 BAG IV SCH (16:30)
[2020-11-23] MEDS ORDERED: IOPAMIDOL-250 100ML BTL INTRAARTER ONE (16:36)
[2020-11-23 18:01] LABS: Glucose,Whole Blood 139 mg/dL (75-99)
[2020-11-23] MEDS ORDERED: ATROPINE SULFATE 0.1 MG/ML 10ML SYRINGE ONE (19:02)
--- NOTE | 2020-11-23 20:06 | PCN ---
PROCEDURE NOTE PERCUTANEOUS PERIPHERAL INTERVENTION: DATE OF SERVICE: 11/23/2020 PERFORMING PHYSICIAN: Anton Mckenzie M.D. PROCEDURES PERFORMED: 1. Atherectomy of the left popliteal artery using the orbital atherectomy device from [employer] and using 1.25 mm tito. 2. Successful stenting of the left popliteal artery using a 6.0 x 140 mm Zilver PTX drug-coated stent. 3. Successful stenting of the left SFA using 2 self-expandable stents, 7.0 x 150 and 8.0 x 150. 4. Selective left posterior tibial artery angiogram. 5. Selective right common femoral artery angiogram. 6. Ultrasound-guided access of the left posterior tibial artery. INDICATION: This is a pleasant 70-year-old gentleman who was diagnosed recently with critical limb ischemia of the left foot and has been managed by Dr. Coello and Dr. Cabrales. There was a concern regarding peripheral arterial disease, and because of that an angiogram was recommended. The angiogram revealed occluded left SFA and occluded left popliteal, a long segment, with extremely calcified arteries. Because of that, he was brought today to undergo intervention. APPROACH: Right common femoral artery and left posterior tibial artery. COMPLICATIONS: None. LEVEL OF SEDATION: Moderate, with sedation length of 172 minutes. PROCEDURE DESCRIPTION: After obtaining informed consent, the patient was brought to the cardiac grass farm laborer. The left common femoral artery was cannulated using micropuncture technique. The micropuncture wire passed easily. Then I did place a slender 6/5-Barbadian in the left posterior tibial artery. After that, anticoagulation was initiated using heparin. The patient was given 6000 units of heparin IV with continuous ACT monitoring throughout the procedure. Also note that there was a cocktail infusion of heparin, verapamil and nitroglycerin initiated through the side-arm of the pedal sheath. Attempting to cross the chronic total occlusion in retrograde technique was unsuccessful and I ended in subintimal space. At that point, I decided to attempt an antegrade technique. I accessed the right common femoral artery using micropuncture technique, and I placed a 6-Barbadian 70 cm Raabe sheath in it. After that I did select the right common femoral artery using an 0.035 stiff Glidewire with the back-up support of 5-Barbadian RIM catheter. After that I advanced the sheath over the wire and the catheter to the right common femoral artery. After that I was able to access the CABLE SPLICER APPRENTICE of the left SFA and left popliteal using an 0.035 stiff Glidewire and an 0.018 Glidewire. I did inject contrast in the left posterior tibial artery to prove that I was in the true lumen. Intravascular ultrasound (IVUS) showed that I was in the true lumen in the left popliteal and false lumen in the left SFA. Atherectomy was performed using the orbital atherectomy device. Angioplasty was performed with inadequate angiographic results, and because of that I decided to stent the whole left popliteal and left SFA. The left popliteal was stented using a Zilver PTX 6.0 x 140 mm stent, and the left SFA was stented using two 150 mm stents; one 7 mm and the other 8 mm. I post-dilated everything using a 6 mm balloon. The following angiogram showed excellent angiographic results and the procedure was completed without any complication. POST-PROCEDURE MANAGEMENT: 1. Dual anti-platelet therapy. 2. Risk factor modifications. 3. Follow up with the patient. MMNEDL / IJN: [id number] /
[2020-11-23 21:04] LABS: Glucose,Whole Blood 174 mg/dL (75-99)
[2020-11-23] MEDS: ATORVASTATIN 80 MG TAB PO SCH (21:29)
[2020-11-24] MEDS: HYDROcodone/APAP 10-325MG 1 EACH TAB PO PRN (03:34)
--- NOTE | 2020-11-24 05:57 | PN ---
PROGRESS NOTE DATE OF SERVICE: 11/23/2020 REASON FOR FOLLOWUP: Left diabetic foot ulcer and cellulitis. INTERVAL HISTORY: The patient is currently afebrile. The patient is status post percutaneous intervention of his left leg arteries. The patient tolerated the procedure. The patient denies having any chest pain or shortness of breath or cough. No abdominal pain or any worsening pain to the lower extremities. PHYSICAL EXAMINATION: Blood pressure 122/64, pulse 70, temperature of 97.9. He is 96% on room air. General description is an elderly male lying in bed in no distress. Respiratory system: Unlabored breathing, clear to auscultation anteriorly. Heart S1, S2. Regular rate and rhythm. Abdomen is soft, no tenderness. Left leg is currently dressed up. No obvious drainage on the dressing. LABS: BUN of 35, creatinine is 1.10. DIAGNOSTIC IMPRESSION AND PLAN: Patient with left lower extremity wound with secondary cellulitis and culture with Streptococcus species. Patient is covered with Unasyn, status post revascularization. Hopefully that will help healing of the wound. He will need a PICC line for outpatient antibiotics. Continue supportive care. MMODL / IJN: [id number] /
[2020-11-24 06:03] LABS: Glucose,Whole Blood 161 mg/dL (75-99)
[2020-11-24] MEDS: PANTOPRAZOLE 40 MG TABLET PO SCH (06:31)
[2020-11-24] MEDS: INSULIN ASPART (NovoLOG) 100 UNIT/ML VIAL SQ SCH ×2 (06:31→12:43)
[2020-11-24] MEDS: AMPICILLIN-SULBACTAM 3 GM in SODIUM CHLORIDE 0.9% 100 ML IVPB SCH ×2 (06:32→12:43)
[2020-11-24 06:54] VITALS: RESP 16
[2020-11-24 08:42] LABS: Anisocytosis Slight; Basophils % (A) 0 %; Eosinophils # (A) 0.1 k/uL (0-0.7); Eosinophils % (A) 1 %; HCT 30.3 % (39.0-53.0); HGB 9.6 gm/dL (13.0-17.5); Hypochromasia Slight; Lymphocytes # (A) 1.5 k/uL (1.0-4.8); Lymphocytes % (A) 11 %; MCH 30.5 pg (25.0-35.0); MCHC 31.8 g/dL (31.0-37.0); Mean Platelet Volume 7.2; Monocytes # (A) 0.7 k/uL (0-1.0); Monocytes % (A) 6 %; Neutrophils # (A) 10.4 k/uL (1.3-7.7); Neutrophils % (A) 81 %; Platelet Count 331 k/uL (150-450); RBC 3.15 m/uL (4.30-5.90); RDW 16.1 % (11.5-15.5); WBC 12.9 k/uL (3.8-10.6)
--- NOTE | 2020-11-24 08:48 | IR ---
EXAMINATION TYPE: IR stent intravas non coronary DATE OF EXAM: 11/23/2020 COMPARISON: NONE HISTORY: Fluoroscopy time. Fluoroscopy was provided to the referring clinician.
[2020-11-24] MEDS ORDERED: CLOPIDOGREL 75 MG TAB PO SCH (09:00)
[2020-11-24 09:02] LABS: African American GFR (CKD) >90 (>60 ml/min/1.73 sqM); Anion Gap 5 mmol/L; Blood Urea Nitrogen 22 mg/dL (9-20); Calcium 8.5 mg/dL (8.4-10.2); Carbon Dioxide 28 mmol/L (22-30); Chloride 104 mmol/L (98-107); Glucose 132 mg/dL (74-99); Non-African American GFR(CKD) 89 (>60 ml/min/1.73 sqM); Potassium 4.7 mmol/L (3.5-5.1); Sodium 137 mmol/L (137-145)
[2020-11-24] MEDS: AMIODARONE 200 MG TAB PO SCH (09:12)
[2020-11-24] MEDS: lisinopriL 5 MG TAB PO SCH (09:12)
[2020-11-24] MEDS: HEPARIN SODIUM,PORCINE 5,000 UNIT/ML 1 ML VIAL SQ SCH (09:12)
[2020-11-24] MEDS: FUROSEMIDE 40 MG TAB PO SCH (09:12)
[2020-11-24] MEDS: TICAGRELOR 90 MG TAB PO SCH (09:12)
[2020-11-24] MEDS: SPIRONOLACTONE 25 MG TAB PO SCH (09:12)
[2020-11-24] MEDS: ASPIRIN 81 MG PO SCH (09:12)
[2020-11-24 09:17] VITALS: TEMP 98
--- NOTE | 2020-11-24 10:28 | PN ---
PROGRESS NOTE The patient has history of a wound on his left foot dorsal aspect with scab formation and also some superficial wound on the lateral aspect of the foot with severe peripheral vascular occlusive disease. The patient went yesterday intervention atherectomy and balloon angioplasty of the left leg. On examination today, the patient has a wound on the dorsal aspect of the foot with scab formation. The left big toe is still ischemic, PT by the Doppler. The patient wants to go home. We will discuss with Medicine and Dr. Mckenzie. If he goes home, I will follow him in the wound clinic this Saturday. MMODL / IJN: [id number] /
[2020-11-24 12:10] LABS: Glucose,Whole Blood 257 mg/dL (75-99)
[2020-11-24 14:45] VITALS: BMI 23.0
[2020-11-24 15:38] VITALS: BP 119/67; PULSE 76
--- NOTE | 2020-11-24 16:23 | PN ---
PROGRESS NOTE DATE OF SERVICE: 11/24/2020 REASON FOR FOLLOWUP: Left diabetic foot infection. INTERVAL HISTORY: The patient was seen on rounds this morning. The patient has been afebrile, breathing comfortably. No chest pain, shortness of breath or cough. No abdominal pain or pain to the left foot or leg area. PHYSICAL EXAMINATION: Blood pressure 119/67, pulse of 73, temperature 98. He is 98% on room air. General description is an elderly male lying in bed in no distress. RESPIRATORY SYSTEM: Unlabored breathing. Clear to auscultation anteriorly. HEART: S1, S2. Regular rate and rhythm. ABDOMEN: Soft. No tenderness. Left foot is currently dressed up. No obvious drainage on the dressing. LABS: Hemoglobin is 9.6, white count 12.9, BUN of 22, creatinine 0.85. Wound culture with Streptococcus agalactiae. Anaerobe cultures were negative. DIAGNOSTIC IMPRESSION AND PLAN: Patient with left diabetic foot infection in this patient who did have significant underlying ischemia. We did arrange for the patient's IV antibiotic therapy in the outpatient setting. However, the patient is refusing. He knows the risk of losing his foot, as the oral antibiotic may not be strong enough to completely clear out this infection. The PICC line was discontinued. Prescription for Augmentin has been sent. He will continue to follow with Dr. Coello in the outpatient center. If any worsening swelling, redness of fever, he needs to to to the hospital right away. MMODL / IJN: [id number] /
--- NOTE | 2020-11-24 17:10 | P.DS ---
Providers Date of admission: 11/15/20 15:59 Expected date of discharge: 11/24/20 Attending physician: Venessa Bell Consults: 11/15/20 14:55 Consult Physician Urgent Consulting Provider: Anton Mckenzie Consult Reason/Comments: Peripheral vascular disease/CHF Do you want consulting provider notified?: Yes 11/15/20 14:59 Consult Physician Urgent Consulting Provider: Fawn Cabrales Consult Reason/Comments: lower extremity wound Do you want consulting provider notified?: Yes 11/15/20 15:59 Consult Physician Urgent Consulting Provider: Konrad Brock Consult Reason/Comments: Fifth metatarsal fracture left foot Do you want consulting provider notified?: Yes Consult Physician Urgent Consulting Provider: Fawn Cabrales Consult Reason/Comments: Infection left foot Do you want consulting provider notified?: Yes 11/15/20 21:08 Consult Physician Routine Consulting Provider: Leo Gomez Consult Reason/Comments: Following Cardiogist Do you want consulting provider notified?: Yes, Notify in am 11/16/20 21:13 Consult Physician Urgent Consulting Provider: Jeovany Coello Consult Reason/Comments: left diabetic foot ulcer/ischemia , debridment , deep cultures Do you want consulting provider notified?: Yes Primary care physician: Brent Jensen Hospital Course: Final diagnosis -Infected ulcer in the left foot most, patient has severe peripheral vascular d isease -status post left fem-pop arthrectomy with angioplasty . Recent angiogram showed complete occlusion from saphenofemoral junction. -New-onset left calf Pain: Venous Doppler was negative for DVT of the left lower extremity -Severe peripheral vascular disease will obtain arterial Doppler of bilateral lower extremities. Patient quit smoking recently. Had an arterial Doppler which is showing the moderate to severe iliofemoral disease -Acute renal failure prerenal azotemia, improved -Hyponatremia: Resolved at this time. Patient had mild hypovolemic hyponatremia on admission. -Congestive heart failure chronic systolic dysfunction EF of around 20-25%, this EF improved on the repeat echocardiogram to around 35-40% . Not in acute exacerbation -Leukocytosis secondary to infection -Type 2 diabetes mellitus -Coronary artery disease -Hyperlipidemia -COPD without any acute exacerbation -DVT prophylaxis Discharge disposition Patient is being discharged in a stable condition with guarded prognosis to home. Patient will follow-up with Dr. Jensen in the outpatient setting upon discharge. Patient is to follow up with Dr. Coello at the wound care center on Saturday. Patient will continue on oral Augmentin twice daily for the next 10 days. Patient also instructed to follow-up with Dr. Mckenzie outpatient. Total time taken is greater than 35 minutes. Hospital course 70-year-old female with known history of peripheral vascular disease and diabetes mellitus came in with the complaints of an ulcer in the left foot dorsal aspect little distracted to ankle joint, patient is getting admitted for infection of this ulcer. Patient has a large wound probably stage II to 3 ulcer. Patient does have cold and clammy extremities usually follows up with Dr. Mckenzie for peripheral vascular disease and Dr. Gomez for cardiology. Patient was comparing of beer sharp pain. Patient ulcer has been there for about a month. Patient denied any fever chills. Patient does have history of severe c ardiomyopathy with EF of her on the 20% patient does have bilateral lower leg swelling patient denied any increased shortness of breath chest x-ray did not show any pulmonary edema patient was actually hypotensive and received about 3 L of IV normal saline in ER blood pressure improved after that. Because of hypotension not starting him on any IV Lasix although patient does have increasing pedal edema. 11/16/2020 Patient of pedal edema actually improved patient BNP is only 2200 doesn't have any significant elevated JVD patient blood pressure is better patient was resumed on his home dose of ANDREEA inhibitor. 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 Patient will be evaluated by vascular surgery. Patient had a foot x-ray which apparently showed fifth metatarsal fracture for which no further intervention been is being recommended by orthopedic surgery. His creatinine did improve to 1.26 baseline is around 0.7 sodium and potassium did improve as well. 11/17/2020 Patient doesn't have any significant pedal edema at this time patient had a repeat echocardiogram which were improved ejection fraction from 20% to 35-40%. Patient is presently on the Unasyn and vancomycin. 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 I don't have the official report of the angiogram yet 11/18/2020 Discussed with vascular surgery and infectious disease at length. Vascular surgery will discuss with Dr. Mckenzie regarding earlier intervention as compared to planned intervention for his peripheral vascular disease which is next week. Patient wound is mostly dry because of that reason vascular surgeries not recommending debridement. In waiting for the Wound cultures as well. 11/19/2020 Patient will undergo angioplasty for left lower limb, severe peripheral vascular disease on Saturday.Patient's oxygen saturations are bit low today patient will be given 1 dose of Lasix. And a chest x-ray. Wound cultures are positive for strep agalactiae. Infectious disease is managing the antibiotics patient is presently on Unasyn probably can be switched to Keflex or ceftezolin. 11/20/2020 Patient is clinically doing well no overt heart failure on the chest x-ray. 11/21/2020 Patient will undergo angioplasty on Saturday. Patient will be continued on IV Unasyn. Patient has streptococci in the wound cultures. Patient is comparing of calf pain which is new. Often a Doppler of the left the lower extremity to rule out any DVT. Patient is presently on heparin for DVT prophylaxis. 11/22/2020 Patient is seen and evaluated this morning with no acute overnight issues. Patient continues to have left leg discomfort with left foot swelling and is being closely monitored. Patient is scheduled to undergo angioplasty with Dr. Mckenzie tomorrow. Patient is maintained on IV antibiotics in the form of Unasyn and will continue at this time. Infectious disease also following. Patient underwent venous Doppler of the left lower extremity which was negative for DVT. Will await surgical report. Will also discuss with infectious disease about the possibility of IV antibiotic therapy in the outpatient setting. 11/23/2020 Patient is seen in follow-up this morning with no acute overnight issues. Patient is scheduled to undergo left fem-pop arthrectomy with angioplasty with Dr. Mckenzie today. Multiple medical consultations including infectious disease and cardiology following. Patient is maintained on IV antibiotics in the form of Unasyn and will continue at this time. Currently awaiting this procedure today for further recommendations regarding antibiotic therapy in the outpatient setting for the left diabetic foot ulcer with surrounding cellulitis. Creatinine slightly elevated at 1.1 and will continue to monitor closely. Patient was maintained on Proventil and aspirin in the outpatient setting and will discuss with cardiology moving forward. Awaiting surgical report. Currently no reports of chest pain, shortness of breath, or palpitations. Patient is afebrile. No reports of nausea or vomiting and patient is tolerating diet. 11/24/2020 Patient is seen and evaluated in follow-up status post arthrectomy with Dr. Mckenzie yesterday. Patient is refusing a PICC line and IV antibiotic therapy and is being followed by infectious disease. Patient will follow with Dr. Coello in the outpatient setting and has a scheduled appointment this Saturday. Patient will continue on oral antibiotics in the form of Augmentin twice daily for the next 10 days. Patient will need follow-up with the wound care center along with cardiology outpatient. Currently no reports of chest pain, shortness of breath, or palpitations. Patient is afebrile. No reports of nausea or vomiting and patient is tolerating diet. On exam vital signs are stable. Cardio S1, S2 are muffled. Respiratory system shows diminished breath sounds at the bases with no wheezing or rhonchi noted. Abdomen is soft and nontender. Nervous system shows no focal deficits. Please refer to medication reconciliation sheet for a list of medications. Patient Condition at Discharge: Fair Plan - Discharge Summary Discharge Rx Participant: No New Discharge Prescriptions: New Spironolactone [Aldactone] 25 mg PO DAILY 30 Days #30 tab Amoxic-Pot Clav 875-125Mg [Augmentin 875-125] 1 tab PO BID 10 Days #20 tab Continue HYDROcodone/APAP 10-325MG [Gracey 10-325] 1 tab PO Q4HR PRN PRN Reason: Pain glipiZIDE [Glucotrol XL] 10 mg PO BID Ticagrelor [Brilinta] 90 mg PO BID 30 Days #60 tab Spironolactone [Aldactone] 25 mg PO DAILY #30 tab Aspirin 81 mg PO DAILY #30 chew Potassium Chloride ER [K-Dur 20] 20 meq PO DAILY #30 tab.er.prt Furosemide [Lasix] 40 mg PO DAILY #30 tab Atorvastatin [Lipitor] 80 mg PO HS #30 tab lisinopriL [Zestril] 5 mg PO DAILY #30 tab Pantoprazole [Protonix] 40 mg PO AC-BID #60 tablet. ALPRAZolam [Xanax] 1 mg PO Q12H PRN PRN Reason: Anxiety Amiodarone [Cordarone] 200 mg PO DAILY Discontinued Clindamycin HCl 300 mg PO Q12HR Metoprolol Tartrate [Lopressor] 12.5 mg PO DAILY Discharge Medication List HYDROcodone/APAP 10-325MG [Gracey 10-325] 1 tab PO Q4HR PRN 04/11/15 [History] glipiZIDE [Glucotrol XL] 10 mg PO BID 03/05/20 [History] Ticagrelor [Brilinta] 90 mg PO BID 30 Days #60 tab 03/07/20 [Rx] Aspirin 81 mg PO DAILY #30 chew 03/09/20 [Rx] Atorvastatin [Lipitor] 80 mg PO HS #30 tab 03/09/20 [Rx] Furosemide [Lasix] 40 mg PO DAILY #30 tab 03/09/20 [Rx] Potassium Chloride ER [K-Dur 20] 20 meq PO DAILY #30 tab.er.prt 03/09/20 [Rx] Spironolactone [Aldactone] 25 mg PO DAILY #30 tab 03/09/20 [Rx] lisinopriL [Zestril] 5 mg PO DAILY #30 tab 03/09/20 [Rx] Pantoprazole [Protonix] 40 mg PO AC-BID #60 tablet.dr 03/17/20 [Rx] ALPRAZolam [Xanax] 1 mg PO Q12H PRN 11/15/20 [History] Amiodarone [Cordarone] 200 mg PO DAILY 11/15/20 [History] Amoxic-Pot Clav 875-125Mg [Augmentin 875-125] 1 tab PO BID 10 Days #20 tab 11/24/20 [Rx] Spironolactone [Aldactone] 25 mg PO DAILY 30 Days #30 tab 11/24/20 [Rx] Follow up Appointment(s)/Referral(s): Bernt Jensen III, MD [Primary Care Provider] - 11/29/20 11:00 am [facility], [NON-STAFF] - [facility],Infusion [NON-STAFF] - (Will supply the iv antibiotics for home) Jeovany Coello MD [STAFF PHYSICIAN] - 11/28/20 3:15 pm (to see pt at wound clinic on saturday ) Patient Instructions/Handouts: Peripheral Vascular Angioplasty (DC) Activity/Diet/Wound Care/Special Instructions: Activity Limited until follow-up Follow-up with Dr. Coello in the wound care center this Saturday Follow-up with cardiology outpatient Continue current diet Continue to monitor blood sugars closely and keep a diary for primary care follow-up Continue heart healthy consistent carb diet Discharge Disposition: HOME WITH HOME HEALTH SERVICES
== END 2020-11-24 15:13 | disposition home health service (06) | DRG 629 ==
LOC: EC 12:18 → 3SCARD 15:59
PROVIDERS: ADMIT Internal Medicine; ATTEND Internal Medicine
PROC: 047N34Z Dilation of Left Popliteal Artery with Drug-eluting Intraluminal Device, Percutaneous Approach (ICD-10-PCS; 2020-11-23)
PROC: 047L3EZ Dilation of Left Femoral Artery with Two Intraluminal Devices, Percutaneous Approach (ICD-10-PCS; 2020-11-23)
PROC: B41G1ZZ Fluoroscopy of Left Lower Extremity Arteries using Low Osmolar Contrast (ICD-10-PCS; 2020-11-23)
PROC: B41F1ZZ Fluoroscopy of Right Lower Extremity Arteries using Low Osmolar Contrast (ICD-10-PCS; 2020-11-23)
PROC: 04CN3ZZ Extirpation of Matter from Left Popliteal Artery, Percutaneous Approach (ICD-10-PCS; principal; 2020-11-23 13:30)
DX: E11.621 Type 2 diabetes mellitus with foot ulcer (principal); E87.1 Hypo-osmolality and hyponatremia; I50.22 Chronic systolic (congestive) heart failure; L03.116 Cellulitis of left lower limb; I25.2 Old myocardial infarction; Z79.82 Long term (current) use of aspirin; Z79.84 Long term (current) use of oral hypoglycemic drugs; I25.10 Atherosclerotic heart disease of native coronary artery without angina pectoris; E78.5 Hyperlipidemia, unspecified; I11.0 Hypertensive heart disease with heart failure; Z95.5 Presence of coronary angioplasty implant and graft; Z87.891 Personal history of nicotine dependence; R00.1 Bradycardia, unspecified; N17.9 Acute kidney failure, unspecified; S92.355A Nondisplaced fracture of fifth metatarsal bone, left foot, initial encounter for closed fracture; X58.XXXA Exposure to other specified factors, initial encounter; I95.9 Hypotension, unspecified; I25.5 Ischemic cardiomyopathy; Z79.02 Long term (current) use of antithrombotics/antiplatelets; J44.9 Chronic obstructive pulmonary disease, unspecified; E86.1 Hypovolemia; I77.1 Stricture of artery; I99.8 Other disorder of circulatory system; B95.4 Other streptococcus as the cause of diseases classified elsewhere; I70.202 Unspecified atherosclerosis of native arteries of extremities, left leg; E11.628 Type 2 diabetes mellitus with other skin complications; Z20.822 Contact with and (suspected) exposure to COVID-19; E11.51 Type 2 diabetes mellitus with diabetic peripheral angiopathy without gangrene
CPT/HCPCS: 36200; 36415; 37227; 71045; 71046; 75710; 80048; 80053; 80202; 81003; 83605; 83735; 83880; 84484; 85025; 85027; 85610; 85652; 85730; 86140; 87040; 87070; 87075; 87205; 87635; 93005; 93306; 93923

== ENCOUNTER 2021-06-21 08:08 | Day surgery (SDC) | payer MEDICARE ==
[2021-06-19 16:01] VITALS: BMI 23.7
[~2021-06-21 08:08] MED LIST: ALPRAZolam 0.25 MG TAB PO PRN; ASPIRIN 325 MG TAB PO PRN; SODIUM CHLORIDE 0.9% 1,000 ML in EMPTY BAG 1 BAG IV ONE
[2021-06-21] MEDS ORDERED: ASPIRIN 81 MG ONE (08:28)
[2021-06-21 08:45] LABS: Glucose,Whole Blood 146 mg/dL (75-99)
[2021-06-21 08:54] LABS: Basophils # (A) 0.1 k/uL (0-0.2); Basophils % (A) 1 %; Eosinophils # (A) 0.2 k/uL (0-0.7); Eosinophils % (A) 2 %; HCT 35.8 % (39.0-53.0); HGB 12.2 gm/dL (13.0-17.5); Lymphocytes # (A) 2.7 k/uL (1.0-4.8); Lymphocytes % (A) 25 %; MCHC 34.2 g/dL (31.0-37.0); MCV 93.7 fL (80.0-100.0); Mean Platelet Volume 7.5; Monocytes # (A) 0.5 k/uL (0-1.0); Monocytes % (A) 5 %; Neutrophils # (A) 7.3 k/uL (1.3-7.7); Neutrophils % (A) 66 %; Platelet Count 203 k/uL (150-450); RBC 3.82 m/uL (4.30-5.90); RDW 15.5 % (11.5-15.5)
[2021-06-21] MEDS ORDERED: METOPROLOL SUCCINATE (ER) 25 MG TAB.ER.24H PO STA (09:13)
[2021-06-21 09:15] LABS: African American GFR (CKD) >90 (>60 ml/min/1.73 sqM); Anion Gap 8 mmol/L; Blood Urea Nitrogen 20 mg/dL (9-20); Calcium 9.2 mg/dL (8.4-10.2); Carbon Dioxide 27 mmol/L (22-30); Chloride 104 mmol/L (98-107); Glucose 161 mg/dL (74-99); Non-African American GFR(CKD) >90 (>60 ml/min/1.73 sqM); Potassium 4.1 mmol/L (3.5-5.1); Sodium 139 mmol/L (137-145)
[2021-06-21] MEDS ORDERED: SODIUM CHLORIDE 0.9% 500 ML 500 ML with niCARdipine 6.25 MG, NITROGLYCERIN-D5W PMX 0.05... IV ONE ×4 (15:16)
[2021-06-21] MEDS ORDERED: MIDAZOLAM 2 MG/2 ML VIAL IV ONE (15:19)
[2021-06-21] MEDS: fentaNYL (PF) 50 MCG/ML 2 ML AMP IV ONE ×5 (15:19→16:54)
[2021-06-21] MEDS: LIDOCAINE 1% INJ 10MG/ML (20 ML MDV) SQ ONE ×3 (15:24→16:26)
[2021-06-21] MEDS ORDERED: HEPARIN SODIUM 1,000 UN/ML (10ML VL) IV ONE (15:33)
[2021-06-21] MEDS ORDERED: HYDROmorphone 1 MG/ML 1 ML SYRINGE IVP ONE (15:40)
[2021-06-21] MEDS: MIDAZOLAM 2 MG/2 ML VIAL IV ONE ×2 (15:52→17:19)
[2021-06-21] MEDS ORDERED: HYDROmorphone 0.5 MG/0.5 ML SYRINGE IVP ONE (17:04)
[2021-06-21] MEDS: niCARdipine Syringe (1,000 mcg/10 mL) INTRAARTER ONE ×2 (17:09→17:19)
[2021-06-21] MEDS: NITROGLYCERIN 1000MCG/10ML SYRINGE INTRAARTER ONE ×2 (17:09→17:19)
[2021-06-21] MEDS ORDERED: ALPRAZolam 1 MG TAB PO PRN (17:48)
[2021-06-21] MEDS ORDERED: HYDROcodone/APAP 10-325MG 1 EACH TAB PO PRN (17:48)
[2021-06-21] MEDS ORDERED: TICAGRELOR 90 MG TAB PO ONE (17:49)
[2021-06-21] MEDS ORDERED: SODIUM CHLORIDE 0.9% 1,000 ML IV ONE (17:50)
[2021-06-21] MEDS ORDERED: IOPAMIDOL-250 100ML BTL INTRAARTER ONE (17:50)
[2021-06-21] MEDS ORDERED: SODIUM CHLORIDE 0.9% 1,000 ML in EMPTY BAG 1 BAG IV SCH (18:00)
[2021-06-21] MEDS ORDERED: ATORVASTATIN 80 MG TAB PO SCH (21:00)
[2021-06-21] MEDS ORDERED: ATROPINE SULFATE 0.1 MG/ML 10ML SYRINGE ONE (22:39)
[2021-06-21 23:00] VITALS: RESP 16
--- NOTE | 2021-06-22 06:53 | IR ---
EXAMINATION TYPE: IR stent intravas non coronary DATE OF EXAM: 06/21/2021 CLINICAL HISTORY: Right leg pain. Peripheral vascular disease. TECHNIQUE: Fluoroscopy. COMPARISON: None. FINDINGS: Fluoroscopic guidance was provided during right lower extremity angiogram and angioplasty procedure performed by Dr. Mckenzie. A total of 46 minutes of fluoroscopic time was utilized during the procedure and 495 spot images was acquired. Please refer to procedure note for further details if nec essary. IMPRESSION: As Above.
[2021-06-22] MEDS ORDERED: AMIODARONE 100 MG TAB PO SCH (09:00)
[2021-06-22] MEDS ORDERED: METOPROLOL SUCCINATE (ER) 25 MG TAB.ER.24H PO SCH (09:00)
[2021-06-22] MEDS ORDERED: TICAGRELOR 90 MG TAB PO SCH (09:00)
[2021-06-22] MEDS ORDERED: ASPIRIN 81 MG PO SCH (09:00)
--- NOTE | 2021-06-22 11:04 | AN ---
ANGIOGRAPHY REPORT DATE OF SERVICE: June 21, 2021. PERFORMING PHYSICIAN: Anton Mckenzie MD. PROCEDURE PERFORMED: 1. Successful stenting of the right SFA using 7.0 x 140 and 7.0 x 140 and 6.0 x 140 mm Zilver PTX drug-coated stent. 2. Successful stenting of the right popliteal using 6 x 100 mm Zilver PTX drug-coated stent. 3. Successful angioplasty of the tibioperoneal trunk using 4 x 100 mm balloon. 4. Intravascular ultrasound (IVUS) of the right common femoral artery and right SFA and right popliteal as well as tibioperoneal trunk. 5. Selective left common femoral artery angiogram. INDICATION: CLI of the right foot. COMPLICATION: None. LEVEL OF SEDATION: Moderate with sedation length of 135 minutes. PROCEDURE DESCRIPTION: After obtaining an informed consent, the patient was brought to the cardiac casting house laborer. The left common femoral artery was cannulated using micropuncture technique under ultrasound guidance, the micropuncture wire passed easily. Then I placed a 6-Armenian 70 cm Raabe sheath at the left common femoral artery. Anticoagulation was initiated using heparin with continuous ACT monitoring throughout the procedure. Subsequently, I did select the right profunda using a 035 stiff Glidewire with the backup support of 5-Armenian RIM catheter. After that, I did right lower extremity angiogram which showed extensive peripheral arterial disease with occluded right SFA and right popliteal and right tibioperoneal trunk and severe snsbo-flq-[id number] disease with only open PT and peroneal. Subsequently, I did attempted crossing the EXPLOSIVE ORDNANCE DISPOSAL TECHNICIAN in antegrade fashion, but I was unsuccessful, but I was able crossing the EXPLOSIVE ORDNANCE DISPOSAL TECHNICIAN in a retrograde technique after I accessed the right posterior tibial artery. Intravascular ultrasound IVUS was performed and revealed that I was in subintimal space and for that reason I decided to do balloon angioplasty. Initially a size 4 mm balloon and subsequently 5 mm balloon. The following angiogram showed inadequate angiographic results. At that point, I decided to stent the whole segments of the SFA and popliteal. I placed a total of 4 stents. Three Zilver PTX drug-coated stent in the right SFA and 1 drug coated stent in the right popliteal. Balloon angioplasty for the tibioperoneal trunk was performed using 4 mm balloon. The final angiogram showed excellent angiographic results and the procedure was completed without any complication. After that, I did left common femoral artery angiogram. The procedure was completed without any complication. Please note that I did exchange my long sheath into short sheath using 0.035 stiff glide wire. The procedure at that point was completed without any complication. POSTPROCEDURE MANAGEMENT: 1. Dual anti-platelet therapy. 2. Aggressive cholesterol control. 3. Risk factor modifications. 4. Followup with the patient. MMNELSON / BRYSONN: [id number] /
[2021-06-22 13:09] VITALS: BP 166/77; PULSE 77; TEMP 98.6
--- NOTE | 2021-06-22 16:20 | DS ---
DISCHARGE SUMMARY DATE OF ADMISSION: 06/21/2021 DATE OF DISCHARGE: 06/22/2021 BRIEF HISTORY: This is a very pleasant 71-year-old gentleman who underwent yesterday successful recanalizing of chronically occluded right SFA and right popliteal on the long segment with a very long and extensive procedure with good angiographic results by the end. He was seen this morning. The left groin appeared to be soft and nontender and without any bruises. The patient is going to be discharged home on dual anti-platelet therapy to follow up with Dr. Gomez and Dr. Coello in the office. MMNEDL / IJN: [id number] /
== END 2021-06-22 12:59 | disposition home or self-care (01) ==
LOC: CATHCVL 08:08 → 3SCARD 17:36 → CATHCVL 06-22 12:59
PROVIDERS: ATTEND Internal Medicine Interventional Cardiology
DX: E10.52 Type 1 diabetes mellitus with diabetic peripheral angiopathy with gangrene (principal); L97.514 Non-pressure chronic ulcer of other part of right foot with necrosis of bone; I70.261 Atherosclerosis of native arteries of extremities with gangrene, right leg; J44.9 Chronic obstructive pulmonary disease, unspecified; I10 Essential (primary) hypertension; Z20.822 Contact with and (suspected) exposure to COVID-19; E78.00 Pure hypercholesterolemia, unspecified; E78.5 Hyperlipidemia, unspecified; I25.2 Old myocardial infarction; R57.1 Hypovolemic shock; Z98.890 Other specified postprocedural states; Z98.42 Cataract extraction status, left eye; Z98.41 Cataract extraction status, right eye; Z89.512 Acquired absence of left leg below knee; Z87.891 Personal history of nicotine dependence; Z79.84 Long term (current) use of oral hypoglycemic drugs; Z79.899 Other long term (current) drug therapy
CPT/HCPCS: 37226; 37252; 80048; 85025; 87635; C1894 ×3; C1769 ×5; C1725 ×4; C1753; C1874 ×2; J2250; J2001; J3010; J1644 ×2; J1170 ×2; Q9966

== ENCOUNTER → 2023-10-28 | Outpatient (CLI) | payer MEDICARE ==
--- NOTE | 2023-10-28 16:42 | CTL ---
EXAMINATION TYPE: CT Low Dose Lung DATE OF EXAM ORDERED: 10/28/2023 HISTORY: Lung cancer screening CT DLP: 145.[address] CTDI: 3.6 mGy Automated exposure control for dose reduction was used. COMPARISON: None TECHNIQUE: Low dose computed tomography scan was performed through the chest at 1 mm thick sections a nd reconstructed images in multiple planes at 1 mm and [address] DIAGNOSTIC QUALITY: Satisfactory FINDINGS: There are no suspicious lung masses or nodules. There is no abnormal airspace/consolidative density. There is a single focal bandlike interstitial de nsity in the right lung base consistent with mild interstitial scarring. There is no pleural effusion, pleural thickening or pneumothorax. There is mild elevation left hemidi aphragm. The great vessels chest are normal and is no mediastinal, hilar or axillary adenopathy. Limited scanning through the upper abdomen reveals no gross abnormality. No focal osseous lesions are seen. IMPRESSION: 1. BI-RADS Category 1 negative. Continue routine screening intervals 2. Mild elevation left hemidiaphragm. 3. No acute cardiopulmonary disease.
== END | disposition home or self-care (01) ==
LOC: RADCTMAIN 13:09
PROVIDERS: ATTEND Family Medicine
DX: Z12.2 Encounter for screening for malignant neoplasm of respiratory organs (principal); J98.6 Disorders of diaphragm; Z87.891 Personal history of nicotine dependence
CPT/HCPCS: 71271